=== PATIENT | male | born 1990 ===

== ENCOUNTER 2020-09-03 15:12 | Emergency (ER) | payer MEDICAID, SELFPAY ==
[2020-09-03] VITALS (7 sets, daily range): BP systolic 119–163; BP diastolic 57–80; PULSE 81–103; RESP 20; TEMP 36.4–37.5; O2SAT 99; BMI 80.6
--- NOTE | 2020-09-03 | CT_ITS ---
EXAMINATION: CT ABDOMEN AND PELVIS WITH CONTRAST CLINICAL INFORMATION: Abdominal pain. COMPARISON: CT abdomen 05/13/2020, 03/05/2020, 06/29/2019, 04/05/2018 and multiple others. TECHNIQUE: Multidetector volumetric images were obtained from the superior aspect of the liver through the pubic symphysis following administration 85 mL of Omnipaque 350 intravenous contrast. Sagittal and coronal reformatted images were obtained on the technologist's workstation. Oral Contrast: No. This CT examination was performed using dose optimization techniques as appropriate, variously including the following: *Automated exposure control. *Adjustment of mA and/or kV according to patient size (this includes techniques or standardized protocols for targeted exams where dose is matched to indication/reason for exam; i.e. extremities or head). *Use of iterative reconstruction technique. DLP: 741 mGy-cm FINDINGS: LUNG BASES: The visualized lung bases are unremarkable aside from the presence of a hiatal hernia. LIVER, GALLBLADDER, AND BILIARY TREE: The liver is normal in size, shape, and attenuation. No focal hepatic lesion or biliary ductal dilatation is present. The gallbladder is unremarkable with no evidence of radiopaque gallstones, gallbladder wall thickening, or obvious pericholecystic inflammatory changes. PANCREAS: Unremarkable. SPLEEN: Unremarkable. ADRENAL GLANDS: Unremarkable. KIDNEYS AND URETERS: The kidneys are normal in size, shape, and attenuation. No hydronephrosis, hydroureter, or calculi seen. No perinephric stranding. BLADDER: Unremarkable. GASTROINTESTINAL TRACT: The transverse colon and hepatic flexure are tubular in appearance and completely collapsed without any stool contents. No significant inflammatory changes are seen in the pericolonic fat. At the time of the prior study, the descending colon had a similar appearance but now appears normal. In addition, submucosal fat is present throughout a large portion of the colon. These findings could be consistent with previous colitis but no active inflammation or inflammatory changes are present at this time. The small and large bowel are otherwise unremarkable. The appendix appears to have been removed. ABDOMINAL WALL: No significant hernia is appreciated. LYMPH NODES: No retroperitoneal lymphadenopathy. Some small lymph nodes are noted in the mesentery. VASCULAR: Unremarkable. PELVIC VISCERA: Prostate and seminal vesicles appear normal. OSSEOUS STRUCTURES: Unremarkable. IMPRESSION: A definite cause for the acute abdominal pain has not been found. There is evidence of colon chronic colitis. Incidental note made of a hiatal hernia and appendectomy.
[2020-09-03 16:03] LABS: Glucose, Whole Blood 282 mg/dL (60-115)
--- NOTE | 2020-09-03 18:18 | ED.ABDPAIN ---
HPI - Abdominal Pain General Chief Complaint: Nausea/Vomiting/Diarrhea Stated Complaint: ABD PAIN/VOMITING Time Seen by Provider: 09/03/20 17:30 Source: patient Mode of arrival: ambulatory Limitations: no limitations History of Present Illness HPI narrative: patient presents to ED for abdominal pain, nausea, and vomiting. Patient denies any diarrhea. Patient states no fever, chills, flank pain. Patient states no recent travel outside the country. Patient denies anyone else at home having similar symptoms. MD elicited complaint: abdominal pain Pain Consistency: constant Location: diffuse Severity: moderate Quality: cramping and sharp Associated symptoms: nausea and vomiting Related Data Home Medications Medication Instructions Recorded Confirmed metoclopramide HCl [Reglan] 10 mg PO Q6H PRN 09/03/20 09/03/20 omeprazole magnesium 20 mg PO BID 09/03/20 09/03/20 subcutaneous insulin pump 09/03/20 09/03/20 [Accu-Chek Spirit Insulin Pump] subcutaneous insulin pump [Omnipod 09/03/20 09/03/20 Insulin Management] Previous Rx's Medication Instructions Recorded ondansetron HCl [Zofran] 4 mg PO Q8H PRN #10 tab 09/04/20 tramadol 50 mg PO Q6H PRN #12 tab 09/04/20 Allergies Allergy/AdvReac Type Severity Reaction Status Date / Time No Known Allergies Allergy Verified 09/03/20 15:25 Review of Systems Review of Systems Yes all other systems are reviewed and are negative Constitutional: Reports no additional constitutional complaints Eyes: Reports no additional eye complaints Reports system reviewed and no additional complaints, except as documented Cardiovascular: Reports no additional cardiovascular complaints Respiratory: Reports as per HPI and Reports no additional respiratory complaints Gastrointestinal: Reports abdominal pain, Denies belching, Denies melena, Denies hematochezia, Denies diarrhea, Reports nausea and Reports vomiting Genitourinary: Reports no additional male genitourinary complaints Musculoskeletal: Reports no additional musculoskeletal complaints Reports system reviewed and no additional complaints, except as documented Psychiatric: Reports no additional psychiatric complaints Physical Exam Vital Signs and I&O and Narrative: Vital Signs and I&O: Vital Signs Temp 98.7 F 09/04/20 03:25 Pulse 117 H 09/04/20 03:25 Resp 15 09/04/20 03:25 BP 140/76 H 09/04/20 03:25 Pulse Ox 97 09/04/20 03:25 Intake & Output 09/03/20 09/03/20 09/04/20 06:59 18:59 06:59 Intake Total 3000 / 3000 Balance 3000 / 3000 Weight 220 kg Intake: Intake, IV Amoun t 3000 / 3000 0.9 % Sodium C hloride 1,000 ml 3000 / 3000 @ 999 mls/hr I VCONT .Q1H1M STA Rx#:[id number] Body Mass Index 80.6 Const: General: cooperative, healthy appearing, comfortable, no acute distress, well developed, alert and awake Orientation/consciousness: patient oriented x3 HENMT: Head: Yes normal to inspection Eyes: General: appearance normal, both eyes and all related structures Neck: Neck: Yes normal visual inspection, Yes full ROM, No anterior neck swelling, No positive Brudzinski's sign and No positive Kernig's sign Chest: Chest palpation & inspection: normal inspection of the chest, normal palpation of entire chest wall and normal inspection of the chest Resp: Effort & Inspection: normal respiratory effort, able to speak in complete sentences, normal respiratory pattern, no audible wheezes and no cough Auscultation: clear to auscultation bilaterally Cardio: Jugular venous distension: no JVD Rate: regular rate Heart sounds: S1 normal heart sound present and S2 normal heart sound present GI: Inspection: No Kehr's sign positive Palpation (GI): Tenderness to palpation present (GI) (diffuse) Percussion: Yes normal to percussion Auscultation: normal bowel sounds : General: Yes no CVA tenderness Back/Spine/Pelvis: Back: no CVA tenderness, No mass, No erythema, No warmth, No sacral edema, No ecchymosis and No back tenderness Skin: General skin exam: no rashes or lesions noted Neuro: General: patient oriented x3, gait normal and CN's II-XI intact bilaterally Cranial nerves: Yes CN's II-XII intact bilaterally Extrem: General: Yes normal to inspection and Yes full ROM Psych: Appearance: grossly normal and well kempt Mental Status: mental status grossly normal Speech and movement: Normal speech and movement present Affect: normal affect Course Course Course Narrative: Patient has diffuse abdominal pain. Patient will be treated as possible gastritis exacerbation. Patient given GI cocktail. Pain does not improve patient most likely get abdominal CT scan to make sure there is no abdominal etiology. Patient also ordered Zofran Reevaluation(s) Reevaluation #1: patient's white blood cell count [id number]. CT scan does not show any acute infection. UA negative for any infection. Discussed case with Dr. Castle and he states most likely patient has gastroparesis from his diabetes. Patient states he has had this episode before with gastroparesis due to diabetes. Exam was not believe patient is having septic episode due to presently having no source of infection. Presently lactate, blood culture, antibiotics were cancel. Will give patient 2 more bags of fluid and repeat labs and will order lactic acid. Time: 23:55 Reevaluation #2: patient's white blood cell count improved and decreased to 17,000. Patient states pain feel better. Patient passed p.o. challenge. Case spoke with Dr. Abdifatah Ricardo the hospitalist on-call. He came and evaluated patient. He states patient can be discharged and states this is due to patient's gastroparesis. He states vital signs are improving, white blood cell count is improving, and abdomen negative any guarding, or rigidity. Lactic acidosis will be sent. Time: 02:40 Reevaluation #3: Patient's lactic acid came back negative. Presently there is no source of an infection. Patient's elevated white blood cell count due to dehydration caused by gastroparesis as an occurring for the past 2 days. Once again patient passed p.o. challenge. Patient will be discharged with Zofran and pain medication. Patient will be given Kayexalate for potassium 5.3 kidney function normal. Time: 03:09 Additional Reevaluation(s): patient's lactic acid negative. Patient is safe for discharge MDM - Abdominal Pain MDM Narrative Medical decision making narrative: Patient's symptoms were due to gastroparesis. Patient is not in DKA. Lactic acid negative. CT scan does not show any acute abdominal changes. UA negative for infection. Patient is safe for discharge. Lab Data Result diagrams: 09/04/20 02:08 09/03/20 18:23 Labs: Lab Results 09/03/20 09/03/20 09/03/20 Range/Units 15:59 18:23 18:23 WBC 24.8 H (4.8-10.8) X10*3/uL RBC 5.21 (4.60-5.80) X10*6/uL Hgb 14.9 (14.0-18.0) g/dl Hct 44.1 (42-52) % MCV 84.6 (80-98) fL MCH 28.6 (27.0-33.0) pg MCHC 33.8 (31.0-36.0) g/dl RDW 12.8 (11.0-16.0) % Plt Count 339 (160-400) X10*3/uL MPV 11.4 (9.4-12.4) fL Immature Gran % (Auto) 0.6 H (0.0-0.4) % Neut % (Auto) 92.7 H (45-73) % Lymph % (Auto) 3.3 L (20-40) % [place] % (Auto) 3.2 (2-11) % Eos % (Auto) 0.0 (0-4) % Baso % (Auto) 0.2 (0-2) % Neut # (Auto) 23.0 H (2.0-8.3) X10*3/uL Lymph # (Auto) 0.8 L (1.2-4.9) X10*3/uL [place] # (Auto) 0.8 (0.1-1.2) X10*3/uL Eos # (Auto) 0.0 (0.0-0.4) X10*3/uL Baso # (Auto) 0.1 (0.0-0.2) X10*3/uL Abs Immat Gran (auto) 0.15 H (0.00-0.03) X10*3/uL Absolute Nucleated RBC 0.000 (0.0-0.012) X10*3/uL Nucleated RBC % (auto) 0.0 (0.0-0.2) /100WBC Smear Tech's Comments VERIFIED PT 12.5 (10.8-13.0) SEC INR 1.1 (0.9-1.1) APTT 34.3 (24.1-38.0) SEC Sodium (135-145) mmol/L Potassium (3.3-5.1) mmol/l Chloride (96-108) mmol/L Carbon Dioxide (22-29) mmol/L Anion Gap (12-20) BUN (9-16) mg/dL Creatinine (0.5-1.4) mg/dL Estim Creat Clear Calc Estimated GFR POC Glucose 282 H (60-115) mg/dL Random Glucose (60-115) mg/dL Lactic Acid (0.5-2.0) mmol/L Calcium (8.4-10.2) mg/dL Total Bilirubin (0.0-1.0) mg/dL Direct Bilirubin (0.0-0.5) mg/dL AST (5-37) U/L ALT (0-40) U/L Alkaline Phosphatase (39-117) U/L Total Protein (6.5-8.0) g/dL Albumin (3.5-5.0) g/dL Lipase (8-78) U/L Urine Color Urine Appearance Urine pH (5.0-8.0) Ur Specific [place] (1.005-1.025) Urine Protein (NEG-TRACE) MG/DL Urine Glucose (UA) (NEG) MG/DL Urine Ketones (NEG) MG/DL Urine Blood (NEG) Urine Nitrite (NEG) Ur Leukocyte Esterase (NEG) Urine RBC (0) /HPF Urine WBC (0-4) /HPF Ur Squamous Epith Cells /LPF Urine Bacteria /LPF Hyaline Casts /LPF RBC Casts /LPF 09/03/20 09/03/20 09/04/20 Range/Units 18:23 22:46 02:08 WBC 17.2 H (4.8-10.8) X10*3/uL RBC 4.45 L (4.60-5.80) X10*6/uL Hgb 12.6 L (14.0-18.0) g/dl Hct 37.1 L (42-52) % MCV 83.4 (80-98) fL MCH 28.3 (27.0-33.0) pg MCHC 34.0 (31.0-36.0) g/dl RDW 13.0 (11.0-16.0) % Plt Count 286 (160-400) X10*3/uL MPV 11.2 (9.4-12.4) fL Immature Gran % (Auto) 0.3 (0.0-0.4) % Neut % (Auto) 90.2 H (45-73) % Lymph % (Auto) 5.9 L (20-40) % [place] % (Auto) 3.4 (2-11) % Eos % (Auto) 0.0 (0-4) % Baso % (Auto) 0.2 (0-2) % Neut # (Auto) 15.5 H (2.0-8.3) X10*3/uL Lymph # (Auto) 1.0 L (1.2-4.9) X10*3/uL [place] # (Auto) 0.6 (0.1-1.2) X10*3/uL Eos # (Auto) 0.0 (0.0-0.4) X10*3/uL Baso # (Auto) 0.0 (0.0-0.2) X10*3/uL Abs Immat Gran (auto) 0.06 H (0.00-0.03) X10*3/uL Absolute Nucleated RBC 0.000 (0.0-0.012) X10*3/uL Nucleated RBC % (auto) 0.0 (0.0-0.2) /100WBC Smear Tech's Comments PT (10.8-13.0) SEC INR (0.9-1.1) APTT (24.1-38.0) SEC Sodium 135 (135-145) mmol/L Potassium 5.3 H (3.3-5.1) mmol/l Chloride 100 (96-108) mmol/L Carbon Dioxide 22 (22-29) mmol/L Anion Gap 18 (12-20) BUN 17 H (9-16) mg/dL Creatinine 1.34 (0.5-1.4) mg/dL Estim Creat Clear Calc 144.9 Estimated GFR > 60 POC Glucose (60-115) mg/dL Random Glucose 297 H (60-115) mg/dL Lactic Acid (0.5-2.0) mmol/L Calcium 9.7 (8.4-10.2) mg/dL Total Bilirubin 0.5 (0.0-1.0) mg/dL Direct Bilirubin 0.2 (0.0-0.5) mg/dL AST 20 (5-37) U/L ALT 20 (0-40) U/L Alkaline Phosphatase 160 H (39-117) U/L Total Protein 7.6 (6.5-8.0) g/dL Albumin 4.0 (3.5-5.0) g/dL Lipase 4 L (8-78) U/L Urine Color YELLOW Urine Appearance CLEAR Urine pH 5.5 (5.0-8.0) Ur Specific [place] 1.010 (1.005-1.025) Urine Protein 2+ H (NEG-TRACE) MG/DL Urine Glucose (UA) 500 H (NEG) MG/DL Urine Ketones 15 (NEG) MG/DL Urine Blood 3+ H (NEG) Urine Nitrite NEG (NEG) Ur Leukocyte Esterase NEG (NEG) Urine RBC 15-29 H (0) /HPF Urine WBC 0 (0-4) /HPF Ur Squamous Epith Cells TRACE /LPF Urine Bacteria NONE /LPF Hyaline Casts 1-4 /LPF RBC Casts 1-4 /LPF 09/04/20 Range/Units 02:42 WBC (4.8-10.8) X10*3/uL RBC (4.60-5.80) X10*6/uL Hgb (14.0-18.0) g/dl Hct (42-52) % MCV (80-98) fL MCH (27.0-33.0) pg MCHC (31.0-36.0) g/dl RDW (11.0-16.0) % Plt Count (160-400) X10*3/uL MPV (9.4-12.4) fL Immature Gran % (Auto) (0.0-0.4) % Neut % (Auto) (45-73) % Lymph % (Auto) (20-40) % [place] % (Auto) (2-11) % Eos % (Auto) (0-4) % Baso % (Auto) (0-2) % Neut # (Auto) (2.0-8.3) X10*3/uL Lymph # (Auto) (1.2-4.9) X10*3/uL [place] # (Auto) (0.1-1.2) X10*3/uL Eos # (Auto) (0.0-0.4) X10*3/uL Baso # (Auto) (0.0-0.2) X10*3/uL Abs Immat Gran (auto) (0.00-0.03) X10*3/uL Absolute Nucleated RBC (0.0-0.012) X10*3/uL Nucleated RBC % (auto) (0.0-0.2) /100WBC Smear Tech's Comments PT (10.8-13.0) SEC INR (0.9-1.1) APTT (24.1-38.0) SEC Sodium (135-145) mmol/L Potassium (3.3-5.1) mmol/l Chloride (96-108) mmol/L Carbon Dioxide (22-29) mmol/L Anion Gap (12-20) BUN (9-16) mg/dL Creatinine (0.5-1.4) mg/dL Estim Creat Clear Calc Estimated GFR POC Glucose (60-115) mg/dL Random Glucose (60-115) mg/dL Lactic Acid 0.7 (0.5-2.0) mmol/L Calcium (8.4-10.2) mg/dL Total Bilirubin (0.0-1.0) mg/dL Direct Bilirubin (0.0-0.5) mg/dL AST (5-37) U/L ALT (0-40) U/L Alkaline Phosphatase (39-117) U/L Total Protein (6.5-8.0) g/dL Albumin (3.5-5.0) g/dL Lipase (8-78) U/L Urine Color Urine Appearance Urine pH (5.0-8.0) Ur Specific [place] (1.005-1.025) Urine Protein (NEG-TRACE) MG/DL Urine Glucose (UA) (NEG) MG/DL Urine Ketones (NEG) MG/DL Urine Blood (NEG) Urine Nitrite (NEG) Ur Leukocyte Esterase (NEG) Urine RBC (0) /HPF Urine WBC (0-4) /HPF Ur Squamous Epith Cells /LPF Urine Bacteria /LPF Hyaline Casts /LPF RBC Casts /LPF Discharge Plan Discharge Clinical Impression: Diabetic gastroparesis Patient Disposition: Home, Self-Care Instructions: Diabetic Gastroparesis (DC) Additional Instructions: Return to ED for any worsening abdominal pain, flank pain, fever, chills, nausea, vomiting, weakness, inability to tolerate solid food/ liquid, or any other concerning symptoms. Prescriptions: New tramadol 50 mg tablet 50 mg PO Q6H PRN (Reason: pain) Qty: 12 RF: 0 ondansetron HCl [Zofran] 4 mg tablet 4 mg PO Q8H PRN (Reason: nausea and vomiting) Qty: 10 RF: 0 No Action metoclopramide HCl [Reglan] 10 mg Tablet 10 mg PO Q6H PRN (Reason: Vomiting) RF: 0 (DME) Accu-Chek Spirit Insulin Pump Misc MISCELLANEOUS RF: 0 (DME) Omnipod Insulin Management Misc MISCELLANEOUS RF: 0 omeprazole magnesium 20 mg Capsule,Delayed Release(Dr/Ec) 20 mg PO BID RF: 0 Referrals: Name,MD Dipesh [Primary Care Provider] - 2 days ( Gastropareisis) Stand Alone Forms: Work/School Release Print Language: [place] [facility] Past Medical History Medical History (Updated 09/04/20 @ 02:42 by ROBINSON Jackson) Asthma Diabetes Gastritis Gastroparalysis Social History Social History Alcohol intake: never Smoking Status: Never smoker Use of substances other than those prescribed or required for medical reasons: Yes Substance Use Type: Marijuana Substance Use Frequency: Occasionally Last Used Substance: Days (ago) Advance Directives: No Advance Directives Information Provided: Yes
[2020-09-03 18:29] LABS: Basophils Absolute Auto 0.1 X10*3/uL (0.0-0.2); Basophils Percent Auto 0.2 % (0-2); Hematocrit 44.1 % (42-52); Hemoglobin 14.9 g/dl (14.0-18.0); Imm Gran Abs Auto 0.15 X10*3/uL (0.00-0.03); Imm Gran Pct Auto 0.6 % (0.0-0.4); Lymphocytes Absolute Auto 0.8 X10*3/uL (1.2-4.9); Lymphocytes Percent Auto 3.3 % (20-40); MANUAL DIFF FLAG SCAN; Mean Corpuscular HGB Conc 33.8 g/dl (31.0-36.0); Mean Corpuscular Hemoglobin 28.6 pg (27.0-33.0); Mean Corpuscular Volume 84.6 fL (80-98); Mean Platelet Volume 11.4 fL (9.4-12.4); Monocytes Absolute Auto 0.8 X10*3/uL (0.1-1.2); Monocytes Percent Auto 3.2 % (2-11); Neutrophils Percent Auto 92.7 % (45-73); Platelet Count 339 X10*3/uL (160-400); Red Blood Count 5.21 X10*6/uL (4.60-5.80); Red Cell Distribution Width 12.8 % (11.0-16.0); SCAN SMEAR FLAG 1; White Blood Count 24.8 X10*3/uL (4.8-10.8)
[2020-09-03 18:38] LABS: INTERNATIONAL NORM RATIO 1.1 (0.9-1.1); Prothrombin Time 12.5 SEC (10.8-13.0)
[2020-09-03 18:40] LABS: Partial Thromboplastin Time 34.3 SEC (24.1-38.0)
[2020-09-03 18:49] LABS: SLIDE REVIEW VERIFIED
[2020-09-03] MEDS: 0.9 % Sodium Chloride 1,000 ML 999 ML IVCONT (18:50)
[2020-09-03] MEDS: ondansetron HCL 4 MG/2 ML VIAL IVPUSH (18:50)
[2020-09-03] MEDS: Famotidine/PF 20 MG/2 ML VIAL IVPUSH (18:50)
[2020-09-03] MEDS: Ketorolac Tromethamine 30 MG/ML VIAL IVPUSH (18:50)
[2020-09-03 19:07] LABS: Alanine Aminotransferase 20 U/L (0-40); Alkaline Phosphatase 160 U/L (39-117); Anion Gap 18 (12-20); Aspartate Amino Transferase 20 U/L (5-37); Bilirubin Direct 0.2 mg/dL (0.0-0.5); Bilirubin Total 0.5 mg/dL (0.0-1.0); Blood Urea Nitrogen 17 mg/dL (9-16); Calcium 9.7 mg/dL (8.4-10.2); Carbon Dioxide 22 mmol/L (22-29); Chloride 100 mmol/L (96-108); Creatinine Clr Calc Pharmacy 144.9; Estimated Glomerular Filt Rate > 60; Glucose Random 297 mg/dL (60-115); Lipase 4 U/L (8-78); Potassium 5.3 mmol/l (3.3-5.1); Sodium 135 mmol/L (135-145); Total Protein 7.6 g/dL (6.5-8.0)
[2020-09-03] MEDS: iohexoL 350 MG/ML 100 ML INFUS..BTL IV (19:54)
[2020-09-03] MEDS: Morphine Sulfate 4 MG/ML CARTRIDGE IVPUSH ×2 (21:05→23:28)
[2020-09-03 22:53] LABS: Glucose Urine UA 500 MG/DL (NEG); Leukocyte Esterase Urine NEG (NEG); Nitrite Urine NEG (NEG); PH 5.5 (5.0-8.0); Urine Blood 3+ (NEG); Urine Ketones 15 MG/DL (NEG); Urine Protein 2+ MG/DL (NEG-TRACE)
[2020-09-03 23:14] LABS: Appearance Urine CLEAR; Color Urine YELLOW
[2020-09-03 23:16] LABS: Squamous Epithelial Cell Urine TRACE /LPF; WBC Urine 0 /HPF (0-4)
[2020-09-03 23:23] LABS: UACC CULT NO
[2020-09-04] MEDS: 0.9 % Sodium Chloride 1,000 ML 999 ML IVCONT ×2 (00:19)
[2020-09-04 00:22] VITALS: BP 143/76; PULSE 103; RESP 15; O2SAT 97
[2020-09-04 02:00] VITALS: BP 127/74; PULSE 106; RESP 14; TEMP 37.7; O2SAT 97
[2020-09-04 02:15] LABS: Basophils Percent Auto 0.2 % (0-2); Hematocrit 37.1 % (42-52); Hemoglobin 12.6 g/dl (14.0-18.0); Imm Gran Abs Auto 0.06 X10*3/uL (0.00-0.03); Imm Gran Pct Auto 0.3 % (0.0-0.4); Lymphocytes Percent Auto 5.9 % (20-40); MANUAL DIFF FLAG NO; Mean Corpuscular Hemoglobin 28.3 pg (27.0-33.0); Mean Corpuscular Volume 83.4 fL (80-98); Mean Platelet Volume 11.2 fL (9.4-12.4); Monocytes Absolute Auto 0.6 X10*3/uL (0.1-1.2); Monocytes Percent Auto 3.4 % (2-11); Neutrophils Absolute Auto 15.5 X10*3/uL (2.0-8.3); Neutrophils Percent Auto 90.2 % (45-73); Platelet Count 286 X10*3/uL (160-400); Red Blood Count 4.45 X10*6/uL (4.60-5.80); SCAN SMEAR FLAG 1; White Blood Count 17.2 X10*3/uL (4.8-10.8)
[2020-09-04 03:04] LABS: Lactic Acid 0.7 mmol/L (0.5-2.0)
[2020-09-04 03:25] VITALS: BP 140/76; PULSE 117; RESP 15; TEMP 37.1; O2SAT 97
[2020-09-04] MEDS: Sodium Polystyrene Sulfon/Sorb 15 GM/60 ML ORAL.SUSP 30 GM PO (03:33)
[2020-09-04] MEDS: oxyCODONE HCl Immed Release 5 MG TABLET PO (03:33)
== END 2020-09-04 03:38 | disposition home or self-care (01) ==
PROVIDERS: Physician Assistant; Emergency Provider Internal Medicine; PCP Internal Medicine Geriatric Medicine
DX: E11.43 Type 2 diabetes mellitus with diabetic autonomic (poly)neuropathy (principal); R10.9 Unspecified abdominal pain
CPT/HCPCS: 36415; 74177; 80053; 80076; 81001; 82947; 83605; 83690; 85025; 85610; 85730; 96361; 96374; 96375; 96376; 99285; J1885; J2270; J2405

== ENCOUNTER 2020-09-10 15:47 | Inpatient (IN) | payer MEDICAID, SELFPAY ==
[2020-09-10 17:07] VITALS: BP 181/97; PULSE 110; RESP 18; TEMP 37.5; O2SAT 98; BMI 36.6
--- NOTE | 2020-09-10 19:01 | ECG_ITS ---
Test Reason : NAUSEA Blood Pressure : / mmHG Vent. Rate : 107 BPM Atrial Rate : 107 BPM P-R Int : 130 ms QRS Dur : 078 ms QT Int : 356 ms P-R-T Axes : 042 033 -11 degrees QTc Int : 475 ms Sinus tachycardia Nonspecific T wave abnormality Abnormal ECG When compared with ECG of 19-NOV-2019 08:28, Inverted T waves have replaced nonspecific T wave abnormality in Inferior leads Nonspecific T wave abnormality now evident in Anterolateral leads Referred By: Anayeli Means Electronically Signed By:SUSANNAH LAKE MD
--- NOTE | 2020-09-10 19:04 | CT_ITS ---
EXAMINATION: CT ABDOMEN AND PELVIS WITHOUT CONTRAST CLINICAL INFORMATION: Abdominal pain, nausea and vomiting. COMPARISON: CT abdomen and pelvis from 09/03/2020. TECHNIQUE: Noncontrast volumetric helical CT acquisition of the abdomen and pelvis. Axial images are presented at 0.625 mm and 5 mm slice thickness. Coronal and sagittal reformatted images were generated at the technologist workstation. This CT examination was performed using dose optimization techniques as appropriate, variously including the following: *Automated exposure control *Adjustment of mA and/or kV according to patient size (this includes techniques or standardized protocols for targeted exams where dose is matched to indication/reason for exam; i.e. extremities or head) *Use of iterative reconstruction technique DLP: 752 mGy-cm. FINDINGS: LUNG BASES: Unremarkable. LIVER, GALLBLADDER, AND BILIARY TREE: The liver has normal size, shape, and attenuation. No focal hepatic lesion. The gallbladder is grossly normal; no radiopaque gallstones, wall thickening, or pericholecystic fluid. No intrahepatic or extrahepatic bile duct dilatation. PANCREAS: Normal. No evidence of pancreatic mass, edema or ductal dilatation. SPLEEN: Unremarkable. ADRENAL GLANDS: Unremarkable. KIDNEYS AND URETERS: The kidneys have normal size, shape, and attenuation. No hydroureteronephrosis, urolithiasis or perinephric fluid collection. BLADDER: Unremarkable. BOWEL AND PERITONEUM: Stomach and small bowel are unremarkable. The appendix is surgically absent. No pericolonic fat stranding or colonic wall thickening. No evidence of acute inflammation or obstruction along the gastrointestinal tract. No ascites or pneumoperitoneum. ABDOMINAL WALL: The foci of gas in subcutaneous tissues of the right abdominal wall are likely from recent medication injection. LYMPH NODES: No pathologic sized lymph nodes in the abdomen or pelvis. No inguinal lymphadenopathy. VASCULATURE: Unremarkable. PELVIC VISCERA: Prostate gland and seminal vesicles are normal. No pelvic mass or free fluid. MUSCULOSKELETAL: Unremarkable. IMPRESSION: No acute imaging abnormalities in the abdomen or pelvis. No inflammatory change or obstruction along the gastrointestinal tract. No specific source of pain is identified.
--- NOTE | 2020-09-10 19:12 | ED_ITS ---
HPI - Nausea/Vomiting/Diarrhea General Chief complaint: Abdominal Pain Stated complaint: Vomiting Time Seen by Provider: 09/10/20 19:01 Source: patient Mode of arrival: ambulatory Limitations: no limitations History of Present Illness HPI Narrative: 30-year-old male presents with nausea, vomiting, abdominal pain, abdominal distention for 12 days. He is a type 1 diabetic and was seen at [facility] and [facility] over the past week. He states that he is unable to take any other medications as every time he eats or drinks he vomits immediately. He has not been able to eat or drink over the past several days, feels weak, as intermittent fevers and chills, and 10/10 pain. His blood sugars have been running in the 140s. he denies chest pressure, palpitations, edema, trauma altered mental status, dysuria, hematuria, and changes in vision. MD elicited complaint: nausea, vomiting and abdominal pain Pertinent past history: other ( type 1 diabetes) Onset (ago): day(s) (12 days) Description of vomiting: watery and bilious Associated nausea: Yes Associated abdominal pain: Yes Location of pain: diffuse Pain consistency: constant Severity: severe Pain scale (0-10): 10 Quality: cramping, aching and constant Exacerbating factors: eating, vomiting, movement and exertion Relieving factors: none Context: history of abdominal surgery Associated symptoms: fever/chills, loss of appetite, malaise, nausea/vomiting, weakness and decreased urine output Treatment prior to arrival: other ( antibiotics, pain management) Related Data Home Medications Medication Instructions Recorded Confirmed metoclopramide HCl [Reglan] 10 mg PO Q6H PRN 09/03/20 09/03/20 omeprazole magnesium 20 mg PO BID 09/03/20 09/03/20 subcutaneous insulin pump 09/03/20 09/03/20 [Accu-Chek Spirit Insulin Pump] subcutaneous insulin pump [Omnipod 09/03/20 09/03/20 Insulin Management] Previous Rx's Medication Instructions Recorded ondansetron HCl [Zofran] 4 mg PO Q8H PRN #10 tab 09/04/20 tramadol 50 mg PO Q6H PRN #12 tab 09/04/20 Allergies Allergy/AdvReac Type Severity Reaction Status Date / Time No Known Allergies Allergy Verified 10/06/20 15:25 Review of Systems Review of Systems: Constitutional: No Weight loss, No Fever, No Chills, No Night Sweats, No Fatigue, No Malaise ENT/Mouth: No Hearing loss, No Ear Pain, No Nasal Congestion, No Sinus Pain, No Hoarseness, No sore throat, No Rhinorrhea, No Swallowing Difficulty Eyes: No Eye Pain, No Swelling, No Redness, No Foreign Body, No Discharge, No Vision Changes Cardiovascular: No Chest Pain, No SOB, No Dyspnea on Exertion, No Orthopnea, No Edema, No Palpitations Respiratory: No Cough, No Sputum, No Wheezing, No Smoke Exposure, No Dyspnea Gastrointestinal: Positive Nausea, Positive Vomiting, positive Diarrhea, positive abdominal Pain, No Hematochezia, No Melena Genitourinary: no irregular bleeding, No Dysuria, No Urinary Frequency, No Hematuria, No Urinary Incontinence, No Urgency, No Flank Pain, No Urinary Flow Changes, No Hesitancy Musculoskeletal: No joint pain, No Myalgias, No Joint Swelling Skin: No Skin Lesions, No rash Neuro: No Weakness, No Numbness, No Paresthesias, No Loss of Consciousness, No Dizziness, No Headache Psych: No Anxiety/Panic, No Depression, No SI/HI/AH/VH, No Social Issues, Heme/Lymph: No Bruising, No Bleeding,No Lymphadenopathy Endocrine: No Polyuria, No Polydipsia, No Temperature Intolerance Gastrointestinal: Gastrointestinal: Reports nausea PMFSH Past Medical History Attestation statement: The following information was validated with the patient. Medical History Asthma Diabetes Gastritis Gastroparalysis H. pylori infection Social History Social History Alcohol intake: never Smoking Status: Never smoker Use of substances other than those prescribed or required for medical reasons: No Substance Use Type: Marijuana Advance Directives: No Advance Directives Information Provided: No Physical Exam Vital Signs: Vital Signs: Vital Signs Temp Pulse Resp BP Pulse Ox 09/11/20 00:23 89 17 158/90 H 98 09/10/20 21:45 99.1 F 97 18 154/79 H 97 09/10/20 20:03 99.0 F 104 H 18 180/99 H 100 09/10/20 17:07 99.5 F 110 H 18 181/97 H 98 Body Mass Index 36.6 Appearance: Alert. Oriented X3. No acute distress. Eyes: Pupils equal, round and reactive to light. ENT: Pharynx normal. Neck: Normal inspection. Neck supple. CVS: Normal heart rate and rhythm. Pulses normal. Respiratory: No respiratory distress. Breath sounds normal. Abdomen: Soft and nontender. Skin: Skin warm and dry. Normal skin color. Normal skin turgor. Extremities: No lower extremity edema. No lower extremity edema. Neuro: Oriented X 3. No motor deficit. No sensory deficit. Course Course Course Narrative: plan of care is to rule out DKA, acute abdomen, and sepsis. We will initiate fluids, antiemetics, and pain management. CBC indicates white count of 16.6, sodium 132, chloride 88, blood sugar 230, has a small amount of acetone in his blood. Patient requires more pain management. We will discuss case with hospitalist for admission. Reevaluation(s) Reevaluation #1: Nursing updated this [employer] that multiple IV starts attempted have failed. EJ placed now. Time: 20:25 Reevaluation #2: Discussion with patient regarding plan of care, patient agrees to be admitted for intractable nausea, vomiting. Time: 22:20 Consultations Consultation #1: Oliver Time: 22:25 Procedures EJ/Peripheral Line Neck R: Time Out Performed: Yes Skin Cleansed in Sterile Fashion: Yes Size (gauge): 20 IV Secured and Dressing Applied: Yes Patient Tolerated Procedure: well MDM - Nausea/Vomiting/Diarrhea Medical Records Attestation: I reviewed the patient's medical records. Lab Data Attestation: I reviewed the patient's lab results. Result diagrams: 09/10/20 20:26 09/10/20 20:26 Labs: Lab Results 09/10/20 09/10/20 09/10/20 Range/Units 20:05 20:26 20:26 WBC 16.6 H (4.8-10.8) X10*3/uL RBC 5.00 (4.60-5.80) X10*6/uL Hgb 14.1 (14.0-18.0) g/dl Hct 41.8 L (42-52) % MCV 83.6 (80-98) fL MCH 28.2 (27.0-33.0) pg MCHC 33.7 (31.0-36.0) g/dl RDW 12.4 (11.0-16.0) % Plt Count 344 (160-400) X10*3/uL MPV 10.8 (9.4-12.4) fL Immature Gran % (Auto) 0.7 H (0.0-0.4) % Neut % (Auto) 81.3 H (45-73) % Lymph % (Auto) 9.5 L (20-40) % [place] % (Auto) 8.2 (2-11) % Eos % (Auto) 0.1 (0-4) % Baso % (Auto) 0.2 (0-2) % Lymph # (Auto) 1.6 (1.2-4.9) X10*3/uL [place] # (Auto) 1.4 H (0.1-1.2) X10*3/uL Eos # (Auto) 0.0 (0.0-0.4) X10*3/uL Baso # (Auto) 0.0 (0.0-0.2) X10*3/uL Abs Immat Gran (auto) 0.11 H (0.00-0.03) X10*3/uL Absolute Neuts (auto) 13.5 H (2.0-8.3) X10*3/uL Absolute Nucleated RBC 0.000 (0.0-0.012) X10*3/uL Nucleated RBC % (auto) 0.0 (0.0-0.2) /100WBC Sodium 132 L (135-145) mmol/L Potassium 3.3 D (3.3-5.1) mmol/l Chloride 88 L (96-108) mmol/L Carbon Dioxide 29 (22-29) mmol/L Anion Gap 18 (12-20) BUN 14 (9-16) mg/dL Creatinine 1.02 (0.5-1.4) mg/dL Estim Creat Clear Calc 117.2 Estimated GFR > 60 POC Glucose 230 H (60-115) mg/dL Random Glucose 237 H (60-115) mg/dL Lactic Acid (0.5-2.0) mmol/L Calcium 8.7 (8.4-10.2) mg/dL Magnesium 2.0 (1.6-2.6) mg/dL Total Bilirubin 0.7 (0.0-1.0) mg/dL Direct Bilirubin 0.2 (0.0-0.5) mg/dL AST 18 (5-37) U/L ALT 16 (0-40) U/L Alkaline Phosphatase 107 D (39-117) U/L Troponin I High Sens (<3.5-35.0) ng/L Total Protein 6.2 L (6.5-8.0) g/dL Albumin 3.4 L (3.5-5.0) g/dL Lipase 4 L (8-78) U/L Acetone, Qual Small H (Negative) 09/10/20 09/10/20 Range/Units 20:26 20:26 WBC (4.8-10.8) X10*3/uL RBC (4.60-5.80) X10*6/uL Hgb (14.0-18.0) g/dl Hct (42-52) % MCV (80-98) fL MCH (27.0-33.0) pg MCHC (31.0-36.0) g/dl RDW (11.0-16.0) % Plt Count (160-400) X10*3/uL MPV (9.4-12.4) fL Immature Gran % (Auto) (0.0-0.4) % Neut % (Auto) (45-73) % Lymph % (Auto) (20-40) % [place] % (Auto) (2-11) % Eos % (Auto) (0-4) % Baso % (Auto) (0-2) % Lymph # (Auto) (1.2-4.9) X10*3/uL [place] # (Auto) (0.1-1.2) X10*3/uL Eos # (Auto) (0.0-0.4) X10*3/uL Baso # (Auto) (0.0-0.2) X10*3/uL Abs Immat Gran (auto) (0.00-0.03) X10*3/uL Absolute Neuts (auto) (2.0-8.3) X10*3/uL Absolute Nucleated RBC (0.0-0.012) X10*3/uL Nucleated RBC % (auto) (0.0-0.2) /100WBC Sodium (135-145) mmol/L Potassium (3.3-5.1) mmol/l Chloride (96-108) mmol/L Carbon Dioxide (22-29) mmol/L Anion Gap (12-20) BUN (9-16) mg/dL Creatinine (0.5-1.4) mg/dL Estim Creat Clear Calc Estimated GFR POC Glucose (60-115) mg/dL Random Glucose (60-115) mg/dL Lactic Acid 0.8 (0.5-2.0) mmol/L Calcium (8.4-10.2) mg/dL Magnesium (1.6-2.6) mg/dL Total Bilirubin (0.0-1.0) mg/dL Direct Bilirubin (0.0-0.5) mg/dL AST (5-37) U/L ALT (0-40) U/L Alkaline Phosphatase (39-117) U/L Troponin I High Sens 7.7 (<3.5-35.0) ng/L Total Protein (6.5-8.0) g/dL Albumin (3.5-5.0) g/dL Lipase (8-78) U/L Acetone, Qual (Negative) Imaging Data Chest x-ray: Attestation: I personally reviewed and interpreted this imaging study as follows: CT scan - abdomen: Attestation: I personally reviewed and interpreted this imaging study as follows: Radiologist's impression: CT ABDOMEN AND PELVIS WITHOUT CONTRAST CLINICAL INFORMATION: Abdominal pain, nausea and vomiting. COMPARISON: CT abdomen and pelvis from 09/03/2020. TECHNIQUE: Noncontrast volumetric helical CT acquisition of the abdomen and pelvis. Axial images are presented at 0.625 mm and 5 mm slice thickness. Coronal and sagittal reformatted images were generated at the technologist workstation. This CT examination was performed using dose optimization techniques as appropriate, variously including the following: *Automated exposure control *Adjustment of mA and/or kV according to patient size (this includes techniques or standardized protocols for targeted exams where dose is matched to indication/reason for exam; i.e. extremities or head) *Use of iterative reconstruction technique DLP: 752 mGy-cm. FINDINGS: LUNG BASES: Unremarkable. LIVER, GALLBLADDER, AND BILIARY TREE: The liver has normal size, shape, and attenuation. No focal hepatic lesion. The gallbladder is grossly normal; no radiopaque gallstones, wall thickening, or pericholecystic fluid. No intrahepatic or extrahepatic bile duct dilatation. PANCREAS: Normal. No evidence of pancreatic mass, edema or ductal dilatation. SPLEEN: Unremarkable. ADRENAL GLANDS: Unremarkable. KIDNEYS AND URETERS: The kidneys have normal size, shape, and attenuation. No hydroureteronephrosis, urolithiasis or perinephric fluid collection. BLADDER: Unremarkable. BOWEL AND PERITONEUM: Stomach and small bowel are unremarkable. The appendix is surgically absent. No pericolonic fat stranding or colonic wall thickening. No evidence of acute inflammation or obstruction along the gastrointestinal tract. No ascites or pneumoperitoneum. ABDOMINAL WALL: The foci of gas in subcutaneous tissues of the right abdominal wall are likely from recent medication injection. LYMPH NODES: No pathologic sized lymph nodes in the abdomen or pelvis. No inguinal lymphadenopathy. VASCULATURE: Unremarkable. PELVIC VISCERA: Prostate gland and seminal vesicles are normal. No pelvic mass or free fluid. MUSCULOSKELETAL: Unremarkable. IMPRESSION: No acute imaging abnormalities in the abdomen or pelvis. No inflammatory change or obstruction along the gastrointestinal tract. No specific source of pain is identified. ECG Data Attestation: I personally reviewed and interpreted this ECG as follows: ECG interpretation date: 09/10/20 ECG interpretation time: 19:52 Interpretation: Vent. Rate : 107 BPM Atrial Rate : 107 BPM P-R Int : 130 ms QRS Dur : 078 ms QT Int : 356 ms P-R-T Axes : 042 033 -11 degrees QTc Int : 475 ms Sinus tachycardia Nonspecific T wave abnormality Abnormal ECG When compared with ECG of 19-NOV-2019 08:28, Inverted T waves have replaced nonspecific T wave abnormality in Inferior leads Nonspecific T wave abnormality now evident in Anterolateral leads Critical Care Time Critical Care Time Critical Care Time: Yes Total Critical Care Time: 45 Attestation: I have personally provided critical care time exclusive of time spent on separately billable procedures. Time includes review of laboratory data, radiology results, discussion with consultants, and monitoring for potential decompensation. Interventions were performed as documented. Discharge Plan Discharge Prescriptions: No Action metoclopramide HCl [Reglan] 10 mg Tablet 10 mg PO Q6H PRN (Reason: Vomiting) RF: 0 (DME) Accu-Chek Spirit Insulin Pump Misc MISCELLANEOUS RF: 0 (DME) Omnipod Insulin Management Misc MISCELLANEOUS RF: 0 omeprazole magnesium 20 mg Capsule,Delayed Release(Dr/Ec) 20 mg PO BID RF: 0 tramadol 50 mg tablet 50 mg PO Q6H PRN (Reason: pain) Qty: 12 RF: 0 ondansetron HCl [Zofran] 4 mg tablet 4 mg PO Q8H PRN (Reason: nausea and vomiting) Qty: 10 RF: 0
--- NOTE | 2020-09-10 19:44 | PC.NURSE ---
reporting 10-12 days of vomiting. was told he has a bacteria in gi track at [facility]. abd is diffusely tender. skin pwd. mosit mm. bm's are decreased. last was [address] on monitor. aware of plan for labs and ct. meds and fluids
[2020-09-10 20:03] VITALS: BP 180/99; PULSE 104; RESP 18; TEMP 37.2; O2SAT 100
--- NOTE | 2020-09-10 20:03 | PC.NURSE ---
PT IS A DIFFICULT STICK. SECOND NURSING TRYING.
[2020-09-10 20:09] LABS: Glucose, Whole Blood 230 mg/dL (60-115)
[2020-09-10] MEDS: 0.9 % Sodium Chloride 1,000 ML 999 ML IVCONT ×2 (20:33→21:51)
[2020-09-10 20:35] LABS: MANUAL DIFF FLAG NO
[2020-09-10] MEDS: ondansetron HCL 4 MG/2 ML VIAL IVPUSH (20:35)
[2020-09-10] MEDS: Ketorolac Tromethamine 30 MG/ML VIAL IV (20:35)
[2020-09-10] MEDS: Morphine Sulfate 4 MG/ML CARTRIDGE IVPUSH (20:36)
[2020-09-10 20:37] LABS: Basophils Percent Auto 0.2 % (0-2); Eosinophils Percent Auto 0.1 % (0-4); Hematocrit 41.8 % (42-52); Hemoglobin 14.1 g/dl (14.0-18.0); Imm Gran Abs Auto 0.11 X10*3/uL (0.00-0.03); Imm Gran Pct Auto 0.7 % (0.0-0.4); Lymphocytes Absolute Auto 1.6 X10*3/uL (1.2-4.9); Lymphocytes Percent Auto 9.5 % (20-40); Mean Corpuscular HGB Conc 33.7 g/dl (31.0-36.0); Mean Corpuscular Hemoglobin 28.2 pg (27.0-33.0); Mean Corpuscular Volume 83.6 fL (80-98); Mean Platelet Volume 10.8 fL (9.4-12.4); Monocytes Absolute Auto 1.4 X10*3/uL (0.1-1.2); Monocytes Percent Auto 8.2 % (2-11); Neutrophils Absolute Auto 13.5 X10*3/uL (2.0-8.3); Neutrophils Percent Auto 81.3 % (45-73); Platelet Count 344 X10*3/uL (160-400); Red Cell Distribution Width 12.4 % (11.0-16.0); White Blood Count 16.6 X10*3/uL (4.8-10.8)
--- NOTE | 2020-09-10 20:37 | PC.NURSE ---
NO ACTIVE VOMITING FOR THIS RN
[2020-09-10 21:04] LABS: Lactic Acid 0.8 mmol/L (0.5-2.0)
[2020-09-10 21:10] LABS: Acetone, serum QL Small (Negative); Troponin-I High Sensitivity 7.7 ng/L (<3.5-35.0)
[2020-09-10 21:11] LABS: Alanine Aminotransferase 16 U/L (0-40); Albumin Level 3.4 g/dL (3.5-5.0); Alkaline Phosphatase 107 U/L (39-117); Anion Gap 18 (12-20); Aspartate Amino Transferase 18 U/L (5-37); Bilirubin Direct 0.2 mg/dL (0.0-0.5); Bilirubin Total 0.7 mg/dL (0.0-1.0); Blood Urea Nitrogen 14 mg/dL (9-16); Calcium 8.7 mg/dL (8.4-10.2); Carbon Dioxide 29 mmol/L (22-29); Chloride 88 mmol/L (96-108); Creatinine Clr Calc Pharmacy 117.2; Estimated Glomerular Filt Rate > 60; Glucose Random 237 mg/dL (60-115); Lipase 4 U/L (8-78); Potassium 3.3 mmol/l (3.3-5.1); Sodium 132 mmol/L (135-145); Total Protein 6.2 g/dL (6.5-8.0)
[2020-09-10 21:45] VITALS: BP 154/79; PULSE 97; RESP 18; TEMP 37.3; O2SAT 97
[2020-09-10] MEDS: cefTRIAXone sodium 1 GM in 0.9 % Sodium Chloride 50 ML IV (21:51)
[2020-09-11] VITALS (9 sets, daily range): BP systolic 142–180; BP diastolic 56–92; PULSE 89–112; RESP 11–18; TEMP 36.2–36.7; O2SAT 95–99; BMI 36.6
[2020-09-11] MEDS: Morphine Sulfate 4 MG/ML CARTRIDGE IVPUSH (00:25)
[2020-09-11 00:49] LABS: Glucose Urine UA 500 MG/DL (NEG); Leukocyte Esterase Urine NEG (NEG); Nitrite Urine NEG (NEG); Specific Gravity - Urine 1.025 (1.005-1.025); Urine Blood 2+ (NEG); Urine Ketones 40 MG/DL (NEG); Urine Protein 3+ MG/DL (NEG-TRACE)
[2020-09-11 01:10] LABS: Appearance Urine CLEAR; Color Urine YELLOW
[2020-09-11 01:11] LABS: RBC Urine 0-2 /HPF (0); Squamous Epithelial Cell Urine TRACE /LPF; WBC Urine 0 /HPF (0-4)
[2020-09-11 01:12] LABS: Granular Casts Urine 0-2 /LPF; Red Blood Cell Casts Urine 0-2 /LPF; Uric Acid Crystals Urine TRACE /LPF
--- NOTE | 2020-09-11 03:15 | PC.NURSE ---
care taken over at 23:00, no vomiting since then. Pt requested ice cream, given ice chips. pt bed request delayed, still awaiting room number, pt in no distress.
--- NOTE | 2020-09-11 04:29 | PC.NURSE ---
pt able to tolerate ice chips, he requested ice water and crackers.
--- NOTE | 2020-09-11 04:55 | ED_ITS ---
HPI - General Adult General Chief complaint: Abdominal Pain Stated complaint: Vomiting Time Seen by Provider: 09/10/20 19:01 Source: patient Mode of arrival: ambulatory Limitations: no limitations History of Present Illness HPI narrative: I did not participate in the medical care of this patient. I did not participate in the medical care of this patient Related Data Home Medications Medication Instructions Recorded Confirmed subcutaneous insulin pump [Omnipod 09/03/20 09/03/20 Insulin Management] insulin lispro [Humalog U-100 1 sliding scale dose SUBCUT 09/11/20 09/11/20 Insulin] USEASDIRECTD lisinopril 5 mg PO DAILY 09/11/20 09/11/20 metformin 500 mg PO DAILY 09/11/20 09/11/20 metoclopramide HCl 5 mg PO DAILY 09/11/20 09/11/20 ondansetron 8 mg PO Q8H PRN 09/11/20 09/11/20 oxcarbazepine [Trileptal] 300 mg PO BID 09/11/20 09/11/20 subcutaneous insulin pump 09/11/20 09/11/20 trazodone 100 mg PO BEDTIME 09/11/20 09/11/20 Allergies Allergy/AdvReac Type Severity Reaction Status Date / Time No Known Allergies Allergy Verified 09/03/20 15:25 [facility] Past Medical History Medical History (Updated 09/11/20 @ 06:45 by Fozia Boyd MD) Asthma Diabetes Gastritis Gastroparalysis H. pylori infection Social History Social History Alcohol intake: never Smoking Status: Never smoker Use of substances other than those prescribed or required for medical reasons: No Substance Use Type: Marijuana Advance Directives: No Advance Directives Information Provided: No Physical Exam Vital Signs: Vital Signs: Vital Signs Temp Pulse Resp BP Pulse Ox 09/11/20 04:35 98.1 F 92 14 152/85 H 09/11/20 01:14 94 11 L 142/81 H 99 09/11/20 00:23 89 17 158/90 H 98 09/10/20 21:45 99.1 F 97 18 154/79 H 97 09/10/20 20:03 99.0 F 104 H 18 180/99 H 100 09/10/20 17:07 99.5 F 110 H 18 181/97 H 98 Body Mass Index 36.6 Medical Decision Making Lab Data Result diagrams: 09/10/20 20:26 09/10/20 20:26 Labs: Lab Results 09/10/20 09/10/20 09/10/20 Range/Units 20:05 20:26 20:26 WBC 16.6 H (4.8-10.8) X10*3/uL RBC 5.00 (4.60-5.80) X10*6/uL Hgb 14.1 (14.0-18.0) g/dl Hct 41.8 L (42-52) % MCV 83.6 (80-98) fL MCH 28.2 (27.0-33.0) pg MCHC 33.7 (31.0-36.0) g/dl RDW 12.4 (11.0-16.0) % Plt Count 344 (160-400) X10*3/uL MPV 10.8 (9.4-12.4) fL Immature Gran % (Auto) 0.7 H (0.0-0.4) % Neut % (Auto) 81.3 H (45-73) % Lymph % (Auto) 9.5 L (20-40) % [place] % (Auto) 8.2 (2-11) % Eos % (Auto) 0.1 (0-4) % Baso % (Auto) 0.2 (0-2) % Lymph # (Auto) 1.6 (1.2-4.9) X10*3/uL [place] # (Auto) 1.4 H (0.1-1.2) X10*3/uL Eos # (Auto) 0.0 (0.0-0.4) X10*3/uL Baso # (Auto) 0.0 (0.0-0.2) X10*3/uL Abs Immat Gran (auto) 0.11 H (0.00-0.03) X10*3/uL Absolute Neuts (auto) 13.5 H (2.0-8.3) X10*3/uL Absolute Nucleated RBC 0.000 (0.0-0.012) X10*3/uL Nucleated RBC % (auto) 0.0 (0.0-0.2) /100WBC Sodium 132 L (135-145) mmol/L Potassium 3.3 D (3.3-5.1) mmol/l Chloride 88 L (96-108) mmol/L Carbon Dioxide 29 (22-29) mmol/L Anion Gap 18 (12-20) BUN 14 (9-16) mg/dL Creatinine 1.02 (0.5-1.4) mg/dL Estim Creat Clear Calc 117.2 Estimated GFR > 60 POC Glucose 230 H (60-115) mg/dL Random Glucose 237 H (60-115) mg/dL Lactic Acid (0.5-2.0) mmol/L Calcium 8.7 (8.4-10.2) mg/dL Magnesium 2.0 (1.6-2.6) mg/dL Total Bilirubin 0.7 (0.0-1.0) mg/dL Direct Bilirubin 0.2 (0.0-0.5) mg/dL AST 18 (5-37) U/L ALT 16 (0-40) U/L Alkaline Phosphatase 107 D (39-117) U/L Troponin I High Sens (<3.5-35.0) ng/L Total Protein 6.2 L (6.5-8.0) g/dL Albumin 3.4 L (3.5-5.0) g/dL Lipase 4 L (8-78) U/L Urine Color Urine Appearance Urine pH (5.0-8.0) Ur Specific [place] (1.005-1.025) Urine Protein (NEG-TRACE) MG/DL Urine Glucose (UA) (NEG) MG/DL Urine Ketones (NEG) MG/DL Urine Blood (NEG) Urine Nitrite (NEG) Ur Leukocyte Esterase (NEG) Urine RBC (0) /HPF Urine WBC (0-4) /HPF Ur Squamous Epith Cells /LPF Uric Acid Crystals /LPF Urine Bacteria /LPF Hyaline Casts /LPF Granular Casts /LPF RBC Casts /LPF Acetone, Qual Small H (Negative) 09/10/20 09/10/20 09/11/20 Range/Units 20:26 20:26 00:32 WBC (4.8-10.8) X10*3/uL RBC (4.60-5.80) X10*6/uL Hgb (14.0-18.0) g/dl Hct (42-52) % MCV (80-98) fL MCH (27.0-33.0) pg MCHC (31.0-36.0) g/dl RDW (11.0-16.0) % Plt Count (160-400) X10*3/uL MPV (9.4-12.4) fL Immature Gran % (Auto) (0.0-0.4) % Neut % (Auto) (45-73) % Lymph % (Auto) (20-40) % [place] % (Auto) (2-11) % Eos % (Auto) (0-4) % Baso % (Auto) (0-2) % Lymph # (Auto) (1.2-4.9) X10*3/uL [place] # (Auto) (0.1-1.2) X10*3/uL Eos # (Auto) (0.0-0.4) X10*3/uL Baso # (Auto) (0.0-0.2) X10*3/uL Abs Immat Gran (auto) (0.00-0.03) X10*3/uL Absolute Neuts (auto) (2.0-8.3) X10*3/uL Absolute Nucleated RBC (0.0-0.012) X10*3/uL Nucleated RBC % (auto) (0.0-0.2) /100WBC Sodium (135-145) mmol/L Potassium (3.3-5.1) mmol/l Chloride (96-108) mmol/L Carbon Dioxide (22-29) mmol/L Anion Gap (12-20) BUN (9-16) mg/dL Creatinine (0.5-1.4) mg/dL Estim Creat Clear Calc Estimated GFR POC Glucose (60-115) mg/dL Random Glucose (60-115) mg/dL Lactic Acid 0.8 (0.5-2.0) mmol/L Calcium (8.4-10.2) mg/dL Magnesium (1.6-2.6) mg/dL Total Bilirubin (0.0-1.0) mg/dL Direct Bilirubin (0.0-0.5) mg/dL AST (5-37) U/L ALT (0-40) U/L Alkaline Phosphatase (39-117) U/L Troponin I High Sens 7.7 (<3.5-35.0) ng/L Total Protein (6.5-8.0) g/dL Albumin (3.5-5.0) g/dL Lipase (8-78) U/L Urine Color YELLOW Urine Appearance CLEAR Urine pH 6.0 (5.0-8.0) Ur Specific [place] 1.025 (1.005-1.025) Urine Protein 3+ H (NEG-TRACE) MG/DL Urine Glucose (UA) 500 H (NEG) MG/DL Urine Ketones 40 (NEG) MG/DL Urine Blood 2+ H (NEG) Urine Nitrite NEG (NEG) Ur Leukocyte Esterase NEG (NEG) Urine RBC 0-2 (0) /HPF Urine WBC 0 (0-4) /HPF Ur Squamous Epith Cells TRACE /LPF Uric Acid Crystals TRACE /LPF Urine Bacteria NONE /LPF Hyaline Casts 1-4 /LPF Granular Casts 0-2 /LPF RBC Casts 0-2 /LPF Acetone, Qual (Negative) Discharge Plan Discharge Clinical Impression: Gastroparesis Patient Disposition: Admitted As Inpatient Interventions: Admission Worksheet (ED) Last Done: 09/11/20 07:22 Discharge Date/Time: 09/11/20 07:23
--- NOTE | 2020-09-11 06:36 | PC.NURSE ---
pt able to tolerate ice water and crackers, also able to tolerate apple juice. pt asking for additional pain medication.
--- NOTE | 2020-09-11 06:38 | PM.IMHP ---
History of Present Illness Date of Service: 09/11/20 Chief Complaint: N/V this is a 30-year-old male with past medical history of type 1 diabetes, gastroparesis, gastritis, who presents to the hospital with complaints of nausea vomiting. Patient reports his symptoms have been going on for about 10-12 for days, has abdominal pain that is all over the abdomen, no diarrhea, no fever or chills. No sick contacts or recent travel. No lower extremity edema. No urinary symptoms. on arrival to the ED patient's vitals showed pulse rate of 110, temperature of 99.5?, respiratory rate of 18, satting 98% on room labs are significant for leukocytosis of 16.6, sodium 132 with a glucose of 230, otherwise unremarkable, no anion gap, has lactic acid of 0.8, with a pH of 7.3 patient abdomen shows no acute imaging abnormalities in the abdomen or pelvis. Past medical history: Diabetes type 1, gastroparesis, gastritis, hypertension, asthma past surgical history: Appendectomy family history: Denies social history: Comes from home, denies any tobacco alcohol , smokes marijuana sometimes Review of Systems Review of Systems: Yes all other systems are reviewed and are negative [facility] Medical History Asthma Diabetes Gastritis Gastroparalysis H. pylori infection Social History Alcohol intake: never Smoking Status: Never smoker Use of substances other than those prescribed or required for medical reasons: No Substance Use Type: Marijuana Advance Directives: No Advance Directives Information Provided: No Meds Allergies Allergy/AdvReac Type Severity Reaction Status Date / Time No Known Allergies Allergy Verified 09/03/20 15:25 Home Medications Medication Instructions Recorded Confirmed Type subcutaneous insulin pump [Omnipod 09/03/20 09/03/20 History Insulin Management] insulin lispro [Humalog U-100 1 sliding scale dose SUBCUT 09/11/20 09/11/20 History Insulin] USEASDIRECTD lisinopril 5 mg PO DAILY 09/11/20 09/11/20 History metformin 500 mg PO DAILY 09/11/20 09/11/20 History metoclopramide HCl 5 mg PO DAILY 09/11/20 09/11/20 History ondansetron 8 mg PO Q8H PRN 09/11/20 09/11/20 History oxcarbazepine [Trileptal] 300 mg PO BID 09/11/20 09/11/20 History subcutaneous insulin pump 09/11/20 09/11/20 History trazodone 100 mg PO BEDTIME 09/11/20 09/11/20 History Physical Exam Vital Signs and Narrative: Vital Signs: Last Vital Signs Temp 98.1 F 09/11/20 04:35 Pulse 92 09/11/20 04:35 Resp 14 09/11/20 04:35 BP 152/85 H 09/11/20 04:35 Pulse Ox 99 09/11/20 01:14 Body Mass Index 36.6 Const: General: cooperative and no acute distress Orientation/consciousness: patient oriented x3 Eyes: General: appearance normal, both eyes and all related structures Pupils: Equal, round and reactive pupils present Resp: Effort & Inspection: normal respiratory effort and able to speak in complete sentences Auscultation: clear to auscultation bilaterally Cardio: Rate: regular rate Rhythm: regular rhythm GI: Palpation (GI): Soft to palpation Auscultation: normal bowel sounds Skin: General skin exam: no rashes or lesions noted Neuro: General: patient oriented x3 Cranial nerves: Yes Equal, round and reactive pupils present Cognition (Neuro): normal cognition Extrem: General: Yes normal to inspection and Yes no pedal edema Results Labs Labs: Laboratory Tests 09/10/20 09/10/20 09/10/20 20:05 20:26 20:26 WBC 16.6 H RBC 5.00 Hgb 14.1 Hct 41.8 L MCV 83.6 MCH 28.2 MCHC 33.7 RDW 12.4 Plt Count 344 MPV 10.8 Immature Gran % (Auto) 0.7 H Neut % (Auto) 81.3 H Lymph % (Auto) 9.5 L [place] % (Auto) 8.2 Eos % (Auto) 0.1 Baso % (Auto) 0.2 Lymph # (Auto) 1.6 [place] # (Auto) 1.4 H Eos # (Auto) 0.0 Baso # (Auto) 0.0 Abs Immat Gran (auto) 0.11 H Absolute Neuts (auto) 13.5 H Absolute Nucleated RBC 0.000 Nucleated RBC % (auto) 0.0 Sodium 132 L Potassium 3.3 D Chloride 88 L Carbon Dioxide 29 Anion Gap 18 BUN 14 Creatinine 1.02 Estim Creat Clear Calc 117.2 Estimated GFR > 60 POC Glucose 230 H Random Glucose 237 H Lactic Acid Calcium 8.7 Magnesium 2.0 Total Bilirubin 0.7 Direct Bilirubin 0.2 AST 18 ALT 16 Alkaline Phosphatase 107 D Troponin I High Sens Total Protein 6.2 L Albumin 3.4 L Lipase 4 L Urine Color Urine Appearance Urine pH Ur Specific [place] Urine Protein Urine Glucose (UA) Urine Ketones Urine Blood Urine Nitrite Ur Leukocyte Esterase Urine RBC Urine WBC Ur Squamous Epith Cells Uric Acid Crystals Urine Bacteria Hyaline Casts Granular Casts RBC Casts Acetone, Qual Small H 09/10/20 09/10/20 09/11/20 20:26 20:26 00:32 WBC RBC Hgb Hct MCV MCH MCHC RDW Plt Count MPV Immature Gran % (Auto) Neut % (Auto) Lymph % (Auto) [place] % (Auto) Eos % (Auto) Baso % (Auto) Lymph # (Auto) [place] # (Auto) Eos # (Auto) Baso # (Auto) Abs Immat Gran (auto) Absolute Neuts (auto) Absolute Nucleated RBC Nucleated RBC % (auto) Sodium Potassium Chloride Carbon Dioxide Anion Gap BUN Creatinine Estim Creat Clear Calc Estimated GFR POC Glucose Random Glucose Lactic Acid 0.8 Calcium Magnesium Total Bilirubin Direct Bilirubin AST ALT Alkaline Phosphatase Troponin I High Sens 7.7 Total Protein Albumin Lipase Urine Color YELLOW Urine Appearance CLEAR Urine pH 6.0 Ur Specific [place] 1.025 Urine Protein 3+ H Urine Glucose (UA) 500 H Urine Ketones 40 Urine Blood 2+ H Urine Nitrite NEG Ur Leukocyte Esterase NEG Urine RBC 0-2 Urine WBC 0 Ur Squamous Epith Cells TRACE Uric Acid Crystals TRACE Urine Bacteria NONE Hyaline Casts 1-4 Granular Casts 0-2 RBC Casts 0-2 Acetone, Qual Assessment and Plan (1) Gastroparesis: Status: Acute (2) Intractable nausea and vomiting: Status: Acute (3) Asthma: Status: Acute (4) Diabetes: Status: Acute (5) Gastritis: Status: Acute this is a 30-year-old male with type 1 diabetes who presents to the hospital with intractable nausea vomiting # intractable nausea vomiting - secondary to gastroparesis, has no evidence of DKA - plan is to continue his Raglan, add Zofran, Compazine as needed - IV fluids # gastroparesis - continue insulin - IV fluids, p.r.n. Belia Talley, and p.r.n. Compazine for symptom management # gastritis - continue PPI # diabetes mellitus - on metformin at home?, will start him on low-dose sliding scale insulin and sliding scale insulin - diabetic diet - will obtain hemoglobin A1c # hypertension - continue lisinopril DVT prophylaxis: Lovenox date of service 09/11/2020
[2020-09-11] MEDS: traMADoL HCL 50 MG TABLET PO (06:49)
--- NOTE | 2020-09-11 07:00 | PC.NURSE ---
pt vomited almost immediately following tramadol administration. pt asking for iv pain medication. report given to floor, pt does have an insulin pump cartridge on right upper arm. pt reports his monitor is in his bag and will regulate amount of insulin. poc will be checked before pt transported to floor.
[2020-09-11 07:04] LABS: Glucose, Whole Blood 86 mg/dL (60-115)
[2020-09-11] MEDS: ondansetron HCL 4 MG/2 ML VIAL IVPUSH ×2 (07:56→17:15)
[2020-09-11] MEDS: Enoxaparin Sodium 40 MG/0.4 ML SYRINGE SUBCUT (07:59)
[2020-09-11] MEDS: 0.9 % Sodium Chloride 1,000 ML 100 ML IVCONT ×2 (08:56→20:15)
[2020-09-11 09:07] LABS: Estimated Average Glucose 206 mg/dL; Hemoglobin A1c % 8.8 %
[2020-09-11] MEDS: Metoclopramide HCl 10 MG/2 ML VIAL 5 MG IVPUSH (09:22)
[2020-09-11] MEDS: lisinopriL 5 MG TABLET PO (09:23)
[2020-09-11] MEDS: Lidocaine 4 % Patch ADH..PATCH 1 PATCH TRANSDERMA (09:23)
[2020-09-11] MEDS: OXcarbazepine 300 MG TABLET PO ×2 (09:23→20:18)
--- NOTE | 2020-09-11 10:08 | MHC.CM.PN ---
PATIENT IS SOUND ASLEEP AT ASSESSMENT ATTEMPT CASE MANAGEMENT CONTACT CARD LEFT BEDSIDE AND NAMES WRITTEN ON WHITE BOARD. PATIENT IS INDEPENDENT WITH HIS ADLS. CASE MANAGEMENT TO MEET WITH HIM DURING THIS DAY.
[2020-09-11 11:57] LABS: Glucose, Whole Blood 190 mg/dL (60-115)
--- NOTE | 2020-09-11 12:29 | P.PNIM_ITS ---
Subjective Subjective Date of Service: 09/11/20 Interval History: abd pain , Diabetic gastroparesis Review of Systems patient still has epigastric soreness, also nausea and vomiting. Physical Exam Vital Signs: Vital Signs: Vital Signs Temp Pulse Resp BP Pulse Ox 09/11/20 12:00 97.8 F 112 H 16 169/89 H 98 09/11/20 08:00 97.4 F 94 18 179/92 H 98 09/11/20 04:35 98.1 F 92 14 152/85 H 09/11/20 01:14 94 11 L 142/81 H 99 09/11/20 00:23 89 17 158/90 H 98 09/10/20 21:45 99.1 F 97 18 154/79 H 97 09/10/20 20:03 99.0 F 104 H 18 180/99 H 100 09/10/20 17:07 99.5 F 110 H 18 181/97 H 98 Body Mass Index 36.6 Physical exam: Cvs: rrr, [id number] , no murmur res: clear to auscultation ,no rhonchii or wheezing abd: no rebound or guarding , still has Epigastric discomfort, bs present. ext pulses present , no cyanosis neuro: axo3 , nonfocal. Objective Data Current Medications Generic Name Dose Route Start Last Admin Trade Name Freq PRN Reason Stop Dose Admin Docusate Sodium 100 mg 09/11/20 07:28 Docusate Sodium 100 Mg Capsule PO DAILY PRN Constipation Enoxaparin Sodium 40 mg 09/11/20 08:00 09/11/20 07:59 Enoxaparin Sodium 40 Mg/0.4 Ml Syringe SUBCUT 40 mg Q24H [facility] Administration Sodium Chloride 1,000 mls @ 100 mls/hr 09/11/20 07:28 09/11/20 08:56 Ns IVCONT 100 mls/hr .Q10H [facility] Administration Insulin Human Lispro 0 unit 09/11/20 07:30 09/11/20 08:03 Insulin Lispro 100 Unit/Ml 3 Ml Vial SUBCUT Not Given QIDACHS [facility] Protocol Lidocaine 1 patch 09/11/20 09:00 09/11/20 09:23 Lidocaine 4 % Patch Adh..Patch TRANSDERMA 1 patch DAILY [facility] Administration Protocol Lisinopril 5 mg 09/11/20 09:00 09/11/20 09:23 Lisinopril 5 Mg Tablet PO 5 mg DAILY [facility] Administration Protocol Metoclopramide HCl 5 mg 09/11/20 09:00 09/11/20 09:33 Metoclopramide Hcl 5 Mg Tablet PO Not Given DAILY [facility] Ondansetron HCl 4 mg 09/11/20 07:28 09/11/20 07:56 Ondansetron Hcl 4 Mg/2 Ml Vial IVPUSH 4 mg Q8H PRN Administration Nausea and Vomiting Oxcarbazepine 300 mg 09/11/20 09:00 09/11/20 09:23 Oxcarbazepine 300 Mg Tablet PO 300 mg BID [facility] Administration Oxycodone HCl 5 mg 09/11/20 06:37 Oxycodone Hcl Immed Release 5 Mg Tablet PO Q6H PRN Pain, Severe (Pain Scale 7-10) Pharmacy Consult 1 each 09/10/20 22:31 Consult Rx Perform Med Rec MISCELLANE ONCE PRN Consult order Sodium Chloride 3 ml 09/11/20 08:00 09/11/20 08:40 0.9 % Sodium Chloride Flush 3 Ml Syringe IVFLUSH Not Given QSHIFT [facility] Tramadol HCl 50 mg 09/11/20 06:37 09/11/20 06:49 Tramadol Hcl 50 Mg Tablet PO 50 mg Q6H PRN Administration Pain, Moderate (Pain Scale 4-6 Trazodone HCl 100 mg 09/11/20 21:00 Trazodone Hcl 100 Mg Tablet PO BEDTIME [facility] Labs CBC & Chem 7: 09/10/20 20:26 09/10/20 20:26 Assessment and Plan (1) Gastroparesis: Status: Acute (2) Intractable nausea and vomiting: Status: Acute (3) Asthma: Status: Acute (4) Diabetes: Status: Acute (5) Gastritis: Status: Acute Assessment and Plan: this is a 30-year-old male with type 1 diabetes who presents to the hospital with intractable nausea vomiting 1. intractable nausea vomiting secondary to gastroparesis, has no evidence of DKa continue his Raglan, add Zofran, Compazine as needed IV fluids 2. gastroparesis- Multifactorial: Diabetic gastroparesis, also was positive marijuana in the past. continue insulin, IV fluids, p.r.n. Raglan, Zofran, and p.r.n. Compazine for symptom management lidocaine patch in epigastric area will add gi eval if does not improves. 3. gastritis: continue PPI. 4.diabetes mellitus: fs running 100-200 range hild metformin at home?, will start him on low-dose sliding scale insulin and sliding scale insulin diabetic diet, add hemoglobin A1c 5. hypertension: continue lisinopril
[2020-09-11] MEDS: Pantoprazole Sodium 40 MG/10 ML VIAL IVPUSH (13:21)
[2020-09-11] MEDS: Morphine Sulfate 2 MG/ML CARTRIDGE 1 MG IVPUSH ×2 (14:06→20:16)
--- NOTE | 2020-09-11 14:19 | MHC.CM.PN ---
PER PHYSICIAN ROUNDS, ANTICIPATE ONE TO TWO MORE DAYS. IF NO SYMPTOM IMPROVEMENT, THEN CONSULT TO BE MADE TO G.I.
[2020-09-11 16:40] LABS: Glucose, Whole Blood 259 mg/dL (60-115)
[2020-09-11] MEDS: Insulin Lispro 100 UNIT/ML 3 ML VIAL SUBCUT ×2 (17:00→21:52)
[2020-09-11] MEDS: Prochlorperazine Edisylate 10 MG/2 ML VIAL 5 MG IV (20:17)
[2020-09-11] MEDS: traZODone HCL 100 MG TABLET PO (20:19)
[2020-09-11] MEDS: 0.9 % Sodium Chloride Flush 3 ML SYRINGE IVFLUSH (20:32)
[2020-09-11 20:59] LABS: Glucose, Whole Blood 209 mg/dL (60-115)
[2020-09-12] VITALS: BP 173/88; PULSE 104; RESP 16; TEMP 37.6; O2SAT 99
[2020-09-12] MEDS: Prochlorperazine Edisylate 10 MG/2 ML VIAL 5 MG IV ×2 (00:40→07:44)
[2020-09-12] MEDS: Morphine Sulfate 2 MG/ML CARTRIDGE 1 MG IVPUSH ×2 (03:32→09:26)
[2020-09-12 04:00] VITALS: BP 159/88; PULSE 113; RESP 18; TEMP 37.7; O2SAT 99
[2020-09-12] MEDS: ondansetron HCL 4 MG/2 ML VIAL IVPUSH ×3 (04:13→23:44)
[2020-09-12 05:47] VITALS: BMI 42.8
[2020-09-12] MEDS: 0.9 % Sodium Chloride 1,000 ML 100 ML IVCONT ×3 (06:15→20:38)
[2020-09-12 06:33] LABS: MANUAL DIFF FLAG NO
[2020-09-12] MEDS: Pantoprazole Sodium 40 MG/10 ML VIAL IVPUSH (06:47)
[2020-09-12 06:48] LABS: Basophils Percent Auto 0.2 % (0-2); Eosinophils Absolute Auto 0.1 X10*3/uL (0.0-0.4); Eosinophils Percent Auto 0.4 % (0-4); Hematocrit 39.3 % (42-52); Hemoglobin 13.4 g/dl (14.0-18.0); Imm Gran Abs Auto 0.14 X10*3/uL (0.00-0.03); Imm Gran Pct Auto 0.8 % (0.0-0.4); Lymphocytes Absolute Auto 1.5 X10*3/uL (1.2-4.9); Lymphocytes Percent Auto 9.2 % (20-40); Mean Corpuscular HGB Conc 34.1 g/dl (31.0-36.0); Mean Corpuscular Hemoglobin 28.7 pg (27.0-33.0); Mean Corpuscular Volume 84.2 fL (80-98); Monocytes Absolute Auto 1.2 X10*3/uL (0.1-1.2); Monocytes Percent Auto 7.3 % (2-11); Neutrophils Absolute Auto 13.7 X10*3/uL (2.0-8.3); Neutrophils Percent Auto 82.1 % (45-73); Platelet Count 339 X10*3/uL (160-400); Red Blood Count 4.67 X10*6/uL (4.60-5.80); Red Cell Distribution Width 12.6 % (11.0-16.0); White Blood Count 16.7 X10*3/uL (4.8-10.8)
[2020-09-12 07:05] LABS: Blood Urea Nitrogen 18 mg/dL (9-16); Calcium 8.5 mg/dL (8.4-10.2); Creatinine Clr Calc Pharmacy 112.1; Estimated Glomerular Filt Rate > 60; Glucose Random 342 mg/dL (60-115)
[2020-09-12 07:16] VITALS: BP 196/74; PULSE 132; RESP 19; TEMP 36.4; O2SAT 99
[2020-09-12 07:25] LABS: Anion Gap 25 (12-20); Carbon Dioxide 17 mmol/L (22-29); Chloride 98 mmol/L (96-108); Potassium 4.4 mmol/l (3.3-5.1); Sodium 136 mmol/L (135-145)
[2020-09-12] MEDS: lisinopriL 5 MG TABLET PO ×2 (07:44→13:37)
[2020-09-12] MEDS: Lidocaine 4 % Patch ADH..PATCH 1 PATCH TRANSDERMA (07:44)
[2020-09-12] MEDS: OXcarbazepine 300 MG TABLET PO ×2 (07:44→20:39)
[2020-09-12] MEDS: Enoxaparin Sodium 40 MG/0.4 ML SYRINGE SUBCUT (07:45)
[2020-09-12] MEDS: Insulin Lispro 100 UNIT/ML 3 ML VIAL SUBCUT ×4 (07:45→16:45)
[2020-09-12 07:49] LABS: Glucose, Whole Blood 343 mg/dL (60-115)
[2020-09-12] MEDS: Insulin Lispro 100 UNIT/ML 3 ML VIAL 10 UNIT SUBCUT (09:28)
[2020-09-12] MEDS: Metoclopramide HCl 5 MG TABLET PO (09:29)
[2020-09-12 11:31] LABS: Glucose, Whole Blood 276 mg/dL (60-115)
[2020-09-12] MEDS: Metoclopramide HCl 10 MG/2 ML VIAL 5 MG IVPUSH ×2 (11:43→16:12)
[2020-09-12 11:47] VITALS: BP 172/70; PULSE 105; RESP 17; TEMP 36.6; O2SAT 98
--- NOTE | 2020-09-12 12:29 | HO.PM.IMPN ---
Subjective Subjective Date of Service: 09/12/20 Interval History: presented with epigastric pain,nausea and vomiting. pt c/o persistent abd pain and nausea. Review of Systems [employer] no young,No dizziness CVS no cp SKIN no rash Physical Exam Vital Signs: Vital Signs: Vital Signs Temp Pulse Resp BP Pulse Ox 09/12/20 11:47 97.9 F 105 H 17 172/70 H 98 09/12/20 07:16 97.6 F 132 H 19 196/74 H 99 09/12/20 04:00 99.8 F 113 H 18 159/88 H 99 09/12/20 00:00 99.6 F 104 H 16 173/88 H 99 09/11/20 20:48 97 180/65 H 09/11/20 19:12 97.8 F 111 H 146/56 H 95 09/11/20 18:01 149/87 H 09/11/20 15:03 97.2 F 106 H 18 173/82 H 97 Body Mass Index 42.8 Physical exam: Cvs: regular rate,rythm no murmur res: clear to auscultation ,no rhonchii ,no wheezing abd: no rebound or guarding , Epigastric discomfort with palpation, bs present. ext pulses present , no cyanosis neuro: axo3 , nonfocal. Objective Data Current Medications Generic Name Dose Route Start Last Admin Trade Name Freq PRN Reason Stop Dose Admin Docusate Sodium 100 mg 09/11/20 07:28 Docusate Sodium 100 Mg Capsule PO DAILY PRN Constipation Enoxaparin Sodium 40 mg 09/11/20 08:00 09/12/20 07:45 Enoxaparin Sodium 40 Mg/0.4 Ml Syringe SUBCUT 40 mg Q24H [facility] Administration Sodium Chloride 1,000 mls @ 250 mls/hr 09/11/20 07:28 09/12/20 06:15 Ns IVCONT 100 mls/hr .Q4H [facility] Administration Insulin Human Lispro 0 unit 09/11/20 07:30 09/12/20 11:45 Insulin Lispro 100 Unit/Ml 3 Ml Vial SUBCUT 6 unit QIDACHS [facility] Administration Protocol Lidocaine 1 patch 09/11/20 09:00 09/12/20 07:44 Lidocaine 4 % Patch Adh..Patch TRANSDERMA 1 patch DAILY [facility] Administration Protocol Lisinopril 5 mg 09/11/20 09:00 09/12/20 07:44 Lisinopril 5 Mg Tablet PO 5 mg DAILY [facility] Administration Protocol Lisinopril 5 mg 09/12/20 12:27 Lisinopril 5 Mg Tablet PO 09/12/20 12:28 ONCE ONE Protocol Metoclopramide HCl 5 mg 09/12/20 11:30 09/12/20 11:43 Metoclopramide Hcl 10 Mg/2 Ml Vial IVPUSH 5 mg TIDAC [facility] Administration Morphine Sulfate 2 mg 09/12/20 10:31 Morphine Sulfate 2 Mg/Ml Cartridge IVPUSH Q6H PRN Pain, Moderate (Pain Scale 4-6 Ondansetron HCl 4 mg 09/11/20 07:28 09/12/20 04:13 Ondansetron Hcl 4 Mg/2 Ml Vial IVPUSH 4 mg Q8H PRN Administration Nausea and Vomiting Oxcarbazepine 300 mg 09/11/20 09:00 09/12/20 07:44 Oxcarbazepine 300 Mg Tablet PO 300 mg BID [facility] Administration Oxycodone HCl 5 mg 09/11/20 06:37 Oxycodone Hcl Immed Release 5 Mg Tablet PO Q6H PRN Pain, Severe (Pain Scale 7-10) Pantoprazole Sodium 40 mg 09/11/20 12:45 09/12/20 06:47 Pantoprazole Sodium 40 Mg/10 Ml Vial IVPUSH 40 mg DAILY@0630 [facility] Administration Pharmacy Consult 1 each 09/10/20 22:31 Consult Rx Perform Med Rec MISCELLANE ONCE PRN Consult order Sodium Chloride 3 ml 09/11/20 08:00 09/12/20 07:08 0.9 % Sodium Chloride Flush 3 Ml Syringe IVFLUSH Not Given QSHIFT [facility] Trazodone HCl 100 mg 09/11/20 21:00 09/11/20 20:19 Trazodone Hcl 100 Mg Tablet PO 100 mg BEDTIME [facility] Administration Labs CBC & Chem 7: 09/12/20 06:18 09/12/20 12:40 Microbiology Microbiology Results: Microbiology 09/10/20 20:26 Blood - Venous Blood Culture - Preliminary No growth after 24 hours. 09/10/20 20:26 Blood - Venous Blood Culture - Preliminary No growth after 24 hours. Assessment and Plan (1) DKA (diabetic ketoacidoses): Status: Acute (2) Intractable nausea and vomiting: Status: Acute (3) Gastritis: Status: Acute (4) Asthma: Status: Acute (5) Gastroparesis: Status: Acute Assessment and Plan: this is a 30-year-old male with type 1 diabetes who presents to the hospital with intractable nausea vomiting and abd pain 1. Iintractable nausea vomiting secondary to gastroparesis, and now in DKA, patient also smokes marijuana. continue Raglan dose change to 5 mg t.i.d. scheduled, and continue prn Zofran, will discontinue Compazine continue IV fluids 2. DKA patient developed an anion gap metabolic acidosis this morning, patient insulin pump was discontinued on admission will treat patient with IV fluid normal saline will place patient on scheduled Lantus and continue insulin sliding scale follow BMP in 4 hours continue lidocaine patch in epigastric area 3. gastritis: continue PPI. 4. hypertension: noted to have elevated blood pressures since patient refused morning medication will continue lisinopril 5 mg
[2020-09-12] MEDS: Insulin Glargine,Hum.rec.anlog 100 UNIT/ML 10 ML VIAL 12 UNIT SUBCUT (13:37)
[2020-09-12 13:58] LABS: Anion Gap 20 (12-20); Blood Urea Nitrogen 21 mg/dL (9-16); Carbon Dioxide 17 mmol/L (22-29); Chloride 101 mmol/L (96-108); Estimated Glomerular Filt Rate > 60; Glucose Fasting 266 mg/dL (60-99); Potassium 4.2 mmol/l (3.3-5.1); Sodium 134 mmol/L (135-145)
[2020-09-12 16:00] VITALS: BP 153/73; PULSE 90; RESP 18; TEMP 36.2; O2SAT 98
[2020-09-12] MEDS: Morphine Sulfate 2 MG/ML CARTRIDGE IVPUSH ×2 (16:12→23:44)
[2020-09-12 16:17] LABS: Glucose, Whole Blood 252 mg/dL (60-115)
[2020-09-12 19:05] LABS: Anion Gap 11 (12-20); Blood Urea Nitrogen 19 mg/dL (9-16); Carbon Dioxide 27 mmol/L (22-29); Chloride 102 mmol/L (96-108); Creatinine Clr Calc Pharmacy 107.5; Estimated Glomerular Filt Rate > 60; Glucose Fasting 143 mg/dL (60-99); Potassium 3.5 mmol/l (3.3-5.1); Sodium 136 mmol/L (135-145)
[2020-09-12 20:00] VITALS: BP 157/73; PULSE 93; TEMP 36.1; O2SAT 98
[2020-09-12 20:32] LABS: Glucose, Whole Blood 71 mg/dL (60-115)
[2020-09-12] MEDS: 0.9 % Sodium Chloride Flush 3 ML SYRINGE IVFLUSH (20:40)
[2020-09-12] MEDS: traZODone HCL 100 MG TABLET PO (20:40)
--- NOTE | 2020-09-12 20:48 | PC.NURSE ---
Pt insulin was not given for 09/12/20 @ 21:00. Pt blood sugar was 71. Md notified and requested insulin to be held.
[2020-09-13] VITALS (8 sets, daily range): BP systolic 135–181; BP diastolic 72–90; PULSE 85–101; RESP 18–19; TEMP 36.2–37; O2SAT 97–100; BMI 38.5
[2020-09-13] MEDS: 0.9 % Sodium Chloride 1,000 ML 250 ML IVCONT ×2 (01:26→05:34)
[2020-09-13] MEDS: Pantoprazole Sodium 40 MG/10 ML VIAL IVPUSH (05:34)
[2020-09-13 06:33] LABS: MANUAL DIFF FLAG NO
[2020-09-13 06:57] LABS: Basophils Absolute Auto 0.1 X10*3/uL (0.0-0.2); Basophils Percent Auto 0.4 % (0-2); Eosinophils Absolute Auto 0.1 X10*3/uL (0.0-0.4); Eosinophils Percent Auto 0.9 % (0-4); Hematocrit 34.5 % (42-52); Hemoglobin 11.7 g/dl (14.0-18.0); Imm Gran Abs Auto 0.07 X10*3/uL (0.00-0.03); Imm Gran Pct Auto 0.5 % (0.0-0.4); Lymphocytes Absolute Auto 2.3 X10*3/uL (1.2-4.9); Lymphocytes Percent Auto 16.4 % (20-40); Mean Corpuscular HGB Conc 33.9 g/dl (31.0-36.0); Mean Corpuscular Hemoglobin 28.7 pg (27.0-33.0); Mean Corpuscular Volume 84.6 fL (80-98); Mean Platelet Volume 10.9 fL (9.4-12.4); Monocytes Percent Auto 7.3 % (2-11); Neutrophils Absolute Auto 10.5 X10*3/uL (2.0-8.3); Neutrophils Percent Auto 74.5 % (45-73); Platelet Count 290 X10*3/uL (160-400); Red Blood Count 4.08 X10*6/uL (4.60-5.80); Red Cell Distribution Width 12.7 % (11.0-16.0)
[2020-09-13 07:21] LABS: Anion Gap 13 (12-20); Blood Urea Nitrogen 13 mg/dL (9-16); Calcium 7.7 mg/dL (8.4-10.2); Carbon Dioxide 23 mmol/L (22-29); Chloride 103 mmol/L (96-108); Estimated Glomerular Filt Rate > 60; Glucose Random 121 mg/dL (60-115); Potassium 3.2 mmol/l (3.3-5.1); Sodium 136 mmol/L (135-145)
[2020-09-13 07:31] LABS: Glucose, Whole Blood 117 mg/dL (60-115)
[2020-09-13] MEDS: lisinopriL 5 MG TABLET PO (07:52)
[2020-09-13] MEDS: Metoclopramide HCl 10 MG/2 ML VIAL 5 MG IVPUSH ×3 (07:53→17:56)
[2020-09-13] MEDS: OXcarbazepine 300 MG TABLET PO ×2 (07:53→22:01)
[2020-09-13] MEDS: Morphine Sulfate 2 MG/ML CARTRIDGE IVPUSH (07:53)
[2020-09-13] MEDS: Lidocaine 4 % Patch ADH..PATCH 1 PATCH TRANSDERMA (07:54)
[2020-09-13] MEDS: Enoxaparin Sodium 40 MG/0.4 ML SYRINGE SUBCUT (07:54)
[2020-09-13 11:49] LABS: Glucose, Whole Blood 179 mg/dL (60-115)
[2020-09-13] MEDS: Insulin Lispro 100 UNIT/ML 3 ML VIAL SUBCUT ×2 (12:14→17:53)
--- NOTE | 2020-09-13 12:44 | P.PNIM_ITS ---
Subjective Subjective Date of Service: 09/13/20 Interval History: presented with epigastric pain,nausea and vomiting. pt feels better less abdominal pain and nausea Review of Systems General no headache no dizziness no fever chills. CVS no chest pain, no palpitation. Respiratory no cough no sputum production no respiratory distress. Gastrointestinal no abdominal pain, mild nausea Physical Exam Vital Signs: Vital Signs: Vital Signs Temp Pulse Resp BP Pulse Ox 09/13/20 11:39 97.5 F 85 18 157/75 H 99 09/13/20 07:52 95 159/74 H 09/13/20 07:22 98.5 F 95 18 159/74 H 97 09/13/20 03:58 98.0 F 100 18 167/86 H 97 09/13/20 00:00 98.1 F 90 18 181/89 H 98 09/12/20 20:00 96.9 F 93 157/73 H 98 09/12/20 16:00 97.1 F 90 18 153/73 H 98 Body Mass Index 38.5 Physical exam: Cvs: regular rate,rythm no murmur res: clear to auscultation ,no rhonchii ,no wheezing abd: no rebound or guarding , no Epigastric discomfort , bs present. ext pulses present , no cyanosis neuro: axo3 , nonfocal. Objective Data Current Medications Generic Name Dose Route Start Last Admin Trade Name Freq PRN Reason Stop Dose Admin Docusate Sodium 100 mg 09/11/20 07:28 Docusate Sodium 100 Mg Capsule PO DAILY PRN Constipation Enoxaparin Sodium 40 mg 09/11/20 08:00 09/13/20 07:54 Enoxaparin Sodium 40 Mg/0.4 Ml Syringe SUBCUT 40 mg Q24H [facility] Administration Insulin Glargine 14 unit 09/12/20 21:00 09/12/20 20:46 Insulin Glargine,Hum.Rec.Anlog 100 Unit/Ml 10 Ml Vial SUBCUT Not Given BEDTIME [facility] Insulin Human Lispro 0 unit 09/11/20 07:30 09/13/20 12:20 Insulin Lispro 100 Unit/Ml 3 Ml Vial SUBCUT Not Given QIDACHS [facility] Protocol Insulin Human Lispro 5 unit 09/12/20 16:30 09/13/20 12:14 Insulin Lispro 100 Unit/Ml 3 Ml Vial SUBCUT 5 unit TIDAC [facility] Administration Lidocaine 1 patch 09/11/20 09:00 09/13/20 07:54 Lidocaine 4 % Patch Adh..Patch TRANSDERMA 1 patch DAILY [facility] Administration Protocol Lisinopril 5 mg 09/11/20 09:00 09/13/20 07:52 Lisinopril 5 Mg Tablet PO 5 mg DAILY [facility] Administration Protocol Metoclopramide HCl 5 mg 09/12/20 11:30 09/13/20 12:14 Metoclopramide Hcl 10 Mg/2 Ml Vial IVPUSH 5 mg TIDAC [facility] Administration Morphine Sulfate 2 mg 09/12/20 10:31 09/13/20 07:53 Morphine Sulfate 2 Mg/Ml Cartridge IVPUSH 2 mg Q6H PRN Administration Pain, Moderate (Pain Scale 4-6 Ondansetron HCl 4 mg 09/11/20 07:28 09/12/20 23:44 Ondansetron Hcl 4 Mg/2 Ml Vial IVPUSH 4 mg Q8H PRN Administration Nausea and Vomiting Oxcarbazepine 300 mg 09/11/20 09:00 09/13/20 07:53 Oxcarbazepine 300 Mg Tablet PO 300 mg BID [facility] Administration Oxycodone HCl 5 mg 09/11/20 06:37 Oxycodone Hcl Immed Release 5 Mg Tablet PO Q6H PRN Pain, Severe (Pain Scale 7-10) Pantoprazole Sodium 40 mg 09/11/20 12:45 09/13/20 05:34 Pantoprazole Sodium 40 Mg/10 Ml Vial IVPUSH 40 mg DAILY@0630 [facility] Administration Pharmacy Consult 1 each 09/10/20 22:31 Consult Rx Perform Med Rec MISCELLANE ONCE PRN Consult order Sodium Chloride 3 ml 09/11/20 08:00 09/13/20 07:55 0.9 % Sodium Chloride Flush 3 Ml Syringe IVFLUSH Not Given QSHIFT [facility] Trazodone HCl 100 mg 09/11/20 21:00 09/12/20 20:40 Trazodone Hcl 100 Mg Tablet PO 100 mg BEDTIME [facility] Administration Labs CBC & Chem 7: 09/13/20 06:14 09/13/20 06:14 Microbiology Microbiology Results: Microbiology 09/10/20 20:26 Blood - Venous Blood Culture - Preliminary No growth after 48 hours. 09/10/20 20:26 Blood - Venous Blood Culture - Preliminary No growth after 48 hours. Assessment and Plan (1) DKA (diabetic ketoacidoses): Status: Acute (2) Intractable nausea and vomiting: Status: Acute (3) Gastritis: Status: Acute (4) Asthma: Status: Acute (5) Gastroparesis: Status: Acute Assessment and Plan: this is a 30-year-old male with type 1 diabetes who presents to the hospital with intractable nausea vomiting and abd pain 1. Iintractable nausea vomiting secondary to gastroparesis, and DKA, patient also smokes marijuana. patient's symptoms of abdominal pain and nausea improved therefore diet was advanced to diabetic but soon after taking breakfast patient vomited again therefore will place patient back on IV fluid and continue Raglan 5 mg t.i.d. scheduled, and continue prn Zofran, will discharge on Reglan 5 mg by mouth PRN, patient has lidocaine patch on abdomen will discontinue upon discharge 2. DKA now resolved patient developed an anion gap metabolic acidosis 09/13 likely because his insulin pump was discontinued on admission. patient treated with IV fluid normal saline , scheduled Lantus and insulin sliding scale, resume insulin pump upon discharge, placed on diabetic diet. 3. gastritis: continue IV PPI. switched to by mouth at a.m. 4. hypertension: noted to have elevated blood pressures will increase dose of lisinopril to 10mg.
[2020-09-13] MEDS: 0.9 % Sodium Chloride 1,000 ML 100 ML IVCONT ×2 (13:45→23:43)
[2020-09-13 17:00] LABS: Glucose, Whole Blood 202 mg/dL (60-115)
[2020-09-13] MEDS: ondansetron HCL 4 MG/2 ML VIAL IVPUSH (20:44)
[2020-09-13 20:50] LABS: Glucose, Whole Blood 122 mg/dL (60-115)
[2020-09-13] MEDS: Insulin Glargine,Hum.rec.anlog 100 UNIT/ML 10 ML VIAL 14 UNIT SUBCUT (22:00)
[2020-09-13] MEDS: traZODone HCL 100 MG TABLET PO (22:01)
[2020-09-13] MEDS: oxyCODONE HCl Immed Release 5 MG TABLET PO (22:03)
[2020-09-14] MEDS: Morphine Sulfate 2 MG/ML CARTRIDGE IVPUSH ×2 (00:45→08:16)
[2020-09-14 03:56] VITALS: BP 161/86; PULSE 97; RESP 161; TEMP 36.7; O2SAT 100
[2020-09-14 04:00] VITALS: RESP 19
[2020-09-14] MEDS: ondansetron HCL 4 MG/2 ML VIAL IVPUSH (04:26)
[2020-09-14] MEDS: oxyCODONE HCl Immed Release 5 MG TABLET PO (04:26)
[2020-09-14] MEDS: Pantoprazole Sodium 40 MG/10 ML VIAL IVPUSH (05:27)
[2020-09-14 06:00] VITALS: BMI 38.2
[2020-09-14 07:41] VITALS: BP 163/89; PULSE 95; RESP 19; TEMP 36.4; O2SAT 98
[2020-09-14 07:43] LABS: Glucose, Whole Blood 44 mg/dL (60-115)
[2020-09-14 08:02] VITALS: BP 163/89; PULSE 95
[2020-09-14] MEDS: OXcarbazepine 300 MG TABLET PO (08:02)
[2020-09-14] MEDS: lisinopriL 10 MG TABLET PO (08:02)
[2020-09-14] MEDS: Enoxaparin Sodium 40 MG/0.4 ML SYRINGE SUBCUT (08:03)
[2020-09-14] MEDS: Lidocaine 4 % Patch ADH..PATCH 1 PATCH TRANSDERMA (08:03)
[2020-09-14] MEDS: Metoclopramide HCl 10 MG/2 ML VIAL 5 MG IVPUSH ×2 (08:03→12:26)
[2020-09-14 08:09] LABS: Glucose, Whole Blood 93 mg/dL (60-115)
[2020-09-14 08:14] LABS: Anion Gap 10 (12-20); Calcium 7.9 mg/dL (8.4-10.2); Carbon Dioxide 31 mmol/L (22-29); Chloride 101 mmol/L (96-108); Creatinine Clr Calc Pharmacy 161.6; Estimated Glomerular Filt Rate > 60; Glucose Random 50 mg/dL (60-115); Sodium 139 mmol/L (135-145)
[2020-09-14 08:32] LABS: Blood Urea Nitrogen 6 mg/dL (9-16)
[2020-09-14] MEDS: 0.9 % Sodium Chloride 1,000 ML 100 ML IVCONT (10:02)
[2020-09-14 11:40] LABS: Glucose, Whole Blood 220 mg/dL (60-115)
[2020-09-14 11:41] VITALS: BP 184/66; PULSE 86; RESP 17; TEMP 36.1; O2SAT 98
[2020-09-14] MEDS: Insulin Lispro 100 UNIT/ML 3 ML VIAL SUBCUT ×2 (12:27)
[2020-09-14 13:22] VITALS: BP 155/70; PULSE 80
[2020-09-14 14:44] LABS: Glucose, Whole Blood 120 mg/dL (60-115)
--- NOTE | 2020-09-14 14:44 | P.DS_ITS ---
DS: Providers Provider Date of admission: 09/11/20 06:24 Primary care physician: Dipesh Koch MD DS: Diagnosis Discharge Diagnosis (1) DKA (diabetic ketoacidoses): Status: Acute (2) Intractable nausea and vomiting: Status: Acute (3) Gastritis: Status: Acute (4) Asthma: Status: Acute (5) Gastroparesis: Status: Acute (6) Hypokalemia: Status: Acute DS: Summary Hospital Course Hospital Course: 30 year male with Type 1 diabetes on insulin pump who presented with intractable nausea and vomitting and admitted fo gastroparessis and while NPO and insulin pump was off went into DKA. Hospital course; 1. Diabetes Gastroparesis--treated with hydration and antiemetics and is now feeling better and tolerating regular diet. We think canabis can be part of vomiting and advised to stop 2. DKA--treaed with insulin and IVF and DKA has resolved, advised prompt resumption of insulin pump as soon as he gets it at home and replace batter. [place] lives [place]. Sugar level is 120 3. Hypokalemia--likely from insulin, replaced with oral insulin Time Spent with Patient Time attestation: Total time spent providing and/or coordinating discharge services: Physical Exam Vital Signs: Vital Signs: Vital Signs Temp Pulse Resp BP Pulse Ox 09/14/20 13:22 80 155/70 H 09/14/20 11:41 97.0 F 86 17 184/66 H 98 09/14/20 08:02 95 163/89 H 09/14/20 07:41 97.5 F 95 19 163/89 H 98 09/14/20 04:00 19 09/14/20 03:56 98.0 F 97 161 H 161/86 H 100 09/13/20 23:37 98.3 F 101 H 19 135/72 99 09/13/20 19:13 98.6 F 93 18 160/90 H 98 09/13/20 15:31 97.1 F 95 18 172/78 H 100 Body Mass Index 38.2 Constitutional Awake and Alert, No apparent distress Neck Supple, No lymphadenopathy Cardiovascular RRR, No M/R/G, S1 S2, No S3 S4, No pedal edema Respiratory Lungs clear, No respiratory distress Gastrointestinal Non tender, Non-distended Skin No rash Neurological Alert & oriented x3 Psychological Appropriate affect DS: Data Data Completed and Pending Labs on day of discharge: Labs from last 24 hours 09/14/20 09/14/20 09/14/20 14:36 11:30 08:05 Sodium Potassium Chloride Carbon Dioxide Anion Gap BUN Creatinine Estim Creat Clear Calc Estimated GFR POC Glucose 120 H 220 H 93 Random Glucose Calcium 09/14/20 09/14/20 09/13/20 07:38 07:02 20:37 Sodium 139 Potassium 3.0 L Chloride 101 Carbon Dioxide 31 H Anion Gap 10 L BUN 6 L D Creatinine 0.76 Estim Creat Clear Calc 161.6 Estimated GFR > 60 POC Glucose 44 L* 122 H Random Glucose 50 L* Calcium 7.9 L 09/13/20 16:56 Sodium Potassium Chloride Carbon Dioxide Anion Gap BUN Creatinine Estim Creat Clear Calc Estimated GFR POC Glucose 202 H Random Glucose Calcium Preliminary micro results at discharge 09/10/20 20:26 Blood Culture - Preliminary Blood - Venous No growth after 48 hours. 09/10/20 20:26 Blood Culture - Preliminary Blood - Venous No growth after 48 hours. Discharge Plan Discharge Anticipated Discharge Date/Time: 09/14/20 14:36 Patient Disposition: Home, Self-Care Referrals: Name,MD Dipesh [Primary Care Provider] - Discharge Medications: Continued metformin 500 mg Tablet 500 mg PO DAILY RF: 0 ondansetron 8 mg Tablet,Disintegrating 8 mg PO Q8H PRN (Reason: Nausea And Vomiting) RF: 0 metoclopramide HCl 5 mg Tablet 5 mg PO DAILY RF: 0 trazodone 100 mg Tablet 100 mg PO BEDTIME RF: 0 lisinopril 5 mg Tablet 5 mg PO DAILY RF: 0 Humalog U-100 Insulin 100 unit/mL Cartridge 1 sliding scale dose SUBCUT USEASDIRECTD RF: 0 (DME) subcutaneous insulin pump Misc MISCELLANEOUS RF: 0 omeprazole 40 mg Capsule,Delayed Release(Dr/Ec) 40 mg PO DAILY RF: 0 (DME) Omnipod Insulin Management Misc MISCELLANEOUS RF: 0 Discharge Orders: Discharge Order (Routine); Ordered 09/14/20 Ordered By: Lazaro Barney Diet: diabetic diet Activity on Discharge: As tolerated Discharge Date/Time: 09/14/20 16:30 Other Ambulatory Orders: Basic Metabolic Panel (Routine) Timeframe: 20200916 Facility: [facility] - Location: Laboratory Ordered By: Lazaro Barney Visit Report Forms: Patient Portal Discharge page Care Plan Goals: Use your insulin pump as directed to control your diabetes Health Concerns: Recurrent DKA and gastroparesis Plan of Treatment: Use insulin as directed, check your sugars regularly and follow up with your Doctor in a week, avoid marijuana
--- NOTE | 2020-09-14 18:03 | PC.NURSE ---
0738- PT'S POC WAS 44. PT APPEARS ASYMPTOMATIC, STATES HE DOES NOT FEEL ANY DIFFFERENT. GIVEN 4 OZ CRANBERRY JUICE AND BREAKFAST. DR. CHESTER MADE AWARE. 0750- POC RECHECKED AND WAS 93. PT ATE ALL OF BREAKFAST, FEELS OKAY. DR. CHESTER UPDATED. WILL CONTINUE TO MONITOR.
== END 2020-09-14 16:30 | disposition home or self-care (01) | DRG 420 ==
LOC: HO.ED 09-11 06:20 → HO.S3 09-11 06:36
PROVIDERS: Hospitalist; Internal Medicine; Nurse Practitioner Family; Admitting Provider Internal Medicine; Emergency Provider Internal Medicine; PCP Internal Medicine Geriatric Medicine; Visit Provider Internal Medicine
DX: E10.10 Type 1 diabetes mellitus with ketoacidosis without coma (principal); K31.84 Gastroparesis; E10.43 Type 1 diabetes mellitus with diabetic autonomic (poly)neuropathy; E87.6 Hypokalemia; J45.909 Unspecified asthma, uncomplicated; Z96.41 Presence of insulin pump (external) (internal); K29.70 Gastritis, unspecified, without bleeding; Z79.4 Long term (current) use of insulin; Z79.899 Other long term (current) drug therapy
CPT/HCPCS: 36415; 74176; 80048; 80076; 81001; 82009; 82947; 83036; 83605; 83690; 83735; 84484; 85025; 87040; 87076; 87185; 93005; 96361; 96365; 96375; 96376; 99285; J1650; J1885; J2270; J2405; J2765

== ENCOUNTER 2020-09-18 14:09 | Outpatient (REF) | payer MEDICAID, SELFPAY | END 2020-09-18 14:10 | disposition home or self-care (01) | LOC: HO.LAB 14:09 | PROVIDERS: Visit Provider Internal Medicine | DX: Z20.828 Contact with and (suspected) exposure to other viral communicable diseases (principal) | CPT/HCPCS: 87635 ==

== ENCOUNTER → 2020-11-06 12:38 | Outpatient (BNVA) | payer MEDICAID, SELFPAY | PROVIDERS: PCP Internal Medicine Geriatric Medicine; Referring Provider Internal Medicine Geriatric Medicine; Visit Provider Internal Medicine Endocrinology, Diabetes & Metabolism | DX: E10.65 Type 1 diabetes mellitus with hyperglycemia (principal); E10.21 Type 1 diabetes mellitus with diabetic nephropathy; E10.43 Type 1 diabetes mellitus with diabetic autonomic (poly)neuropathy; K31.84 Gastroparesis; E10.42 Type 1 diabetes mellitus with diabetic polyneuropathy; E21.1 Secondary hyperparathyroidism, not elsewhere classified; E66.9 Obesity, unspecified; E78.5 Hyperlipidemia, unspecified | CPT/HCPCS: 82947; 99212 ==

== ENCOUNTER 2020-12-01 10:03 | Inpatient (IN) | payer MEDICAID, SELFPAY ==
[2020-12-01] VITALS (13 sets, daily range): BP systolic 136–176; BP diastolic 70–101; PULSE 92–125; RESP 13–20; TEMP 36.9–37.7; O2SAT 97–99; BMI 36.6
--- NOTE | 2020-12-01 10:41 | XR_ITS ---
EXAMINATION: XR CHEST CLINICAL INFORMATION: Fever. COMPARISON: None TECHNIQUE: Frontal view of the chest was obtained. FINDINGS: No significant abnormality is noted involving the heart, lungs, mediastinum, bony thorax or soft tissues. XR/XR chest 1V IMPRESSION: Unremarkable chest exam.
--- NOTE | 2020-12-01 10:54 | ED.ABDPAIN ---
HPI - Abdominal Pain General Chief Complaint: Abdominal Pain Stated Complaint: vomiting, fever Time Seen by Provider: 12/01/20 10:41 Source: patient Mode of arrival: ambulatory Limitations: no limitations History of Present Illness HPI narrative: 30 y/o male with history of DM1 on insulin pump with complications of gastroparesis, neuropathy, HLD, hx H. pylori, gastritis who presents with 2 days of abdominal pain, nausea and vomiting. He reports there was insurance issues with his insulin pump and he has been on Lantus 30 units QHS and humalog for the last week. He develop abd pain and vomiting 2 days ago. He did not check his sugars yesterday but reports taking his Lantus last night. He reports subjective fevers, chills, mild diarrhea. No sick contacts, urinary symptoms, or exposure to COVID. MD elicited complaint: abdominal pain Pertinent past history: gastritis and other (gastroparesis) Onset (ago): day(s) (2) Pain Consistency: constant Location: diffuse Severity: severe Pain scale (0-10): 10 Quality: cramping and stabbing Radiation: none Migration to: no migration Exacerbating factors: eating and movement Relieving factors: vomiting Context: history of similar episodes Associated symptoms: nausea, vomiting, diarrhea, fever and chills Related Data Home Medications Medication Instructions Recorded Confirmed Omnipod Insulin Management 09/03/20 11/06/20 lisinopril 5 mg PO DAILY 09/11/20 11/06/20 metoclopramide HCl 5 mg PO DAILY 09/11/20 11/06/20 omeprazole 40 mg PO DAILY 09/11/20 11/06/20 ondansetron 8 mg PO Q8H PRN 09/11/20 11/06/20 subcutaneous insulin pump 09/11/20 11/06/20 trazodone 100 mg PO BEDTIME 09/11/20 11/06/20 Previous Rx's Medication Instructions Recorded insulin lispro 100 unit/mL See Rx Instructions SUBCUT DAILY 10/02/20 subcutaneous solution 30 Days #40 ml metformin 500 mg tablet 500 mg PO DAILY 30 Days #30 tab 10/17/20 metoclopramide HCl [Reglan] 10 mg PO Q6H PRN #10 tab 12/01/20 Allergies Allergy/AdvReac Type Severity Reaction Status Date / Time No Known Allergies Allergy Verified 11/06/20 12:53 Review of Systems Review of Systems Constitutional: + Fever, + Chills ENT/Mouth: No sore throat, No Rhinorrhea, No Swallowing Difficulty Eyes: No Eye Pain, No Swelling, No Redness Cardiovascular: No Chest Pain, No SOB, No Orthopnea, No Edema Respiratory: No Cough, No Sputum, No Wheezing, No dyspnea Gastrointestinal: + Nausea, + Vomiting, + Diarrhea, + abdominal Pain, No Hematochezia, No Melena Genitourinary: No Dysuria, No Urinary Frequency, No Hematuria Musculoskeletal: No joint pain, No Myalgias Skin: No Skin Lesions, No rash Neuro: No Weakness, No Numbness, No Dizziness, + Headache Psych: No Anxiety/Panic, No Depression Heme/Lymph: No Bruising, No Lymphadenopathy Endocrine: No Polyuria, No Polydipsia Physical Exam Vital Signs: Vital Signs: Last Vital Signs Temp 99.9 F 12/01/20 16:00 Pulse 105 H 12/01/20 16:00 Resp 18 12/01/20 16:00 BP 149/80 H 12/01/20 16:30 Pulse Ox 99 12/01/20 16:00 Body Mass Index 36.6 Appearance: Alert. Oriented X3. Appears uncomfortable Eyes: Pupils equal, round and reactive to light. ENT: Pharynx normal. Neck: Normal inspection. Neck supple. CVS: Normal heart rate and rhythm. Pulses normal. Respiratory: Mild respiratory distress with RR 22, Breath sounds normal, breathing deeply. Abdomen: Soft with diffuse tenderness to light palpation. +BS x4 Skin: Skin warm and dry. Normal skin color. Normal skin turgor. No rashes. Extremities: No lower extremity edema. Neuro: Oriented X 3. No motor deficit. No sensory deficit. Course Course Course Narrative: 30 y/o male with history of DM1, asthma, gastroparesis presenting with N/V, abdominal pain x2 days. Concern for DKA - check POC now, VBG, acetone. IVF, antiemetics and morphine ordered for now as well as CT scan. Reevaluation(s) Reevaluation #1: 12:20 - normal VBG so patient is not in DKA. Other labs hemolyzed so needed to be reordered, Lactic acid mildly elevated, likely due to dehydration and vomiting. 2nd Liter IVF ordered. Low suspicion for sepsis as his tachycardia and elevated lactic acid can be explained by vomiting, dehydration due to gastroparesis flare vs non-infectious gastroenteritis. Reevaluation #2: CT is negative for acute pathology. He has been given 2L IVF, morphine, reglan and zofran with improvement. He is now tolerating ice water but continues to report some pain. His HR is 120's. Will order another liter IVF, 2nd dose of morphine and recheck chemistry to ensure YADIRA is resolved. Anticipate d/c home for treatment of gastroparesis if improved. Signed out to Katie BOWERS who will assume care. MDM - Abdominal Pain Lab Data Result diagrams: 12/01/20 11:33 12/01/20 13:48 Labs: Lab Results 12/01/20 12/01/20 12/01/20 Range/Units 10:56 11:32 11:33 WBC 20.3 H (4.8-10.8) X10*3/uL RBC 5.55 D (4.60-5.80) X10*6/uL Hgb 15.7 D (14.0-18.0) g/dl Hct 46.4 D (42-52) % MCV 83.6 (80-98) fL MCH 28.3 (27.0-33.0) pg MCHC 33.8 (31.0-36.0) g/dl RDW 12.6 (11.0-16.0) % Plt Count 425 H D (160-400) X10*3/uL MPV 11.5 (9.4-12.4) fL Immature Gran % (Auto) 0.4 (0.0-0.4) % Neut % (Auto) 93.0 H (45-73) % Lymph % (Auto) 4.2 L (20-40) % [place] % (Auto) 2.3 (2-11) % Eos % (Auto) 0.0 (0-4) % Baso % (Auto) 0.1 (0-2) % Lymph # (Auto) 0.9 L (1.2-4.9) X10*3/uL [place] # (Auto) 0.5 (0.1-1.2) X10*3/uL Eos # (Auto) 0.0 (0.0-0.4) X10*3/uL Baso # (Auto) 0.0 (0.0-0.2) X10*3/uL Abs Immat Gran (auto) 0.08 H (0.00-0.03) X10*3/uL Absolute Neuts (auto) 18.8 H (2.0-8.3) X10*3/uL Absolute Nucleated RBC 0.000 (0.0-0.012) X10*3/uL Nucleated RBC % (auto) 0.0 (0.0-0.2) /100WBC Smear Tech's Comments VERIFIED Hold Blue Top VBG pH 7.42 (7.32-7.43) VBG pCO2 43 mmhg VBG pO2 37 mmhg VBG HCO3 27 mmol/L VBG O2 Saturation 74.4 % VBG Base Excess 2.3 mmol/L Sodium Potassium Chloride Carbon Dioxide Anion Gap BUN Creatinine Estim Creat Clear Calc Estimated GFR POC Glucose 365 H* (60-115) mg/dL Random Glucose Lactic Acid (0.5-2.0) mmol/L Lactic Acid Fup @ 2Hr (0.5-2.0) mmol/L Calcium Magnesium Total Bilirubin Direct Bilirubin AST ALT Alkaline Phosphatase Total Protein Albumin Lipase Urine Color Urine Appearance Urine pH (5.0-8.0) Ur Specific [place] (1.005-1.025) Urine Protein (NEG-TRACE) MG/DL Urine Glucose (UA) (NEG) MG/DL Urine Ketones (NEG) MG/DL Urine Blood (NEG) Urine Nitrite (NEG) Ur Leukocyte Esterase (NEG) Urine RBC (0) /HPF Urine WBC (0-4) /HPF Ur Squamous Epith Cells /LPF Urine Bacteria /LPF Hyaline Casts /LPF Granular Casts /LPF Acetone, Qual Coronavirus (PCR) (Negative) Influenza Type A (PCR) (Negative) Influenza Type B (PCR) (Negative) RSV RNA Qual (PCR) (Negative) 12/01/20 12/01/20 12/01/20 Range/Units 11:33 11:33 11:33 WBC (4.8-10.8) X10*3/uL RBC (4.60-5.80) X10*6/uL Hgb (14.0-18.0) g/dl Hct (42-52) % MCV (80-98) fL MCH (27.0-33.0) pg MCHC (31.0-36.0) g/dl RDW (11.0-16.0) % Plt Count (160-400) X10*3/uL MPV (9.4-12.4) fL Immature Gran % (Auto) (0.0-0.4) % Neut % (Auto) (45-73) % Lymph % (Auto) (20-40) % [place] % (Auto) (2-11) % Eos % (Auto) (0-4) % Baso % (Auto) (0-2) % Lymph # (Auto) (1.2-4.9) X10*3/uL [place] # (Auto) (0.1-1.2) X10*3/uL Eos # (Auto) (0.0-0.4) X10*3/uL Baso # (Auto) (0.0-0.2) X10*3/uL Abs Immat Gran (auto) (0.00-0.03) X10*3/uL Absolute Neuts (auto) (2.0-8.3) X10*3/uL Absolute Nucleated RBC (0.0-0.012) X10*3/uL Nucleated RBC % (auto) (0.0-0.2) /100WBC Smear Tech's Comments Hold Blue Top Cancelled VBG pH (7.32-7.43) VBG pCO2 mmhg VBG pO2 mmhg VBG HCO3 mmol/L VBG O2 Saturation % VBG Base Excess mmol/L Sodium Cancelled Potassium Cancelled Chloride Cancelled Carbon Dioxide Cancelled Anion Gap Cancelled BUN Cancelled Creatinine Cancelled Estim Creat Clear Calc Cancelled Estimated GFR Cancelled POC Glucose (60-115) mg/dL Random Glucose Cancelled Lactic Acid 2.3 H* (0.5-2.0) mmol/L Lactic Acid Fup @ 2Hr (0.5-2.0) mmol/L Calcium Cancelled Magnesium Cancelled Total Bilirubin Cancelled Direct Bilirubin Cancelled AST Cancelled ALT Cancelled Alkaline Phosphatase Cancelled Total Protein Cancelled Albumin Cancelled Lipase Cancelled Urine Color Urine Appearance Urine pH (5.0-8.0) Ur Specific [place] (1.005-1.025) Urine Protein (NEG-TRACE) MG/DL Urine Glucose (UA) (NEG) MG/DL Urine Ketones (NEG) MG/DL Urine Blood (NEG) Urine Nitrite (NEG) Ur Leukocyte Esterase (NEG) Urine RBC (0) /HPF Urine WBC (0-4) /HPF Ur Squamous Epith Cells /LPF Urine Bacteria /LPF Hyaline Casts /LPF Granular Casts /LPF Acetone, Qual Cancelled Coronavirus (PCR) (Negative) Influenza Type A (PCR) (Negative) Influenza Type B (PCR) (Negative) RSV RNA Qual (PCR) (Negative) 12/01/20 12/01/20 12/01/20 Range/Units 11:35 13:48 13:48 WBC (4.8-10.8) X10*3/uL RBC (4.60-5.80) X10*6/uL Hgb (14.0-18.0) g/dl Hct (42-52) % MCV (80-98) fL MCH (27.0-33.0) pg MCHC (31.0-36.0) g/dl RDW (11.0-16.0) % Plt Count (160-400) X10*3/uL MPV (9.4-12.4) fL Immature Gran % (Auto) (0.0-0.4) % Neut % (Auto) (45-73) % Lymph % (Auto) (20-40) % [place] % (Auto) (2-11) % Eos % (Auto) (0-4) % Baso % (Auto) (0-2) % Lymph # (Auto) (1.2-4.9) X10*3/uL [place] # (Auto) (0.1-1.2) X10*3/uL Eos # (Auto) (0.0-0.4) X10*3/uL Baso # (Auto) (0.0-0.2) X10*3/uL Abs Immat Gran (auto) (0.00-0.03) X10*3/uL Absolute Neuts (auto) (2.0-8.3) X10*3/uL Absolute Nucleated RBC (0.0-0.012) X10*3/uL Nucleated RBC % (auto) (0.0-0.2) /100WBC Smear Tech's Comments Hold Blue Top VBG pH (7.32-7.43) VBG pCO2 mmhg VBG pO2 mmhg VBG HCO3 mmol/L VBG O2 Saturation % VBG Base Excess mmol/L Sodium 140 Potassium 4.4 D Chloride 102 Carbon Dioxide 25 Anion Gap 17 BUN 20 H D Creatinine 1.44 H Estim Creat Clear Calc 82.9 Estimated GFR 58 POC Glucose (60-115) mg/dL Random Glucose 397 H* Lactic Acid (0.5-2.0) mmol/L Lactic Acid Fup @ 2Hr 1.8 (0.5-2.0) mmol/L Calcium 8.8 D Magnesium 2.0 Total Bilirubin 0.3 Direct Bilirubin 0.2 AST 11 ALT 18 Alkaline Phosphatase 165 H D Total Protein 7.1 Albumin 3.8 Lipase 4 L Urine Color Urine Appearance Urine pH (5.0-8.0) Ur Specific [place] (1.005-1.025) Urine Protein (NEG-TRACE) MG/DL Urine Glucose (UA) (NEG) MG/DL Urine Ketones (NEG) MG/DL Urine Blood (NEG) Urine Nitrite (NEG) Ur Leukocyte Esterase (NEG) Urine RBC (0) /HPF Urine WBC (0-4) /HPF Ur Squamous Epith Cells /LPF Urine Bacteria /LPF Hyaline Casts /LPF Granular Casts /LPF Acetone, Qual Coronavirus (PCR) NEGATIVE (Negative) Influenza Type A (PCR) NEGATIVE (Negative) Influenza Type B (PCR) NEGATIVE (Negative) RSV RNA Qual (PCR) NEGATIVE (Negative) 12/01/20 12/01/20 Range/Units 14:00 16:15 WBC (4.8-10.8) X10*3/uL RBC (4.60-5.80) X10*6/uL Hgb (14.0-18.0) g/dl Hct (42-52) % MCV (80-98) fL MCH (27.0-33.0) pg MCHC (31.0-36.0) g/dl RDW (11.0-16.0) % Plt Count (160-400) X10*3/uL MPV (9.4-12.4) fL Immature Gran % (Auto) (0.0-0.4) % Neut % (Auto) (45-73) % Lymph % (Auto) (20-40) % [place] % (Auto) (2-11) % Eos % (Auto) (0-4) % Baso % (Auto) (0-2) % Lymph # (Auto) (1.2-4.9) X10*3/uL [place] # (Auto) (0.1-1.2) X10*3/uL Eos # (Auto) (0.0-0.4) X10*3/uL Baso # (Auto) (0.0-0.2) X10*3/uL Abs Immat Gran (auto) (0.00-0.03) X10*3/uL Absolute Neuts (auto) (2.0-8.3) X10*3/uL Absolute Nucleated RBC (0.0-0.012) X10*3/uL Nucleated RBC % (auto) (0.0-0.2) /100WBC Smear Tech's Comments Hold Blue Top VBG pH (7.32-7.43) VBG pCO2 mmhg VBG pO2 mmhg VBG HCO3 mmol/L VBG O2 Saturation % VBG Base Excess mmol/L Sodium Potassium Chloride Carbon Dioxide Anion Gap BUN Creatinine Estim Creat Clear Calc Estimated GFR POC Glucose 128 H (60-115) mg/dL Random Glucose Lactic Acid (0.5-2.0) mmol/L Lactic Acid Fup @ 2Hr (0.5-2.0) mmol/L Calcium Magnesium Total Bilirubin Direct Bilirubin AST ALT Alkaline Phosphatase Total Protein Albumin Lipase Urine Color YELLOW Urine Appearance CLEAR Urine pH 5.5 (5.0-8.0) Ur Specific [place] 1.020 (1.005-1.025) Urine Protein 3+ H (NEG-TRACE) MG/DL Urine Glucose (UA) >=1000 H (NEG) MG/DL Urine Ketones 15 (NEG) MG/DL Urine Blood 2+ H (NEG) Urine Nitrite NEG (NEG) Ur Leukocyte Esterase NEG (NEG) Urine RBC 10-14 H (0) /HPF Urine WBC 0 (0-4) /HPF Ur Squamous Epith Cells NONE /LPF Urine Bacteria NONE /LPF Hyaline Casts 1-4 /LPF Granular Casts 5-9 /LPF Acetone, Qual Coronavirus (PCR) (Negative) Influenza Type A (PCR) (Negative) Influenza Type B (PCR) (Negative) RSV RNA Qual (PCR) (Negative) Discharge Plan Discharge Clinical Impression: Diabetic gastroparesis Patient Disposition: Home, Self-Care Additional Instructions: Your CT scan today was unremarkable. Your lab workup showed dehydration. You were given IV fluids with improvement in your labs. It is likely your pain and vomiting are due to gastroparesis. Your glucose has been NOT well controlled and can cause this. Recommend following up with your doctor this week. You would benefit from going back on your insulin pump. Prescriptions: New metoclopramide HCl [Reglan] 10 mg tablet 10 mg PO Q6H PRN (Reason: nausea and vomiting) Qty: 10 RF: 0 No Action insulin lispro [Humalog U-100 Insulin] 100 unit/mL solution See Rx Instructions subcut DAILY 30 Days Qty: 40 RF: 1 metformin 500 mg tablet 500 mg PO DAILY 30 Days Qty: 30 RF: 6 ondansetron 8 mg Tablet,Disintegrating 8 mg PO Q8H PRN (Reason: Nausea And Vomiting) RF: 0 metoclopramide HCl 5 mg Tablet 5 mg PO DAILY RF: 0 trazodone 100 mg Tablet 100 mg PO BEDTIME RF: 0 lisinopril 5 mg Tablet 5 mg PO DAILY RF: 0 (DME) subcutaneous insulin pump Misc MISCELLANEOUS RF: 0 omeprazole 40 mg Capsule,Delayed Release(Dr/Ec) 40 mg PO DAILY RF: 0 (DME) Omnipod Insulin Management Misc MISCELLANEOUS RF: 0 PMFSH Past Medical History Attestation statement: The following information was validated with the patient. Medical History Asthma Diabetes Diabetes type 1, uncontrolled Diabetic gastroparesis associated with type 1 diabetes mellitus Diabetic nephropathy associated with type 1 diabetes mellitus Diabetic polyneuropathy associated with type 1 diabetes mellitus Dyslipidemia Gastritis Gastroparalysis Gastroparesis H. pylori infection Hyperparathyroidism due to vitamin D deficiency Obesity (BMI 30-39.9) Social History Social History Alcohol intake: never Smoking Status: Never smoker Substance Use Type: Marijuana Substance Use Frequency: Occasionally Advance Directives: No Advance Directives Information Provided: No service: No Current occupational status: unemployed
[2020-12-01 11:44] LABS: Base Excess VBG 2.3 mmol/L; HCO3 VBG 27 mmol/L; Oxygen Saturation VBG 74.4 %; PCO2 VBG 43 mmhg; PO2 VBG 37 mmhg; pH VBG 7.42 (7.32-7.43)
[2020-12-01] MEDS: ondansetron HCL 4 MG/2 ML VIAL IVPUSH ×2 (11:44→22:29)
[2020-12-01] MEDS: 0.9 % Sodium Chloride 1,000 ML 999 ML IVCONT ×3 (11:44→16:30)
[2020-12-01] MEDS: Morphine Sulfate 4 MG/ML CARTRIDGE IVPUSH ×2 (11:44→16:25)
[2020-12-01 11:49] LABS: Basophils Percent Auto 0.1 % (0-2); Hematocrit 46.4 % (42-52); Hemoglobin 15.7 g/dl (14.0-18.0); Imm Gran Abs Auto 0.08 X10*3/uL (0.00-0.03); Imm Gran Pct Auto 0.4 % (0.0-0.4); Lymphocytes Absolute Auto 0.9 X10*3/uL (1.2-4.9); Lymphocytes Percent Auto 4.2 % (20-40); MANUAL DIFF FLAG SCAN; Mean Corpuscular HGB Conc 33.8 g/dl (31.0-36.0); Mean Corpuscular Hemoglobin 28.3 pg (27.0-33.0); Mean Corpuscular Volume 83.6 fL (80-98); Mean Platelet Volume 11.5 fL (9.4-12.4); Monocytes Absolute Auto 0.5 X10*3/uL (0.1-1.2); Monocytes Percent Auto 2.3 % (2-11); Neutrophils Absolute Auto 18.8 X10*3/uL (2.0-8.3); Platelet Count 425 X10*3/uL (160-400); Red Blood Count 5.55 X10*6/uL (4.60-5.80); Red Cell Distribution Width 12.6 % (11.0-16.0); SCAN SMEAR FLAG 1; White Blood Count 20.3 X10*3/uL (4.8-10.8)
[2020-12-01 12:06] LABS: SLIDE REVIEW VERIFIED
[2020-12-01 12:21] LABS: Lactic Acid 2.3 mmol/L (0.5-2.0)
[2020-12-01 12:26] LABS: Influenza A PCR NEGATIVE (Negative); Influenza B PCR NEGATIVE (Negative); Resp Syncy Virus RNA Qual PCR NEGATIVE (Negative); SARS COV2 PCR INHOUSE NEGATIVE (Negative)
[2020-12-01 13:40] LABS: Reflex Lactate? Lactic Acid Added
[2020-12-01] MEDS: Metoclopramide HCl 10 MG/2 ML VIAL IVPUSH (13:58)
[2020-12-01 14:07] LABS: Glucose Urine UA >=1000 MG/DL (NEG); Leukocyte Esterase Urine NEG (NEG); Nitrite Urine NEG (NEG); PH 5.5 (5.0-8.0); Urine Blood 2+ (NEG); Urine Ketones 15 MG/DL (NEG); Urine Protein 3+ MG/DL (NEG-TRACE)
[2020-12-01 14:10] LABS: Appearance Urine CLEAR; Color Urine YELLOW
[2020-12-01 14:18] LABS: WBC Urine 0 /HPF (0-4)
[2020-12-01 14:21] LABS: ~Lactic Acid-LAB USE ONLY 1.8 mmol/L (0.5-2.0)
[2020-12-01 14:30] LABS: Alanine Aminotransferase 18 U/L (0-40); Albumin Level 3.8 g/dL (3.5-5.0); Alkaline Phosphatase 165 U/L (39-117); Anion Gap 17 (12-20); Aspartate Amino Transferase 11 U/L (5-37); Bilirubin Direct 0.2 mg/dL (0.0-0.5); Bilirubin Total 0.3 mg/dL (0.0-1.0); Blood Urea Nitrogen 20 mg/dL (9-16); Calcium 8.8 mg/dL (8.4-10.2); Carbon Dioxide 25 mmol/L (22-29); Chloride 102 mmol/L (96-108); Creatinine Clr Calc Pharmacy 82.9; Estimated Glomerular Filt Rate 58; Glucose Random 397 mg/dL (60-115); Lipase 4 U/L (8-78); Potassium 4.4 mmol/l (3.3-5.1); Sodium 140 mmol/L (135-145); Total Protein 7.1 g/dL (6.5-8.0)
--- NOTE | 2020-12-01 14:34 | CT_ITS ---
EXAMINATION: CT ABDOMEN AND PELVIS WITHOUT CONTRAST CLINICAL INFORMATION: Severe diffuse pain COMPARISON: 09/10/2020 TECHNIQUE: Multidetector volumetric imaging was performed from the superior aspect of the liver through the pubic symphysis. Sagittal and coronal reformatted images were obtained on the technologist's workstation. This CT examination was performed using dose optimization techniques as appropriate, variously including the following: *Automated exposure control *Adjustment of mA and/or kV according to patient size (this includes techniques or standardized protocols for targeted exams where dose is matched to indication/reason for exam; i.e. extremities or head) *Use of iterative reconstruction technique DLP: 694 mGy-cm FINDINGS: LUNG BASES: The visualized lung bases are unremarkable. LIVER, GALLBLADDER, AND BILIARY TREE: The liver is normal in size, shape, and attenuation. No focal hepatic lesion or biliary ductal dilatation is present. The gallbladder is unremarkable with no evidence of radiopaque gallstones, gallbladder wall thickening, or obvious pericholecystic inflammatory changes. PANCREAS: Unremarkable. SPLEEN: Unremarkable. ADRENAL GLANDS: Unremarkable. KIDNEYS AND URETERS: The kidneys are normal in size, shape, and attenuation. No hydronephrosis, hydroureter, or calculi seen. No perinephric stranding. BLADDER: Unremarkable. GASTROINTESTINAL TRACT: The small and large bowel are unremarkable. The appendix is surgically absent with clips noted.. ABDOMINAL WALL: No significant hernia is appreciated. LYMPH NODES: Normal. VASCULAR: Unremarkable. PELVIC VISCERA: Unremarkable. OSSEOUS STRUCTURES: Unremarkable. CT/CT abdomen pelvis wo con IMPRESSION: No significant abnormality. No focal abnormality to explain patient's symptoms.
[2020-12-01] MEDS: Insulin Lispro 100 UNIT/ML 3 ML VIAL 10 UNIT SUBCUT (14:49)
--- NOTE | 2020-12-01 14:52 | PC.NURSE ---
Pt given sc insulin for elevated blood glucose. Pt reports mild improvement in his vomiting especially since Reglan admin. Pt awaiting CT at this time.
[2020-12-01 16:21] LABS: Glucose, Whole Blood 365 mg/dL (60-115)
[2020-12-01 16:21] LABS: Glucose, Whole Blood 128 mg/dL (60-115)
--- NOTE | 2020-12-01 16:33 | PC.NURSE ---
POC dropped significantly after 10units suresh. Debbie casas. Pt having juice and tolerating so far. He was given morphine for continued abd pain. He is however still having nausea. Will monitor for patient tolerance with po medications.
[2020-12-01 19:07] LABS: Anion Gap 17 (12-20); Blood Urea Nitrogen 17 mg/dL (9-16); Calcium 8.3 mg/dL (8.4-10.2); Carbon Dioxide 21 mmol/L (22-29); Chloride 109 mmol/L (96-108); Creatinine Clr Calc Pharmacy 98.7; Estimated Glomerular Filt Rate > 60; Glucose Random 235 mg/dL (60-115); Potassium 4.5 mmol/l (3.3-5.1); Sodium 142 mmol/L (135-145)
[2020-12-01 19:17] LABS: Glucose, Whole Blood 209 mg/dL (60-115)
[2020-12-01 22:06] LABS: Glucose, Whole Blood 235 mg/dL (60-115)
[2020-12-01] MEDS: Morphine Sulfate 2 MG/ML CARTRIDGE IVPUSH (22:30)
[2020-12-01] MEDS: 0.9 % Sodium Chloride 1,000 ML 75 ML IVCONT (22:31)
[2020-12-01] MEDS: Insulin Lispro 100 UNIT/ML 3 ML VIAL SUBCUT (22:31)
[2020-12-02] VITALS (11 sets, daily range): BP systolic 109–187; BP diastolic 55–95; PULSE 95–135; RESP 13–20; TEMP 36.8–37.2; O2SAT 96–100
[2020-12-02] MEDS: 0.9 % Sodium Chloride Flush 3 ML SYRINGE IVFLUSH ×2 (00:37→08:14)
[2020-12-02] MEDS: Morphine Sulfate 2 MG/ML CARTRIDGE IVPUSH ×3 (02:40→18:25)
[2020-12-02 02:50] LABS: Glucose, Whole Blood 225 mg/dL (60-115)
[2020-12-02] MEDS: Prochlorperazine Edisylate 10 MG/2 ML VIAL IVPUSH (03:24)
[2020-12-02] MEDS: LORazepam 2 MG/ML VIAL IVPUSH (03:24)
--- NOTE | 2020-12-02 04:06 | PC.NURSE ---
Addendum entered by Sterling Kinsey RN 12/02/20 05:45: BP 157/83, 106/56 after IVP ativan. 3. PAIN: C/O abdomen 10/10 burning pain. morphine 2 mg ivp given x2 at 2220 and 0240 with good effect. 4. Diabetic: POC 235, and 225. covered with 4 units of lispro at bedtime per emar. 5. pt refused to have hs trazodone med d/t vomiting. 6. IV fluid ns 0.9% running at 75 ml/hr since 2200, and making a clear yellow urine output via urinal. Addendum entered by Sterling Kinsey RN 12/02/20 05:39: at 0430, pt vomited x1 despite of compazine 10mg. Hospitalist made aware of . 5 mg of IVP compazine given at 0500. 2. HTN: High bp noted at 0200 187/83. made aware. Per 2mg Ativan IVP given with goof effect. BP Original Note: 7P-7A:S/E 1, Vomitting: pt vomited x6 depsite of zofran 4 mg ivp at 2249. MD made aware. Per , compazine 10 mg ivp given at 0324 with good effect.
[2020-12-02] MEDS: Prochlorperazine Edisylate 10 MG/2 ML VIAL 5 MG IVPUSH (05:22)
[2020-12-02 06:39] LABS: Basophils Percent Auto 0.2 % (0-2); Hematocrit 37.2 % (42-52); Hemoglobin 12.5 g/dl (14.0-18.0); Imm Gran Abs Auto 0.11 X10*3/uL (0.00-0.03); Imm Gran Pct Auto 0.6 % (0.0-0.4); Lymphocytes Absolute Auto 1.3 X10*3/uL (1.2-4.9); Lymphocytes Percent Auto 7.1 % (20-40); MANUAL DIFF FLAG NO; Mean Corpuscular HGB Conc 33.6 g/dl (31.0-36.0); Mean Corpuscular Hemoglobin 28.7 pg (27.0-33.0); Mean Corpuscular Volume 85.3 fL (80-98); Mean Platelet Volume 11.1 fL (9.4-12.4); Monocytes Percent Auto 5.7 % (2-11); Neutrophils Absolute Auto 15.3 X10*3/uL (2.0-8.3); Neutrophils Percent Auto 86.4 % (45-73); Platelet Count 325 X10*3/uL (160-400); Red Blood Count 4.36 X10*6/uL (4.60-5.80); Red Cell Distribution Width 12.8 % (11.0-16.0); White Blood Count 17.7 X10*3/uL (4.8-10.8)
[2020-12-02 07:08] LABS: Anion Gap 15 (12-20); Blood Urea Nitrogen 16 mg/dL (9-16); Calcium 7.9 mg/dL (8.4-10.2); Carbon Dioxide 26 mmol/L (22-29); Chloride 101 mmol/L (96-108); Creatinine Clr Calc Pharmacy 110.6; Estimated Glomerular Filt Rate > 60; Glucose Random 369 mg/dL (60-115); Potassium 4.3 mmol/l (3.3-5.1); Sodium 138 mmol/L (135-145)
[2020-12-02] MEDS: Insulin Glargine,Hum.rec.anlog 100 UNIT/ML 10 ML VIAL 30 UNIT SUBCUT (08:10)
[2020-12-02] MEDS: Insulin Lispro 100 UNIT/ML 3 ML VIAL SUBCUT ×3 (08:11→20:39)
[2020-12-02] MEDS: lisinopriL 5 MG TABLET PO (08:12)
[2020-12-02] MEDS: Metoclopramide HCl 5 MG TABLET PO (08:12)
[2020-12-02] MEDS: Omeprazole 40 MG CAPSULE.DR PO (08:12)
[2020-12-02] MEDS: metFORMIN HCl 500 MG TABLET PO (08:12)
--- NOTE | 2020-12-02 09:19 | HO.PM.IMPN ---
Subjective Subjective Date of Service: 12/02/20 Interval History: still with pain and nausea Cardiovascular Cardiovascular: Reports no additional cardiovascular complaints Respiratory Respiratory: Reports no additional respiratory complaints Physical Exam Vital Signs: Vital Signs: Last Vital Signs Temp 98.9 F 12/02/20 05:19 Pulse 130 H 12/02/20 08:12 Resp 18 12/02/20 07:27 BP 156/74 H 12/02/20 08:12 Pulse Ox 96 12/02/20 07:27 Body Mass Index 36.6 General: AO X 3, no acute distress Resp: CTA bilateral CVS: S1,S2,RRR GI: soft, non tender, non distended Neuro: motor grossly intact Psych: appropriate affect Objective Data Current Medications Generic Name Dose Route Start Last Admin Trade Name Freq PRN Reason Stop Dose Admin Acetaminophen 650 mg 12/01/20 21:46 Acetaminophen 325 Mg Tablet PO Q6H PRN Pain, Mild (Pain Scale 1-3) Sodium Chloride 1,000 mls @ 75 mls/hr 12/01/20 21:46 12/01/20 22:31 Ns IVCONT 75 mls/hr .[id number] [facility] Administration Insulin Glargine 30 unit 12/02/20 09:00 12/02/20 08:10 Insulin Glargine,Hum.Rec.Anlog 100 Unit/Ml 10 Ml Vial SUBCUT 30 unit DAILY [facility] Administration Insulin Human Lispro 0 unit 12/02/20 07:30 12/02/20 08:11 Insulin Lispro 100 Unit/Ml 3 Ml Vial SUBCUT 10 unit TIDAC [facility]O Administration Protocol Lisinopril 5 mg 12/02/20 09:00 12/02/20 08:12 Lisinopril 5 Mg Tablet PO 5 mg DAILY [facility] Administration Protocol Metformin HCl 500 mg 12/02/20 09:00 12/02/20 08:12 Metformin Hcl 500 Mg Tablet PO 500 mg DAILY [facility] Administration Metoclopramide HCl 5 mg 12/02/20 09:00 12/02/20 08:12 Metoclopramide Hcl 5 Mg Tablet PO 5 mg DAILY [facility] Administration Morphine Sulfate 2 mg 12/01/20 22:01 12/02/20 02:40 Morphine Sulfate 2 Mg/Ml Cartridge IVPUSH 2 mg Q4H PRN Administration abdominal pain Omeprazole 40 mg 12/02/20 09:00 12/02/20 08:12 Omeprazole 40 Mg Capsule. PO 40 mg DAILY [facility] Administration Ondansetron HCl 4 mg 12/01/20 20:51 12/01/20 22:29 Ondansetron Hcl 4 Mg/2 Ml Vial IVPUSH 4 mg Q8H PRN Administration Nausea and Vomiting Sodium Chloride 3 ml 12/02/20 00:00 12/02/20 08:14 0.9 % Sodium Chloride Flush 3 Ml Syringe IVFLUSH 3 ml QSHIFT [facility] Administration Trazodone HCl 100 mg 12/01/20 21:00 12/01/20 22:30 Trazodone Hcl 100 Mg Tablet PO Not Given BEDTIME [facility] Labs CBC & Chem 7: 12/02/20 06:29 12/02/20 06:29 Assessment and Plan (1) Diabetic gastroparesis: Status: Acute (2) Diabetic polyneuropathy associated with type 1 diabetes mellitus: Status: Acute (3) Diabetic gastroparesis associated with type 1 diabetes mellitus: Status: Acute (4) Diabetic nephropathy associated with type 1 diabetes mellitus: Status: Acute (5) Diabetes type 1, uncontrolled: Status: Acute (6) Obesity (BMI 30-39.9): Status: Acute (7) YADIRA (acute kidney injury): Status: Acute Assessment and Plan: 30M presented with nausea and vomitting DM I with gastroparesis complicated by YADIRA YADIRA resolved with ivf still with nausea and hyperglycemia, restart glargine (reduced dose due to poor intake) conitnue insulin sliding scale monitor bmp continue reglan on mewtformin as adjunct due to obesity and to reduce insulin requirement
[2020-12-02] MEDS: 0.9 % Sodium Chloride 1,000 ML 75 ML IVCONT (11:58)
[2020-12-02] MEDS: ondansetron HCL 4 MG/2 ML VIAL IVPUSH ×2 (11:59→19:53)
[2020-12-02 12:07] LABS: Glucose, Whole Blood 198 mg/dL (60-115)
--- NOTE | 2020-12-02 18:10 | HP_ITS ---
DATE OF SERVICE: 12/01/2020 PRIMARY CARE PROVIDER: Dipesh Koch MD. CHIEF COMPLAINT: Abdominal pain. HISTORY OF PRESENT ILLNESS: 30-year-old man presenting to the ER with complaints of abdominal pain, nausea, and vomiting. He reports that this has been ongoing since Wednesday. He is a type 1 diabetic, and he has not had his insulin pump running for at least a week. He reports some insurance issues with him not being able to get his cartridges. He reports that he does use subcu Lantus and Humalog and had been using and his blood sugars have been fairly stable. He does have a history of diabetic gastroparesis. He denied fever, chills. Did report 1 episode of diarrhea yesterday. In the ER, abdominal CT was obtained, which was negative for any acute abnormality. Chest x-ray was also negative for consolidation or effusion. White blood cell count elevated at 20.3, urinalysis negative. Coronavirus PCR negative. Vital signs stable though the patient was mildly tachycardic and his blood pressure was elevated at 175/84 with no history, likely related to abdominal pain. The patient did receive 3 L of IV fluids, Reglan, insulin, morphine, Zofran. He will be admitted for further management and treatment of intractable nausea and vomiting, abdominal pain, possibly related to diabetic gastroparesis. PAST MEDICAL HISTORY: 1. Type 1 diabetes. 2. Diabetic gastroparesis. 3. Diabetic nephropathy. 4. Hyperparathyroidism. 5. Obesity. 6. Asthma. 7. Chronic marijuana use. PAST SURGICAL HISTORY: None. SOCIAL HISTORY: Smokes marijuana on a daily basis. Denies any alcohol or tobacco. FAMILY HISTORY: Both parents with diabetes. ALLERGIES: NO KNOWN ALLERGIES. MEDICATIONS: 1. Insulin lispro sliding scale. 2. Lisinopril 5 mg p.o. daily. 3. Metformin 500 mg p.o. daily. 4. Reglan 5 mg p.o. daily. 5. Reglan 10 mg p.o. q.6 hours p.r.n. as needed. 6. Omeprazole 40 mg p.o. daily. 7. Ondansetron 8 mg p.o. q.8 hours p.r.n. 8. Trazodone 100 mg p.o. at bedtime. LABORATORY DATA: WBC 20.3, hemoglobin 15.7, hematocrit 46.4, platelets 424. Sodium 142, potassium is 4.5, chloride is 109, bicarb is 21, BUN is 17, creatinine is 1.21, glucose is 235. REVIEW OF SYSTEMS: CONSTITUTIONAL: Denies any recent fever, chills, or decrease in appetite. RESPIRATORY: Denies any shortness of breath, cough, or sputum production. CARDIOVASCULAR: Denies any chest pain, orthopnea, PND or edema. GASTROINTESTINAL: See HPI. GENITOURINARY: Denies any dysuria, frequency, hematuria. MUSCULOSKELETAL: Denies any joint pain or swelling. NEUROPSYCH: Denies any weakness, seizures. All other systems are reviewed and are negative. PHYSICAL EXAMINATION: CONSTITUTIONAL: Resting in bed. Appearing in no acute distress. VITAL SIGNS: 175/84, 103, 13, 98.5, 98% on room air. SKIN: Intact without rashes or open sores. HEENT: Head is normocephalic, atraumatic. Eyes, pupils are PERRLA. Sclerae anicteric. Mouth and throat, mucous membranes are intact and moist. NECK: Supple. No lymphadenopathy. No JVD noted. CHEST: Clear to auscultation without wheezes, rhonchi, or rales. HEART: Regular rate and rhythm. Clear S1, S2. No murmurs, rubs, gallops. ABDOMEN: Positive bowel sounds. Abdomen is soft,, diffusely tender, mostly to the epigastrium. NEURO: The patient is alert and oriented x3. No focal deficits noted. ASSESSMENT AND PLAN: 30-year-old man, who is being admitted with intractable nausea, vomiting, and abdominal pain, likely related to his diabetic gastroparesis. However, he does have a history of marijuana use and may also be related to cyclical vomiting syndrome. 1. Diabetic gastroparesis. We will treat with antiemetics, PPI, IV fluids. 2. Type 1 diabetes. Usually uses insulin pump, has not had for at least a week due to insurance issues. We will place on sliding scale. Continue Lantus and metformin. 3. Hypertension. Elevated blood pressure. We will continue lisinopril and follow blood pressures closely. 4. Deep vein thrombosis prophylaxis with early ambulation. 5. Case discussed with Dr. Boyd. 6. Full code. ADRIANA Whyte JR/CLARISSE / [id number]
[2020-12-02 19:54] LABS: Glucose, Whole Blood 279 mg/dL (60-115)
[2020-12-02] MEDS: Morphine Sulfate 4 MG/ML CARTRIDGE 3 MG IVPUSH (20:38)
[2020-12-02] MEDS: traZODone HCL 100 MG TABLET PO (20:39)
[2020-12-03] VITALS (9 sets, daily range): BP systolic 122–180; BP diastolic 73–99; PULSE 89–121; RESP 18–20; TEMP 36.6–37.2; O2SAT 95–98; BMI 36.6
[2020-12-03] MEDS: Morphine Sulfate 2 MG/ML CARTRIDGE IVPUSH ×5 (00:06→19:02)
[2020-12-03] MEDS: Prochlorperazine Edisylate 10 MG/2 ML VIAL 5 MG IVPUSH (00:22)
[2020-12-03] MEDS: 0.9 % Sodium Chloride 1,000 ML 75 ML IVCONT ×2 (04:13→21:07)
[2020-12-03] MEDS: ondansetron HCL 4 MG/2 ML VIAL IVPUSH ×3 (04:14→22:00)
[2020-12-03] MEDS: 0.9 % Sodium Chloride Flush 3 ML SYRINGE IVFLUSH ×2 (07:06→22:00)
[2020-12-03 07:08] LABS: MANUAL DIFF FLAG NO
[2020-12-03 07:23] LABS: Basophils Percent Auto 0.2 % (0-2); Hematocrit 40.9 % (42-52); Hemoglobin 13.5 g/dl (14.0-18.0); Imm Gran Abs Auto 0.12 X10*3/uL (0.00-0.03); Imm Gran Pct Auto 0.7 % (0.0-0.4); Lymphocytes Absolute Auto 1.6 X10*3/uL (1.2-4.9); Lymphocytes Percent Auto 9.8 % (20-40); Mean Corpuscular Hemoglobin 28.3 pg (27.0-33.0); Mean Corpuscular Volume 85.7 fL (80-98); Mean Platelet Volume 10.8 fL (9.4-12.4); Monocytes Absolute Auto 0.9 X10*3/uL (0.1-1.2); Monocytes Percent Auto 5.8 % (2-11); Neutrophils Absolute Auto 13.4 X10*3/uL (2.0-8.3); Neutrophils Percent Auto 83.5 % (45-73); Platelet Count 332 X10*3/uL (160-400); Red Blood Count 4.77 X10*6/uL (4.60-5.80); Red Cell Distribution Width 12.5 % (11.0-16.0); White Blood Count 16.1 X10*3/uL (4.8-10.8)
[2020-12-03 07:48] LABS: Glucose, Whole Blood 282 mg/dL (60-115)
[2020-12-03 07:49] LABS: Anion Gap 17 (12-20); Blood Urea Nitrogen 14 mg/dL (9-16); Calcium 8.6 mg/dL (8.4-10.2); Carbon Dioxide 25 mmol/L (22-29); Chloride 101 mmol/L (96-108); Creatinine Clr Calc Pharmacy 111.6; Estimated Glomerular Filt Rate > 60; Glucose Fasting 250 mg/dL (60-99); Potassium 3.9 mmol/l (3.3-5.1); Sodium 139 mmol/L (135-145)
[2020-12-03] MEDS: Metoclopramide HCl 5 MG TABLET PO ×3 (07:52→19:09)
[2020-12-03] MEDS: Omeprazole 40 MG CAPSULE.DR PO (07:52)
[2020-12-03] MEDS: lisinopriL 5 MG TABLET PO (08:18)
[2020-12-03] MEDS: Metoprolol Tartrate 25 MG TABLET PO ×2 (08:18→22:00)
[2020-12-03] MEDS: Insulin Lispro 100 UNIT/ML 3 ML VIAL SUBCUT ×2 (08:18→11:28)
[2020-12-03] MEDS: metFORMIN HCl 500 MG TABLET PO (08:18)
[2020-12-03] MEDS: Insulin Glargine,Hum.rec.anlog 100 UNIT/ML 10 ML VIAL 30 UNIT SUBCUT (08:19)
--- NOTE | 2020-12-03 10:14 | HO.PM.IMPN ---
Subjective Subjective Date of Service: 12/03/20 Interval History: still nausea and vomitting Cardiovascular Cardiovascular: Reports no additional cardiovascular complaints Gastrointestinal Gastrointestinal: Reports no additional gastrointestinal complaints Physical Exam Vital Signs: Vital Signs: Last Vital Signs Temp 98.9 F 12/03/20 07:42 Pulse 121 H 12/03/20 07:42 Resp 20 12/03/20 07:42 BP 177/99 H 12/03/20 07:42 Pulse Ox 98 12/03/20 07:42 Body Mass Index 36.6 General: AO X 3, no acute distress Resp: CTA bilateral CVS: S1,S2,RRR GI: soft, non tender, non distended Neuro: motor grossly intact Psych: appropriate affect Objective Data Current Medications Generic Name Dose Route Start Last Admin Trade Name Freq PRN Reason Stop Dose Admin Acetaminophen 650 mg 12/01/20 21:46 Acetaminophen 325 Mg Tablet PO Q6H PRN Pain, Mild (Pain Scale 1-3) Sodium Chloride 1,000 mls @ 75 mls/hr 12/01/20 21:46 12/03/20 04:13 Ns IVCONT 75 mls/hr .[id number] [facility] Administration Insulin Glargine 30 unit 12/02/20 09:00 12/03/20 08:19 Insulin Glargine,Hum.Rec.Anlog 100 Unit/Ml 10 Ml Vial SUBCUT 30 unit DAILY [facility] Administration Insulin Human Lispro 0 unit 12/02/20 21:00 12/03/20 08:18 Insulin Lispro 100 Unit/Ml 3 Ml Vial SUBCUT 6 unit QIDACHS [facility] Administration Protocol Lisinopril 5 mg 12/02/20 09:00 12/03/20 08:18 Lisinopril 5 Mg Tablet PO 5 mg DAILY [facility] Administration Protocol Metformin HCl 500 mg 12/02/20 09:00 12/03/20 08:18 Metformin Hcl 500 Mg Tablet PO 500 mg DAILY [facility] Administration Metoclopramide HCl 5 mg 12/02/20 09:00 12/03/20 07:52 Metoclopramide Hcl 5 Mg Tablet PO 5 mg DAILY [facility] Administration Metoprolol Tartrate 25 mg 12/03/20 09:00 12/03/20 08:18 Metoprolol Tartrate 25 Mg Tablet PO 25 mg BID [facility] Administration Protocol Morphine Sulfate 2 mg 12/01/20 22:01 12/03/20 08:14 Morphine Sulfate 2 Mg/Ml Cartridge IVPUSH 2 mg Q4H PRN Administration abdominal pain Omeprazole 40 mg 12/02/20 09:00 12/03/20 07:52 Omeprazole 40 Mg Capsule.Dr PO 40 mg DAILY [facility]ILOL Administration Ondansetron HCl 4 mg 12/01/20 20:51 12/03/20 04:14 Ondansetron Hcl 4 Mg/2 Ml Vial IVPUSH 4 mg Q8H PRN Administration Nausea and Vomiting Sodium Chloride 3 ml 12/02/20 00:00 12/03/20 07:06 0.9 % Sodium Chloride Flush 3 Ml Syringe IVFLUSH 3 ml QSHIFT [facility] Administration Trazodone HCl 100 mg 12/01/20 21:00 12/02/20 20:39 Trazodone Hcl 100 Mg Tablet PO 100 mg BEDTIME [facility] Administration Labs CBC & Chem 7: 12/03/20 06:54 12/03/20 06:54 Microbiology Microbiology Results: Microbiology 12/01/20 12:11 Blood - Venous Blood Culture - Preliminary No growth after 24 hours. 12/01/20 11:33 Blood - Venous Blood Culture - Preliminary No growth after 24 hours. Assessment and Plan (1) Diabetic gastroparesis: Status: Acute (2) Diabetic polyneuropathy associated with type 1 diabetes mellitus: Status: Acute (3) Diabetic gastroparesis associated with type 1 diabetes mellitus: Status: Acute (4) Diabetic nephropathy associated with type 1 diabetes mellitus: Status: Acute (5) Diabetes type 1, uncontrolled: Status: Acute (6) Obesity (BMI 30-39.9): Status: Acute (7) YADIRA (acute kidney injury): Status: Acute Assessment and Plan: 30M presented with nausea and vomitting DM I with gastroparesis complicated by YADIRA YADIRA resolved with ivf still with nausea and hyperglycemia, restarted glargine (reduced dose due to poor intake) continue insulin sliding scale monitor bmp continue reglan on metformin as adjunct due to obesity and to reduce insulin requirement still with no appetite, will conitnue to monitor
[2020-12-03 11:10] LABS: Glucose, Whole Blood 212 mg/dL (60-115)
[2020-12-03] MEDS: LORazepam 2 MG/ML VIAL 1 MG IV ×2 (11:28→21:04)
--- NOTE | 2020-12-03 11:46 | MHC.CM.PN ---
PATIENT IS INDEPENDENT WITH ALL ADLS. NO DME OR VNA. PLAN WILL BE FOR DISCHARGE HOME WITH NO SERVICES ONCE ABLE TO TOLERATE PO.
[2020-12-03 16:43] LABS: Glucose, Whole Blood 129 mg/dL (60-115)
[2020-12-03 20:56] LABS: Glucose, Whole Blood 129 mg/dL (60-115)
[2020-12-03] MEDS: traZODone HCL 100 MG TABLET PO (21:04)
[2020-12-04] MEDS: Morphine Sulfate 2 MG/ML CARTRIDGE IVPUSH ×4 (03:10→21:10)
[2020-12-04 04:26] VITALS: BP 155/90
[2020-12-04] MEDS: ondansetron HCL 4 MG/2 ML VIAL IVPUSH ×2 (05:58→17:03)
[2020-12-04] MEDS: LORazepam 2 MG/ML VIAL 1 MG IV ×3 (06:02→21:10)
[2020-12-04 06:21] LABS: MANUAL DIFF FLAG NO
[2020-12-04 06:54] LABS: Basophils Percent Auto 0.3 % (0-2); Eosinophils Percent Auto 0.3 % (0-4); Hematocrit 39.8 % (42-52); Hemoglobin 13.2 g/dl (14.0-18.0); Imm Gran Abs Auto 0.09 X10*3/uL (0.00-0.03); Imm Gran Pct Auto 0.6 % (0.0-0.4); Lymphocytes Absolute Auto 1.5 X10*3/uL (1.2-4.9); Lymphocytes Percent Auto 9.9 % (20-40); Mean Corpuscular HGB Conc 33.2 g/dl (31.0-36.0); Mean Corpuscular Hemoglobin 28.2 pg (27.0-33.0); Mean Platelet Volume 11.2 fL (9.4-12.4); Monocytes Percent Auto 6.7 % (2-11); Neutrophils Absolute Auto 12.4 X10*3/uL (2.0-8.3); Neutrophils Percent Auto 82.2 % (45-73); Platelet Count 311 X10*3/uL (160-400); Red Blood Count 4.68 X10*6/uL (4.60-5.80); Red Cell Distribution Width 12.3 % (11.0-16.0)
[2020-12-04 06:56] LABS: Anion Gap 18 (12-20); Blood Urea Nitrogen 13 mg/dL (9-16); Calcium 8.2 mg/dL (8.4-10.2); Carbon Dioxide 25 mmol/L (22-29); Chloride 100 mmol/L (96-108); Creatinine Clr Calc Pharmacy 127.1; Estimated Glomerular Filt Rate > 60; Glucose Fasting 151 mg/dL (60-99); Potassium 3.5 mmol/l (3.3-5.1); Sodium 139 mmol/L (135-145)
[2020-12-04 07:09] VITALS: BP 175/93; PULSE 129; RESP 18; TEMP 37.2; O2SAT 96
[2020-12-04 07:18] LABS: Glucose, Whole Blood 170 mg/dL (60-115)
[2020-12-04] MEDS: Omeprazole 40 MG CAPSULE.DR PO (07:54)
[2020-12-04] MEDS: metFORMIN HCl 500 MG TABLET PO (07:54)
[2020-12-04] MEDS: Metoclopramide HCl 5 MG TABLET PO ×3 (07:54→16:27)
[2020-12-04] MEDS: lisinopriL 5 MG TABLET PO (07:54)
[2020-12-04] MEDS: Metoprolol Tartrate 25 MG TABLET PO ×2 (07:54→21:13)
[2020-12-04] MEDS: Insulin Lispro 100 UNIT/ML 3 ML VIAL SUBCUT (07:55)
[2020-12-04] MEDS: Insulin Glargine,Hum.rec.anlog 100 UNIT/ML 10 ML VIAL 30 UNIT SUBCUT (07:55)
[2020-12-04 08:00] VITALS: PULSE 112
--- NOTE | 2020-12-04 10:17 | HO.PM.IMPN ---
Subjective Subjective Date of Service: 12/04/20 Interval History: still nauseous, not eating Cardiovascular Cardiovascular: Reports no additional cardiovascular complaints Respiratory Respiratory: Reports no additional respiratory complaints Physical Exam Vital Signs: Vital Signs: Last Vital Signs Temp 98.9 F 12/04/20 07:09 Pulse 112 H 12/04/20 08:00 Resp 18 12/04/20 07:09 BP 175/93 H 12/04/20 07:09 Pulse Ox 96 12/04/20 07:09 Body Mass Index 36.6 General: AO X 3, no acute distress Resp: CTA bilateral CVS: S1,S2,RRR GI: soft, non tender, non distended Neuro: motor grossly intact Psych: appropriate affect Objective Data Current Medications Generic Name Dose Route Start Last Admin Trade Name Freq PRN Reason Stop Dose Admin Acetaminophen 650 mg 12/01/20 21:46 Acetaminophen 325 Mg Tablet PO Q6H PRN Pain, Mild (Pain Scale 1-3) Sodium Chloride 1,000 mls @ 75 mls/hr 12/01/20 21:46 12/03/20 21:07 Ns IVCONT 75 mls/hr .[id number] [facility]O Administration Insulin Glargine 30 unit 12/02/20 09:00 12/04/20 07:55 Insulin Glargine,Hum.Rec.Anlog 100 Unit/Ml 10 Ml Vial SUBCUT 30 unit DAILY [facility] Administration Insulin Human Lispro 0 unit 12/02/20 21:00 12/04/20 07:55 Insulin Lispro 100 Unit/Ml 3 Ml Vial SUBCUT 2 unit QIDACHS [facility] Administration Protocol Lisinopril 5 mg 12/02/20 09:00 12/04/20 07:54 Lisinopril 5 Mg Tablet PO 5 mg DAILY [facility] Administration Protocol Lorazepam 1 mg 12/03/20 10:53 12/04/20 06:02 Lorazepam 2 Mg/Ml Vial IV 1 mg Q6H PRN Administration nausea Metformin HCl 500 mg 12/02/20 09:00 12/04/20 07:54 Metformin Hcl 500 Mg Tablet PO 500 mg DAILY [facility] Administration Metoclopramide HCl 5 mg 12/03/20 11:30 12/04/20 07:54 Metoclopramide Hcl 5 Mg Tablet PO 5 mg TIDAC [facility] Administration Metoprolol Tartrate 25 mg 12/03/20 09:00 12/04/20 07:54 Metoprolol Tartrate 25 Mg Tablet PO 25 mg BID [facility] Administration Protocol Morphine Sulfate 2 mg 12/01/20 22:01 12/04/20 08:01 Morphine Sulfate 2 Mg/Ml Cartridge IVPUSH 2 mg Q4H PRN Administration abdominal pain Omeprazole 40 mg 12/02/20 09:00 12/04/20 07:54 Omeprazole 40 Mg Capsule.Dr PO 40 mg DAILY [facility] Administration Ondansetron HCl 4 mg 12/01/20 20:51 12/04/20 05:58 Ondansetron Hcl 4 Mg/2 Ml Vial IVPUSH 4 mg Q8H PRN Administration Nausea and Vomiting Sodium Chloride 3 ml 12/02/20 00:00 12/04/20 07:56 0.9 % Sodium Chloride Flush 3 Ml Syringe IVFLUSH Not Given QSHIFT [facility] Trazodone HCl 100 mg 12/01/20 21:00 12/03/20 21:04 Trazodone Hcl 100 Mg Tablet PO 100 mg BEDTIME CA[facility]ILLO Administration Labs CBC & Chem 7: 12/04/20 05:53 12/04/20 05:52 Microbiology Microbiology Results: Microbiology 12/01/20 12:11 Blood - Venous Blood Culture - Preliminary No growth after 48 hours. 12/01/20 11:33 Blood - Venous Blood Culture - Preliminary No growth after 48 hours. Assessment and Plan (1) Diabetic gastroparesis: Status: Acute (2) Diabetic polyneuropathy associated with type 1 diabetes mellitus: Status: Acute (3) Diabetic gastroparesis associated with type 1 diabetes mellitus: Status: Acute (4) Diabetic nephropathy associated with type 1 diabetes mellitus: Status: Acute (5) Diabetes type 1, uncontrolled: Status: Acute (6) Obesity (BMI 30-39.9): Status: Acute (7) YADIRA (acute kidney injury): Status: Acute Assessment and Plan: 30M presented with nausea and vomitting DM I with gastroparesis complicated by YADIRA YADIRA resolved with ivf still with nausea, not eating hyperglycemia - improved, continue glargine 30 and insulin sliding scale continue reglan on metformin as adjunct due to obesity and to reduce insulin requirement still with no appetite, will continue to monitor
[2020-12-04 11:41] LABS: Glucose, Whole Blood 112 mg/dL (60-115)
--- NOTE | 2020-12-04 14:03 | MHC.CM.PN ---
PER PHYSICIAN ROUNDS, PATIENT NOT FEELING HE IS STABLE FOR DISCHARGE. ANTICIPATE DISCHARGE HOME TUESDAY 12/05 WITH NO SERVICES.
[2020-12-04 15:32] VITALS: BP 145/85; PULSE 99; RESP 18; TEMP 36.7; O2SAT 97
[2020-12-04 16:31] LABS: Glucose, Whole Blood 64 mg/dL (60-115)
[2020-12-04 20:53] LABS: Glucose, Whole Blood 85 mg/dL (60-115)
[2020-12-04] MEDS: traZODone HCL 100 MG TABLET PO (21:10)
[2020-12-04 21:13] VITALS: PULSE 112
[2020-12-04] MEDS: 0.9 % Sodium Chloride Flush 3 ML SYRINGE IVFLUSH (21:22)
[2020-12-04 23:51] VITALS: BP 152/81; PULSE 102; RESP 20; TEMP 36.8; O2SAT 96
[2020-12-05] MEDS: Morphine Sulfate 2 MG/ML CARTRIDGE IVPUSH ×4 (02:42→23:23)
[2020-12-05] MEDS: ondansetron HCL 4 MG/2 ML VIAL IVPUSH ×3 (02:42→23:24)
[2020-12-05] MEDS: LORazepam 2 MG/ML VIAL 1 MG IV ×3 (02:42→23:24)
[2020-12-05 07:17] VITALS: BP 188/82; PULSE 102; RESP 20; TEMP 37.3; O2SAT 98
[2020-12-05] MEDS: Metoclopramide HCl 5 MG TABLET PO ×3 (07:38→17:05)
[2020-12-05 08:05] LABS: Glucose, Whole Blood 118 mg/dL (60-115)
[2020-12-05] MEDS: Omeprazole 40 MG CAPSULE.DR PO (08:29)
[2020-12-05] MEDS: Metoprolol Tartrate 25 MG TABLET 50 MG PO ×2 (08:29→22:00)
[2020-12-05] MEDS: lisinopriL 5 MG TABLET PO (08:30)
[2020-12-05] MEDS: metFORMIN HCl 500 MG TABLET PO (08:30)
--- NOTE | 2020-12-05 10:45 | HO.PM.IMPN ---
Subjective Subjective Date of Service: 12/05/20 Interval History: some improvement Cardiovascular Cardiovascular: Reports no additional cardiovascular complaints Respiratory Respiratory: Reports no additional respiratory complaints Physical Exam Vital Signs: Vital Signs: Last Vital Signs Temp 99.1 F 12/05/20 07:17 Pulse 102 H 12/05/20 07:17 Resp 20 12/05/20 07:17 BP 188/82 H 12/05/20 07:17 Pulse Ox 98 12/05/20 07:17 Body Mass Index 36.6 General: AO X 3, no acute distress Resp: CTA bilateral CVS: S1,S2,RRR GI: soft, non tender, non distended Neuro: motor grossly intact Psych: appropriate affect Objective Data Current Medications Generic Name Dose Route Start Last Admin Trade Name Freq PRN Reason Stop Dose Admin Acetaminophen 650 mg 12/01/20 21:46 Acetaminophen 325 Mg Tablet PO Q6H PRN Pain, Mild (Pain Scale 1-3) Insulin Glargine 30 unit 12/02/20 09:00 12/05/20 08:31 Insulin Glargine,Hum.Rec.Anlog 100 Unit/Ml 10 Ml Vial SUBCUT Not Given DAILY [facility] Insulin Human Lispro 0 unit 12/02/20 21:00 12/05/20 07:50 Insulin Lispro 100 Unit/Ml 3 Ml Vial SUBCUT Not Given QIDACHS [facility] Protocol Lisinopril 5 mg 12/02/20 09:00 12/05/20 08:30 Lisinopril 5 Mg Tablet PO 5 mg DAILY [facility] Administration Protocol Lorazepam 1 mg 12/03/20 10:53 12/05/20 02:42 Lorazepam 2 Mg/Ml Vial IV 1 mg Q6H PRN Administration nausea Metformin HCl 500 mg 12/02/20 09:00 12/05/20 08:30 Metformin Hcl 500 Mg Tablet PO 500 mg DAILY [facility] Administration Metoclopramide HCl 5 mg 12/03/20 11:30 12/05/20 07:38 Metoclopramide Hcl 5 Mg Tablet PO 5 mg TIDAC [facility]O Administration Metoprolol Tartrate 50 mg 12/05/20 07:56 12/05/20 08:29 Metoprolol Tartrate 25 Mg Tablet PO 50 mg BID [facility] Administration Protocol Morphine Sulfate 2 mg 12/01/20 22:01 12/05/20 07:37 Morphine Sulfate 2 Mg/Ml Cartridge IVPUSH 2 mg Q4H PRN Administration abdominal pain Omeprazole 40 mg 12/02/20 09:00 12/05/20 08:29 Omeprazole 40 Mg Capsule.Dr PO 40 mg DAILY [facility] Administration Ondansetron HCl 4 mg 12/01/20 20:51 12/05/20 02:42 Ondansetron Hcl 4 Mg/2 Ml Vial IVPUSH 4 mg Q8H PRN Administration Nausea and Vomiting Sodium Chloride 3 ml 12/02/20 00:00 12/05/20 07:40 0.9 % Sodium Chloride Flush 3 Ml Syringe IVFLUSH Not Given QSHIFT [facility] Trazodone HCl 100 mg 12/01/20 21:00 12/04/20 21:10 Trazodone Hcl 100 Mg Tablet PO 100 mg BEDTIME [facility] Administration Labs CBC & Chem 7: 12/04/20 05:53 12/04/20 05:52 Microbiology Microbiology Results: Microbiology 12/01/20 12:11 Blood - Venous Blood Culture - Preliminary No growth after 48 hours. 12/01/20 11:33 Blood - Venous Blood Culture - Preliminary No growth after 48 hours. Assessment and Plan (1) Diabetic gastroparesis: Status: Acute (2) Diabetic polyneuropathy associated with type 1 diabetes mellitus: Status: Acute (3) Diabetic gastroparesis associated with type 1 diabetes mellitus: Status: Acute (4) Diabetic nephropathy associated with type 1 diabetes mellitus: Status: Acute (5) Diabetes type 1, uncontrolled: Status: Acute (6) Obesity (BMI 30-39.9): Status: Acute (7) YADIRA (acute kidney injury): Status: Acute Assessment and Plan: 30M presented with nausea and vomitting DM I with gastroparesis complicated by YADIRA YADIRA resolved with ivf some improvement in nausea hyperglycemia - improved, continue glargine 30 and insulin sliding scale continue reglan on metformin as adjunct due to obesity and to reduce insulin requirement if tolerating diet will discharge
[2020-12-05 11:11] VITALS: BP 195/95; PULSE 99; RESP 20; TEMP 37.3; O2SAT 99
[2020-12-05 11:21] LABS: Glucose, Whole Blood 140 mg/dL (60-115)
[2020-12-05] MEDS: 0.9 % Sodium Chloride Flush 3 ML SYRINGE IVFLUSH ×2 (15:50→22:02)
[2020-12-05 16:00] VITALS: BP 190/87; PULSE 85; RESP 18; TEMP 36.8; O2SAT 97
[2020-12-05 16:36] LABS: Glucose, Whole Blood 178 mg/dL (60-115)
[2020-12-05] MEDS: Insulin Lispro 100 UNIT/ML 3 ML VIAL SUBCUT ×2 (17:02→22:01)
[2020-12-05 18:23] VITALS: BP 160/80; PULSE 95
[2020-12-05] MEDS: amLODIPine Besylate 10 MG TABLET PO (18:23)
[2020-12-05 20:07] LABS: Glucose, Whole Blood 178 mg/dL (60-115)
[2020-12-05 22:00] VITALS: BP 160/80; PULSE 95
[2020-12-05] MEDS: traZODone HCL 100 MG TABLET PO (22:01)
[2020-12-06] VITALS (10 sets, daily range): BP systolic 112–187; BP diastolic 69–97; PULSE 84–102; RESP 18; TEMP 36.6–37.3; O2SAT 97
[2020-12-06 07:15] LABS: Glucose, Whole Blood 192 mg/dL (60-115)
[2020-12-06] MEDS: Insulin Lispro 100 UNIT/ML 3 ML VIAL SUBCUT ×2 (08:02→12:17)
[2020-12-06] MEDS: Metoclopramide HCl 5 MG TABLET PO (08:03)
[2020-12-06] MEDS: LORazepam 2 MG/ML VIAL 1 MG IV ×2 (08:03→17:25)
[2020-12-06] MEDS: Omeprazole 40 MG CAPSULE.DR PO (08:03)
[2020-12-06] MEDS: Morphine Sulfate 2 MG/ML CARTRIDGE IVPUSH ×3 (08:03→17:11)
[2020-12-06] MEDS: lisinopriL 5 MG TABLET PO (08:04)
[2020-12-06] MEDS: amLODIPine Besylate 10 MG TABLET PO (08:04)
[2020-12-06] MEDS: Metoprolol Tartrate 25 MG TABLET 50 MG PO ×2 (08:05→22:30)
[2020-12-06] MEDS: metFORMIN HCl 500 MG TABLET PO (08:05)
[2020-12-06] MEDS: Insulin Glargine,Hum.rec.anlog 100 UNIT/ML 10 ML VIAL 30 UNIT SUBCUT (08:08)
[2020-12-06] MEDS: 0.9 % Sodium Chloride Flush 3 ML SYRINGE IVFLUSH ×3 (08:08→22:34)
[2020-12-06] MEDS: ondansetron HCL 4 MG/2 ML VIAL IVPUSH ×2 (08:18→17:11)
--- NOTE | 2020-12-06 10:33 | HO.PM.IMPN ---
Subjective Subjective Date of Service: 12/06/20 Interval History: still nauseous, worse than yesterday Cardiovascular Cardiovascular: Reports no additional cardiovascular complaints Respiratory Respiratory: Reports no additional respiratory complaints Physical Exam Vital Signs: Vital Signs: Last Vital Signs Temp 97.9 F 12/06/20 06:52 Pulse 92 12/06/20 08:05 Resp 18 12/06/20 08:03 BP 112/69 12/06/20 08:05 Pulse Ox 97 12/06/20 06:52 Body Mass Index 36.6 General: AO X 3, no acute distress Resp: CTA bilateral CVS: S1,S2,RRR GI: soft, non tender, non distended Neuro: motor grossly intact Psych: appropriate affect Objective Data Current Medications Generic Name Dose Route Start Last Admin Trade Name Freq PRN Reason Stop Dose Admin Acetaminophen 650 mg 12/01/20 21:46 Acetaminophen 325 Mg Tablet PO Q6H PRN Pain, Mild (Pain Scale 1-3) Amlodipine Besylate 10 mg 12/05/20 15:55 12/06/20 08:04 Amlodipine Besylate 10 Mg Tablet PO 10 mg DAILY [facility] Administration Protocol Insulin Glargine 30 unit 12/02/20 09:00 12/06/20 08:08 Insulin Glargine,Hum.Rec.Anlog 100 Unit/Ml 10 Ml Vial SUBCUT 30 unit DAILY [facility]O Administration Insulin Human Lispro 0 unit 12/02/20 21:00 12/06/20 08:02 Insulin Lispro 100 Unit/Ml 3 Ml Vial SUBCUT 2 unit QIDACHS [facility] Administration Protocol Lisinopril 5 mg 12/02/20 09:00 12/06/20 08:04 Lisinopril 5 Mg Tablet PO 5 mg DAILY [facility] Administration Protocol Lorazepam 1 mg 12/03/20 10:53 12/06/20 08:03 Lorazepam 2 Mg/Ml Vial IV 1 mg Q6H PRN Administration nausea Metformin HCl 500 mg 12/02/20 09:00 12/06/20 08:05 Metformin Hcl 500 Mg Tablet PO 500 mg DAILY [facility] Administration Metoclopramide HCl 5 mg 12/03/20 11:30 12/06/20 08:03 Metoclopramide Hcl 5 Mg Tablet PO 5 mg TIDAC [facility] Administration Metoprolol Tartrate 50 mg 12/05/20 07:56 12/06/20 08:05 Metoprolol Tartrate 25 Mg Tablet PO 50 mg BID [facility] Administration Protocol Morphine Sulfate 2 mg 12/01/20 22:01 12/06/20 08:03 Morphine Sulfate 2 Mg/Ml Cartridge IVPUSH 2 mg Q4H PRN Administration abdominal pain Omeprazole 40 mg 12/02/20 09:00 12/06/20 08:03 Omeprazole 40 Mg Capsule.Dr PO 40 mg DAILY [facility] Administration Ondansetron HCl 4 mg 12/01/20 20:51 12/06/20 08:18 Ondansetron Hcl 4 Mg/2 Ml Vial IVPUSH 4 mg Q8H PRN Administration Nausea and Vomiting Sodium Chloride 3 ml 12/02/20 00:00 12/06/20 08:08 0.9 % Sodium Chloride Flush 3 Ml Syringe IVFLUSH 3 ml QSHIFT [facility] Administration Trazodone HCl 100 mg 12/01/20 21:00 12/05/20 22:01 Trazodone Hcl 100 Mg Tablet PO 100 mg BEDTIME [facility] Administration Labs CBC & Chem 7: 12/04/20 05:53 12/04/20 05:52 Microbiology Microbiology Results: Microbiology 12/01/20 12:11 Blood - Venous Blood Culture - Preliminary No growth after 48 hours. 12/01/20 11:33 Blood - Venous Blood Culture - Preliminary No growth after 48 hours. Assessment and Plan (1) Diabetic gastroparesis: Status: Acute (2) Diabetic polyneuropathy associated with type 1 diabetes mellitus: Status: Acute (3) Diabetic gastroparesis associated with type 1 diabetes mellitus: Status: Acute (4) Diabetic nephropathy associated with type 1 diabetes mellitus: Status: Acute (5) Diabetes type 1, uncontrolled: Status: Acute (6) Obesity (BMI 30-39.9): Status: Acute (7) YADIRA (acute kidney injury): Status: Acute Assessment and Plan: 30M presented with nausea and vomitting DM I with gastroparesis complicated by YADIRA YADIRA resolved with ivf nausea worse today hyperglycemia - improved, continue glargine 30 and insulin sliding scale continue reglan - will increase to 10 tid on metformin as adjunct due to obesity and to reduce insulin requirement once tolerating diet will discharge
[2020-12-06 11:18] LABS: Glucose, Whole Blood 196 mg/dL (60-115)
[2020-12-06] MEDS: Metoclopramide HCl 10 MG TABLET PO ×2 (12:17→17:25)
[2020-12-06 17:00] LABS: Glucose, Whole Blood 91 mg/dL (60-115)
[2020-12-06 20:27] LABS: Glucose, Whole Blood 97 mg/dL (60-115)
[2020-12-06] MEDS: traZODone HCL 100 MG TABLET PO (22:30)
[2020-12-07] MEDS: LORazepam 2 MG/ML VIAL 1 MG IV ×2 (00:15→08:24)
[2020-12-07] MEDS: ondansetron HCL 4 MG/2 ML VIAL IVPUSH (01:48)
[2020-12-07] MEDS: Morphine Sulfate 2 MG/ML CARTRIDGE IVPUSH (04:58)
[2020-12-07 06:45] LABS: MANUAL DIFF FLAG NO
[2020-12-07 07:00] LABS: Basophils Percent Auto 0.2 % (0-2); Eosinophils Percent Auto 0.2 % (0-4); Hematocrit 41.5 % (42-52); Imm Gran Abs Auto 0.09 X10*3/uL (0.00-0.03); Imm Gran Pct Auto 0.5 % (0.0-0.4); Lymphocytes Absolute Auto 1.3 X10*3/uL (1.2-4.9); Lymphocytes Percent Auto 6.6 % (20-40); Mean Corpuscular HGB Conc 33.7 g/dl (31.0-36.0); Mean Corpuscular Hemoglobin 28.2 pg (27.0-33.0); Mean Corpuscular Volume 83.7 fL (80-98); Mean Platelet Volume 10.9 fL (9.4-12.4); Monocytes Absolute Auto 1.1 X10*3/uL (0.1-1.2); Monocytes Percent Auto 5.3 % (2-11); Neutrophils Absolute Auto 17.5 X10*3/uL (2.0-8.3); Neutrophils Percent Auto 87.2 % (45-73); Platelet Count 325 X10*3/uL (160-400); Red Blood Count 4.96 X10*6/uL (4.60-5.80); Red Cell Distribution Width 12.2 % (11.0-16.0)
[2020-12-07 07:20] LABS: Anion Gap 18 (12-20); Blood Urea Nitrogen 14 mg/dL (9-16); Calcium 8.3 mg/dL (8.4-10.2); Carbon Dioxide 27 mmol/L (22-29); Chloride 96 mmol/L (96-108); Creatinine Clr Calc Pharmacy 125.7; Estimated Glomerular Filt Rate > 60; Glucose Fasting 171 mg/dL (60-99); Magnesium 2.1 mg/dL (1.6-2.6); Potassium 3.4 mmol/l (3.3-5.1); Sodium 138 mmol/L (135-145)
[2020-12-07 07:32] LABS: Glucose, Whole Blood 177 mg/dL (60-115)
[2020-12-07 07:37] VITALS: BP 158/87; PULSE 110; RESP 18; TEMP 37.2; O2SAT 97
[2020-12-07 08:14] VITALS: BP 158/87; PULSE 110
[2020-12-07] MEDS: Omeprazole 40 MG CAPSULE.DR PO (08:14)
[2020-12-07] MEDS: Metoclopramide HCl 10 MG TABLET PO ×2 (08:14→11:35)
[2020-12-07] MEDS: amLODIPine Besylate 10 MG TABLET PO (08:14)
[2020-12-07] MEDS: lisinopriL 5 MG TABLET PO (08:14)
[2020-12-07] MEDS: metFORMIN HCl 500 MG TABLET PO (08:14)
[2020-12-07 08:15] VITALS: BP 158/87; PULSE 110
[2020-12-07] MEDS: Insulin Glargine,Hum.rec.anlog 100 UNIT/ML 10 ML VIAL 30 UNIT SUBCUT (08:15)
[2020-12-07] MEDS: Insulin Lispro 100 UNIT/ML 3 ML VIAL SUBCUT (08:15)
[2020-12-07] MEDS: Metoprolol Tartrate 25 MG TABLET 50 MG PO (08:15)
[2020-12-07] MEDS: 0.9 % Sodium Chloride Flush 3 ML SYRINGE IVFLUSH (08:16)
--- NOTE | 2020-12-07 10:22 | P.DS_ITS ---
DS: Providers Provider Date of Service: 12/07/20 Date of admission: 12/01/20 20:51 Primary care physician: Dipesh Koch MD DS: Diagnosis Discharge Diagnosis (1) Diabetic gastroparesis: Status: Acute (2) Diabetic polyneuropathy associated with type 1 diabetes mellitus: Status: Acute (3) Diabetic gastroparesis associated with type 1 diabetes mellitus: Status: Acute (4) Diabetic nephropathy associated with type 1 diabetes mellitus: Status: Acute (5) Diabetes type 1, uncontrolled: Status: Acute (6) Obesity (BMI 30-39.9): Status: Acute (7) YADIRA (acute kidney injury): Status: Acute (8) HTN (hypertension): Status: Acute DS: Medications Discharge Medications Home Medications: Home Medications Medication Instructions Recorded Confirmed lisinopril 5 mg PO DAILY 09/11/20 12/01/20 omeprazole 40 mg PO DAILY 09/11/20 12/01/20 ondansetron 8 mg PO Q8H PRN 09/11/20 12/01/20 trazodone 100 mg PO BEDTIME 09/11/20 12/01/20 insulin lispro [Humalog U-100 See Protocol SUBCUT TID 12/01/20 12/01/20 Insulin] Previous Rx's Medication Instructions Recorded metformin 500 mg tablet 500 mg PO DAILY 30 Days #30 tab 10/17/20 metoclopramide HCl [Reglan] 10 mg PO Q6H PRN #10 tab 12/01/20 amlodipine 10 mg PO DAILY #30 tab 12/07/20 metoprolol tartrate 50 mg PO BID #60 tab 12/07/20 DS: Summary Hospital Course Hospital Course: Patient was admitted for diabetes hyperglycemia, acute kidney injury, gastroparesis. He was given IV fluids, antiemetics, insulin. His kidney function returned to normal. His glucose became better controlled. His Reglan was increased from 5 mg t.i.d. to 10 mg t.i.d., he was able to tolerate solid diet. Throughout admission patient had persistently elevated blood pressures, he was started on amlodipine and metoprolol. Patient is now feeling better will be discharged home. Time Spent with Patient Time attestation: Total time spent providing and/or coordinating discharge services: Discharge coordination time: Greater than 30 minutes Physical Exam Vital Signs: Vital Signs: Last Vital Signs Temp 99.0 F 12/07/20 07:37 Pulse 110 H 12/07/20 08:15 Resp 18 12/07/20 07:37 BP 158/87 H 12/07/20 08:15 Pulse Ox 97 12/07/20 07:37 Body Mass Index 36.6 General: AO X 3, no acute distress Resp: CTA bilateral CVS: S1,S2,RRR GI: soft, non tender, non distended Neuro: motor grossly intact Psych: appropriate affect DS: Data Data Completed and Pending Labs on day of discharge: Laboratory Tests 12/01/20 12/01/20 12/01/20 10:56 11:32 11:33 WBC 20.3 H RBC 5.55 D Hgb 15.7 D Hct 46.4 D MCV 83.6 MCH 28.3 MCHC 33.8 RDW 12.6 Plt Count 425 H D MPV 11.5 Immature Gran % (Auto) 0.4 Neut % (Auto) 93.0 H Lymph % (Auto) 4.2 L [place] % (Auto) 2.3 Eos % (Auto) 0.0 Baso % (Auto) 0.1 Lymph # (Auto) 0.9 L [place] # (Auto) 0.5 Eos # (Auto) 0.0 Baso # (Auto) 0.0 Abs Immat Gran (auto) 0.08 H Absolute Neuts (auto) 18.8 H Absolute Nucleated RBC 0.000 Nucleated RBC % (auto) 0.0 Smear Tech's Comments VERIFIED Hold Blue Top VBG pH 7.42 VBG pCO2 43 VBG pO2 37 VBG HCO3 27 VBG O2 Saturation 74.4 VBG Base Excess 2.3 Sodium Potassium Chloride Carbon Dioxide Anion Gap BUN Creatinine Estim Creat Clear Calc Estimated GFR POC Glucose 365 H* Random Glucose Fasting Glucose Lactic Acid Lactic Acid Fup @ 2Hr Calcium Magnesium Total Bilirubin Direct Bilirubin AST ALT Alkaline Phosphatase Total Protein Albumin Lipase Urine Color Urine Appearance Urine pH Ur Specific [place] Urine Protein Urine Glucose (UA) Urine Ketones Urine Blood Urine Nitrite Ur Leukocyte Esterase Urine RBC Urine WBC Ur Squamous Epith Cells Urine Bacteria Hyaline Casts Granular Casts Acetone, Qual Coronavirus (PCR) Influenza Type A (PCR) Influenza Type B (PCR) RSV RNA Qual (PCR) 12/01/20 12/01/20 12/01/20 11:33 11:33 11:33 WBC RBC Hgb Hct MCV MCH MCHC RDW Plt Count MPV Immature Gran % (Auto) Neut % (Auto) Lymph % (Auto) [place] % (Auto) Eos % (Auto) Baso % (Auto) Lymph # (Auto) [place] # (Auto) Eos # (Auto) Baso # (Auto) Abs Immat Gran (auto) Absolute Neuts (auto) Absolute Nucleated RBC Nucleated RBC % (auto) Smear Tech's Comments Hold Blue Top Cancelled VBG pH VBG pCO2 VBG pO2 VBG HCO3 VBG O2 Saturation VBG Base Excess Sodium Cancelled Potassium Cancelled Chloride Cancelled Carbon Dioxide Cancelled Anion Gap Cancelled BUN Cancelled Creatinine Cancelled Estim Creat Clear Calc Cancelled Estimated GFR Cancelled POC Glucose Random Glucose Cancelled Fasting Glucose Lactic Acid 2.3 H* Lactic Acid Fup @ 2Hr Calcium Cancelled Magnesium Cancelled Total Bilirubin Cancelled Direct Bilirubin Cancelled AST Cancelled ALT Cancelled Alkaline Phosphatase Cancelled Total Protein Cancelled Albumin Cancelled Lipase Cancelled Urine Color Urine Appearance Urine pH Ur Specific [place] Urine Protein Urine Glucose (UA) Urine Ketones Urine Blood Urine Nitrite Ur Leukocyte Esterase Urine RBC Urine WBC Ur Squamous Epith Cells Urine Bacteria Hyaline Casts Granular Casts Acetone, Qual Cancelled Coronavirus (PCR) Influenza Type A (PCR) Influenza Type B (PCR) RSV RNA Qual (PCR) 12/01/20 12/01/20 12/01/20 11:35 13:48 13:48 WBC RBC Hgb Hct MCV MCH MCHC RDW Plt Count MPV Immature Gran % (Auto) Neut % (Auto) Lymph % (Auto) [place] % (Auto) Eos % (Auto) Baso % (Auto) Lymph # (Auto) [place] # (Auto) Eos # (Auto) Baso # (Auto) Abs Immat Gran (auto) Absolute Neuts (auto) Absolute Nucleated RBC Nucleated RBC % (auto) Smear Tech's Comments Hold Blue Top VBG pH VBG pCO2 VBG pO2 VBG HCO3 VBG O2 Saturation VBG Base Excess Sodium 140 Potassium 4.4 D Chloride 102 Carbon Dioxide 25 Anion Gap 17 BUN 20 H D Creatinine 1.44 H Estim Creat Clear Calc 82.9 Estimated GFR 58 POC Glucose Random Glucose 397 H* Fasting Glucose Lactic Acid Lactic Acid Fup @ 2Hr 1.8 Calcium 8.8 D Magnesium 2.0 Total Bilirubin 0.3 Direct Bilirubin 0.2 AST 11 ALT 18 Alkaline Phosphatase 165 H D Total Protein 7.1 Albumin 3.8 Lipase 4 L Urine Color Urine Appearance Urine pH Ur Specific [place] Urine Protein Urine Glucose (UA) Urine Ketones Urine Blood Urine Nitrite Ur Leukocyte Esterase Urine RBC Urine WBC Ur Squamous Epith Cells Urine Bacteria Hyaline Casts Granular Casts Acetone, Qual Coronavirus (PCR) NEGATIVE Influenza Type A (PCR) NEGATIVE Influenza Type B (PCR) NEGATIVE RSV RNA Qual (PCR) NEGATIVE 12/01/20 12/01/20 12/01/20 14:00 16:15 18:22 WBC RBC Hgb Hct MCV MCH MCHC RDW Plt Count MPV Immature Gran % (Auto) Neut % (Auto) Lymph % (Auto) [place] % (Auto) Eos % (Auto) Baso % (Auto) Lymph # (Auto) [place] # (Auto) Eos # (Auto) Baso # (Auto) Abs Immat Gran (auto) Absolute Neuts (auto) Absolute Nucleated RBC Nucleated RBC % (auto) Smear Tech's Comments Hold Blue Top VBG pH VBG pCO2 VBG pO2 VBG HCO3 VBG O2 Saturation VBG Base Excess Sodium 142 Potassium 4.5 Chloride 109 H Carbon Dioxide 21 L Anion Gap 17 BUN 17 H Creatinine 1.21 Estim Creat Clear Calc 98.7 Estimated GFR > 60 POC Glucose 128 H Random Glucose 235 H D Fasting Glucose Lactic Acid Lactic Acid Fup @ 2Hr Calcium 8.3 L Magnesium Total Bilirubin Direct Bilirubin AST ALT Alkaline Phosphatase Total Protein Albumin Lipase Urine Color YELLOW Urine Appearance CLEAR Urine pH 5.5 Ur Specific [place] 1.020 Urine Protein 3+ H Urine Glucose (UA) >=1000 H Urine Ketones 15 Urine Blood 2+ H Urine Nitrite NEG Ur Leukocyte Esterase NEG Urine RBC 10-14 H Urine WBC 0 Ur Squamous Epith Cells NONE Urine Bacteria NONE Hyaline Casts 1-4 Granular Casts 5-9 Acetone, Qual Coronavirus (PCR) Influenza Type A (PCR) Influenza Type B (PCR) RSV RNA Qual (PCR) 12/01/20 12/01/20 12/02/20 19:11 21:43 02:46 WBC RBC Hgb Hct MCV MCH MCHC RDW Plt Count MPV Immature Gran % (Auto) Neut % (Auto) Lymph % (Auto) [place] % (Auto) Eos % (Auto) Baso % (Auto) Lymph # (Auto) [place] # (Auto) Eos # (Auto) Baso # (Auto) Abs Immat Gran (auto) Absolute Neuts (auto) Absolute Nucleated RBC Nucleated RBC % (auto) Smear Tech's Comments Hold Blue Top VBG pH VBG pCO2 VBG pO2 VBG HCO3 VBG O2 Saturation VBG Base Excess Sodium Potassium Chloride Carbon Dioxide Anion Gap BUN Creatinine Estim Creat Clear Calc Estimated GFR POC Glucose 209 H 235 H 225 H Random Glucose Fasting Glucose Lactic Acid Lactic Acid Fup @ 2Hr Calcium Magnesium Total Bilirubin Direct Bilirubin AST ALT Alkaline Phosphatase Total Protein Albumin Lipase Urine Color Urine Appearance Urine pH Ur Specific [place] Urine Protein Urine Glucose (UA) Urine Ketones Urine Blood Urine Nitrite Ur Leukocyte Esterase Urine RBC Urine WBC Ur Squamous Epith Cells Urine Bacteria Hyaline Casts Granular Casts Acetone, Qual Coronavirus (PCR) Influenza Type A (PCR) Influenza Type B (PCR) RSV RNA Qual (PCR) 12/02/20 12/02/20 12/02/20 06:29 06:29 12:03 WBC 17.7 H RBC 4.36 L D Hgb 12.5 L D Hct 37.2 L MCV 85.3 MCH 28.7 MCHC 33.6 RDW 12.8 Plt Count 325 MPV 11.1 Immature Gran % (Auto) 0.6 H Neut % (Auto) 86.4 H Lymph % (Auto) 7.1 L [place] % (Auto) 5.7 Eos % (Auto) 0.0 Baso % (Auto) 0.2 Lymph # (Auto) 1.3 [place] # (Auto) 1.0 Eos # (Auto) 0.0 Baso # (Auto) 0.0 Abs Immat Gran (auto) 0.11 H Absolute Neuts (auto) 15.3 H Absolute Nucleated RBC 0.000 Nucleated RBC % (auto) 0.0 Smear Tech's Comments Hold Blue Top VBG pH VBG pCO2 VBG pO2 VBG HCO3 VBG O2 Saturation VBG Base Excess Sodium 138 Potassium 4.3 Chloride 101 Carbon Dioxide 26 Anion Gap 15 BUN 16 Creatinine 1.08 Estim Creat Clear Calc 110.6 Estimated GFR > 60 POC Glucose 198 H Random Glucose 369 H* Fasting Glucose Lactic Acid Lactic Acid Fup @ 2Hr Calcium 7.9 L Magnesium Total Bilirubin Direct Bilirubin AST ALT Alkaline Phosphatase Total Protein Albumin Lipase Urine Color Urine Appearance Urine pH Ur Specific [place] Urine Protein Urine Glucose (UA) Urine Ketones Urine Blood Urine Nitrite Ur Leukocyte Esterase Urine RBC Urine WBC Ur Squamous Epith Cells Urine Bacteria Hyaline Casts Granular Casts Acetone, Qual Coronavirus (PCR) Influenza Type A (PCR) Influenza Type B (PCR) RSV RNA Qual (PCR) 12/02/20 12/03/20 12/03/20 19:50 06:54 06:54 WBC 16.1 H RBC 4.77 Hgb 13.5 L Hct 40.9 L MCV 85.7 MCH 28.3 MCHC 33.0 RDW 12.5 Plt Count 332 MPV 10.8 Immature Gran % (Auto) 0.7 H Neut % (Auto) 83.5 H Lymph % (Auto) 9.8 L [place] % (Auto) 5.8 Eos % (Auto) 0.0 Baso % (Auto) 0.2 Lymph # (Auto) 1.6 [place] # (Auto) 0.9 Eos # (Auto) 0.0 Baso # (Auto) 0.0 Abs Immat Gran (auto) 0.12 H Absolute Neuts (auto) 13.4 H Absolute Nucleated RBC 0.000 Nucleated RBC % (auto) 0.0 Smear Tech's Comments Hold Blue Top VBG pH VBG pCO2 VBG pO2 VBG HCO3 VBG O2 Saturation VBG Base Excess Sodium 139 Potassium 3.9 Chloride 101 Carbon Dioxide 25 Anion Gap 17 BUN 14 Creatinine 1.07 Estim Creat Clear Calc 111.6 Estimated GFR > 60 POC Glucose 279 H Random Glucose Fasting Glucose 250 H D Lactic Acid Lactic Acid Fup @ 2Hr Calcium 8.6 D Magnesium Total Bilirubin Direct Bilirubin AST ALT Alkaline Phosphatase Total Protein Albumin Lipase Urine Color Urine Appearance Urine pH Ur Specific [place] Urine Protein Urine Glucose (UA) Urine Ketones Urine Blood Urine Nitrite Ur Leukocyte Esterase Urine RBC Urine WBC Ur Squamous Epith Cells Urine Bacteria Hyaline Casts Granular Casts Acetone, Qual Coronavirus (PCR) Influenza Type A (PCR) Influenza Type B (PCR) RSV RNA Qual (PCR) 12/03/20 12/03/20 12/03/20 07:38 10:37 16:32 WBC RBC Hgb Hct MCV MCH MCHC RDW Plt Count MPV Immature Gran % (Auto) Neut % (Auto) Lymph % (Auto) [place] % (Auto) Eos % (Auto) Baso % (Auto) Lymph # (Auto) [place] # (Auto) Eos # (Auto) Baso # (Auto) Abs Immat Gran (auto) Absolute Neuts (auto) Absolute Nucleated RBC Nucleated RBC % (auto) Smear Tech's Comments Hold Blue Top VBG pH VBG pCO2 VBG pO2 VBG HCO3 VBG O2 Saturation VBG Base Excess Sodium Potassium Chloride Carbon Dioxide Anion Gap BUN Creatinine Estim Creat Clear Calc Estimated GFR POC Glucose 282 H 212 H 129 H Random Glucose Fasting Glucose Lactic Acid Lactic Acid Fup @ 2Hr Calcium Magnesium Total Bilirubin Direct Bilirubin AST ALT Alkaline Phosphatase Total Protein Albumin Lipase Urine Color Urine Appearance Urine pH Ur Specific [place] Urine Protein Urine Glucose (UA) Urine Ketones Urine Blood Urine Nitrite Ur Leukocyte Esterase Urine RBC Urine WBC Ur Squamous Epith Cells Urine Bacteria Hyaline Casts Granular Casts Acetone, Qual Coronavirus (PCR) Influenza Type A (PCR) Influenza Type B (PCR) RSV RNA Qual (PCR) 12/03/20 12/04/20 12/04/20 20:46 05:52 05:53 WBC 15.0 H RBC 4.68 Hgb 13.2 L Hct 39.8 L MCV 85.0 MCH 28.2 MCHC 33.2 RDW 12.3 Plt Count 311 MPV 11.2 Immature Gran % (Auto) 0.6 H Neut % (Auto) 82.2 H Lymph % (Auto) 9.9 L [place] % (Auto) 6.7 Eos % (Auto) 0.3 Baso % (Auto) 0.3 Lymph # (Auto) 1.5 [place] # (Auto) 1.0 Eos # (Auto) 0.0 Baso # (Auto) 0.0 Abs Immat Gran (auto) 0.09 H Absolute Neuts (auto) 12.4 H Absolute Nucleated RBC 0.000 Nucleated RBC % (auto) 0.0 Smear Tech's Comments Hold Blue Top VBG pH VBG pCO2 VBG pO2 VBG HCO3 VBG O2 Saturation VBG Base Excess Sodium 139 Potassium 3.5 Chloride 100 Carbon Dioxide 25 Anion Gap 18 BUN 13 Creatinine 0.94 Estim Creat Clear Calc 127.1 Estimated GFR > 60 POC Glucose 129 H Random Glucose Fasting Glucose 151 H D Lactic Acid Lactic Acid Fup @ 2Hr Calcium 8.2 L Magnesium Total Bilirubin Direct Bilirubin AST ALT Alkaline Phosphatase Total Protein Albumin Lipase Urine Color Urine Appearance Urine pH Ur Specific [place] Urine Protein Urine Glucose (UA) Urine Ketones Urine Blood Urine Nitrite Ur Leukocyte Esterase Urine RBC Urine WBC Ur Squamous Epith Cells Urine Bacteria Hyaline Casts Granular Casts Acetone, Qual Coronavirus (PCR) Influenza Type A (PCR) Influenza Type B (PCR) RSV RNA Qual (PCR) 12/04/20 12/04/20 12/04/20 07:10 11:19 16:21 WBC RBC Hgb Hct MCV MCH MCHC RDW Plt Count MPV Immature Gran % (Auto) Neut % (Auto) Lymph % (Auto) [place] % (Auto) Eos % (Auto) Baso % (Auto) Lymph # (Auto) [place] # (Auto) Eos # (Auto) Baso # (Auto) Abs Immat Gran (auto) Absolute Neuts (auto) Absolute Nucleated RBC Nucleated RBC % (auto) Smear Tech's Comments Hold Blue Top VBG pH VBG pCO2 VBG pO2 VBG HCO3 VBG O2 Saturation VBG Base Excess Sodium Potassium Chloride Carbon Dioxide Anion Gap BUN Creatinine Estim Creat Clear Calc Estimated GFR POC Glucose 170 H 112 64 Random Glucose Fasting Glucose Lactic Acid Lactic Acid Fup @ 2Hr Calcium Magnesium Total Bilirubin Direct Bilirubin AST ALT Alkaline Phosphatase Total Protein Albumin Lipase Urine Color Urine Appearance Urine pH Ur Specific [place] Urine Protein Urine Glucose (UA) Urine Ketones Urine Blood Urine Nitrite Ur Leukocyte Esterase Urine RBC Urine WBC Ur Squamous Epith Cells Urine Bacteria Hyaline Casts Granular Casts Acetone, Qual Coronavirus (PCR) Influenza Type A (PCR) Influenza Type B (PCR) RSV RNA Qual (PCR) 12/04/20 12/05/20 12/05/20 20:49 07:24 11:15 WBC RBC Hgb Hct MCV MCH MCHC RDW Plt Count MPV Immature Gran % (Auto) Neut % (Auto) Lymph % (Auto) [place] % (Auto) Eos % (Auto) Baso % (Auto) Lymph # (Auto) [place] # (Auto) Eos # (Auto) Baso # (Auto) Abs Immat Gran (auto) Absolute Neuts (auto) Absolute Nucleated RBC Nucleated RBC % (auto) Smear Tech's Comments Hold Blue Top VBG pH VBG pCO2 VBG pO2 VBG HCO3 VBG O2 Saturation VBG Base Excess Sodium Potassium Chloride Carbon Dioxide Anion Gap BUN Creatinine Estim Creat Clear Calc Estimated GFR POC Glucose 85 118 H 140 H Random Glucose Fasting Glucose Lactic Acid Lactic Acid Fup @ 2Hr Calcium Magnesium Total Bilirubin Direct Bilirubin AST ALT Alkaline Phosphatase Total Protein Albumin Lipase Urine Color Urine Appearance Urine pH Ur Specific [place] Urine Protein Urine Glucose (UA) Urine Ketones Urine Blood Urine Nitrite Ur Leukocyte Esterase Urine RBC Urine WBC Ur Squamous Epith Cells Urine Bacteria Hyaline Casts Granular Casts Acetone, Qual Coronavirus (PCR) Influenza Type A (PCR) Influenza Type B (PCR) RSV RNA Qual (PCR) 12/05/20 12/05/20 12/06/20 16:30 20:02 06:55 WBC RBC Hgb Hct MCV MCH MCHC RDW Plt Count MPV Immature Gran % (Auto) Neut % (Auto) Lymph % (Auto) [place] % (Auto) Eos % (Auto) Baso % (Auto) Lymph # (Auto) [place] # (Auto) Eos # (Auto) Baso # (Auto) Abs Immat Gran (auto) Absolute Neuts (auto) Absolute Nucleated RBC Nucleated RBC % (auto) Smear Tech's Comments Hold Blue Top VBG pH VBG pCO2 VBG pO2 VBG HCO3 VBG O2 Saturation VBG Base Excess Sodium Potassium Chloride Carbon Dioxide Anion Gap BUN Creatinine Estim Creat Clear Calc Estimated GFR POC Glucose 178 H 178 H 192 H Random Glucose Fasting Glucose Lactic Acid Lactic Acid Fup @ 2Hr Calcium Magnesium Total Bilirubin Direct Bilirubin AST ALT Alkaline Phosphatase Total Protein Albumin Lipase Urine Color Urine Appearance Urine pH Ur Specific [place] Urine Protein Urine Glucose (UA) Urine Ketones Urine Blood Urine Nitrite Ur Leukocyte Esterase Urine RBC Urine WBC Ur Squamous Epith Cells Urine Bacteria Hyaline Casts Granular Casts Acetone, Qual Coronavirus (PCR) Influenza Type A (PCR) Influenza Type B (PCR) RSV RNA Qual (PCR) 12/06/20 12/06/20 12/06/20 10:55 16:49 20:23 WBC RBC Hgb Hct MCV MCH MCHC RDW Plt Count MPV Immature Gran % (Auto) Neut % (Auto) Lymph % (Auto) [place] % (Auto) Eos % (Auto) Baso % (Auto) Lymph # (Auto) [place] # (Auto) Eos # (Auto) Baso # (Auto) Abs Immat Gran (auto) Absolute Neuts (auto) Absolute Nucleated RBC Nucleated RBC % (auto) Smear Tech's Comments Hold Blue Top VBG pH VBG pCO2 VBG pO2 VBG HCO3 VBG O2 Saturation VBG Base Excess Sodium Potassium Chloride Carbon Dioxide Anion Gap BUN Creatinine Estim Creat Clear Calc Estimated GFR POC Glucose 196 H 91 97 Random Glucose Fasting Glucose Lactic Acid Lactic Acid Fup @ 2Hr Calcium Magnesium Total Bilirubin Direct Bilirubin AST ALT Alkaline Phosphatase Total Protein Albumin Lipase Urine Color Urine Appearance Urine pH Ur Specific [place] Urine Protein Urine Glucose (UA) Urine Ketones Urine Blood Urine Nitrite Ur Leukocyte Esterase Urine RBC Urine WBC Ur Squamous Epith Cells Urine Bacteria Hyaline Casts Granular Casts Acetone, Qual Coronavirus (PCR) Influenza Type A (PCR) Influenza Type B (PCR) RSV RNA Qual (PCR) 12/07/20 12/07/20 12/07/20 06:17 06:17 07:14 WBC 20.0 H RBC 4.96 Hgb 14.0 Hct 41.5 L MCV 83.7 MCH 28.2 MCHC 33.7 RDW 12.2 Plt Count 325 MPV 10.9 Immature Gran % (Auto) 0.5 H Neut % (Auto) 87.2 H Lymph % (Auto) 6.6 L [place] % (Auto) 5.3 Eos % (Auto) 0.2 Baso % (Auto) 0.2 Lymph # (Auto) 1.3 [place] # (Auto) 1.1 Eos # (Auto) 0.0 Baso # (Auto) 0.0 Abs Immat Gran (auto) 0.09 H Absolute Neuts (auto) 17.5 H Absolute Nucleated RBC 0.000 Nucleated RBC % (auto) 0.0 Smear Tech's Comments Hold Blue Top VBG pH VBG pCO2 VBG pO2 VBG HCO3 VBG O2 Saturation VBG Base Excess Sodium 138 Potassium 3.4 Chloride 96 Carbon Dioxide 27 Anion Gap 18 BUN 14 Creatinine 0.95 Estim Creat Clear Calc 125.7 Estimated GFR > 60 POC Glucose 177 H Random Glucose Fasting Glucose 171 H Lactic Acid Lactic Acid Fup @ 2Hr Calcium 8.3 L Magnesium 2.1 Total Bilirubin Direct Bilirubin AST ALT Alkaline Phosphatase Total Protein Albumin Lipase Urine Color Urine Appearance Urine pH Ur Specific [place] Urine Protein Urine Glucose (UA) Urine Ketones Urine Blood Urine Nitrite Ur Leukocyte Esterase Urine RBC Urine WBC Ur Squamous Epith Cells Urine Bacteria Hyaline Casts Granular Casts Acetone, Qual Coronavirus (PCR) Influenza Type A (PCR) Influenza Type B (PCR) RSV RNA Qual (PCR) Discharge Plan Discharge Patient Disposition: Home, Self-Care Referrals: Name,MD Dipesh [Primary Care Provider] - Discharge Medications: New metoclopramide HCl [Reglan] 10 mg tablet 10 mg PO Q6H PRN (Reason: nausea and vomiting) Qty: 10 RF: 0 amlodipine 10 mg Tablet 10 mg PO DAILY Qty: 30 RF: 0 metoprolol tartrate 25 mg Tablet 50 mg PO BID Qty: 60 RF: 0 Continued metformin 500 mg tablet 500 mg PO DAILY 30 Days Qty: 30 RF: 6 ondansetron 8 mg Tablet,Disintegrating 8 mg PO Q8H PRN (Reason: Nausea And Vomiting) RF: 0 trazodone 100 mg Tablet 100 mg PO BEDTIME RF: 0 lisinopril 5 mg Tablet 5 mg PO DAILY RF: 0 omeprazole 40 mg Capsule,Delayed Release(Dr/Ec) 40 mg PO DAILY RF: 0 insulin lispro [Humalog U-100 Insulin] 100 unit/mL solution See Protocol sliding scale dose subcut TID RF: 0 Discontinued metoclopramide HCl 5 mg Tablet 5 mg PO DAILY RF: 0 Discharge Orders: Discharge Order (Routine); Ordered 12/07/20 Ordered By: Wai Wilks Activity on Discharge: As tolerated Visit Report Forms: Patient Portal Discharge page Care Plan Goals: to be able to maintain hydration and some oral solid intake Health Concerns: gastroparesis, htn Plan of Treatment: glucose control, reglan, start amlodipine and metoprolol
--- NOTE | 2020-12-07 10:44 | MHC.CM.PN ---
PATIENT IS DISCHARGED TO HOME - SELF CARE. RN AWARE. PATIENT TO SECURE HIS TRANSPORT.
[2020-12-07 11:20] LABS: Glucose, Whole Blood 111 mg/dL (60-115)
== END 2020-12-07 11:43 | disposition home or self-care (01) | DRG 48 ==
LOC: HO.ED 20:12 → HO.S3 12-02 16:49
PROVIDERS: Nurse Practitioner Acute Care; Physician Assistant; Admitting Provider Internal Medicine; Emergency Provider Emergency Medicine; PCP Internal Medicine Geriatric Medicine; Visit Provider Internal Medicine
DX: E10.43 Type 1 diabetes mellitus with diabetic autonomic (poly)neuropathy (principal); N17.9 Acute kidney failure, unspecified; E10.21 Type 1 diabetes mellitus with diabetic nephropathy; E10.65 Type 1 diabetes mellitus with hyperglycemia; K31.84 Gastroparesis; E66.9 Obesity, unspecified; I10 Essential (primary) hypertension; Z68.36 Body mass index [BMI] 36.0-36.9, adult; E10.42 Type 1 diabetes mellitus with diabetic polyneuropathy; Z20.828 Contact with and (suspected) exposure to other viral communicable diseases; Z96.41 Presence of insulin pump (external) (internal); Z79.4 Long term (current) use of insulin; Z79.899 Other long term (current) drug therapy
CPT/HCPCS: 0241U; 36415; 71045; 74176; 80048; 80076; 81001; 82009; 82803; 82947; 83605; 83690; 83735; 85025; 87040; 96361; 96374; 96375; 96376; 99285; J2060; J2270; J2405; J2765

== ENCOUNTER → 2021-01-31 13:10 | Outpatient (BNVA) | payer MEDICAID, SELFPAY | PROVIDERS: PCP Internal Medicine Geriatric Medicine; Visit Provider Internal Medicine Endocrinology, Diabetes & Metabolism | DX: E10.21 Type 1 diabetes mellitus with diabetic nephropathy (principal); E10.65 Type 1 diabetes mellitus with hyperglycemia; E10.43 Type 1 diabetes mellitus with diabetic autonomic (poly)neuropathy; E10.42 Type 1 diabetes mellitus with diabetic polyneuropathy; E21.1 Secondary hyperparathyroidism, not elsewhere classified; E78.5 Hyperlipidemia, unspecified; E66.9 Obesity, unspecified; K31.84 Gastroparesis | CPT/HCPCS: 82947; 99212 ==

== ENCOUNTER 2021-03-26 21:04 | Emergency (ER) | payer MEDICAID, SELFPAY ==
[2021-03-26 21:06] VITALS: BP 155/93; PULSE 105; RESP 18; TEMP 36.4; O2SAT 97; BMI 36.4
--- NOTE | 2021-03-26 21:52 | ED.ABDPAIN ---
HPI - Abdominal Pain General Chief Complaint: Abdominal Pain Stated Complaint: abd pain, nausea Time Seen by Provider: 03/26/21 21:52 Source: patient Mode of arrival: ambulatory Limitations: no limitations History of Present Illness HPI narrative: Patient diabetic with gastroparesis with use of marijuana with frequent ED visits for vomiting and upper abdominal pain was seen at [facility] last week for similar situation complaint comes here for vomiting and upper abdominal pain for last few days patient had 3 CT scan last 6 months all negative. Vomitus is mostly watery MD elicited complaint: abdominal pain Related Data Home Medications Medication Instructions Recorded Confirmed lisinopril 5 mg PO DAILY 09/11/20 01/31/21 omeprazole 40 mg PO DAILY 09/11/20 01/31/21 ondansetron 8 mg PO Q8H PRN 09/11/20 01/31/21 trazodone 100 mg PO BEDTIME 09/11/20 01/31/21 Previous Rx's Medication Instructions Recorded metformin 500 mg tablet 500 mg PO DAILY 30 Days #30 tab 10/17/20 metoclopramide HCl [Reglan] 10 mg PO Q6H PRN #10 tab 12/01/20 amlodipine 10 mg PO DAILY #30 tab 12/07/20 metoprolol tartrate 50 mg PO BID #60 tab 12/07/20 insulin lispro 100 unit/mL See Rx Instructions SUBCUT DAILY 01/31/21 subcutaneous solution 30 Days #40 ml Allergies Allergy/AdvReac Type Severity Reaction Status Date / Time No Known Allergies Allergy Verified 11/06/20 12:53 Review of Systems Review of Systems Constitutional : No Weight loss, No Fever, No Chills ENT/Mouth : No sore throat, No Rhinorrhea Eyes: No Eye Pain, No Swelling Cardiovascular : No Chest Pain, no palpitations Respiratory : No Cough, No Sputum, no shortness of breath Gastrointestinal : +Nausea, + Vomiting, No Diarrhea, +abdominal Pain, no black stools Genitourinary : No Dysuria, No Urinary Frequency Musculoskeletal : No joint pain, No Myalgias, No Joint Swelling Skin : No Skin Lesions, No rash Neuro : No Weakness, No Numbness, No Dizziness, No Headache Psych : No Anxiety/Panic, No Depression Heme/Lymph: No Bruising, No Lymphadenopathy Endocrine : No Polyuria, No Polydipsia All other systems reviewed and are negative Physical Exam Vital Signs: Vital Signs: Last Vital Signs Temp 97.6 F 03/26/21 21:06 Pulse 105 H 03/26/21 21:06 Resp 18 03/26/21 21:06 BP 155/93 H 03/26/21 21:06 Pulse Ox 97 03/26/21 21:06 Body Mass Index 36.4 Appearance: Alert. Oriented X3. No acute distress. Eyes: PERRLA, No Nystagmus ENT: Pharynx normal. Oral Mucosa moist Neck: Normal inspection. Neck supple. CVS: Normal heart rate and rhythm. Pulses normal. Respiratory: No respiratory distress. Equal air entry bilateral, no wheezing/rales/rhonchi Abdomen: Soft , tenderness in epigastric area no rebound tenderness or guarding Bowel sounds are present, no mass palpable, no CVA tenderness Skin: Skin warm and dry. Normal skin color. Normal skin turgor. Extremities: No lower extremity edema. No calf tenderness Neuro: Oriented X 3. No motor deficit. No sensory deficit.No cerebellar signs , cranial nerves II-XII intact MDM - Abdominal Pain MDM Narrative Medical decision making narrative: Patient diabetes with gastroparesis with frequent ED visits for vomiting labs are stable received IV fluids feeling much better now will discharge patient home Lab Data Attestation: I reviewed the patient's lab results. Result diagrams: 03/26/21 23:38 03/26/21 23:39 Labs: Lab Results 03/26/21 03/26/21 03/26/21 Range/Units 23:38 23:38 23:39 WBC 14.9 H (4.8-10.8) X10*3/uL RBC 4.71 (4.60-5.80) X10*6/uL Hgb 13.5 L (14.0-18.0) g/dl Hct 38.8 L (42-52) % MCV 82.4 (80-98) fL MCH 28.7 (27.0-33.0) pg MCHC 34.8 (31.0-36.0) g/dl RDW 12.3 (11.0-16.0) % Plt Count 326 (160-400) X10*3/uL MPV 10.4 (9.4-12.4) fL Immature Gran % (Auto) 0.3 (0.0-0.4) % Neut % (Auto) 73.2 H (45-73) % Lymph % (Auto) 15.8 L (20-40) % [place] % (Auto) 9.8 (2-11) % Eos % (Auto) 0.6 (0-4) % Baso % (Auto) 0.3 (0-2) % Lymph # (Auto) 2.4 (1.2-4.9) X10*3/uL [place] # (Auto) 1.5 H (0.1-1.2) X10*3/uL Eos # (Auto) 0.1 (0.0-0.4) X10*3/uL Baso # (Auto) 0.0 (0.0-0.2) X10*3/uL Abs Immat Gran (auto) 0.05 H (0.00-0.03) X10*3/uL Absolute Neuts (auto) 10.9 H (2.0-8.3) X10*3/uL Absolute Nucleated RBC 0.000 (0.0-0.012) X10*3/uL Nucleated RBC % (auto) 0.0 (0.0-0.2) /100WBC Sodium 134 L (135-145) mmol/L Potassium 3.6 (3.3-5.1) mmol/L Chloride 91 L (96-108) mmol/L Carbon Dioxide 30 H (22-29) mmol/L Anion Gap 17 (12-20) BUN 12 (9-16) mg/dL Creatinine 1.10 (0.5-1.4) mg/dL Estim Creat Clear Calc 108.3 Estimated GFR > 60 Random Glucose 234 H D (60-115) mg/dL Calcium 8.6 (8.4-10.2) mg/dL Total Bilirubin 0.6 (0.0-1.0) mg/dL Direct Bilirubin 0.3 (0.0-0.5) mg/dL AST 17 D (5-37) U/L ALT 19 (0-40) U/L Alkaline Phosphatase 117 D (39-117) U/L Total Protein 6.2 L (6.5-8.0) g/dL Albumin 3.3 L (3.5-5.0) g/dL Lipase 5 L (8-78) U/L Discharge Plan Discharge Prescriptions: No Action metformin 500 mg tablet 500 mg PO DAILY 30 Days Qty: 30 RF: 6 ondansetron 8 mg Tablet,Disintegrating 8 mg PO Q8H PRN (Reason: Nausea And Vomiting) RF: 0 trazodone 100 mg Tablet 100 mg PO BEDTIME RF: 0 lisinopril 5 mg Tablet 5 mg PO DAILY RF: 0 omeprazole 40 mg Capsule,Delayed Release(Dr/Ec) 40 mg PO DAILY RF: 0 metoclopramide HCl [Reglan] 10 mg tablet 10 mg PO Q6H PRN (Reason: nausea and vomiting) Qty: 10 RF: 0 amlodipine 10 mg Tablet 10 mg PO DAILY Qty: 30 RF: 0 metoprolol tartrate 25 mg Tablet 50 mg PO BID Qty: 60 RF: 0 insulin lispro [Humalog U-100 Insulin] 100 unit/mL solution See Rx Instructions subcut DAILY 30 Days Qty: 40 RF: 6 PMFSH Past Medical History Medical History Asthma Diabetes Diabetes type 1, uncontrolled Diabetic gastroparesis associated with type 1 diabetes mellitus Diabetic nephropathy associated with type 1 diabetes mellitus Diabetic polyneuropathy associated with type 1 diabetes mellitus Dyslipidemia Gastritis Gastroparalysis Gastroparesis H. pylori infection HTN (hypertension) Hyperparathyroidism due to vitamin D deficiency Obesity (BMI 30-39.9) Social History Social History Household Members: Family Housing: Apartment Alcohol intake: never Smoking Status: Never smoker Second Hand Smoke Exposure: No Substance Use Type: Marijuana Advance Directives: No Advance Directives Information Provided: No service: No Current occupational status: unemployed
[2021-03-26] MEDS: ondansetron HCL 4 MG/2 ML VIAL IVPUSH (23:39)
[2021-03-26] MEDS: LORazepam 2 MG/ML VIAL IVPUSH (23:39)
[2021-03-26] MEDS: Famotidine/PF 20 MG/2 ML VIAL IVPUSH (23:39)
[2021-03-26] MEDS: 0.9 % Sodium Chloride 1,000 ML 999 ML IVCONT (23:40)
[2021-03-26 23:46] LABS: Basophils Percent Auto 0.3 % (0-2); Eosinophils Absolute Auto 0.1 X10*3/uL (0.0-0.4); Eosinophils Percent Auto 0.6 % (0-4); Hematocrit 38.8 % (42-52); Hemoglobin 13.5 g/dl (14.0-18.0); Imm Gran Abs Auto 0.05 X10*3/uL (0.00-0.03); Imm Gran Pct Auto 0.3 % (0.0-0.4); Lymphocytes Absolute Auto 2.4 X10*3/uL (1.2-4.9); Lymphocytes Percent Auto 15.8 % (20-40); MANUAL DIFF FLAG NO; Mean Corpuscular HGB Conc 34.8 g/dl (31.0-36.0); Mean Corpuscular Hemoglobin 28.7 pg (27.0-33.0); Mean Corpuscular Volume 82.4 fL (80-98); Mean Platelet Volume 10.4 fL (9.4-12.4); Monocytes Absolute Auto 1.5 X10*3/uL (0.1-1.2); Monocytes Percent Auto 9.8 % (2-11); Neutrophils Absolute Auto 10.9 X10*3/uL (2.0-8.3); Neutrophils Percent Auto 73.2 % (45-73); Platelet Count 326 X10*3/uL (160-400); Red Blood Count 4.71 X10*6/uL (4.60-5.80); Red Cell Distribution Width 12.3 % (11.0-16.0); White Blood Count 14.9 X10*3/uL (4.8-10.8)
[2021-03-27 00:08] LABS: Alanine Aminotransferase 19 U/L (0-40); Albumin Level 3.3 g/dL (3.5-5.0); Alkaline Phosphatase 117 U/L (39-117); Anion Gap 17 (12-20); Aspartate Amino Transferase 17 U/L (5-37); Bilirubin Direct 0.3 mg/dL (0.0-0.5); Bilirubin Total 0.6 mg/dL (0.0-1.0); Blood Urea Nitrogen 12 mg/dL (9-16); Calcium 8.6 mg/dL (8.4-10.2); Carbon Dioxide 30 mmol/L (22-29); Chloride 91 mmol/L (96-108); Creatinine Clr Calc Pharmacy 108.3; Estimated Glomerular Filt Rate > 60; Glucose Random 234 mg/dL (60-115); Potassium 3.6 mmol/L (3.3-5.1); Sodium 134 mmol/L (135-145); Total Protein 6.2 g/dL (6.5-8.0)
[2021-03-27 00:08] LABS: Lipase 5 U/L (8-78)
[2021-03-27] MEDS: Ketorolac Tromethamine 30 MG/ML VIAL IVPUSH (00:35)
== END 2021-03-27 01:50 | disposition home or self-care (01) ==
PROVIDERS: Emergency Provider Internal Medicine; PCP Internal Medicine Geriatric Medicine
DX: E10.43 Type 1 diabetes mellitus with diabetic autonomic (poly)neuropathy (principal); K31.84 Gastroparesis; R10.10 Upper abdominal pain, unspecified; F12.90 Cannabis use, unspecified, uncomplicated; I10 Essential (primary) hypertension; E78.5 Hyperlipidemia, unspecified; Z79.4 Long term (current) use of insulin; Z79.899 Other long term (current) drug therapy
CPT/HCPCS: 36415; 80053; 80076; 82248; 83690; 85025; 96361; 96374; 96375; 99283; 99284; J1885; J2060; J2405

== ENCOUNTER → 2021-10-17 10:51 | Outpatient (BNVA) | payer MEDICAID, SELFPAY | PROVIDERS: PCP Internal Medicine Geriatric Medicine; Referring Provider Internal Medicine Geriatric Medicine; Visit Provider Internal Medicine Gastroenterology | DX: K52.9 Noninfective gastroenteritis and colitis, unspecified (principal) | CPT/HCPCS: 99202 ==

== ENCOUNTER → 2021-12-10 13:58 | Outpatient (BNVA) | payer MEDICAID, SELFPAY | PROVIDERS: PCP Internal Medicine Geriatric Medicine; Visit Provider Nurse Practitioner Gerontology | DX: E10.65 Type 1 diabetes mellitus with hyperglycemia (principal); E10.21 Type 1 diabetes mellitus with diabetic nephropathy; E10.43 Type 1 diabetes mellitus with diabetic autonomic (poly)neuropathy; E10.42 Type 1 diabetes mellitus with diabetic polyneuropathy; E78.5 Hyperlipidemia, unspecified; E21.1 Secondary hyperparathyroidism, not elsewhere classified; E66.9 Obesity, unspecified; I10 Essential (primary) hypertension; K31.84 Gastroparesis; Z79.4 Long term (current) use of insulin; Z96.41 Presence of insulin pump (external) (internal); Z79.84 Long term (current) use of oral hypoglycemic drugs; Z79.899 Other long term (current) drug therapy | CPT/HCPCS: 82947; 83036; 99212 ==

== ENCOUNTER → 2022-01-22 13:06 | Outpatient (REF) | payer MEDICAID, SELFPAY | LOC: HO.CARD 13:06 | PROVIDERS: PCP Internal Medicine Geriatric Medicine; Referring Provider Nurse Practitioner Gerontology; Visit Provider Internal Medicine | DX: E10.65 Type 1 diabetes mellitus with hyperglycemia (principal); R00.0 Tachycardia, unspecified | CPT/HCPCS: 93005; 99202 ==

== ENCOUNTER → 2022-03-25 14:11 | Outpatient (REF) | payer MEDICAID, SELFPAY ==
--- NOTE | 2022-03-25 14:15 | ECG_ITS ---
Hook-up date: 2022-03-25 14:49:00 Duration: 47:59:00 Test Indications: tachycardia Medications: 028096 QRS complexes 2 Ventricular ectopics which represent <1 % of total QRS comp. 9 Supraventricular ectopics which represent <1 % of total QRS comp. * Paced QRS complexs which represent % of total QRS comp. VENTRICULAR ECTOPY 2 Isolated 0 Bigeminal Cycles 0 Couplets 0 Runs 0 Beats in Runs * Beats LONGEST at * BPM at :: -- * Beats FASTEST at * BPM at :: -- SUPRAVENTRICULAR ECTOPY 9 Isolated 0 Couplets 0 Runs 0 Beats in Runs * Beats LONGEST at * BPM at :: -- * Beats FASTEST at * BPM at :: -- HEART RATES 67 MIN at 20:12:28 2022-03-25 106 AVG 163 MAX at 17:52:19 2022-03-25 LONGEST RR 1.1360 secs at 20:12:24 2022-03-25 S-T LEVELS Channel 1 - 128 mm at 14:49:00 2022-03-25 - 128 mm at 14:49:00 2022-03-25 Channel 2 - 128 mm at 14:49:00 2022-03-25 - 128 mm at 14:49:00 2022-03-25 Channel 3 - 128 mm at 03:40:81 -- - 128 mm at 03:40:81 Basic rhythm Normal sinus rhythm No long pause or profound bradycardia Frequent Sinus tachycardia , 65% of time HR > 100 bpm Rare ectopics No diary submitted Referred By: Vazquez Ge Overread By: PHILIP YANG MD
--- NOTE | 2022-03-25 14:15 | CA_ITS ---
Transthoracic Echocardiogram Patient (Last, First, Middle): Mc Cam M Gender: Male Date of : 1990 Age: 31 Procedure Date: 03/25/2022 Procedure Type: Transthoracic Echocardiogram Location: OP Height: 165.1 cm Weight: 110.22 kg BSA: 2.15 m2 Heart Rate: bpm BP: 143 / 98 mmHg Senior Licensing Manager: SB Referring MD: Vazquez Ge MD Symptoms: R00.0 - Tachycardia, unspecified Study Quality: Technically Difficult ECG Rhythm: Sinus Conclusions: - The left ventricular systolic function is low normal. The visually estimated ejection fraction is between 50-55%. - There is mildly decreased right ventricular systolic function. - No obvious valvular pathology seen on this study. Findings Left Ventricle Normal left ventricular cavity size. There is normal left ventricular wall thickness. The left ventricular systolic function is low normal. The visually estimated ejection fraction is between 50-55%. Regional wall motion abnormalities can not be excluded due to suboptimal endocardial definition. Diastolic function is normal for age. LV peak GLS diminished but could be technical in nature due to tracking. Right Ventricle Normal right ventricular cavity size. There is mildly decreased right ventricular systolic function. Atria Both atria are normal in size. Aortic Valve There is a normal trileaflet aortic valve. There is no aortic valve stenosis. There is no aortic valve regurgitation. Mitral Valve The mitral valve appears normal. There is no mitral valve regurgitation. There is no mitral valve stenosis. Pulmonic Valve The pulmonic valve is likely normal. Tricuspid Valve Normal tricuspid valve structure. There is trace tricuspid valve regurgitation. Tricuspid regurgitation envelope is inadequate for calculation of right ventricular systolic pressure. Great Vessels The sinuses of valsalva and sino tubular ridge are normal in size. Venous The inferior vena cava is normal in size and collapses greater than 50% with inspiration. Pericardium/Pleural There is no evidence of pericardial effusion. Prior Study Comparison No prior study available for comparison. Recommendations, Care & Conclusions No obvious valvular pathology seen on this study. Measurements 2D Linear Measurements IVSd: 0.79 0.6-0.9/0.6-1.0 cm LVIDd: 4.91 3.9-5.3/4.2-5.9 cm LVIDd Index: 2.28 2.4-3.2/2.2-3.1 cm/m2 LVIDs: 3.60 2.0-3.6 cm LVPWd: 0.64 0.7-1.1 cm LA Diam: 3.50 2.7-3.8/3.0-4.0 cm LAIDs Index: 1.63 1.5-2.3 cm/m2 LV Mass: 141.43 67-162/88-224 g LV Mass Index: 65.78 43-95/49-115 g/m2 LVOT Diam: 2.00 3.0+(-)1.3 cm 2D Systolic Function EF 4C: 50.30 >55% Mitral Valve MV Pk E: 0.75 MV PK A: 0.69 MV Decel Time: 151.00 E/A: 1.10 E'Lateral: 9.46 E'Medial: 6.31 E/E' Med: 11.90 E/E' Lat: 7.90 PHT: 44.00 MVA PHT: 5.00 Decel [place]: 4.95 Aortic Valve AoV Pk Yuriy: 1.13 AoV Mn Yuriy: 0.80 AoV VTI: 0.19 AoV Pk Grad: 5.00 Aov Mn Grad: 3.00 JENNIFER Cont.VTI: 2.89 LVOT LVOT Pk Yuriy: 0.99 LVOT Mn Yuriy: 0.72 LVOT VTI: 0.17 LVOT Pk Grad: 4.00 LVOT Mn Grad: 2.00 LVOT Diam: 2.00 LVOT Area: 3.14 Diastolic Function MV Pk E: 0.75 MV Pk A: 0.69 E/A: 1.10 E'Medial: 6.31 E/E' Med: 11.90 E' Laterial: 9.46 E/E' Lat: 7.90 Right Ventricle TAPSE (mm): 15.20 TVS' Yuriy: 13.80 Great Vessels Aorta Sinus of Valsalva: 2.29 2.0-3.[address] [place]: 2.39 1.7-3.4 cm Pulmonary Valve PV Pk Yuriy: 1.12 Peak PV Grad: 5.00 Updated in Other Vendor System with Status of Final Vazquez Ge MD electronically signed on 03/26/2022 11:46:14 AM with status of Final
== END ==
LOC: HO.CARD 14:11
PROVIDERS: PCP Internal Medicine Geriatric Medicine; Visit Provider Internal Medicine
DX: R00.0 Tachycardia, unspecified (principal); E11.65 Type 2 diabetes mellitus with hyperglycemia
CPT/HCPCS: 93225; 93226; 93306

== ENCOUNTER 2022-03-31 09:11 | Outpatient (REF) | payer MEDICAID, SELFPAY ==
[2022-03-31 11:40] LABS: Alanine Aminotransferase 130 U/L (0-40); Albumin Level 3.3 g/dL (3.5-5.0); Alkaline Phosphatase 347 U/L (39-117); Anion Gap 13 (12-20); Aspartate Amino Transferase 73 U/L (5-37); Bilirubin Total 0.3 mg/dL (0.0-1.0); Blood Urea Nitrogen 12 mg/dL (9-16); Calcium 9.4 mg/dL (8.4-10.2); Carbon Dioxide 25 mmol/L (22-29); Chloride 103 mmol/L (96-108); Cholesterol 310 mg/dL; Estimated Glomerular Filt Rate > 60; Glucose Fasting 136 mg/dL (60-99); HDL Cholesterol 52 mg/dL; LDL Cholesterol Calculated 189 mg/dl; Potassium 4.4 mmol/L (3.3-5.1); Sodium 137 mmol/L (135-145); Total Protein 6.6 g/dL (6.5-8.0); Triglycerides 346 mg/dL
[2022-03-31 11:45] LABS: Free T4 (Free Thyroxine) 0.93 ng/dL (0.71-1.85); Thyroid Stimulating Hormone 4.14 uIU/mL (0.32-4.0); Vitamin D 25-OH Total 6.7 ng/mL (>30)
[2022-03-31 12:18] LABS: Creatinine Urine 94.58 mg/dL
[2022-04-01 14:11] LABS: Calcium (PTHI) 9.1 mg/dL (8.6-10.3); PTHI 56 pg/mL (16-77)
[2022-04-02 08:47] LABS: LDL Cholesterol Direct 201 mg/dL (<100)
== END 2022-03-31 09:12 | disposition home or self-care (01) ==
LOC: HO.LAB 09:11
PROVIDERS: PCP Internal Medicine Geriatric Medicine; Visit Provider Nurse Practitioner Gerontology
DX: E10.65 Type 1 diabetes mellitus with hyperglycemia (principal); E10.21 Type 1 diabetes mellitus with diabetic nephropathy; E10.43 Type 1 diabetes mellitus with diabetic autonomic (poly)neuropathy; E10.42 Type 1 diabetes mellitus with diabetic polyneuropathy; K31.84 Gastroparesis; E78.5 Hyperlipidemia, unspecified; E66.9 Obesity, unspecified; Z68.41 Body mass index [BMI] 40.0-44.9, adult; I10 Essential (primary) hypertension; B35.3 Tinea pedis; E21.1 Secondary hyperparathyroidism, not elsewhere classified; E55.9 Vitamin D deficiency, unspecified; Z79.4 Long term (current) use of insulin
CPT/HCPCS: 36415; 80053; 80061; 82043; 82306; 82947; 83036; 83721; 83970; 84439; 84443; 99212

== ENCOUNTER → 2022-04-08 09:03 | Outpatient (REF) | payer MEDICAID, SELFPAY ==
--- NOTE | ~2022-04-08 | NM_ITS ---
Lexiscan Myocardial perfusion study Indication: Multiple cardiac risk factors, tachycardia, assess for coronary disease and ischemia Technique: The patient was brought in for a Lexiscan perfusion study on 04/08/2022 and was injected 0.4 mg of Lexiscan intravenously. Within a minute of this injection 40 mCi of sestamibi was given intravenously. Images were obtained using the SPECT gamma camera interlaced with the gating device. Images were obtained in supine position. Resting perfusion study was performed on 04/09/2022. Patient was administered 40 mCi of sestamibi intravenously at rest. Images were then obtained in supine position. Total DLP 109mGy-cm. Images were processed with the software and compared side to side in short axis, horizontal long axis and vertical long axis views. Findings: Raw acquisition reviewed. The stress perfusion study showed no significant perfusion abnormality. Both uncorrected as well as CT attenuation corrected images were reviewed. The gated study shows normal LV systolic function with calculated LVEF of 69%. LV cavity is normal in size. The gated study shows normal wall thickening and contraction of segments. Resting study shows mildly reduced tracer uptake in the basal septum likely artifactual. There is improvement with CT attenuation correction.. Gating at rest reveals normal wall motion with ejection fraction at 49%. The findings are consistent with no definite reversible or fixed perfusion defects. UT/UT cardiolite stress test Impression: 1. Myocardial perfusion imaging study shows likely normal myocardial perfusion. 2. Gated LVEF is 69% during stress and 49% during rest. Correlate with echocardiogram. 3. Transient ischemic dilatation not present. EKG component of the test reported separately.
--- NOTE | 2022-04-08 09:05 | CA_ITS ---
Acquisition Time: 2022-04-08 09:25:01 Total Exercise Time: 00:05:16 Test Indications: PALPITATIONS Medications: SEE CHART Protocol: BARTOLO Max HR: 148 BPM 77% of Pred: 191 BPM Max BP: 210/092 mmHG Max Work Load: 7.0 METS Exercise stress test with exercise 5 min 16 sec of Bartolo protocol, achieving 78% MPHR with moderate shortness of breath and request to slow exercise. Treadmill placed in recovery and slowed to 1 MPH for additional 4 min. With exercise BP had reached max 210/ 92 which improved when walking slowed. Testing changed to pharmacological stress test with Lexiscan injection, with mild sob, no chest discomfort, without arrythmia, with normotensive response to injection, with nondiagnostic EKG for ischemia. In recovery he was given Aminophylline 75mg IVP to reverse Lexican. Nuclear images pending. Test reviewed with Dr Redman Referred By: Vazquez Ge Overread By: PRICILA CORCORAN
== END ==
LOC: HO.CARD 09:03
PROVIDERS: Visit Provider Internal Medicine
DX: R00.0 Tachycardia, unspecified (principal); E10.65 Type 1 diabetes mellitus with hyperglycemia
CPT/HCPCS: 78452; 93017; A9500; J0280; J2785

== ENCOUNTER → 2022-07-20 10:09 | Outpatient (BNVA) | payer MEDICAID, SELFPAY | PROVIDERS: PCP Internal Medicine Geriatric Medicine; Referring Provider Internal Medicine Geriatric Medicine; Visit Provider Internal Medicine Gastroenterology | DX: K52.9 Noninfective gastroenteritis and colitis, unspecified (principal); R10.11 Right upper quadrant pain; G89.29 Other chronic pain; E66.9 Obesity, unspecified; E11.9 Type 2 diabetes mellitus without complications; Z79.4 Long term (current) use of insulin; Z96.41 Presence of insulin pump (external) (internal) | CPT/HCPCS: 99212 ==

== ENCOUNTER → 2022-07-27 15:11 | Outpatient (BNVA) | payer MEDICAID, SELFPAY | PROVIDERS: PCP Internal Medicine Geriatric Medicine; Visit Provider Registered Nurse Diabetes Educator | DX: E10.65 Type 1 diabetes mellitus with hyperglycemia (principal); E10.43 Type 1 diabetes mellitus with diabetic autonomic (poly)neuropathy; E10.21 Type 1 diabetes mellitus with diabetic nephropathy; K31.84 Gastroparesis | CPT/HCPCS: 99211 ==

== ENCOUNTER 2022-12-08 11:04 | Outpatient (REF) | payer MEDICAID, SELFPAY ==
[2022-12-08 13:09] LABS: Ferritin 100 ng/mL (20-250)
[2022-12-08 14:57] LABS: Folate 10.8 ng/mL (> or = 4.0); Vitamin B12 569 pg/mL (200-900)
[2022-12-10 14:09] LABS: Transglutaminase Ab IgG <1.0 U/mL; Transglutaminase IgA <1.0 U/mL
[2022-12-11 16:24] LABS: Histamine Plasma <1.5 ng/mL (< OR = 1.8)
== END 2022-12-08 11:05 | disposition home or self-care (01) ==
LOC: HO.LAB 11:04
PROVIDERS: Absent Provider Internal Medicine Gastroenterology; PCP Internal Medicine Geriatric Medicine; Visit Provider Internal Medicine Endocrinology, Diabetes & Metabolism
DX: K52.9 Noninfective gastroenteritis and colitis, unspecified (principal); R10.11 Right upper quadrant pain; G89.29 Other chronic pain; R10.33 Periumbilical pain; E10.65 Type 1 diabetes mellitus with hyperglycemia
CPT/HCPCS: 36415; 82607; 82728; 82746; 82947; 83036; 83088; 83520; 86003; 86364; 99212

== ENCOUNTER → 2023-01-06 14:39 | Outpatient (BNVA) | payer MEDICAID, SELFPAY | PROVIDERS: PCP Internal Medicine Geriatric Medicine; Referring Provider Internal Medicine Geriatric Medicine; Visit Provider Nurse Practitioner Family | DX: R00.0 Tachycardia, unspecified (principal); R00.2 Palpitations; E66.9 Obesity, unspecified; Z68.41 Body mass index [BMI] 40.0-44.9, adult | CPT/HCPCS: 93005; 99212 ==

== ENCOUNTER 2023-01-11 00:26 | Emergency (ER) | payer MEDICAID, SELFPAY ==
--- NOTE | ~2023-01-11 | XR_ITS ---
EXAMINATION: XR CHEST CLINICAL INFORMATION: Rib pain COMPARISON: 12/01/2020 TECHNIQUE: 2 views of the chest were obtained. FINDINGS: The lungs are well expanded. There is no focal consolidation, edema, or effusion. No pneumothorax. The cardiomediastinal silhouette is within normal limits. No acute osseous abnormality. XR/XR chest 2V IMPRESSION: Clear lungs. No displaced fractures are seen.
[2023-01-11 00:54] VITALS: BP 141/89; PULSE 117; RESP 20; TEMP 37.1; O2SAT 97; BMI 43.1
--- NOTE | 2023-01-11 02:25 | ECG_ITS ---
Test Reason : chest pain Blood Pressure : / mmHG Vent. Rate : 106 BPM Atrial Rate : 106 BPM P-R Int : 130 ms QRS Dur : 074 ms QT Int : 340 ms P-R-T Axes : 038 022 002 degrees QTc Int : 451 ms Sinus tachycardia Otherwise normal ECG When compared with ECG of 10-SEP-2020 19:52, Nonspecific T wave abnormality no longer evident in Anterolateral leads Referred By: Hosea Kwok Electronically Signed By:Yang Cabrera
--- NOTE | 2023-01-11 02:25 | ED.GENADULT ---
HPI - General Adult General Chief complaint: General Medical Stated complaint: Pain in body, under ribs? Time Seen by Provider: 01/11/23 01:50 Source: patient Mode of arrival: ambulatory Limitations: no limitations History of Present Illness HPI narrative: 32-year-old male history of insulin-dependent type 1 diabetes and hypertension and obesity presented today for evaluation of right-sided chest pain. Pain started 4 days ago of localized to the right chest wall area reproducible by touching the right side of the chest wall, no radiation of the pain, pain is constant for the past 4 days more with movement and taking a deep breath, decline any trauma to the chest. No recent travel or prolonged immobilization, no shortness of breath. Related Data Home Medications Medication Instructions Recorded Confirmed ondansetron 8 mg disintegrating 8 mg PO Q8H PRN Nausea And Vomiting 09/11/20 01/07/23 tablet lidocaine 1.8 % topical patch 1 patch topical DAILY 10/17/21 01/07/23 metoprolol tartrate 25 mg tablet 25 mg PO BID 03/31/22 01/07/23 amlodipine 10 mg tablet 10 mg PO BEDTIME 11/16/22 01/07/23 omeprazole 20 mg capsule,delayed 40 mg PO DAILY 12/08/22 01/07/23 release insulin glargine 100 unit/mL (3 45 unit subcut QPM 01/06/23 01/07/23 mL) subcutaneous pen (Lantus Solostar U-100 Insulin) oxcarbazepine 300 mg/5 mL (60 450 mg PO BID 01/06/23 01/07/23 mg/mL) oral suspension (Trileptal) Previous Rx's Medication Instructions Recorded metoclopramide HCl 10 mg tablet 10 mg PO Q6H PRN nausea and 12/01/20 (Reglan) vomiting #10 tabs pen needle, diabetic 32 gauge x #150 ea 08/05/21 (BD Ultra-Fine Damaris Pen Needle) sucralfate 100 mg/mL oral 10 ml PO QIDACHS #1,000 mL 10/17/21 suspension pen needle, diabetic 32 gauge x #150 ea 03/31/2232 (BD Ultra-Fine Damaris Pen Needle) terbinafine HCl 1 % topical cream 1 appl topical BID #15 grams 03/31/22 cholecalciferol (vitamin D3) 50 50 mcg PO DAILY #90 caps 04/02/22 mcg (2,000 unit) capsule mirtazapine 7.5 mg tablet 15 mg PO BEDTIME #60 tabs 07/20/22 peg-electrolyte solution 420 gram 240 ml PO Q10M #4,000 mL 07/20/22 oral solution insulin lispro 100 unit/mL See Rx Instructions subcut DAILY 12/08/22 subcutaneous solution (Humalog #30 mL U-100 Insulin) pen needle, diabetic 31 gauge x #100 ea 12/10/2204/13 (BD Ultra-Fine Short Pen Needle) ibuprofen 400 mg tablet 400 mg PO Q8H PRN pain #14 tabs 01/11/23 Allergies Allergy/AdvReac Type Severity Reaction Status Date / Time No Known Allergies Allergy Verified 01/06/23 15:02 Review of Systems Review of Systems: All other systems are reviewed and are negative Constitutional: Reports as per HPI and Reports no additional constitutional complaints Eyes: Reports as per HPI and Reports no additional eye complaints Reports system reviewed and no additional complaints, except as documented Cardiovascular: Reports as per HPI and Reports no additional cardiovascular complaints Respiratory: Reports as per HPI and Reports no additional respiratory complaints Gastrointestinal: Reports as per HPI and Reports no additional gastrointestinal complaints Genitourinary: Reports no additional female genitourinary complaints Musculoskeletal: Reports no additional musculoskeletal complaints Skin/Breast: Reports system reviewed and no additional complaints, except as docu Psychiatric: Reports no additional psychiatric complaints Endocrine: Reports no additional endocrine complaints Hematologic/Lymphatic: Reports no additional hematologic/lymphatic complaints Allergic/Immunologic: Reports no additional allergic/immunologic complaints Reports system reviewed and no additional complaints, except as documented and Reports Abnormal speech present [facility] Past Medical History Medical History Asthma Diabetes type 1, uncontrolled Diabetic gastroparesis associated with type 1 diabetes mellitus Diabetic nephropathy associated with type 1 diabetes mellitus Diabetic polyneuropathy associated with type 1 diabetes mellitus Dyslipidemia Gastritis Gastroparalysis Gastroparesis H. pylori infection HTN (hypertension) Hyperparathyroidism due to vitamin D deficiency Obesity (BMI 30-39.9) Tachycardia Vitamin D deficiency Vitamin D deficiency Surgical History History of esophagogastroduodenoscopy (EGD) Hx of appendectomy Hx of eye surgery Family History Family History Mother Diabetes HTN (hypertension) Father Diabetes Heart problem Social History Social History Household Members: Family Housing: Apartment Do you presently have visiting nurse or other home services: No Alcohol intake: never Second Hand Smoke Exposure: No Substance Use Type: Marijuana Advance Directives: No service: No Current occupational status: unemployed Physical Exam ED Vital Signs: Vital Signs - 24 hr 01/11/23 00:54 Temperature 98.7 F Pulse Rate 117 H Respiratory Rate 20 Blood Pressure 141/89 H Pulse Oximetry 97 Oxygen Delivery Method Room Air BMI result Body Mass Index 43.1 Vital signs have been reviewed as appeared to be correct. Blood pressure normal. Heart rate elevated. Respiration rate normal. Temperature normal. Oxygen saturation normal. Appearance: Alert. Oriented X3. No acute distress. Head: Normal external exam. Normocephalic. Atraumatic. No Hernandez signs noted. No raccoon eyes noted Eyes: PERRLA. EOMI. Conjunctiva and sclera normal. Eyelids normal. ENT: TM's Normal. Pharynx normal. Uvula midline. Moist mucous membranes. No trismus noted. No drooling noted. No muffled voice noted. Neck: Normal inspection. Neck supple. FROM. No adenopathy. Thyroid Normal. No meningeal signs. No neck mass noted. CVS: Normal heart rate and rhythm. Heart sound normal. No murmurs noted. Pulses normal throughout. Respiratory: No respiratory distress. Painless inspiration. Breath sounds normal. No wheezes/rales/rhonchi noted. Right-sided chest tenderness reproducible to touch, no deformity, no step-off.. No accessory muscle usage noted or decreased air movement noted. Abdomen: Soft and nontender. Bowel sounds normal in all 4 quadrants. No distention noted. No organomegaly noted. No visible injury noted. Back: No CVA tenderness. Full range of motion noted. Skin: Skin warm and dry. Normal skin color. Normal skin turgor. No rashes/lesions/lacerations noted. Extremities: No lower extremity edema. Extremities exhibit normal range of motion. Extremities nontender. Neuro: Oriented X 3. Cranial nerve exam: II-XII are grossly intact No motor deficit. No sensory deficit. Reflexes normal. Course Course Course Narrative: 32-year-old male with right-sided chest wall pain which is reproducible to touch and movement, pain improved with ibuprofen, unremarkable workup including troponin and D-dimer. Will discharge the patient with NSAIDs. Medical Decision Making Differential Diagnosis Differential Diagnoses: The differential diagnosis associated with the presentation includes (ACS, chest wall pain, pulmonary embolism, rib fracture.) Lab Data MDM Lab Attestation statement: I reviewed the patient's lab results. 01/11/23 03:15 01/11/23 02:49 Labs: Lab Results 01/11/23 01/11/23 01/11/23 Range/Units 02:49 02:49 03:04 WBC (4.8-10.8) X10*3/uL RBC (4.60-5.80) X10*6/uL Hgb (14.0-18.0) g/dl Hct (42.0-52.0) % MCV (80.0-98.0) fL MCH (27.0-33.0) pg MCHC (31.0-36.0) g/dl RDW (11.0-16.0) % Plt Count (160-400) X10*3/uL MPV (9.4-12.4) fL Immature Gran % (Auto) (0.0-0.4) % Neut % (Auto) (45-73) % Lymph % (Auto) (20-40) % [place] % (Auto) (2-11) % Eos % (Auto) (0-4) % Baso % (Auto) (0-2) % Lymph # (Auto) (1.2-4.9) X10*3/uL [place] # (Auto) (0.1-1.2) X10*3/uL Eos # (Auto) (0.0-0.4) X10*3/uL Baso # (Auto) (0.0-0.2) X10*3/uL Abs Immat Gran (auto) (0.00-0.03) X10*3/uL Absolute Neuts (auto) (2.0-8.3) x10*3/uL Absolute Nucleated RBC (0.0-0.012) X10*3/uL Nucleated RBC % (auto) (0.0-0.2) /100WBC D-Dimer High Sensitivty < 150 NG/ML Sodium 136 (135-145) mmol/L Potassium 4.3 (3.3-5.1) mmol/L Chloride 99 (96-108) mmol/L Carbon Dioxide 22 (22-29) mmol/L Anion Gap 19 (12-20) BUN 20 H (9-16) mg/dL Creatinine 1.17 (0.5-1.4) mg/dL Estim Creat Clear Calc 109.5 Estimated GFR > 60 Random Glucose 157 H (60-115) mg/dL Calcium 9.3 (8.4-10.2) mg/dL Troponin I High Sens < 3.5 (<3.5-35.0) ng/L 01/11/23 Range/Units 03:15 WBC 11.7 H (4.8-10.8) X10*3/uL RBC 4.73 (4.60-5.80) X10*6/uL Hgb 13.2 L (14.0-18.0) g/dl Hct 39.2 L (42.0-52.0) % MCV 82.9 (80.0-98.0) fL MCH 27.9 (27.0-33.0) pg MCHC 33.7 (31.0-36.0) g/dl RDW 13.2 (11.0-16.0) % Plt Count 342 (160-400) X10*3/uL MPV 10.9 (9.4-12.4) fL Immature Gran % (Auto) 0.6 H (0.0-0.4) % Neut % (Auto) 68.1 (45-73) % Lymph % (Auto) 20.6 (20-40) % [place] % (Auto) 7.5 (2-11) % Eos % (Auto) 2.7 (0-4) % Baso % (Auto) 0.5 (0-2) % Lymph # (Auto) 2.4 (1.2-4.9) X10*3/uL [place] # (Auto) 0.9 (0.1-1.2) X10*3/uL Eos # (Auto) 0.3 (0.0-0.4) X10*3/uL Baso # (Auto) 0.1 (0.0-0.2) X10*3/uL Abs Immat Gran (auto) 0.07 H (0.00-0.03) X10*3/uL Absolute Neuts (auto) 8.0 (2.0-8.3) x10*3/uL Absolute Nucleated RBC 0.000 (0.0-0.012) X10*3/uL Nucleated RBC % (auto) 0.0 (0.0-0.2) /100WBC D-Dimer High Sensitivty NG/ML Sodium (135-145) mmol/L Potassium (3.3-5.1) mmol/L Chloride (96-108) mmol/L Carbon Dioxide (22-29) mmol/L Anion Gap (12-20) BUN (9-16) mg/dL Creatinine (0.5-1.4) mg/dL Estim Creat Clear Calc Estimated GFR Random Glucose (60-115) mg/dL Calcium (8.4-10.2) mg/dL Troponin I High Sens (<3.5-35.0) ng/L Independent Interpretation I performed an independent interpretation of an: Plain X-Ray (Clear lungs. No displaced fractures are seen. ) Radiology Impression Discussion of test interpretation with radiology: I have reviewed the radiologist's reading. Discharge Plan Discharge Clinical Impression: Anterior chest wall pain Patient Disposition: Home, Self-Care Instructions: Chest Wall Pain (ED) Prescriptions: New ibuprofen 400 mg tablet 400 mg PO Q8H PRN (Reason: pain) Qty: 14 0RF No Action (DME) pen needle, diabetic [BD Ultra-Fine Damaris Pen Needle] 32 gauge x 5/32 needle See Rx Instructions .ROUTE .MEDSUPPLY Qty: 150 6RF Rx Instructions: As directed five times a day cholecalciferol (vitamin D3) 50 mcg (2,000 unit) capsule 50 mcg PO DAILY Qty: 90 3RF amlodipine 10 mg tablet 10 mg PO BEDTIME Protocol: Hold for SBP< HOLD for SBP < : 90 (DME) pen needle, diabetic [BD Ultra-Fine Short Pen Needle] 31 gauge x 5/16 needle See Rx Instructions .Route Qty: 100 5RF Rx Instructions: As directed injects 5 X/day ondansetron 8 mg Tablet,Disintegrating 8 mg PO Q8H PRN (Reason: Nausea And Vomiting) metoclopramide HCl [Reglan] 10 mg tablet 10 mg PO Q6H PRN (Reason: nausea and vomiting) Qty: 10 0RF lidocaine 1.8 % adhesive patch,medicated 1 patch topical DAILY Rx Instructions: leave on most painful area for up to 12 hrs sucralfate 100 mg/mL suspension 10 ml PO QIDACHS Qty: 1000 1RF oxcarbazepine [Trileptal] 300 mg/5 mL (60 mg/mL) suspension 450 mg PO BID metoprolol tartrate 25 mg tablet 25 mg PO BID terbinafine HCl 1 % cream 1 appl topical BID Qty: 15 3RF (DME) pen needle, diabetic [BD Ultra-Fine Damaris Pen Needle] 32 gauge x 5/ needle See Rx Instructions .ROUTE .MEDSUPPLY Qty: 150 11RF Rx Instructions: As directed five times a day omeprazole 20 mg capsule,delayed release(DR/EC) 40 mg PO DAILY insulin lispro [Humalog U-100 Insulin] 100 unit/mL solution See Rx Instructions subcut DAILY Qty: 30 5RF Rx Instructions: sliding scale three times a day 10 units breakfast, 20 units dinner, 8 units snack, 180-220 6 units, 220-300 8 units, 300-360 10 units peg-electrolyte soln 420 gram recon soln 240 ml PO Q10M Qty: 4000 0RF Rx Instructions: until fecal effluent is clear; do not exceed a total volume of 2,000 mL mirtazapine 7.5 mg tablet 15 mg PO BEDTIME Qty: 60 2RF Lantus Solostar U-100 Insulin 100 unit/mL (3 mL) insulin pen 45 unit subcut QPM Referrals: Name,MD Dipesh [Primary Care Provider] -
[2023-01-11 03:13] LABS: Troponin-I High Sensitivity < 3.5 ng/L (<3.5-35.0)
[2023-01-11 03:21] LABS: Basophils Absolute Auto 0.1 X10*3/uL (0.0-0.2); Basophils Percent Auto 0.5 % (0-2); Eosinophils Absolute Auto 0.3 X10*3/uL (0.0-0.4); Eosinophils Percent Auto 2.7 % (0-4); Hematocrit 39.2 % (42.0-52.0); Hemoglobin 13.2 g/dl (14.0-18.0); Imm Gran Abs Auto 0.07 X10*3/uL (0.00-0.03); Imm Gran Pct Auto 0.6 % (0.0-0.4); Lymphocytes Absolute Auto 2.4 X10*3/uL (1.2-4.9); Lymphocytes Percent Auto 20.6 % (20-40); MANUAL DIFF FLAG NO; Mean Corpuscular HGB Conc 33.7 g/dl (31.0-36.0); Mean Corpuscular Hemoglobin 27.9 pg (27.0-33.0); Mean Corpuscular Volume 82.9 fL (80.0-98.0); Mean Platelet Volume 10.9 fL (9.4-12.4); Monocytes Absolute Auto 0.9 X10*3/uL (0.1-1.2); Monocytes Percent Auto 7.5 % (2-11); Neutrophils Percent Auto 68.1 % (45-73); Platelet Count 342 X10*3/uL (160-400); Red Blood Count 4.73 X10*6/uL (4.60-5.80); Red Cell Distribution Width 13.2 % (11.0-16.0); White Blood Count 11.7 X10*3/uL (4.8-10.8)
[2023-01-11 03:26] LABS: D Dimer High Sensitivity < 150 NG/ML
[2023-01-11 03:26] LABS: Anion Gap 19 (12-20); Blood Urea Nitrogen 20 mg/dL (9-16); Calcium 9.3 mg/dL (8.4-10.2); Carbon Dioxide 22 mmol/L (22-29); Chloride 99 mmol/L (96-108); Creatinine Clr Calc Pharmacy 109.5; Estimated Glomerular Filt Rate > 60; Glucose Random 157 mg/dL (60-115); Potassium 4.3 mmol/L (3.3-5.1); Sodium 136 mmol/L (135-145)
[2023-01-11 03:39] VITALS: BP 131/83; PULSE 105; RESP 20; O2SAT 95
[2023-01-11] MEDS: Ibuprofen 600 MG TABLET PO (04:19)
[2023-01-11 04:22] VITALS: BP 140/81; PULSE 110; RESP 20; O2SAT 97
== END 2023-01-11 04:26 | disposition home or self-care (01) ==
PROVIDERS: Emergency Provider Emergency Medicine; PCP Internal Medicine Geriatric Medicine
DX: R07.89 Other chest pain (principal); E10.9 Type 1 diabetes mellitus without complications; I10 Essential (primary) hypertension; E78.5 Hyperlipidemia, unspecified; E66.9 Obesity, unspecified; Z68.41 Body mass index [BMI] 40.0-44.9, adult; Z79.4 Long term (current) use of insulin; Z79.899 Other long term (current) drug therapy
CPT/HCPCS: 36415; 71046; 80048; 84484; 85025; 85379; 93005; 99283; 99284

== ENCOUNTER → 2023-01-12 15:57 | Outpatient (REF) | payer MEDICAID, SELFPAY ==
--- NOTE | 2023-01-12 16:00 | CA_ITS ---
Transthoracic Echocardiogram/ Limited Patient (Last, First, Middle): Mc Cam M Gender: Male Date of : 1990 Age: 32 Procedure Date: 01/12/2023 Procedure Type: Transthoracic Echocardiogram/ Limited Location: OP Height: 165.1 cm Weight: 114.31 kg BSA: 2.18 m2 Heart Rate: bpm BP: 132 / 84 mmHg Package Wrapper: DEEDEE Referring MD: Parul Meadows HEAD STILL OPERATOR-C Symptoms: R00.0 - Tachycardia, unspecified Study Quality: Technically Difficult, contrast ECG Rhythm: Sinus Conclusions: - The left ventricular systolic function is normal. The calculated ejection fraction is 62% by biplane method. Findings Procedure Information Contrast agent, definity, is being given per protocol without apparent complications. Left Ventricle Normal left ventricular cavity size. The left ventricular systolic function is normal. The calculated ejection fraction is 62% by biplane method. There is no evidence of regional wall motion abnormalities. Prior Study Comparison Changes noted compared to prior study dated: 03/25/2022. LVEF higher. However, difference in LVEF could be technical due to image quality/interpretation. Measurements 2D Linear Measurements IVSd: 1.30 0.6-0.9/0.6-1.0 cm LVIDd: 3.88 3.9-5.3/4.2-5.9 cm LVIDd Index: 1.78 2.4-3.2/2.2-3.1 cm/m2 LVIDs: 2.89 2.0-3.6 cm LVPWd: 1.21 0.7-1.1 cm LV Mass: 210.61 67-162/88-224 g LV Mass Index: 96.61 43-95/49-115 g/m2 LVOT Diam: 2.00 3.0+(-)1.3 cm 2D Systolic Function EF 4C: 64.60 >55% EF 2C: 59.60 >55% EF BiP: 61.70 >55% LVOT LVOT Pk Yuriy: 0.98 LVOT Mn Yuriy: 0.60 LVOT VTI: 0.18 LVOT Pk Grad: 4.00 LVOT Mn Grad: 2.00 LVOT Diam: 2.00 LVOT Area: 3.14 Updated in Other Vendor System with Status of Final Vazquez Ge MD electronically signed on 01/12/2023 5:30:02 PM with status of Final
== END ==
LOC: HO.CARD 15:57
PROVIDERS: Visit Provider Nurse Practitioner Family
DX: R00.0 Tachycardia, unspecified (principal); E66.9 Obesity, unspecified
CPT/HCPCS: 93308; Q9957

== ENCOUNTER → 2023-03-01 11:40 | Outpatient (BNVA) | payer MEDICAID, SELFPAY | PROVIDERS: PCP Internal Medicine Geriatric Medicine; Visit Provider Internal Medicine Gastroenterology | DX: K31.84 Gastroparesis (principal) | CPT/HCPCS: 99212 ==

== ENCOUNTER → 2023-03-16 19:30 | Outpatient (REF) | payer MEDICAID, SELFPAY | LOC: HO.SL 19:30 | PROVIDERS: PCP Internal Medicine Geriatric Medicine; Visit Provider Nurse Practitioner Family | DX: G47.31 Primary central sleep apnea (principal); G47.10 Hypersomnia, unspecified; E66.9 Obesity, unspecified | CPT/HCPCS: 95811 ==

== ENCOUNTER → 2023-05-17 14:24 | Outpatient (BNVA) | payer MEDICAID, SELFPAY | PROVIDERS: PCP Internal Medicine Geriatric Medicine; Visit Provider Internal Medicine | DX: G47.30 Sleep apnea, unspecified (principal); E66.01 Morbid (severe) obesity due to excess calories; Z68.41 Body mass index [BMI] 40.0-44.9, adult | CPT/HCPCS: 99202 ==

== ENCOUNTER 2023-06-22 14:53 | Outpatient (REF) | payer MEDICAID, SELFPAY ==
[2023-06-22 17:36] LABS: B Type Natriuretic Peptide 11 pg/mL (<100)
[2023-06-22 17:44] LABS: TSH reflex Free T4 1.61 uIU/mL (0.32-4.0)
== END 2023-06-22 14:54 | disposition home or self-care (01) ==
LOC: HO.HHCL 14:53
PROVIDERS: Visit Provider Nurse Practitioner Family
DX: R60.0 Localized edema (principal)
CPT/HCPCS: 36415; 83880; 84443

== ENCOUNTER 2023-07-20 12:57 | Outpatient (AMB) | payer MEDICAID, SELFPAY ==
[2023-07-20 13:01] VITALS: BP 120/82; PULSE 88; BMI 44.8
--- NOTE | 2023-07-20 13:01 | A.OFFVIS_ITS ---
Intake Vital Signs 07/20/23 13:01 Height 5 ft 5 in Weight 268 lb 15.423 oz BMI 44.8 BP 120/82 Blood Pressure Location Lt brachial Position Sitting Pulse 88 Intake Visit Reasons: 6 mth /fup Intake Note: 6 month f/up Logging Specialist Required: No Allergies No Known Allergies Allergy (Verified 07/20/23 13:09) Medication List - Last Reconciled 07/20/23 by ASHLI Nava cholecalciferol (vitamin D3) 50 mcg PO DAILY ibuprofen 400 mg PO Q8H PRN insulin glargine (Lantus Solostar U-100 Insulin) 45 units (0.45 mL) subcut QPM insulin lispro (Humalog U-100 Insulin) sliding scale three times a day 10 units breakfast, 20 units dinner, 8 units snack, 180-220 6 units, 220-300 8 units, 300-360 10 units lidocaine 1.8% 1 patch topical DAILY metoclopramide HCl (Reglan) 10 mg PO Q6H PRN metoprolol tartrate 25 mg PO BID mirtazapine 15 mg (2 x 7.5 mg) PO BEDTIME mirtazapine 15 mg (2 x 7.5 mg) PO BEDTIME omeprazole 40 mg PO DAILY ondansetron 8 mg PO Q8H PRN oxcarbazepine (Trileptal) 450 mg PO BID peg-electrolyte soln 420 gram 240 mL PO Q10M pen needle, diabetic (BD Ultra-Fine Damaris Pen Needle) As directed five times a day pen needle, diabetic (BD Ultra-Fine Damaris Pen Needle) As directed five times a day pen needle, diabetic (BD Ultra-Fine Short Pen Needle) As directed injects 5 X/day prochlorperazine (Compazine) 25 mg ME BID sucralfate 10 mL PO QIDACHS terbinafine HCl 1% 1 appl topical BID trazodone 100 mg PO DAILY HPI 6 mth /fup HPI Details Mc is a 32-year-old male with past medical history of hypertension, diabetes, morbid obesity, sinus tachycardia who presents for follow-up. Today he states that he now has been diagnosed with sleep apnea and has begun treatment with a CPAP mask. He has been using it for about a month and he is feeling much better overall. He has more daytime energy and is sleeping well at night. He has no concerning cardiac symptoms. He has not been bothered by heart palpitations recently. No chest discomfort, dizziness, presyncope, syncope, PND, orthopnea or edema. He has mild shortness of breath with stair climbing which is not new. He does normal ADLs. He is a [id number] dad. Significant other present. [facility] Medical History Asthma Diabetes type 1, uncontrolled Diabetic gastroparesis associated with type 1 diabetes mellitus Diabetic nephropathy associated with type 1 diabetes mellitus Diabetic polyneuropathy associated with type 1 diabetes mellitus Dyslipidemia Gastritis Gastroparalysis Gastroparesis H. pylori infection HTN (hypertension) Hyperparathyroidism due to vitamin D deficiency Morbid obesity Obesity (BMI 30-39.9) Tachycardia Vitamin D deficiency Vitamin D deficiency Surgical History History of esophagogastroduodenoscopy (EGD) Hx of appendectomy Hx of eye surgery Family History Mother Diabetes HTN (hypertension) Father Diabetes Heart problem Social History Household Members: Family Housing: Apartment Do you presently have visiting nurse or other home services: No Alcohol intake: never Second Hand Smoke Exposure: No Substance Use Type: Marijuana service: No Current occupational status: unemployed Review of Systems Const All systems reviewed & are unremarkable except as noted in HPI and below ENT Reports dizziness Card Denies chest pain, Denies chest pain at rest, Denies chest pain with activity, Denies rapid heart rate, Denies pedal edema, Denies edema, Denies leg edema, Denies lightheadedness, Denies palpitations, Denies dyspnea, Denies dyspnea on e xertion and Denies orthopnea Resp Denies cough, Denies dyspnea and Denies dyspnea on exertion GI Denies hematochezia and Denies change in stool character Musc Denies abnormal gait, Reports limited range of motion, Reports muscle cramps, Denies muscle weakness, Denies numbness, Denies radiating pain into limb, Denies stiffness and Denies tingling Neuro Denies abnormal gait, Reports dizziness, Denies numbness and Denies tingling Endo Denies palpitations Physical Exam Vital Signs: Last Vital Signs Pulse 88 07/20/23 13:01 BP 120/82 07/20/23 13:01 BMI result Body Mass Index 44.8 Const General: cooperative, comfortable and no acute distress Orientation/consciousness: patient oriented x3 Neck Neck: Yes normal visual inspection Resp Effort & Inspection: normal respiratory effort Auscultation: clear to auscultation bilaterally, no crackles, no rales, no rhonchi and no wheezes Cardio Jugular venous distension: no JVD Rate: regular rate Rhythm: regular rhythm Heart sounds: S1 normal heart sound present, S2 normal heart sound present, no murmurs and no rubs Neuro General: patient oriented x3 Extrem General: Yes normal to inspection Psych Appearance: grossly normal Mental Status: mental status grossly normal Speech and movement: Normal speech and movement present Office Procedures EKG Details: Today, read by me, normal sinus rhythm, T-wave inversion lead 3 and AVF, Same as prior EKG, no acute findings, rate 88, QTC 430 millisecond [id number], Complete Assessment & Plan Assessment & Plan (1) Tachycardia: Code(s): R00.0 - Tachycardia, unspecified Plan: History of sinus tachycardia. Cardiac eval last year with echocardiogram done on 03/25/2022 with EF 50-55%, mild decrease in the RV systolic function, no valve abnormalities. Holter monitor done on 03/25/2022 showed sinus rhythm to sinus tach, average heart rate 106, heart rate range 67 to 163, 65% of the time heart rate greater than 100. An stress test done on 04/08/2022 showed decreased exercise capacity with moderate shortness of breath, no ischemia on EKG use and normal myocardial perfusion imaging, EF 69% with stress and 49% at rest. Has been on metoprolol 25 mg b.i.d and feels well. He is not bothered by heart palpitations as much these days. No clinical signs of heart failure on examination. EKG today showing sinus rhythm pulse 88. Blood pressure is well controlled. On limited echo 12/25/2021 he did have mildly reduced EF 50-55%. A recheck of echo following metoprolol use, 01/12/2023 showed EF 62%. He also tells me he has a newer diagnosis of obstructive sleep apnea and now has CPAP mask. He is sleeping much better and feeling well overall. Will continue low- dose metoprolol. Cardiology follow-up in 1 year, sooner if needed (2) Obesity (BMI 30-39.9): Code(s): E66.9 - Obesity, unspecified Plan: Benefits increasing physical activity and weight loss reviewed with him (3) Palpitation: Code(s): R00.2 - Palpitations Coding Level of Care Code Est Pt Level 3 (55358) Diagnoses Tachycardia R00.0 Obesity (BMI 30-39.9) E66.9 Palpitation R00.2 CPT Codes EKG - CPT: 86989-[id number], Complete ([id number]) Time Spent (min) 24 Comment Chart review, documentation, interview, assessment
== END 2023-07-20 13:26 | disposition home or self-care (01) ==
PROVIDERS: PCP Internal Medicine Geriatric Medicine; Referring Provider Internal Medicine Geriatric Medicine; Visit Provider Nurse Practitioner Family
DX: R94.31 Abnormal electrocardiogram [ECG] [EKG] (principal)
CPT/HCPCS: 93010; 93306; 99213

== ENCOUNTER → 2023-07-20 13:29 | Outpatient (REF) | payer MEDICAID, SELFPAY ==
--- NOTE | 2023-07-20 13:33 | CA_ITS ---
Transthoracic Echocardiogram Patient (Last, First, Middle): Mc Cam M Gender: Male Date of : 1990 Age: 32 Procedure Date: 07/20/2023 Procedure Type: Transthoracic Echocardiogram Location: OP Height: 165.1 cm Weight: 117.94 kg BSA: 2.21 m2 Heart Rate: 78 bpm BP: 125 / 80 mmHg Superintendent Nonselling: ANISA Referring MD: Maira Prasad SHOE LAY OUT PLANNER Symptoms: type 1 diabetes mellitus. b/l lower ext.edema Study Quality: Adequate w contrast ECG Rhythm: Sinus Conclusions: - The left ventricular systolic function is low normal. The visually estimated ejection fraction is between 50-55%. - No obvious valvular pathology seen on this study. Findings Procedure Information Contrast agent, definity, is being given per protocol without apparent complications. Left Ventricle Normal left ventricular cavity size. There is normal left ventricular wall thickness. The left ventricular systolic function is low normal. The visually estimated ejection fraction is between 50-55%. There is no evidence of regional wall motion abnormalities. Diastolic function is normal for age. LVEF difficult to assess even with contrast. Right Ventricle Normal right ventricular cavity size and systolic function. Atria Both atria are normal in size. Aortic Valve There is a normal trileaflet aortic valve. There is no aortic valve stenosis. There is no aortic valve regurgitation. Mitral Valve The mitral valve appears normal. There is no mitral valve regurgitation. There is no mitral valve stenosis. Pulmonic Valve The pulmonic valve is likely normal. Tricuspid Valve There is trace tricuspid valve regurgitation. Tricuspid regurgitation envelope is inadequate for calculation of right ventricular systolic pressure. Great Vessels The asc aorta is normal in size. Venous The inferior vena cava is normal in size and collapses greater than 50% with inspiration. Pericardium/Pleural There is no evidence of pericardial effusion. Recommendations, Care & Conclusions No obvious valvular pathology seen on this study. Measurements 2D Linear Measurements IVSd: 0.91 0.6-0.9/0.6-1.0 cm LVIDd: 4.74 3.9-5.3/4.2-5.9 cm LVIDd Index: 2.14 2.4-3.2/2.2-3.1 cm/m2 LVIDs: 2.93 2.0-3.6 cm LVPWd: 0.96 0.7-1.1 cm LA Diam: 3.70 2.7-3.8/3.0-4.0 cm LAIDs Index: 1.67 1.5-2.3 cm/m2 LV Mass: 190.28 67-162/88-224 g LV Mass Index: 86.10 43-95/49-115 g/m2 LVOT Diam: 2.00 3.0+(-)1.3 cm 2D Systolic Function EF 4C: 52.10 >55% EF 2C: 53.40 >55% EF BiP: 50.30 >55% Mitral Valve MV Pk E: 1.00 MV PK A: 0.62 MV Decel Time: 197.00 E/A: 1.60 E'Lateral: 12.10 E'Medial: 8.49 E/E' Med: 11.80 E/E' Lat: 8.30 PHT: 58.00 MVA PHT: 3.79 Decel [place]: 5.09 Aortic Valve AoV Pk Yuriy: 1.42 AoV Mn Yuriy: 0.96 AoV VTI: 0.27 AoV Pk Grad: 8.00 Aov Mn Grad: 4.00 JENNIFER Cont.VTI: 1.92 LVOT LVOT Pk Yuriy: 0.84 LVOT Mn Yuriy: 0.54 LVOT VTI: 0.17 LVOT Pk Grad: 3.00 LVOT Mn Grad: 1.00 LVOT Diam: 2.00 LVOT Area: 3.14 Diastolic Function MV Pk E: 1.00 MV Pk A: 0.62 E/A: 1.60 E'Medial: 8.49 E/E' Med: 11.80 E' Laterial: 12.10 E/E' Lat: 8.30 Right Ventricle TAPSE (mm): 16.80 TVS' Yuriy: 12.10 Tricuspid Valve RA Press: 8.00 Great Vessels Aorta Sinus of Valsalva: 2.80 2.0-3.5 cm Ao Asc: 3.10 2.1-3.4 cm Pulmonary Valve PV Pk Yuriy: 1.22 Peak PV Grad: 6.00 Updated in Other Vendor System with Status of Final Vazquez Ge MD electronically signed on 07/21/2023 11:26:49 AM with status of Final
== END ==
LOC: HO.CARD 13:29
PROVIDERS: PCP Internal Medicine Geriatric Medicine; Visit Provider Nurse Practitioner Family
DX: R60.0 Localized edema (principal); E10.65 Type 1 diabetes mellitus with hyperglycemia
CPT/HCPCS: 93005; 93306; 99213; Q9957

== ENCOUNTER 2023-07-22 14:20 | Outpatient (AMB) | payer MEDICAID, SELFPAY ==
--- NOTE | 2023-07-22 14:23 | MHC.OFFVIS ---
Intake Vital Signs 07/22/23 14:25 Height 5 ft 5 in Weight 273 lb 5.971 oz BMI 45.5 BP 124/78 Blood Pressure Location Lt brachial Position Sitting Pulse 86 Pulse Source Pulse Oximeter Intake Visit Reasons: DM Intake Note: Patient presents today to follow up on Type Diabetes Mellitus. Patient receives DME supplies through: Last Diabetic Eye exam: 2021 Last Podiatry Visit: None Random Glucose: 110 mg/dl HgA1C: 9.0% Birth Attendant Required: No Accompanied by: Significant Other Allergies No Known Allergies Allergy (Verified 07/22/23 14:29) HPI HPI Comments History of Present Illness Details Patient is a 32-year-old male with DM type 1 diagnosed at the age of 7 who presents for management of diabetes. He was having problems with his Dexcom and is Omni pods falling off and he was using basal/bolus . Labs were ordered and have not been done. Today he is not using the Omnipod but is using a basal bolus regimen with sensor. Past medical history: Diabetes type 1, HTN, HLD, gastroparesis Micro and macrovascular complications: nephropathy with macroalbuminaria in nephrotic range, neuropathy and gastroparesis Diabetes medications: . Metformin 500 once a day, Lantus 40 units. Humalog I:C 6, Sensitivity 15, target 120. 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: Stone Cutter: denies Ophthalmology evaluation: , 1 yr agoneeds to make ovidio coy reports retinopathy Other specialists: gastroenterology, cardiology, sees banquet server on call He tells me that he saw a banquet server on call in the past and was placed on RAAS inhibitor namely lisinopril but that was stopped for unknown reasons Laboratory Tests 03/26/21 12/10/21 23:39 14:21 Creatinine 1.10 Estimated GFR > 60 Hgb A1c (Clinic) 10.1 H [facility] Medical History Asthma Diabetes type 1, uncontrolled Diabetic gastroparesis associated with type 1 diabetes mellitus Diabetic nephropathy associated with type 1 diabetes mellitus Diabetic polyneuropathy associated with type 1 diabetes mellitus Dyslipidemia Gastritis Gastroparalysis Gastroparesis H. pylori infection HTN (hypertension) Hyperparathyroidism due to vitamin D deficiency Morbid obesity Obesity (BMI 30-39.9) Tachycardia Vitamin D deficiency Vitamin D deficiency Surgical History History of esophagogastroduodenoscopy (EGD) Hx of appendectomy Hx of eye surgery Family History Mother Diabetes HTN (hypertension) Father Diabetes Heart problem Social History Household Members: Family Housing: Apartment Do you presently have visiting nurse or other home services: No Alcohol intake: never Second Hand Smoke Exposure: No Substance Use Type: Marijuana service: No Current occupational status: unemployed Physical Exam Vital Signs: Last Vital Signs Pulse 86 07/22/23 14:25 BP 124/78 07/22/23 14:25 BMI result Body Mass Index 45.5 Absence of Cushingoid features. Absence of acromegalic features. Neck exam reveals nl size thyroid about 15 gms. No thyroid nodules palpable. No carotid bruits present. Lungs CTA. Heart S1 S2, Reg R/R. No M/R/ G. Skin exam reveals absence of vitiligo or acanthosis nigricans. Abdominal exam reveals Soft NT/ND with NA BS. No organomegaly present. Neck Other: . Extrem Other: Visual exam of foot performed. No ulcerations or open lesions. No onchomycosis, no callouses.Pulses 2 + distally Sensation intact to monofilament exam. Vibratory sensation sensed is intact with 128 Hz tuning fork Results AMB Hemoglobin A1c AMB Hemoglobin A1c 9.0 % Last Edit by Ofelia Gardiner on 07/22/23 14:46 Results Reviewed Results Reviewed: 07/22/23 14:35 Glucose, Whole Blood Routine Laboratory Last Values Glucose (Clinic) 110 mg/dL (60-115) 07/22/23 14:35 Hgb A1c (Clinic) 9.0 % (4.0-6.0) H 07/22/23 14:42 Assessment & Plan Assessment & Plan (1) Diabetes type 1, uncontrolled: Code(s): E10.65 - Type 1 diabetes mellitus with hyperglycemia Plan: This is a 32-year-old male with history of longstanding type 1 diabetes being treated with basal-bolus insulin with poor glycemic control and known microvascular complications namely nephropathy with macroalbuminaria in nephrotic range, neuropathy and gastroparesis Plan is that the patient check reinitiate the sensor. He will also follow-up with the certified breastfeeding educator regarding possible re-initiation of the pump possibly an Omnipod 5. . I discussed extensively the correlation of poor glycemic control with the development and progression of complications. I also made another referral to Podiatry. I also will check anti-G GAD65 and anti-islet cell antibodies to confirm type 1 diabetes and rule out SHASHANK S patient had very early onset of diabetes Orders: Orders Glutamic acid decarboxylase Ab Today E10.65 - Type 1 diabetes mellitus with hyperglycemia Islet Cell Antibody Scrn/Titer Today E10.65 - Type 1 diabetes mellitus with hyperglycemia AMB Hemoglobin A1c Today E10.42 - Type 1 diabetes mellitus with diabetic polyneuropathy Referrals Diabetes Education Referral E10.65 - Type 1 diabetes mellitus with hyperglycemia Nutrition/Dietitian Referral E10.65 - Type 1 diabetes mellitus with hyperglycemia Medications: New blood-glucose meter (FreeStyle Lite Meter kit) As directed checking 4X/day 1 ea 0RF blood sugar diagnostic (FreeStyle Lite Strips) As directed checks 4X/day 100 ea 5RF Coding Level of Care Code Est Pt Level 4 (11495) Diagnoses Diabetes type 1, uncontrolled E10.65
[2023-07-22 14:25] VITALS: BP 124/78; PULSE 86; BMI 45.5
[2023-07-22 14:41] LABS: Glucose, Whole Blood 110 mg/dL (60-115)
== END 2023-07-22 15:08 | disposition home or self-care (01) ==
PROVIDERS: PCP Internal Medicine Geriatric Medicine; Visit Provider Internal Medicine Endocrinology, Diabetes & Metabolism
DX: E10.42 Type 1 diabetes mellitus with diabetic polyneuropathy (principal); E10.65 Type 1 diabetes mellitus with hyperglycemia
CPT/HCPCS: 99214

== ENCOUNTER → 2023-07-22 14:20 | Outpatient (BNVA) | payer MEDICAID, SELFPAY | PROVIDERS: PCP Internal Medicine Geriatric Medicine; Visit Provider Internal Medicine Endocrinology, Diabetes & Metabolism | DX: E10.65 Type 1 diabetes mellitus with hyperglycemia (principal) | CPT/HCPCS: 82947; 83036; 99212 ==

== ENCOUNTER 2023-08-25 10:00 | Outpatient (REF) | payer MEDICAID, SELFPAY ==
[2023-08-25 13:19] LABS: Anion Gap 14 (12-20); Blood Urea Nitrogen 16 mg/dL (9-16); Calcium 9.2 mg/dL (8.4-10.2); Carbon Dioxide 27 mmol/L (22-29); Chloride 104 mmol/L (96-108); Estimated Glomerular Filt Rate > 60; Glucose Random 86 mg/dL (60-115); Potassium 3.7 mmol/L (3.3-5.1); Sodium 141 mmol/L (135-145)
[2023-08-25 13:28] LABS: TSH reflex Free T4 3.26 uIU/mL (0.32-4.0)
== END 2023-08-25 10:01 | disposition home or self-care (01) ==
LOC: HO.LAB 10:00
PROVIDERS: PCP Internal Medicine Geriatric Medicine; Visit Provider Internal Medicine Geriatric Medicine
DX: E10.65 Type 1 diabetes mellitus with hyperglycemia (principal); E11.43 Type 2 diabetes mellitus with diabetic autonomic (poly)neuropathy; R11.10 Vomiting, unspecified; F12.10 Cannabis abuse, uncomplicated; K31.84 Gastroparesis; N17.9 Acute kidney failure, unspecified; R63.5 Abnormal weight gain; E66.01 Morbid (severe) obesity due to excess calories; G47.30 Sleep apnea, unspecified; J45.909 Unspecified asthma, uncomplicated; Z79.4 Long term (current) use of insulin; Z79.899 Other long term (current) drug therapy
CPT/HCPCS: 36415; 80048; 84443; 99212

== ENCOUNTER 2023-08-25 10:00 | Outpatient (AMB) | payer MEDICAID, SELFPAY ==
[2023-08-25 10:04] VITALS: BP 120/64; PULSE 103; O2SAT 94; BMI 45.8
--- NOTE | 2023-08-25 10:04 | A.OFFVIS_ITS ---
Intake Vital Signs 08/25/23 10:04 Height 5 ft 5 in Weight 275 lb BMI 45.8 BP 120/64 Blood Pressure Location Lt brachial Position Sitting Pulse 103 H Pulse Source Pulse Oximeter Pulse Oximetry (%) 94 Oxygen Delivery Method Room Air Intake Visit Reasons: Obstructive sleep apnea follow-up Intake Note: pt is here for follow up of FLOWER, headgear is causing an issue. Airworthiness Safety Inspector Required: No Allergies No Known Allergies Allergy (Verified 08/25/23 10:15) Medication List - Last Reconciled 08/25/23 by Alexis Saucedo MD blood sugar diagnostic (FreeStyle Lite Strips) As directed checks 4X/day blood-glucose meter (FreeStyle Lite Meter kit) As directed checking 4X/day cholecalciferol (vitamin D3) 50 mcg PO DAILY ibuprofen 400 mg PO Q8H PRN insulin glargine (Lantus Solostar U-100 Insulin) 45 units (0.45 mL) subcut QPM insulin lispro (Humalog U-100 Insulin) sliding scale three times a day 10 units breakfast, 20 units dinner, 8 units snack, 180-220 6 units, 220-300 8 units, 300-360 10 units lidocaine 1.8% 1 patch topical DAILY metoclopramide HCl (Reglan) 10 mg PO Q6H PRN metoprolol tartrate 25 mg PO BID mirtazapine 15 mg (2 x 7.5 mg) PO BEDTIME mirtazapine 15 mg (2 x 7.5 mg) PO BEDTIME omeprazole 40 mg PO DAILY ondansetron 8 mg PO Q8H PRN oxcarbazepine (Trileptal) 450 mg PO BID peg-electrolyte soln 420 gram 240 mL PO Q10M pen needle, diabetic (BD Ultra-Fine Damaris Pen Needle) As directed five times a day pen needle, diabetic (BD Ultra-Fine Damaris Pen Needle) As directed five times a day pen needle, diabetic (BD Ultra-Fine Short Pen Needle) As directed injects 5 X/day prochlorperazine (Compazine) 25 mg OK BID sucralfate 10 mL PO QIDACHS terbinafine HCl 1% 1 appl topical BID trazodone 100 mg PO DAILY Do you need a note to return to daycare/school/sports/work: No HPI Obstructive sleep apnea follow-up HPI Details This 33 years old gentleman is here for follow-up, after he has been started on CPAP. He has been using almost every night but missed due few nights when he was in [facility] admitted for diverticulitis. His average use is about 4 hours. He claims that he sleeps much. Better than before Still remains somewhat. Tired during the daytime As little issue with the head gear and he will be checking with the DME supplier. [facility] Medical History (Updated 08/25/23 @ 10:22 by Alexis Saucedo MD) Morbid obesity Vitamin D deficiency Tachycardia Vitamin D deficiency HTN (hypertension) Obesity (BMI 30-39.9) Hyperparathyroidism due to vitamin D deficiency Dyslipidemia Diabetic polyneuropathy associated with type 1 diabetes mellitus Diabetic gastroparesis associated with type 1 diabetes mellitus Diabetic nephropathy associated with type 1 diabetes mellitus Diabetes type 1, uncontrolled Gastroparesis H. pylori infection Asthma Gastritis Gastroparalysis Surgical History Hx of eye surgery Hx of appendectomy History of esophagogastroduodenoscopy (EGD) Family History Mother Diabetes HTN (hypertension) Father Diabetes Heart problem Social History Household Members: Family Housing: Apartment Do you presently have visiting nurse or other home services: No Alcohol intake: never Second Hand Smoke Exposure: No Substance Use Type: Marijuana service: No Current occupational status: unemployed Review of Systems Const All systems reviewed & are unremarkable except as noted in HPI and below Eyes Reports no additional complaints ENT Reports no additional complaints Card Denies chest pain, Denies irregular heart rhythm and Denies leg edema Resp Reports as per HPI GI Reports bloating, Reports heartburn, Reports nausea and Reports vomiting Reports no additional complaints Musc Reports no additional complaints Skin/Breast Reports system reviewed and no additional complaints, except as documented Neuro Reports seizure-like activity Psych Reports depression Endo Reports other (DIABETES MELLITUS WITH DIABETIC COMPLICATIONS) Rod/Lymph Reports no additional complaints Physical Exam Vital Signs: Last Vital Signs Pulse 103 H 08/25/23 10:04 BP 120/64 08/25/23 10:04 Pulse Ox 94 08/25/23 10:04 Oxygen Delivery Method Room Air 08/25/23 10:04 BMI result Body Mass Index 45.8 HE HAS A ROUND FACE WITH A SHORT NECK, VERY CROWDED OROPHARYNX, MALLAMPATI CLASS 4. Const Orientation/consciousness: patient oriented x3 HEENT Other: OROPHARYNX IS CROWDED, MALLAMPATI CLASS 4 Eyes General: appearance normal, both eyes and all related structures Neck Other: VERY SHORT AND OBESE, NECK SIZE 18 IN Chest Chest palpation & inspection: normal inspection of the chest, normal palpation of entire chest wall and no tenderness Resp Other: BREATH SOUNDS ARE VERY DISTANT ESPECIALLY OVER THE LOWER LOBES, NO WHEEZES RHONCHI OR CREPITATIONS ARE HEARD. Cardio Palpation: PMI not normal (NOT PALPABLE) Rhythm: regular rhythm Heart sounds: no gallops and no murmurs GI Other: ABDOMEN IS OBESE AND PROTUBERANT Palpation (GI): Soft to palpation, nontender and no masses Back/Spine/Pelvis Thoracic/Lumbar Spine: thoracic and lumbar spine normal to inspection and thoraco-lumbar ROM limited Skin General skin exam: no rashes or lesions noted Neuro General: patient oriented x3 Cranial nerves: Yes CN's II-XII intact bilaterally Gait exam (Neuro): Normal gait present Extrem General: Yes normal to inspection and Yes full ROM Psych Appearance: grossly normal and well kempt Results Reviewed Results Reviewed: Compliance report for the last 30 nights is reviewed He has used 24/30 nights, is 80%. Average use per night 3 hours 57 minutes . Median usage on the days when used is 4 hours 26 minute. There is some air leak but not excessive . Residual AHI 2.3 Assessment & Plan Assessment & Plan (1) Morbid obesity: Comment: PATIENT MORBIDLY OBESE, CURRENT BMI 45.8 I TALKED TO HIM ABOUT WEIGHT REDUCTION AND CONTROLLING HIS DIETARY INTAKE. BUT BECAUSE OF HIS GASTRO PARESIS AND OTHER COMPLICATIONS IT MAY BE DIFFICULT FOR HIM TO JOIN ANY WEIGHT MANAGEMENT PROGRAM. Code(s): E66.01 - Morbid (severe) obesity due to excess calories (2) Severe sleep apnea: Comment: A CASE OF VERY SEVERE OBSTRUCTIVE AND CENTRAL SLEEP APNEA. RESPONDED TO BILEVEL PRESSURES, OPTIMAL RESULTS OBTAINED WITH PRESSURE OF 21/16 CM. He is using his bilevel CPAP, Compliance is still somewhat suboptimal, but he promises that he will use more. Regularly and for more hours per night His quality of sleep is definitely improved. Code(s): G47.30 - Sleep apnea, unspecified (3) Asthma: Comment: He has mild bronchial asthma and uses albuterol HFA 1 or 2 puffs p.r.n., Which may be once or twice a week. Code(s): J45.909 - Unspecified asthma, uncomplicated Coding Level of Care Code Est Pt Level 3 (88214) Diagnoses Morbid obesity E66.01 Severe sleep apnea G47.30 Asthma J45.909
== END 2023-08-25 10:18 | disposition home or self-care (01) ==
PROVIDERS: PCP Internal Medicine Geriatric Medicine; Visit Provider Internal Medicine
DX: E66.01 Morbid (severe) obesity due to excess calories (principal); G47.30 Sleep apnea, unspecified; J45.909 Unspecified asthma, uncomplicated
CPT/HCPCS: 99213

== ENCOUNTER 2023-09-02 13:24 | Outpatient (AMB) | payer MEDICAID, SELFPAY ==
[2023-09-02 13:37] VITALS: BMI 45.9
--- NOTE | 2023-09-02 13:37 | A.OFFVIS_ITS ---
Intake VS Expanded 09/02/23 13:37 09/13/23 19:04 Height 5 ft 5 in 5 ft 5 in Weight 275 lb 12.772 oz 275 lb BMI 45.9 45.8 Intake Visit Reasons: f/u Type 1 DM-CONFIRMED Allergies seafood Allergy (Unknown, Verified 09/13/23 19:18) Swelling HPI Nutrition Presentation Details Pt presents for MNT for T1DM. Pt was referred by Dr. Alfredo , smelting engineer Pt has hx of gastroparesis Reports seafood allergy leading to swelling of lips Typical meal intake B: Sand (bread with ham and cheese or scrambled or fries , soda regular /juice/water L: fast food meals (burger/fries/soda) D:home made (rice/beans/chicken/juice/soda/water , starch/prot/starchy veg/water/soda/juice snack: chips/fruits/crackers, cereal w whole milk Carb counting: in the past , not currently EOTH:--- smokes marihuana Physical activity: sedentary wt hx: around 250 in 11/2022, has gained 25 lbs in 10 months ZOW-Yjifyfi-Wm.Jeor Equation Height 5 ft 5 in Weight 275 lb Resting Metabolic Rate 2130.49 Calculated Activity Level Sedentary Calories Needed to Maintain Weight 2556.59 Diagnosis Nutrition problem #1 excessive energy intake As related to (etiology) #1 diagnosis As evidenced by (sign/symptom) #1 elevated HgbA1c (9.0% on 06/2023, 25 lbs weight gain in 10 months, intake of high magalie foods as per food recall) Most Recent Diabetes Results: Creatinine 1.16 mg/dL (0.5-1.4) 08/25/23 Blood Urea Nitrogen 16 mg/dL (9-16) 08/25/23 Sodium 141 mmol/L (135-145) 08/25/23 Potassium 3.7 mmol/L (3.3-5.1) 08/25/23 Chloride 104 mmol/L (96-108) 08/25/23 Carbon Dioxide 27 mmol/L (22-29) 08/25/23 Calcium 9.2 mg/dL (8.4-10.2) 08/25/23 [facility] Medical History (Updated 08/25/23 @ 10:22 by Alexis Saucedo MD) Morbid obesity Vitamin D deficiency Tachycardia Vitamin D deficiency HTN (hypertension) Obesity (BMI 30-39.9) Hyperparathyroidism due to vitamin D deficiency Dyslipidemia Diabetic polyneuropathy associated with type 1 diabetes mellitus Diabetic gastroparesis associated with type 1 diabetes mellitus Diabetic nephropathy associated with type 1 diabetes mellitus Diabetes type 1, uncontrolled Gastroparesis H. pylori infection Asthma Gastritis Gastroparalysis Surgical History Hx of eye surgery Hx of appendectomy History of esophagogastroduodenoscopy (EGD) Family History Mother Diabetes HTN (hypertension) Father Diabetes Heart problem Social History Household Members: Family Housing: Apartment Do you presently have visiting nurse or other home services: No Alcohol intake: never Second Hand Smoke Exposure: No Substance Use Type: Marijuana service: No Current occupational status: unemployed Assessment & Plan Assessment & Plan (1) Diabetic gastroparesis associated with type 1 diabetes mellitus: Code(s): E10.43 - Type 1 diabetes mellitus with diabetic autonomic (poly)neuropathy; K31.84 - Gastroparesis Plan: wt: 125 kg Est kcal needs as per MSJ: 2600 (40% carb, 30% protein/fat) Est fluid needs as per 25-30 ml/d: 3125- 3750 Est prot per day as per 1 g/kg bw: 125 Recommend fiber intake : 8-10 g per day and gradually increase to 25-28 g per day for women and 35-38 g for men or as tolerated Recommend sodium intake per day : less than 2000 mg Educated patient on: ( R = reviewed V = verbalizes understanding N/R = needs review N/A = not applicable * Food sources of carbohydrate, adequate serving sizes and its role in various health conditions: R * Differences between complex carbohydrates a simple carbohydrates, role of fiber in diet: V * Differences between types of fats and role in diet (mono on saturated fat fatty acids, saturated fatty acids, trans fats): R * Food sources of sodium in salt and healthy modifications for heart health in kidney health: NR * Vitamins and minerals: R * Healthy plate method concept: R V * Physical activity: Benefits a precaution: R * Hypoglycemia protocol (rule of 15): V * Dietary prevention of Hyperglycemia: R Patient Instructions: -Switch to diet nydia bharath/sprite instead of regular soda for now -Reduce on fried foods, (try air frying, remove batter from protein) - Chew foods slowly Re start counting g of carbohydrates at dinner - goal 80 g Coding Level of Care Code Nutr Indiv Intake (06042) Diagnoses Diabetic gastroparesis associated with type 1 diabetes mellitus E10.43; K31.84 Time Spent (min) 30
[2023-09-13 19:04] VITALS: BMI 45.8
== END 2023-09-02 14:01 | disposition home or self-care (01) ==
PROVIDERS: PCP Internal Medicine Geriatric Medicine; Visit Provider Dietitian, Registered
DX: E10.43 Type 1 diabetes mellitus with diabetic autonomic (poly)neuropathy (principal); K31.84 Gastroparesis

== ENCOUNTER → 2023-09-02 13:24 | Outpatient (BNVA) | payer MEDICAID, SELFPAY | PROVIDERS: PCP Internal Medicine Geriatric Medicine; Visit Provider Dietitian, Registered | DX: E10.43 Type 1 diabetes mellitus with diabetic autonomic (poly)neuropathy (principal); K31.84 Gastroparesis | CPT/HCPCS: 97802 ==

== ENCOUNTER 2023-09-17 11:01 | Outpatient (REF) | payer MEDICAID, SELFPAY ==
--- NOTE | ~2023-09-17 | XR_ITS ---
EXAMINATION: XR CHEST CLINICAL INFORMATION: Edema COMPARISON: 01/11/2023 TECHNIQUE: 2 views of the chest were obtained. FINDINGS: Normal symmetric lung volumes. No parenchymal consolidation. No pleural effusion. No pneumothorax. Cardiomediastinal silhouette and pulmonary vascularity are within normal limits. No acute osseous abnormalities. XR/XR chest 2V IMPRESSION: Unremarkable examination.
[2023-09-17 13:48] LABS: Basophils Absolute Auto 0.1 X10*3/uL (0.0-0.2); Basophils Percent Auto 0.6 % (0-2); Eosinophils Absolute Auto 0.3 X10*3/uL (0.0-0.4); Eosinophils Percent Auto 2.4 % (0-4); Hematocrit 40.7 % (42.0-52.0); Hemoglobin 13.3 g/dl (14.0-18.0); Imm Gran Abs Auto 0.07 X10*3/uL (0.00-0.03); Imm Gran Pct Auto 0.7 % (0.0-0.4); Lymphocytes Absolute Auto 1.9 X10*3/uL (1.2-4.9); Lymphocytes Percent Auto 17.7 % (20-40); MANUAL DIFF FLAG SCAN; Mean Corpuscular HGB Conc 32.7 g/dl (31.0-36.0); Mean Corpuscular Hemoglobin 27.7 pg (27.0-33.0); Mean Corpuscular Volume 84.6 fL (80.0-98.0); Monocytes Absolute Auto 0.7 X10*3/uL (0.1-1.2); Neutrophils Absolute Auto 7.6 x10*3/uL (2.0-8.3); Neutrophils Percent Auto 71.6 % (45-73); PLT CLUMP 1; Red Blood Count 4.81 X10*6/uL (4.60-5.80); Red Cell Distribution Width 13.8 % (11.0-16.0); SCAN SMEAR FLAG 1
[2023-09-17 13:49] LABS: White Blood Count 10.6 X10*3/uL (4.8-10.8)
[2023-09-17 14:19] LABS: Alanine Aminotransferase 41 U/L (0-40); Albumin Level 3.4 g/dL (3.5-5.0); Alkaline Phosphatase 229 U/L (39-117); Anion Gap 15 (12-20); Aspartate Amino Transferase 34 U/L (5-37); Bilirubin Total 0.2 mg/dL (0.0-1.0); Blood Urea Nitrogen 23 mg/dL (9-16); Calcium 9.6 mg/dL (8.4-10.2); Carbon Dioxide 22 mmol/L (22-29); Chloride 102 mmol/L (96-108); Estimated Glomerular Filt Rate > 60; Glucose Random 305 mg/dL (60-115); Potassium 5.1 mmol/L (3.3-5.1); Sodium 134 mmol/L (135-145); Total Protein 7.5 g/dL (6.5-8.0)
[2023-09-17 14:30] LABS: Platelet Count 259 X10*3/uL (160-400)
[2023-09-17 14:31] LABS: SLIDE REVIEW VERIFIED
== END 2023-09-17 11:02 | disposition home or self-care (01) ==
LOC: HO.HHCL 11:01
PROVIDERS: Visit Provider Family Medicine
DX: R60.0 Localized edema (principal)
CPT/HCPCS: 36415; 71046; 80053; 82043; 82570; 85025

== ENCOUNTER 2023-09-28 09:55 | Outpatient (REF) | payer MEDICAID, SELFPAY ==
[2023-09-28 11:35] LABS: Basophils Absolute Auto 0.1 X10*3/uL (0.0-0.2); Basophils Percent Auto 0.7 % (0-2); Eosinophils Absolute Auto 0.4 X10*3/uL (0.0-0.4); Eosinophils Percent Auto 3.2 % (0-4); Hematocrit 39.6 % (42.0-52.0); Hemoglobin 13.4 g/dl (14.0-18.0); Imm Gran Abs Auto 0.09 X10*3/uL (0.00-0.03); Imm Gran Pct Auto 0.8 % (0.0-0.4); Lymphocytes Absolute Auto 1.4 X10*3/uL (1.2-4.9); Lymphocytes Percent Auto 12.2 % (20-40); MANUAL DIFF FLAG SCAN; Mean Corpuscular HGB Conc 33.8 g/dl (31.0-36.0); Mean Corpuscular Hemoglobin 28.2 pg (27.0-33.0); Mean Corpuscular Volume 83.4 fL (80.0-98.0); Monocytes Absolute Auto 0.8 X10*3/uL (0.1-1.2); Neutrophils Absolute Auto 8.5 x10*3/uL (2.0-8.3); Neutrophils Percent Auto 76.1 % (45-73); PLT CLUMP 1; Red Blood Count 4.75 X10*6/uL (4.60-5.80); Red Cell Distribution Width 13.9 % (11.0-16.0); SCAN SMEAR FLAG 1
[2023-09-28 11:38] LABS: White Blood Count 11.2 X10*3/uL (4.8-10.8)
[2023-09-28 12:01] LABS: Anion Gap 16 (12-20); Blood Urea Nitrogen 14 mg/dL (9-16); Calcium 9.3 mg/dL (8.4-10.2); Carbon Dioxide 24 mmol/L (22-29); Chloride 103 mmol/L (96-108); Estimated Glomerular Filt Rate > 60; Glucose Random 226 mg/dL (60-115); Sodium 139 mmol/L (135-145)
[2023-09-28 12:05] LABS: SLIDE REVIEW VERIFIED
== END 2023-09-28 09:56 | disposition home or self-care (01) ==
LOC: HO.HHCL 09:55
PROVIDERS: Visit Provider Internal Medicine Geriatric Medicine
DX: E10.65 Type 1 diabetes mellitus with hyperglycemia (principal); K52.9 Noninfective gastroenteritis and colitis, unspecified; R79.89 Other specified abnormal findings of blood chemistry; D72.829 Elevated white blood cell count, unspecified
CPT/HCPCS: 36415; 80048; 85025

== ENCOUNTER 2023-10-28 08:39 | Outpatient (AMB) | payer MEDICAID, SELFPAY ==
[2023-10-28 08:44] VITALS: BMI 49.8
--- NOTE | 2023-10-28 08:44 | A.OFFVIS_ITS ---
Intake VS Expanded 10/28/23 08:44 Height 5 ft 2 in Weight 272 lb 4.334 oz BMI 49.8 Intake Visit Reasons: dm Allergies seafood Allergy (Unknown, Verified 09/13/23 19:18) Swelling HPI Nutrition Presentation Details Pt presents for MNT For T1DM Pt has hx of gastroparesis. Pt reports having switched to low sugar beverages and has found some he likes. He reports working on mindfully reducing on snacking behavior. He admits to diet indiscretion during the holidays and regained some of the weight he had lost (4 lbs) . Pt reports monitoring weight at home every other week. Pt reports not interested in insulin pump therapy for now. He was advised to discuss further with certified lactation educator, needs to make an appt. Pt has pending appt with information assurance officer in 10/2023 physical activity: no exercise routine as of yet Most Recent Diabetes Results: Microalb/Creat Ratio 1033.0 ug/mg cr (<30) H 09/17/23 Creatinine 1.08 mg/dL (0.5-1.4) 09/28/23 Blood Urea Nitrogen 14 mg/dL (9-16) 09/28/23 Sodium 139 mmol/L (135-145) 09/28/23 Potassium 4.0 mmol/L (3.3-5.1) 09/28/23 Chloride 103 mmol/L (96-108) 09/28/23 Carbon Dioxide 24 mmol/L (22-29) 09/28/23 Calcium 9.3 mg/dL (8.4-10.2) 09/28/23 AST 34 U/L (5-37) 09/17/23 ALT 41 U/L (0-40) H 09/17/23 Total Protein 7.5 g/dL (6.5-8.0) 09/17/23 Albumin 3.4 g/dL (3.5-5.0) L 09/17/23 REPLACED BY [facility] Medical History (Updated 08/25/23 @ 10:22 by Alexis Saucedo MD) Morbid obesity Vitamin D deficiency Tachycardia Vitamin D deficiency HTN (hypertension) Obesity (BMI 30-39.9) Hyperparathyroidism due to vitamin D deficiency Dyslipidemia Diabetic polyneuropathy associated with type 1 diabetes mellitus Diabetic gastroparesis associated with type 1 diabetes mellitus Diabetic nephropathy associated with type 1 diabetes mellitus Diabetes type 1, uncontrolled Gastroparesis H. pylori infection Asthma Gastritis Gastroparalysis Surgical History Hx of eye surgery Hx of appendectomy History of esophagogastroduodenoscopy (EGD) Family History Mother Diabetes HTN (hypertension) Father Diabetes Heart problem Social History Household Members: Family Housing: Apartment Do you presently have visiting nurse or other home services: No Alcohol intake: never Comment: sleeping Second Hand Smoke Exposure: No Substance Use Type: Marijuana service: No Current occupational status: unemployed Assessment & Plan Assessment & Plan (1) Diabetic gastroparesis associated with type 1 diabetes mellitus: Code(s): E10.43 - Type 1 diabetes mellitus with diabetic autonomic (poly)neuropathy; K31.84 - Gastroparesis Plan: wt: 125 kg (08/2023) (123.6 kg on 09/2023) Est kcal needs as per MSJ: 2600 (40% carb, 30% protein/fat) Est fluid needs as per 25-30 ml/d: 3125- 3750 Est prot per day as per 1 g/kg bw: 125 Recommend fiber intake : 8-10 g per day and gradually increase to 25-28 g per day for women and 35-38 g for men or as tolerated Recommend sodium intake per day : less than 2000 mg Educated patient on: ( R = reviewed V = verbalizes understanding N/R = needs review N/A = not applicable * Food sources of carbohydrate, adequate serving sizes and its role in various health conditions: R * Differences between complex carbohydrates a simple carbohydrates, role of fiber in diet: V * Differences between types of fats and role in diet (mono on saturated fat fatty acids, saturated fatty acids, trans fats): R * Food sources of sodium in salt and healthy modifications for heart health in kidney health: NR * Vitamins and minerals: R * Healthy plate method concept: R V * Physical activity: Benefits a precaution: R * Hypoglycemia protocol (rule of 15): V * Dietary prevention of Hyperglycemia: R * GAstroparesis diet concepts : R Patient Instructions: Reviewed lowering portions of fried /high fat foods related to gastroparesis. Limit snack to 1 a day consisting of 20 g of carbs Keep hydrated by having water with meals/snacks, low sugar beverages, aim at 10 cups per day or more Engage in physical activity routine : 1 hour walk 3 times a week Coding Level of Care Code Nutr Indiv Subseq (14935) Diagnoses Diabetic gastroparesis associated with type 1 diabetes mellitus E10.43; K31.84 Time Spent (min) 30
== END 2023-10-28 09:23 | disposition home or self-care (01) ==
PROVIDERS: PCP Internal Medicine Geriatric Medicine; Visit Provider Dietitian, Registered
DX: E10.43 Type 1 diabetes mellitus with diabetic autonomic (poly)neuropathy (principal); K31.84 Gastroparesis

== ENCOUNTER → 2023-10-28 08:39 | Outpatient (BNVA) | payer MEDICAID, SELFPAY | PROVIDERS: PCP Internal Medicine Geriatric Medicine; Visit Provider Dietitian, Registered | DX: E10.65 Type 1 diabetes mellitus with hyperglycemia (principal); E10.42 Type 1 diabetes mellitus with diabetic polyneuropathy; E10.43 Type 1 diabetes mellitus with diabetic autonomic (poly)neuropathy; K31.84 Gastroparesis; E10.21 Type 1 diabetes mellitus with diabetic nephropathy; E66.01 Morbid (severe) obesity due to excess calories; Z68.42 Body mass index [BMI] 45.0-49.9, adult; Z71.3 Dietary counseling and surveillance | CPT/HCPCS: 97803 ==

== ENCOUNTER 2023-11-24 14:30 | Outpatient (AMB) | payer MEDICAID, SELFPAY ==
--- NOTE | 2023-11-24 15:24 | MHC.AMDMED ---
Intake Intake Visit Reasons: DM-LVM Internal Medicine Nurse Practitioner Required: No Accompanied by: Significant Other Allergies seafood Allergy (Unknown, Verified 11/25/23 11:45) Swelling HPI Comprehensive Diabetes Asmnt Most Recent Diabetes Results: Microalb/Creat Ratio 1033.0 ug/mg cr (<30) H 09/17/23 Creatinine 1.08 mg/dL (0.5-1.4) 09/28/23 Blood Urea Nitrogen 14 mg/dL (9-16) 09/28/23 Sodium 139 mmol/L (135-145) 09/28/23 Potassium 4.0 mmol/L (3.3-5.1) 09/28/23 Chloride 103 mmol/L (96-108) 09/28/23 Carbon Dioxide 24 mmol/L (22-29) 09/28/23 Calcium 9.3 mg/dL (8.4-10.2) 09/28/23 AST 34 U/L (5-37) 09/17/23 ALT 41 U/L (0-40) H 09/17/23 Total Protein 7.5 g/dL (6.5-8.0) 09/17/23 Albumin 3.4 g/dL (3.5-5.0) L 09/17/23 [facility] Medical History (Updated 08/25/23 @ 10:22 by Alexis Saucedo MD) Morbid obesity Vitamin D deficiency Tachycardia Vitamin D deficiency HTN (hypertension) Obesity (BMI 30-39.9) Hyperparathyroidism due to vitamin D deficiency Dyslipidemia Diabetic polyneuropathy associated with type 1 diabetes mellitus Diabetic gastroparesis associated with type 1 diabetes mellitus Diabetic nephropathy associated with type 1 diabetes mellitus Diabetes type 1, uncontrolled Gastroparesis H. pylori infection Asthma Gastritis Gastroparalysis Surgical History Hx of eye surgery Hx of appendectomy History of esophagogastroduodenoscopy (EGD) Family History Mother Diabetes HTN (hypertension) Father Diabetes Heart problem Social History Household Members: Family Housing: Apartment Do you presently have visiting nurse or other home services: No Alcohol intake: never Comment: sleeping Second Hand Smoke Exposure: No Substance Use Type: Marijuana service: No Current occupational status: unemployed Assessment & Plan Assessment & Plan (1) Diabetic polyneuropathy associated with type 1 diabetes mellitus: Code(s): E10.42 - Type 1 diabetes mellitus with diabetic polyneuropathy Plan: Personal Continuous Glucose Monitor: Patients CGM information reviewed Reviewed patient's sensor data: Hypoglycemia: ? 1% Hyperglycemia:? 57% Time in Range:? 42% Average glucose for the last 2 weeks?227 mg/dL Patient is interested stated in reinitiating insulin pump therapy. Recommended to patient he upgrade Omnipod dash to Omnipod [address] Alfredo to break prescriptions for Omnipod 5 starter kit and pods, patient is already on Dexcom G6 Patient is currently on MDI Patient reports he does a lot of snacking on, cookies, chips, crackers he may or may not take insulin for some these snack. Patient has pattern of overnight hyperglycemia. Had 1 episode of hypoglycemia patient reports treats hypoglycemia with fruit juice Reviewed how to interpret trend arrows Reminded patient that to check finger sticks if symptoms do not match sensor reading. Discussed lag time between finger stick and sensor data.? Patient able to insert sensor independently at home without issue.? Patient Instructions: Contact community nutrition educator for insulin pump training appointment when you get Omnipod 5 insulin pump supplies Coding Level of Care Code Est Pt Level 1 (02263) Diagnoses Diabetic polyneuropathy associated with type 1 diabetes mellitus E10.42
== END 2023-11-24 15:30 | disposition home or self-care (01) ==
PROVIDERS: PCP Internal Medicine Geriatric Medicine; Visit Provider Registered Nurse Diabetes Educator
DX: E10.42 Type 1 diabetes mellitus with diabetic polyneuropathy (principal)

== ENCOUNTER → 2023-11-24 14:30 | Outpatient (BNVA) | payer MEDICAID, SELFPAY | PROVIDERS: PCP Internal Medicine Geriatric Medicine; Visit Provider Registered Nurse Diabetes Educator | DX: E10.42 Type 1 diabetes mellitus with diabetic polyneuropathy (principal) | CPT/HCPCS: 99211 ==

== ENCOUNTER 2023-11-25 11:37 | Outpatient (AMB) | payer MEDICAID, SELFPAY ==
--- NOTE | 2023-11-25 11:38 | A.OFFVIS_ITS ---
Intake Vital Signs 11/25/23 11:39 Height 5 ft 2 in Weight 272 lb 14.916 oz BMI 49.9 BP 138/84 Blood Pressure Location Lt brachial Position Sitting Pulse 85 Pulse Source Pulse Oximeter Intake Visit Reasons: DM Intake Note: Patient presents today to follow up on DMT1. Last Diabetic Eye exam: 2 years ago. Last Podiatry Visit: Doesn't have one. Random Glucose: 358 mg/dl HgA1C: 8.7% Supervisor Heading Required: No Accompanied by: Spouse Allergies seafood Allergy (Unknown, Verified 11/25/23 11:45) Swelling HPI HPI Comments History of Present Illness Details Patient is a 32-year-old male with DM type 1 diagnosed at the age of 7 who presents for management of diabetes. He was having problems with his Dexcom and is Omni pods falling off and he was using basal/bolus . Labs were ordered and have not been done. Today he is not using the Omnipod but is using a basal bolus regimen with sensor. Past medical history: Diabetes type 1, HTN, HLD, gastroparesis Micro and macrovascular complications: nephropathy with macroalbuminaria in nephrotic range, neuropathy and gastroparesis Diabetes medications: . Metformin 500 once a day, Lantus 40 units. Humalog I:C 6, Sensitivity 15, target 120. Dexcom download she was using the sensor 21% time. Average glucose is 222 with standard deviation of 94 per 42% range with 23% hyperglycemia and 34% very hyperglycemic and no hypoglycemia. 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: Saw CDE is going to initiate Omnipod 5 pump [employer] Intermodal Truck Driver: denies Ophthalmology evaluation: , needs to make appt Other specialists: gastroenterology, cardiology, sees circuit court judge He tells me that he saw a circuit court judge in the past and was placed on RAAS inhibitor namely lisinopril but that was stopped for unknown reasons Laboratory Tests 03/26/21 12/10/21 23:39 14:21 Creatinine 1.10 Estimated GFR > 60 Hgb A1c (Clinic) 10.1 H [facility] Medical History (Updated 09/27/23 @ 10:22 by Alexis Saucedo MD) Morbid obesity Vitamin D deficiency Tachycardia Vitamin D deficiency HTN (hypertension) Obesity (BMI 30-39.9) Hyperparathyroidism due to vitamin D deficiency Dyslipidemia Diabetic polyneuropathy associated with type 1 diabetes mellitus Diabetic gastroparesis associated with type 1 diabetes mellitus Diabetic nephropathy associated with type 1 diabetes mellitus Diabetes type 1, uncontrolled Gastroparesis H. pylori infection Asthma Gastritis Gastroparalysis Surgical History Hx of eye surgery Hx of appendectomy History of esophagogastroduodenoscopy (EGD) Family History Mother Diabetes HTN (hypertension) Father Diabetes Heart problem Social History Household Members: Family Housing: Apartment Do you presently have visiting nurse or other home services: No Alcohol intake: never Comment: sleeping Second Hand Smoke Exposure: No Substance Use Type: Marijuana service: No Current occupational status: unemployed Physical Exam Absence of Cushingoid features. Absence of acromegalic features. Neck exam reveals nl size thyroid about 15 gms. No thyroid nodules palpable. No carotid bruits present. Lungs CTA. Heart S1 S2, Reg R/R. No M/R/ G. Skin exam reveals absence of vitiligo or acanthosis nigricans. Abdominal exam reveals Soft NT/ND with NA BS. No organomegaly present. Neck Other: . Extrem Other: Visual exam of foot performed. No ulcerations or open lesions. No onchomycosis, no callouses.Pulses 2 + distally Sensation intact to monofilament exam. Vibratory sensation sensed is intact with 128 Hz tuning fork Assessment & Plan Assessment & Plan (1) Diabetes type 1, uncontrolled: Code(s): E10.65 - Type 1 diabetes mellitus with hyperglycemia Plan: This is a 33-year-old male with history of longstanding type 1 diabetes being treated with basal-bolus insulin with poor glycemic control and known microvascular complications namely nephropathy with macroalbuminaria in nephrotic range, neuropathy and gastroparesis Plan is follow-up with the general ledger accountant regarding possible re-initiation of the pump possibly an Omnipod 5. For now, would tighten insulin: Carbohydrate to 1:5 . I discussed extensively the correlation of poor glycemic control with the development and progression of complications. I also will check anti-G GAD65 and anti-islet cell antibodies to confirm type 1 diabetes and rule out SHASHANK S patient had very early onset of diabetes. Will also check lipid profile and microalbumin to creatinine ratio Coding Level of Care Code Est Pt Level 4 (66796) Diagnoses Diabetes type 1, uncontrolled E10.65
[2023-11-25 11:39] VITALS: BP 138/84; PULSE 85; BMI 49.9
[2023-11-25 11:52] LABS: Glucose, Whole Blood 358 mg/dL (60-115)
== END 2023-11-25 12:00 | disposition home or self-care (01) ==
PROVIDERS: PCP Internal Medicine Geriatric Medicine; Visit Provider Internal Medicine Endocrinology, Diabetes & Metabolism
DX: E10.42 Type 1 diabetes mellitus with diabetic polyneuropathy (principal); E10.65 Type 1 diabetes mellitus with hyperglycemia
CPT/HCPCS: 99214

== ENCOUNTER → 2023-11-25 11:37 | Outpatient (BNVA) | payer MEDICAID, SELFPAY | PROVIDERS: PCP Internal Medicine Geriatric Medicine; Visit Provider Internal Medicine Endocrinology, Diabetes & Metabolism | DX: E10.65 Type 1 diabetes mellitus with hyperglycemia (principal) | CPT/HCPCS: 82947; 83036; 99212 ==

== ENCOUNTER 2023-12-16 09:44 | Outpatient (AMB) | payer MEDICAID, SELFPAY ==
[2023-12-16 09:46] VITALS: BMI 49.3
--- NOTE | 2023-12-16 09:46 | A.OFFVIS_ITS ---
Intake VS Expanded 12/16/23 09:46 Height 5 ft 2 in Weight 269 lb 6.478 oz BMI 49.3 Intake Visit Reasons: DM/CONFIRMED Allergies seafood Allergy (Unknown, Verified 11/25/23 11:45) Swelling HPI Nutrition Presentation Details Pt presents for MNT for T1DM w gastroparesis Pt reports trying to get into a walking routine, now walks 3 times a week for 30 minutes Working on reducing on soda/empty calorie beverages Reports continuing to have elevated blood sugars in the morning, a combination of symptoms of low BG at night /overtreating hypoglycemia and choosing higher fat foods late at night /food options (higher fat foods) Most Recent Diabetes Results: Microalb/Creat Ratio 1033.0 ug/mg cr (<30) H 09/17/23 Creatinine 1.08 mg/dL (0.5-1.4) 09/28/23 Blood Urea Nitrogen 14 mg/dL (9-16) 09/28/23 Sodium 139 mmol/L (135-145) 09/28/23 Potassium 4.0 mmol/L (3.3-5.1) 09/28/23 Chloride 103 mmol/L (96-108) 09/28/23 Carbon Dioxide 24 mmol/L (22-29) 09/28/23 Calcium 9.3 mg/dL (8.4-10.2) 09/28/23 AST 34 U/L (5-37) 09/17/23 ALT 41 U/L (0-40) H 09/17/23 Total Protein 7.5 g/dL (6.5-8.0) 09/17/23 Albumin 3.4 g/dL (3.5-5.0) L 09/17/23 [facility] Medical History (Updated 08/25/23 @ 10:22 by Alexis Saucedo MD) Morbid obesity Vitamin D deficiency Tachycardia Vitamin D deficiency HTN (hypertension) Obesity (BMI 30-39.9) Hyperparathyroidism due to vitamin D deficiency Dyslipidemia Diabetic polyneuropathy associated with type 1 diabetes mellitus Diabetic gastroparesis associated with type 1 diabetes mellitus Diabetic nephropathy associated with type 1 diabetes mellitus Diabetes type 1, uncontrolled Gastroparesis H. pylori infection Asthma Gastritis Gastroparalysis Surgical History Hx of eye surgery Hx of appendectomy History of esophagogastroduodenoscopy (EGD) Family History Mother Diabetes HTN (hypertension) Father Diabetes Heart problem Social History Household Members: Family Housing: Apartment Do you presently have visiting nurse or other home services: No Alcohol intake: never Comment: sleeping Second Hand Smoke Exposure: No Substance Use Type: Marijuana service: No Current occupational status: unemployed Assessment & Plan Assessment & Plan (1) Diabetic gastroparesis associated with type 1 diabetes mellitus: Code(s): E10.43 - Type 1 diabetes mellitus with diabetic autonomic (poly)neuropathy; K31.84 - Gastroparesis Plan: wt: 125 kg (08/2023) (123.6 kg on 09/2023), 122 kg on 11/2023) Est kcal needs as per MSJ: 2600 (40% carb, 30% protein/fat) Est fluid needs as per 25-30 ml/d: 3125- 3750 Est prot per day as per 1 g/kg bw: 125 Recommend fiber intake : 8-10 g per day and gradually increase to 25-28 g per day for women and 35-38 g for men or as tolerated Recommend sodium intake per day : less than 2000 mg Educated patient on: ( R = reviewed V = verbalizes understanding N/R = needs review N/A = not applicable * Food sources of carbohydrate, adequate serving sizes and its role in various health conditions: R * Differences between complex carbohydrates a simple carbohydrates, role of fiber in diet: V * Differences between types of fats and role in diet (mono on saturated fat fatty acids, saturated fatty acids, trans fats): R * Food sources of sodium in salt and healthy modifications for heart health in kidney health: NR * Vitamins and minerals: R * Healthy plate method concept: R V * Physical activity: Benefits a precaution: R * Hypoglycemia protocol (rule of 15): V * Dietary prevention of Hyperglycemia: R * GAstroparesis diet concepts : R Patient Instructions: Treat hypoglycemia by having 1/[address] of the whole can and give your body a chance to absorb it . Choose lower amount and less frequent high fat foods (chips/fries/pizza and similar foods and have tuna sandwich or chicken/egg sandwich instead Continue walks for 45 min 3 times a week Coding Level of Care Code Nutr Indiv Subseq (39318) Diagnoses Diabetic gastroparesis associated with type 1 diabetes mellitus E10.43; K31.84 Time Spent (min) 30
== END 2023-12-16 10:11 | disposition home or self-care (01) ==
PROVIDERS: PCP Internal Medicine Geriatric Medicine; Visit Provider Dietitian, Registered
DX: E10.43 Type 1 diabetes mellitus with diabetic autonomic (poly)neuropathy (principal); K31.84 Gastroparesis

== ENCOUNTER → 2023-12-16 09:44 | Outpatient (BNVA) | payer MEDICAID, SELFPAY | PROVIDERS: PCP Internal Medicine Geriatric Medicine; Visit Provider Dietitian, Registered | DX: E10.43 Type 1 diabetes mellitus with diabetic autonomic (poly)neuropathy (principal); K31.84 Gastroparesis | CPT/HCPCS: 97803 ==

== ENCOUNTER 2024-06-20 11:31 | Outpatient (AMB) | payer MEDICAID, SELFPAY ==
--- NOTE | 2024-06-20 11:34 | A.OFFVIS_ITS ---
Vital Signs 06/20/24 11:35 Height 5 ft 2 in Weight 279 lb 15.793 oz BMI 51.2 BP 124/74 Blood Pressure Location Rt brachial Position Sitting Pulse 70 Pulse Source Pulse Oximeter Intake Visit Reasons: DM 1/CONFIRMED Intake Note: Former Patient of DR Alfredo presents today to established treatment for Type 1 Diabetes Mellitus: Most recent Eye Exam: DUE Most recent Podiatry Exam: Does not see a Biodiesel Processing Technician Most recent HbA1c: 11.0%, 06/20/2024 Random Glucose- 306mg/dL, Today Retail Sales Clerk Required: No Accompanied by: Self / Same As Patient Allergies seafood Allergy (Unknown, Verified 11/25/23 11:45) Swelling HPI Comments Details: Patient is a 32-year-old male with DM type 1 diagnosed at the age of 7 who presents for management of diabetes. He was having problems with his Dexcom and Omni pods falling off and needing to be changed every two days and he was using basal/bolus . Labs were ordered and have not been done. Today he is not using the Omnipod but is using a basal bolus regimen with sensor. 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, dm changes in left eye Other specialists: gastroenterology, cardiology, sees senior mobile solutions architect He tells me that he saw a senior mobile solutions architect in the past and was placed on RAAS inhibitor namely lisinopril but that was stopped for unknown reasons COUNT INCLUDES [facility] Medical History (Updated 08/25/23 @ 10:22 by Alexis Saucedo MD) Morbid obesity Vitamin D deficiency Tachycardia Vitamin D deficiency HTN (hypertension) Obesity (BMI 30-39.9) Hyperparathyroidism due to vitamin D deficiency Dyslipidemia Diabetic polyneuropathy associated with type 1 diabetes mellitus Diabetic gastroparesis associated with type 1 diabetes mellitus Diabetic nephropathy associated with type 1 diabetes mellitus Diabetes type 1, uncontrolled Gastroparesis H. pylori infection Asthma Gastritis Gastroparalysis Surgical History Hx of eye surgery Hx of appendectomy History of esophagogastroduodenoscopy (EGD) Family History Mother Diabetes HTN (hypertension) Father Diabetes Heart problem Social History Household Members: Family Housing: Apartment Do you presently have visiting nurse or other home services: No Alcohol intake: never Comment: sleeping Second Hand Smoke Exposure: No Substance Use Type: Marijuana service: No Current occupational status: unemployed Physical Exam Vital Signs: Last Vital Signs Pulse 70 06/20/24 11:35 BP 124/74 06/20/24 11:35 BMI result Body Mass Index 51.2 Neck Neck: Yes normal visual inspection Thyroid: Thyroid normal Lymphatic: no lymphadenopathy noted Chest Chest palpation & inspection: normal inspection of the chest Resp Effort & Inspection: normal respiratory effort Auscultation: clear to auscultation bilaterally Cardio Jugular venous distension: no JVD Rate: regular rate Rhythm: regular rhythm Heart sounds: S1 normal heart sound present and S2 normal heart sound present Skin Other: lipo dystrophy in left upper arms Extrem Other: Visual exam of foot performed. No ulcerations or open lesions. No onchomycosis, no callouses. Sensation intact to monofilament exam. Vibratory sensation is normal with 128 Hz tuning fork. Results AMB Hemoglobin A1c AMB Hemoglobin A1c 11.0 % Last Edit by BERTA Mckeon on 06/20/24 11:4 8 Assessment & Plan Assessment & Plan (1) Diabetes type 1, uncontrolled: Code(s): E10.65 - Type 1 diabetes mellitus with hyperglycemia Category: Medical Plan Poorly controlled with dm complications of retinopathy and nephropathy. He is not interested in pump therapy. Change to Tresiba 50 units continue same bolus scale Bring that scale next ov Use leg/abdomen sites rotating like a checkerboard, stop injecting in arm muscle check labs r/o low testosterone Patient teaching: rule of 15 absolute need of achieving A1C of 7% to slow the progression of complications. Orders: Orders AMB Hemoglobin A1c Today E11.9 - Type 2 diabetes mellitus without complications Thyroid Stimulating Hormone Today E10.42 - Type 1 diabetes mellitus with diabetic polyneuropathy Testosterone, Free/Total Today E29.1 - Testicular hypofunction Vitamin D 25-OH Total Today E21.1 - Secondary hyperparathyroidism, not elsewhere classified Parathyroid Hormone Intact Today E21.1 - Secondary hyperparathyroidism, not elsewhere classified Medications: New insulin degludec (Tresiba FlexTouch U-200 insulin) 45 units (0.225 mL) subcut DAILY 30 days 6.75 mL 0RF E10.65 - Type 1 diabetes mellitus with hyperglycemia Discontinued insulin glargine (Lantus Solostar U-100 Insulin) Discontinued Reason: Doctor's Order 45 units (0.45 mL) subcut QPM 30 mL 5RF E10.65 - Type 1 diabetes mellitus with hyperglycemia Coding Level of Care Code Tele New Pt Level 5 (65398) Complex EM visit Add On G2211 Diagnoses Diabetes type 1, uncontrolled E10.65 Time Spent (min) 60 Comment chart review, face to face, documentation
[2024-06-20 11:35] VITALS: BP 124/74; PULSE 70; BMI 51.2
[2024-06-20 11:43] LABS: Glucose, Whole Blood 306 mg/dL (60-115)
== END 2024-06-20 12:03 | disposition home or self-care (01) ==
PROVIDERS: PCP Internal Medicine Geriatric Medicine; Visit Provider Nurse Practitioner Adult Health
DX: E11.9 Type 2 diabetes mellitus without complications (principal); E10.65 Type 1 diabetes mellitus with hyperglycemia
CPT/HCPCS: 99205

== ENCOUNTER → 2024-06-20 11:31 | Outpatient (BNVA) | payer MEDICAID, SELFPAY | PROVIDERS: PCP Internal Medicine Geriatric Medicine; Visit Provider Nurse Practitioner Adult Health | DX: E10.65 Type 1 diabetes mellitus with hyperglycemia (principal); E10.319 Type 1 diabetes mellitus with unspecified diabetic retinopathy without macular edema; E10.21 Type 1 diabetes mellitus with diabetic nephropathy | CPT/HCPCS: 82947; 83036; 99212 ==

== ENCOUNTER 2024-07-20 13:07 | Outpatient (AMB) | payer MEDICAID, SELFPAY ==
--- NOTE | 2024-07-20 13:08 | MHC.OFFVIS ---
Vital Signs 07/20/24 13:10 Height 5 ft 2 in Weight 275 lb 2.19 oz BMI 50.3 BP 122/60 Blood Pressure Location Lt brachial Position Sitting Pulse 84 Pulse Source Monitor Intake Visit Reasons: 1 yr f/up Music Video Director Required: No Director Medical Science: Director Medical Science Present Allergies seafood Allergy (Unknown, Verified 07/20/24 13:13) Swelling Medication List - Last Reconciled 07/20/24 by ASHLI Nava blood sugar diagnostic (FreeStyle Lite Strips) As directed checks 4X/day blood-glucose meter (FreeStyle Lite Meter kit) As directed checking 4X/day cholecalciferol (vitamin D3) 50 mcg PO DAILY ibuprofen 400 mg PO Q8H PRN insulin degludec (Tresiba FlexTouch U-200 insulin) 45 units (0.225 mL) subcut DAILY 30 days insulin lispro 1 sliding scale dose subcut TIDWMEAL 30 days MDD 75 units insulin pump cart,auto,BT-cntr (Omnipod 5 G6 Intro Kit (Gen 5) subcutaneous cartridge with controller) As directed insulin pump cart,automated,BT (Omnipod 5 G6 Pods (Gen 5) subcutaneous cartridge) As directed change every 72 hours lidocaine 1.8% 1 patch topical DAILY lidocaine 5% 1 patch topical QAM lisinopril 5 mg PO QAM metoclopramide HCl (Reglan) 10 mg PO Q6H PRN metoprolol tartrate 25 mg PO BID mirtazapine 15 mg (2 x 7.5 mg) PO BEDTIME omeprazole 40 mg PO DAILY ondansetron 8 mg PO Q8H PRN peg-electrolyte soln 420 gram 240 mL PO Q10M pen needle, diabetic (BD Ultra-Fine Damaris Pen Needle) As directed five times a day pen needle, diabetic (BD Ultra-Fine Damaris Pen Needle) As directed five times a day pen needle, diabetic (BD Ultra-Fine Short Pen Needle) As directed injects 5 X/day sucralfate 10 mL PO QIDACHS terbinafine HCl 1% 1 appl topical BID trazodone 100 mg PO DAILY HPI HPI 1 yr f/up: Details: Mc is a 33-year-old male with past medical history of hypertension, diabetes, morbid obesity, sinus tachycardia, sleep apnea who presents for follow-up. Today he states that he has been doing well since his last visit 1 year ago. He will notice some shortness of breath at times during the night. He has been wearing his CPAP mask nightly but he does have issues with the mask fit due to his facial hair. It seems to lose air and beep throughout the night. He has mild shortness of breath with stair climbing. He will notice his heart beating faster if he does activities such as stair climbing. He does not notice it with normal ADLs. He has been taking his metoprolol as directed. He has no chest discomfort at rest or with activity. No lightheadedness, presyncope, syncope, falls. States he is busy throughout the day caring for his 3 children. He is a [id number] dad. Significant other present. [facility] Medical History Morbid obesity Vitamin D deficiency Tachycardia Vitamin D deficiency HTN (hypertension) Obesity (BMI 30-39.9) Hyperparathyroidism due to vitamin D deficiency Dyslipidemia Diabetic polyneuropathy associated with type 1 diabetes mellitus Diabetic gastroparesis associated with type 1 diabetes mellitus Diabetic nephropathy associated with type 1 diabetes mellitus Diabetes type 1, uncontrolled Gastroparesis H. pylori infection Asthma Gastritis Gastroparalysis Surgical History Hx of eye surgery Hx of appendectomy History of esophagogastroduodenoscopy (EGD) Family History Mother Diabetes HTN (hypertension) Father Diabetes Heart problem Social History Household Members: Family Housing: Apartment Do you presently have visiting nurse or other home services: No Alcohol intake: never Comment: sleeping Second Hand Smoke Exposure: No Substance Use Type: Marijuana service: No Current occupational status: unemployed Review of Systems Const All systems reviewed & are unremarkable except as noted in HPI and below ENT Denies dizziness Card Denies chest pain, Denies chest pain at rest, Denies chest pain with activity, Denies rapid heart rate, Denies pedal edema, Denies edema, Denies leg edema, Denies lightheadedness, Denies palpitations, Reports dyspnea, Denies dyspnea on exertion and Denies orthopnea Resp Denies cough, Reports dyspnea and Denies dyspnea on exertion GI Denies hematochezia and Denies change in stool character Musc Denies abnormal gait, Denies limited range of motion, Denies muscle cramps, Denies muscle weakness, Denies numbness, Denies radiating pain into limb, Denies stiffness and Denies tingling Neuro Denies abnormal gait, Denies dizziness, Denies numbness and Denies tingling Endo Denies palpitations Physical Exam Vital Signs: BMI result Body Mass Index 50.3 Const General: cooperative, healthy appearing, comfortable and no acute distress Orientation/consciousness: patient oriented x3 Neck Neck: Yes normal visual inspection and Yes no JVD Resp Effort & Inspection: normal respiratory effort Auscultation: clear to auscultation bilaterally, no crackles, no rales, no rhonchi and no wheezes Cardio Jugular venous distension: no JVD Rate: regular rate Rhythm: regular rhythm Heart sounds: S1 normal heart sound present, S2 normal heart sound present, no murmurs and no rubs Neuro General: patient oriented x3 Extrem General: Yes normal to inspection Psych Appearance: grossly normal Mental Status: mental status grossly normal Speech and movement: Normal speech and movement present Office Procedures EKG Details: Today, read by me, normal sinus rhythm, no acute ST or T-wave abnormalities, rate 84, QTC 415 milliseconds [id number], Complete Assessment & Plan Assessment & Plan (1) Tachycardia: Code(s): R00.0 - Tachycardia, unspecified Category: Medical Plan: History of sinus tachycardia. Echocardiogram done on 03/25/2022 with EF 50-55%, mild decrease in the RV systolic function, no valve abnormalities. Holter monitor done on 03/25/2022 showed sinus rhythm to sinus tach, average heart rate 106, heart rate range 67 to 163, 65% of the time heart rate greater than 100. An stress test done on 04/08/2022 showed decreased exercise capacity with moderate shortness of breath, no ischemia on EKG use and normal myocardial perfusion imaging, EF 69% with stress and 49% at rest. Has been on metoprolol 25 mg b.i.d and has been doing well. He is not bothered by heart palpitations like he had in the past.. No clinical signs of heart failure on examination. EKG today showing sinus rhythm pulse 84. Blood pressure is well controlled. He was diagnosed with sleep apnea last year and reports compliance with his mask. Last echo done 07/20/2023 shows EF 50-55%. Continue with CPAP. Continue metoprolol. Instructed to call if he is having issues with increasing shortness of breath or leg edema. Cardiology follow-up in 1 year, sooner if needed (2) Obesity (BMI 30-39.9): Code(s): E66.9 - Obesity, unspecified Category: Medical Plan: Benefits increasing physical activity and weight loss reviewed with him (3) Palpitation: Code(s): R00.2 - Palpitations Category: Medical Plan: As above Plan Time spent on chart review, documentation, interview and assessment Coding Level of Care Code Est Pt Level 3 (29865) Diagnoses Tachycardia R00.0 Obesity (BMI 30-39.9) E66.9 Palpitation R00.2 CPT Codes EKG - CPT: 09732-[id number], Complete ([id number]) Time Spent (min) 24
[2024-07-20 13:10] VITALS: BP 122/60; PULSE 84; BMI 50.3
== END 2024-07-20 13:37 | disposition home or self-care (01) ==
PROVIDERS: PCP Internal Medicine Geriatric Medicine; Visit Provider Nurse Practitioner Family
DX: R00.0 Tachycardia, unspecified (principal); E66.9 Obesity, unspecified; R00.2 Palpitations
CPT/HCPCS: 93010; 99213

== ENCOUNTER → 2024-07-20 13:07 | Outpatient (BNVA) | payer MEDICAID, SELFPAY | PROVIDERS: PCP Internal Medicine Geriatric Medicine; Visit Provider Nurse Practitioner Family | DX: I10 Essential (primary) hypertension (principal); R00.2 Palpitations; R00.0 Tachycardia, unspecified; E11.9 Type 2 diabetes mellitus without complications; E66.01 Morbid (severe) obesity due to excess calories; G47.30 Sleep apnea, unspecified; Z99.89 Dependence on other enabling machines and devices; Z68.43 Body mass index [BMI] 50.0-59.9, adult | CPT/HCPCS: 93005; 99212 ==

== ENCOUNTER 2024-10-13 18:23 | Outpatient (REF) | payer MEDICAID, SELFPAY | END 2024-10-13 18:24 | disposition home or self-care (01) | LOC: HO.HHCLNP 18:23 | PROVIDERS: Visit Provider Family Medicine | DX: L03.317 Cellulitis of buttock (principal) | CPT/HCPCS: 87070; 87147; 87205 ==

== ENCOUNTER → 2025-01-02 14:10 | Outpatient (BNVA) | payer MEDICAID, SELFPAY | PROVIDERS: PCP Internal Medicine Geriatric Medicine; Visit Provider Internal Medicine | DX: G47.30 Sleep apnea, unspecified (principal); J45.909 Unspecified asthma, uncomplicated; E66.01 Morbid (severe) obesity due to excess calories; Z68.43 Body mass index [BMI] 50.0-59.9, adult | CPT/HCPCS: 99212 ==

== ENCOUNTER 2025-04-17 10:38 | Outpatient (REF) | payer MEDICAID, SELFPAY ==
--- OUTSIDE RECORDS SUMMARY | 2025-04-17 11:53 | XMS_ITS | Clinical Summary ---
Author Organization [employer] Address [address] [place] [address] [address] [place] [address] Care Team Providers Care Senior Web Services Developer Name Role Phone Name, Dipesh WEINBERG Primary Care Provider [phone] PuEdel joe PharmD Unavailable [phone] Allergies Active Allergy Reactions Criticality Noted Date Comments Fish-Derived Products Anaphylaxis High 09/24/2023 Medications albuterol 108 (90 Base) MCG/ACT inhaler inhale 2 puff by inhalation route 4 times every day as needed as needed for cough, wheeze, sob 1 Active atorvastatin (Lipitor) 40 MG tablet TAKE 1 TABLET BY MOUTH EVERY DAY AT BEDTIME 2 Active D3 Super Strength 50 MCG (1999 UT) capsule TAKE 1 CAPSULE BY MOUTH DAILY 2 Active Baqsimi Two Pack 3 MG/DOSE nasal powder PLEASE SEE ATTACHED FOR DETAILED DIRECTIONS 2 Active mirtazapine (Remeron) 7.5 MG tablet TAKE 2 TABLETS BY MOUTH DAILY AT BEDTIME 2 Active prazosin (Minipress) 2 MG capsule TAKE 1 CAPSULE BY MOUTH EVERY DAY IN THE EVENING 2 Active [employer] Gas Relief 80 MG chewable tablet TAKE 1 TABLET BY MOUTH EVERY 6 HOURS NEEDED FOR GAS/BLOATING 2 Active traZODone (Desyrel) 100 MG tablet TAKE 1 TO 2 TABLETS BY MOUTH AT BEDTIME NEEDED 2 Active Blood Pressure Monitoring (Comfort Touch BP Cuff/Large) miscIndications:P rimary hypertension 1 kit 2 times daily. 1 each 3 Active Insulin Syringe-Needle U-100 (UltiCare Insulin Syringe) 30G X 5/16 0.5 ML miscIndications:T ype 1 diabetes mellitus with hyperglycemia (CMS/HCC) USE 4 TIMES A DAY WITH THE INSULIN DOSE 200 each 10 4 Active insulin degludec (Tresiba FlexTouch) 200 UNIT/ML injection 50 units once a day 4 Active metoclopramide (Reglan) 10 MG tabletIndications :Diabetic gastroparesis (CMS/HCC) (CMS/HCC) Take 1 tablet (10 mg) by mouth before breakfast, before lunch, and before evening meal. 60 tablet 3 4 025 Active clindamycin (Cleocin T) 1 % lotion Apply topically 2 times daily. 60 mL 5 4 025 Active BD Pen Needle Damaris 2nd Gen 32G X 4 MM miscIndications:T ype 1 diabetes mellitus with hyperglycemia (CMS/HCC) INJECT 1 EACH UNDER THE SKIN IF NEEDED 3 TIMES A DAY USE INSTRUCTED 100 each 3 4 Active metoprolol tartrate (Lopressor) 25 MG tablet Take 1 tablet (25 mg) by mouth 2 times daily. 60 tablet 11 4 Active gabapentin (Neurontin) 100 MG capsule Take 3 capsules (300 mg) by mouth at bedtime. 30 capsule 3 4 025 Active lisinopril 5 MG tablet TAKE 1 TABLET BY MOUTH EVERY DAY IN THE MORNING 90 tablet 1 5 Active insulin lispro (HumaLOG) 100 UNIT/ML injection INJECT 20 UNITS UNDER THE SKIN BEFORE BREAKFAST, BEFORE LUNCH, AND BEFORE EVENING MEAL 5 Active lidocaine (Lidoderm) 5 % patch APPLY 1 PATCH TOPICALLY ONCE PER DAY. REMOVE & DISCARD PATCH WITHIN 12 HOURS OR DIRECTED BY . 5 Active OXcarbazepine (Trileptal) 300 MG tablet Take 1 tablet by mouth 2 times daily. 5 Active ondansetron (Zofran) 8 MG tablet TAKE 1 TABLET (8 MG) BY MOUTH EVERY 8 HOURS NEEDED FOR NAUSEA AND VOMITING FOR UP TO 7 DAYS 20 tablet 2 5 Active omeprazole (PriLOSEC) [address] capsuleIndication s:Gastroesophagea l reflux disease, unspecified whether esophagitis present TAKE 1 CAPSULE BY MOUTH EVERY DAY BEFORE A MEAL 90 capsule 1 5 Active loperamide (Imodium) 2 MG capsule TAKE 1 CAPSULE (2 MG) BY MOUTH IF NEEDED IN THE MORNING, AT NOON, AND AT BEDTIME FOR DIARRHEA. 30 capsule 2 5 025 Active Problems Patient Care Coordination No te Formatting of this note migh t be different from the original. 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, associated with type 1 diabetes mellitus 05/19/2024 Epiretinal membrane (ERM) of both eyes 4 Posterior synechiae of left eye 05/19/2024 Diabetic neuropathy, type I diabetes mellitus Abnormal celiac antibody panel 12/06/2022 Diabetic gastroparesis (CMS/HCC) 12/06/2022 Migraine 12/06/2022 Acute nontraumatic kidney injury 07/09/2022 Chronic kidney disease 07/09/2022 Gastroesophageal reflux disease 07/09/2022 Proteinuria due to type 1 diabetes mellitus ([facility] /HCC) 12/06/2018 Obstructive sleep apnea syndrome 01/04/2018 Allergic rhinitis 01/04/2018 Anxiety 01/04/2018 Tobacco use 01/04/2018 Cannabis abuse 04/21/2017 Leukocytosis 04/21/2017 Preproliferative diabetic retinopathy 01/29/2014 Mood disorder 12/20/2013 Asthma 07/01/2012 Type 1 diabetes mellitus 06/24/2012 Assessment & Plan (12/15/2022 10:18 AM EST): -Able to schedule same day follow up with [facility] Endo, pt to present to appt now Merced medeiros scale: ?? 10 units before breakfast & lunch ?? 20 units before dinner ?? 8 units before snack Correction Dose: ?? 180-220 : 6 units ?? 220-300: 8 units ?? 300-360 units: 10 units -ED precautions reviewed -Scheduled pt same day appt with Endo. Follow up with specialists Resolved Problems Problem Noted Date Diagnosed Date Resolved Date Intractable nausea and vomiting 09/24/2023 4 02/23/2024 Diabetic retinopathy associa santos with type 1 diabetes mellitus 12/06/2022 07/22/2023 Disorder of digestive tract 12/06/2022 02/23/2024 Overview (03/31/2023): Hiatal hernia on CT abdomen and [facility] 02/2023 Disorder of kidney 12/06/2022 3 Tachycardia 12/06/2022 02/23/2024 Abnormal serum enzyme level, unspecified 12/06/2022 07/22/2023 Abnormal immunological findi ng in serum, unspecified 12/06/2022 07/22/2023 Persistent proteinuria 05/09/201802/22 Cannabis use, unspecified, uncomplicated 01/04/2018 07/22/2023 Vomiting 04/21/2017 02/23/2024 Apnea 03/05/2017 12/23/2023 Snoring 03/05/2017 02/23/2024 Tired 03/05/2017 12/15/2022 Proteinuria 06/24/2012 07/05/2023 Encounters Date Type Department Care Team Description 04/17/2025 Travel 03/04/2025 Refill [facility] [address] [place] [address] NameDipesh MD Gastroesophageal reflux disease, unspecified whether esophagitis present 03/02/2025 Telephone [facility] [address] [place] [address] Daniela Garcia MA may recalls 02/28/2025 Refill [facility] [address] [place] [address] Name, MD Dipesh 02/09/2025 Population Health Risk Score [facility] [address] [id number] Provider, Population Health Generic 02/07/2025 Telephone [facility] [address] [place] [address] Edel Dupont, PharmD 02/05/2025 Telephone [facility] [address] [place] [address] Name, MD Dipesh 02/02/2025 Telephone [facility] [address] [place] [address] Daniela Garcia MA february recalls 01/26/2025 1:00 PM EST Office Visit [facility] [address] [place] [address] Lindsey Hernandez, OD Right eye affected by proliferative diabetic retinopathy with traction retinal detachment not involving macula, associated with type 1 diabetes mellitus (CMS/HCC) (Primary Dx) 01/26/2025 Travel 01/22/2025 Travel 01/19/2025 Telephone [facility] [address] [place] [address] Daniela Garcia MA February Recalls from Last 3 Months Immunizations Immunization Administration Dates Next Due DTaP / HiB / IPV 08/03/1997,02/20/1994 Hep B, Adolescent or Pediatric 08/10/2006,2004,08/13/1997 INFLUENZA INJECTABLE QUADRIV ALANT CCIIV4 MDCK Multi-dose vial 10/19/2017,10/22/2009 Influenza injectable quadriv alent IIV4 with preservative 12/12/2019,11/02/2016 Influenza injectable quadriv alent preservative free 09/28/2023,11/29/2022 Influenza, Split (incl. jas fied surface antigen) 09/29/2013 MMR 08/03/1997,02/20/1994 Meningococcal MCV4P ACYW-135 06/09/2006 Pneumococcal Polysaccharide PPSV23 11/02/2016 TD (adult), 2 Lf tetanus tox oid, preservative free, adsorbed 08/08/2005 Tdap 07/14/2017,07/01/2012 Varicella 07/16/2006,06/09/2006 Social History Tobacco Use Types Packs/Day Years Used Date Smoking Tobacco: Never Smokeless Tobacco: Never Tobacco Cessation:Counseling Given: Not Answered Alcohol Use Standard Drinks/Week Comments Never 0 (1 standard drink = 0.6 oz pur e alcohol) Depression Answer Date Recorded Patient Health Questionnaire-9 Score 11 09/20/2024 Patient Health Questionnaire-9 Score 11 09/20/2024 Last PHQ-9: Questionnaire Data Not on file 1 Housing Stability Answer Date Recorded What is your housing situation today? I have radha kelly 09/13/[address] you li ve. Do you have problems with any of the following? None of the above 09/13/2023 Food Insecurity Answer Date Recorded Within the past 12 months, y ou worried that your food would run out before you got money to buy more: Never True 09/13/2023 Within the past 12 months,th e food you bought just didn't last and you didn't have enough money to get more: Never True Transportation Answer Date Recorded In the past 12 months, has l ack of transportation kept you from medical appts, meetings, work or from getting things needed for daily living? No 09/13/2023 Utilities Answer Date Recorded In the past 12 months, has t he electric, gas, oil or water company threatened to shut off services in your home? No 09/13/2023 Depression Answer Date Recorded Patient Health Questionnaire-2 Score 4 09/20/2024 Sex and Gender Information Value Date Recorded Sex Assigned at Male 09/28/2022 10:18 AM EDT Legal Sex Male 10:18 AM EDT Gender Identity Male 09/28/2022 10:18 AM EDT Sexual Orientation Straight 09/28/2022 10 :18 AM EDT Last Filed Vital Signs Vital Sign Reading Time Taken Comments Blood Pressure 130/72 04/17/2025 10:52 AM EDT Pulse 92 10/13/2024 9:52 AM EST Temperature 36.7 ??C (98.1 ??F) 10/13/2024 9:52 AM ES T Respiratory Rate 18 10/13/2024 9:52 AM EST Oxygen Saturation 97% 10/13/2024 9:52 AM EST Inhaled Oxygen Concentration - - Weight 127 kg (281 lb) 10/13/2024 9:52 AM EST Height 165.1 cm (5' 5 ) 09/20/2024 4:17 PM EDT Body Mass Index 46.76 09/20/2024 4:17 PM EDT Plan of Treatment Upcoming Encounters Date Type Department Care Team (Late st Contact Info) Description 05/23/2025 10:30 AM EDT Medication Management [facility] [address] [place] [address] Edel Dupont, PharmD [address] [place] [address] Health Maintenance Due Date Last Done Comments HIV Screening 1992 Lipid Panel 1992 Disability Screening 1992 IPV Vaccines (3 of 3 - 4-dose series) 01/31/1998 08/03/1997, 02/20/1994 Alcohol/Substance Use Screening 2004 Family Planning (PISQ) 2007 Hepatitis C Screening 2010 Pneumococcal Vaccine: Pediatrics (0 to 5 Years) and At-Risk Patients (6 to 49) Years) (2 of 2 - PCV) 11/02/2017 11/02/2016 COVID-19 Vaccine ( - season) 2024 Influenza Vaccine (#1) 2024 3, 11/29/2022, 12/12/2019, Additional history exists Diabetes: Hemoglobin A1C 11/21/2024 024, 06/20/2024, 12/23/2023, Additional history exists SDOH Screening 03/10/2025 03/10/2024 Eye Exam 05/18/2025 05/18/2024, 04/30, 05/18/2024, Additional history exists Depression Screening 09/20/2025 09/20/2024, 09/20/20 24 Diabetes: Foot Exam 09/20/2025 09/20/2024, 09/20/2024, 09/20/2024, Additional history exists Tobacco Screening 01/29/2026 01/29/2025 DTaP/Tdap/Td Vaccines (6 - Td or Tdap) 07/14/2027 07/14/2017, 07/01/2012, 08/08/2005, Additional history exists Zoster Vaccines (1 of 2) 2042 RSV Patients and Patients Aged 60 years or older (1 - 1-dose 75+ series) 2067 HIB Vaccines Completed 08/03/1997, 02/20/1994 Meningococcal Vaccine Aged Out 06/09/2006 No miya mitzi eligible based on patient's age to complete this topic Hepatitis B Vaccines Completed 08/10/2006, 08/08/2005, 08/13/1997 HPV Vaccines Aged Out No longer eligi ble based on patient's age to complete this topic Hepatitis A Vaccines Aged Out No long er eligible based on patient's age to complete this topic Meningococcal B Vaccine Aged Out No l onger eligible based on patient's age to complete this topic RSV under 20 months Aged Out No longe r eligible based on patient's age to complete this topic Rotavirus Vaccines Aged Out No longer eligible based on patient's age to complete this topic Procedures Procedure Name Priority Date/Time Associated Diagnosis Comments OCT, RETINA - OU - BOTH EYES Routine 01/26/2025 1:00 PM EST Right eye affected by proliferative diabetic retinopathy 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 Notes OCT MACULA INTERPRETATION Optical Coherence Tomography Interpretation Report Measurements: OD ? OS Macula Thickness ??Unable ? 260 microns Test findings: OD: unable OS: Distorted foveal contour with significant epiretinal membrane and macular pucker, cystoid macular edema (CME) temporal extending superior and inferior, no retinal pigment epithelium (RPE) disruption, no subretinal fluid (SRF) Impression and Plan: Unable to scan right eye (OD). Left eye has a significant epiretinal membrane (ERM) with distorted macula. Macular edema is present in the let eye with minimal visual impact. Patient will continue working with the retinal specialist as planned. us Lindsey Hernandez OD OPHTH TOMOGRAPHY Final Result * (ABNORMAL) POCT HGB A1C (08/22/2024 3:18 PM EDT) Hemoglobin A1C 10.7(A) 4.0 - 6.0 % QC Media Lot # [id number] Lot# Expiration Date [id number] Blood 08/22/2024 3:18 PM EDT Dipesh Koch MD POINT OF CARE TEST ENTER/EDIT OR DERABLES Final Result from Last 3 Months or Most Recently Relevant to Health Maintenance Insurance [employer] Care Teams Senior Web Services Developer Relationship Specialty Start Date End Date Name, MD Dipesh [address] [place] [address] PCP - General Family Medicine 03/04/16 PuiaEdel PharmD [address] [place] [id number] Pharmacist Internal Medicine 04/17/25
--- OUTSIDE RECORDS SUMMARY | 2025-04-17 11:53 | XMS_ITS | Clinical Summary ---
Author Organization [facility] Facility Address [address] [address] Care Team Providers Care Kindergarten Tutor Name Role Phone Name, Dipesh WEINBERG Primary Care Provider [phone] Allergies No known active allergies Medications D3 Super Strength 50 MCG (1999) capsule Take 1 capsule by mouth 1 (one) time each day 2 Active HumaLOG 100 UNIT/ML solution UP TO 100 UNITS DAILY VIA INSULIN PUMP SUBCUTANEOUSLY DAILY 2 Active Lantus SoloStar 100 UNIT/ML injection INJECT 40 UNITS SUBCUTANEOUSLY IN THE EVENING 2 Active Lidoderm 5 % patch APPLY 1 PATCH EVERY DAY MAY WEAR UP TO 12 HOURS 2 Active metoprolol tartrate 25 MG tablet Take 25 mg by mouth 2 Active mirtazapine (REMERON) 7.5 MG tablet Take 7.5 mg by mouth at bed time 2 Active omeprazole (PriLOSEC) [address] capsule Take 1 capsule by mouth 1 (one) time each day 2 Active ondansetron (ZOFRAN) 8 MG tablet Take 8 mg by mouth 1 (one) time each day 2 Active UltiCare Insulin Syringe 30G X 5/16 0.5 ML misc USE 4 TIMES A DAY WITH THE INSULIN DOSE 2 Active Baqsimi Two Pack 3 MG/DOSE powder PLEASE SEE ATTACHED FOR DETAILED DIRECTIONS 2 Active atropine 1 % ophthalmic solution INSTILL 1 DROP IN LEFT EYE AT BEDTIME 2 Active Active Problems Problem Noted Date Diagnosed Date Antibody studies abnormal 12/06/20222022 Disorder of digestive tract 12/06/2022 0711/2022 Enzyme level - finding 12/06/2022 3 Gastroparesis due to diabetes mellitus 3 06/18/2023 Migraine 12/06/2022 06/18/2023 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 06/202306/18/2023 Tachycardia 12/06/2022 06/18/2023 Acute nontraumatic kidney injury 07/09/2022 Gastroesophageal reflux disease 07/09/2022 Leukocytosis 07/09/2022 Proteinuria 07/09/2022 Type 2 diabetes mellitus 07/09/2022 Chronic kidney disease 07/09/2022 Proteinuria due to type 1 diabetes mellitus 06/201906/18/2023 Allergic rhinitis 01/04/2018 06/18/2023 Anxiety 01/04/2018 06/18/2023 Cannabis use, unspecified, uncomplicated 018 06/18/2023 Obstructive sleep apnea syndrome 01/04/2018 06/18/2023 Tobacco use 01/04/2018 06/18/2023 Vomiting 04/21/2017 06/18/2023 Apnea 03/05/2017 06/18/2023 Snoring 03/05/2017 06/18/2023 Microalbuminuria 08/14/2014 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 litus 01/29/2014 06/18/2023 Depressive disorder 12/20/2013 06/18/2023 Asthma 07/01/2012 06/18/2023 Immunizations Immunization Administration Dates Next Due DTaP / HiB / IPV 08/03/1997,02/20/1994 Hep B, Adolescent or Pediatric 08/10/2006,2004,08/13/1997 Influenza Split 09/29/2013 Influenza, MDCK, Quadrivalen t, with preservative 10/19/2017 Influenza, Quadrivalent, Preservative Free 11/29 Influenza, Quadrivalent, With Preservative 12/12,11/02/2016 MMR 08/03/1997,02/20/1994 Meningococcal MCV4P 06/09/2006 Pneumococcal Polysaccharide 11/02/2016 Pneumococcal, Unspecified 11/02/2016 Td 08/08/2005 Tdap 07/14/2017,07/01/2012 Varicella 07/16/2006,06/09/2006 Family History Medical History Relation Comments Diabetes Father Heart disease Father Dementia Maternal Grandmother Anemia Mother Diabetes Mother Relation Status Comments Father Unknown Maternal Grandmother Mother Unknown Social History Tobacco Use Types Packs/Day Years Used Date Smoking Tobacco: Every Day Cigarettes Smokeless Tobacco: Never Tobacco Cessation:Ready to Q uit: Not Asked; Counseling Given: Not Answered Alcohol Use Standard Drinks/Week Comments Yes 0 (1 standard drink = 0.6 oz pure alcohol) Alcoholic Drinks/day: Occasional social drink Sex and Gender Information Value Date Recorded Sex Assigned at Not on file Legal Sex Male 5:10 PM EST Gender Identity Not on file Sexual Orientation Not on file Last Filed Vital Signs Vital Sign Reading Time Taken Comments Blood Pressure 106/72 07/13/2022 3:54 PM EDT Pulse 107 07/13/2022 3:54 PM EDT Temperature - - Respiratory Rate - - Oxygen Saturation 96% 07/13/2022 3:54 PM EDT Inhaled Oxygen Concentration - - Weight 114 kg (251 lb) 07/13/2022 3:54 PM EDT Height 165.1 cm (5' 5 ) 12/29/2019 12:00 PM EST Body Mass Index 41.77 12/29/2019 12:00 PM EST Plan of Treatment Health Maintenance Due Date Last Done Comments Pneumococcal Vaccine: Peds ( 0 to 5 Years) and At-Risk Patients (6 to 49 Years) (2 of 2 - PCV) 11/02/2017 11/02/2016, 11/02/2016 Diabetes: Hemoglobin A1C 01/21/2021 Diabetes: Ophthalmology Exam 01/21/2021 Diabetes: Pedal Pulse Checked 01/21/2021 Diabetes: Sensory Foot Exam 01/21/2021 Diabetes: Visual Foot Exam 01/21/2021 Influenza Vaccine (Season Ended) 2025 11/29/2022, 12/12/2019, 10/19/2017, Additional history exists Hepatitis B Vaccine Completed 08/10/2006, 08/08/2005, 08/13/1997 Pneumococcal Vaccine: 50+ Years Discontinued , 11/02/2016 Insurance Medicaid [place] Medicaid [place] Care Teams Kindergarten Tutor Relationship Specialty Start Date End Date Name, MD Dipesh [address] [place] [address] PCP - General 12/09/20
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
--- OUTSIDE RECORDS SUMMARY | 2025-04-17 11:53 | XMS_ITS | Encounter Summary ---
Author Organization [employer] Address [address] [facility] 7t [place] [address] Care Team Providers Care Manufacturing Associate Name Role Phone Name, Dipesh WEINBERG Primary Care Provider [phone] Edel Dupont PharmD Unavailable [phone] Encounter Details Date Type Department Care Team (Latest Contact Info) Description 04/17/2025 Travel Social History Tobacco Use Types Packs/Day Years Used Date Smoking Tobacco: Never Smokeless Tobacco: Never Alcohol Use Standard Drinks/Week Comments Never 0 [...] Orientation Straight 09/28/2022 10 :18 AM EDT documented as of this encounter Plan of Treatment Upcoming Encounters Date Type Department Care Team (Late st Contact Info) Description 05/23/2025 10:30 AM EDT Medication Management [facility] [address] [place] [address] Edel Dupont PharmD [address] [place] [address] documented as of this encounter Visit Diagnoses Not on filedocumented in this encounter Additional Health Concerns Assessment Noted Time PHQ-9 Depression Total Score: 11 024 4:36 PM EDT documented as of this encounter Care Teams Manufacturing Associate Relationship Specialty Start Date End Date Name, MD Dipesh [address] [place] [address] PCP - General Family Medicine 03/04/16 Edel Dupont, Garcia [address] [place] [address] Pharmacist Internal Medicine 04/17/25 documented as of this encounter
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
--- OUTSIDE RECORDS SUMMARY | 2025-04-17 11:54 | XMS_ITS | Encounter Summary ---
Author Organization [employer] Address [address] [place] [address] 7t [place] [address] Care Team Providers Care Business Strategist Name Role Phone Name, Dipesh WEINBERG Primary Care Provider [phone] Edel Dupont PharmD Unavailable [phone] Encounter Details Date Type Department Care Team (Late st Contact Info) Description 11/16/2024 Orders Only [facility] Management [address] [place] [address] Provider, MD Veena Social History Tobacco Use Types Packs/Day Years [...] Description 05/23/2025 10:30 AM EDT Medication Management [facility] [address] [place] [address] Edel Dupont PharmD [address] [place] [address] documented as of this encounter Procedures Procedure Name Priority Date/Time Associated Diagnosis Comments CT ABDOMEN PELVIS W CONTRAST Routine 11/15/2024 12:59 PM EST documented in this encounter Results * CT Abdomen Pelvis w/ Contrast (11/15/2024 12:59 PM EST) Anatomical Region Laterality Modality Body, Pelvis, Abdomen Computed T omography us Historical Provider MD NASSAR CT PROCEDURES Final R esult documented in this encounter Visit Diagnoses Not on filedocumented in this encounter Additional Health Concerns Assessment Noted Time PHQ-9 Depression Total Score: 11 024 4:36 PM EDT documented as of this encounter Care Teams Business Strategist Relationship Specialty Start Date End Date Name, MD Dipesh [address] [place] [address] PCP - General Family Medicine 03/04/16 Edel Dupont PharmD [address] [place] [address] Pharmacist Internal Medicine 04/17/25 documented as of this encounter
--- OUTSIDE RECORDS SUMMARY | 2025-04-17 11:54 | XMS_ITS | Encounter Summary ---
Author Organization [employer] Address [address] [place] [address] 7t [place] [address] Care Team Providers Care Medical Intern Name Role Phone Name, Dipesh WEINBERG Primary Care Provider [phone] Edel Dupont PharmD Unavailable [phone] Reason for Visit * Reason Comments Med Refill Encounter Details Date Type Department Care Team ([facility] st Contact Info) Description 05/04/[address] [facility] [address] [place], [place] [phone] Name, MD Dipesh [address] [place] [address] Social History Tobacco Use Types Packs/Day Years [...] Description 05/23/2025 10:30 AM EDT Medication Management [facility] MEDICINE [address] [place] [address] Edel Dupont PharmD [address] [place] [address] documented as of this encounter Visit Diagnoses Not on filedocumented in this encounter Additional Health Concerns Assessment Noted Time PHQ-9 Depression Total Score: 6 07/22/20 23 9:24 AM EDT documented as of this encounter Care Teams Medical Intern Relationship Specialty Start Date End Date Name, MD Dipesh [address] [place] [address] PCP - General Family Medicine 03/04/16 Edel Dupont PharmD [address] [place] [address] Pharmacist Internal Medicine 04/17/25 documented as of this encounter
--- OUTSIDE RECORDS SUMMARY | 2025-04-17 11:54 | XMS_ITS | Encounter Summary ---
Author Organization [employer] Address [address] [place] [address] 7t [place] [address] Care Team Providers Care Customer Data Technician Name Role Phone Name, Dipesh WEINBERG Primary Care Provider [phone] dEel Dupont PharmD Unavailable [phone] Reason for Visit * Reason Onset Date Comments Medication Question 02/02/2024 Encounter Details Date Type Department Care Team (Late st Contact Info) Description 02/02/2024 Telephone [facility] [address] [place] [address] Name, MD Dipesh [address] [place] [address] Medication Question Social History Tobacco Use Types Packs/Day Years [...] Telephone Encounter - Isa Varghese RN - 02/02/2024 4:38 PM EST T/C to pharmacy for below message, pharmacy states medication is early to fill till date 02/19, otherwise pt. Has to pay out of pockets. T/C to pt. For message from pharmacy, pt, was also advised that medication was prescribe to take once daily not twice daily. Pt. States he some time took 3 - 4 capsule daily due to heart burn, pt. Advised to take medication as prescribe only and if having still heart burn or any concerns, advised to come to [facility]. Pt. Verbally agreed and understood. * Telephone Encounter - Daja You - 02/02/2024 10:20 AM EST Tc from tamar shah in regards to omeprazole (PriLOSEC) [address] capsule[address] States pharmacy will not fill script until 02/19. Proj Engineer called pharmacy and confirmed information. Pharmacy states it is because pt picked up a script on 11/27 for a 90 day supply. Tamar states pt is out of medication and has not had medication for two days now. documented in this encounter Plan of Treatment Upcoming Encounters Date Type Department Care Team (Late st Contact Info) Description 05/23/2025 10:30 AM EDT Medication Management [facility] MED[facility] [address] [place] [phone] Edel Dupont PharmD [address] [place] [address] documented as of this encounter Visit Diagnoses Not on filedocumented in this encounter Additional Health Concerns Assessment Noted Time PHQ-9 Depression Total Score: 6 07/22/20 23 9:24 AM EDT documented as of this encounter Care Teams Customer Data Technician Relationship Specialty Start Date End Date Name, MD Dipesh [address] [place] [address] PCP - General Family Medicine 03/04/16 Edel Dupont, Garcia [address] [place] [address] Pharmacist Internal Medicine 04/17/25 documented as of this encounter
--- OUTSIDE RECORDS SUMMARY | 2025-04-17 11:54 | XMS_ITS | Encounter Summary ---
Author Organization [employer] Address [address] [place] [address] 7t [place] [address] Care Team Providers Care Automotive Electrical Fitter Name Role Phone Name, Dipesh WEINBERG Primary Care Provider [phone] Edel Dupont PharmD Unavailable [phone] Reason for Visit * Reason Comments Med Refill Encounter Details Date Type Department Care Team ([facility] st Contact Info) Description 06/20/2024 Refill [facility] [address] [place], [place] [phone] Name, MD Dipesh [address] [place] [address] Social History Tobacco Use Types Packs/Day Years [...] Description 05/23/2025 10:30 AM EDT Medication Management [facility] [address] [place] [address] Edel Dupont PharmD [address] [place] [address] documented as of this encounter Visit Diagnoses Not on filedocumented in this encounter Additional Health Concerns Assessment Noted Time PHQ-9 Depression Total Score: 6 07/22/20 23 9:24 AM EDT documented as of this encounter Care Teams Automotive Electrical Fitter Relationship Specialty Start Date End Date Name, MD Dipesh [address] [place] [address] PCP - General Family Medicine 03/04/16 Edel Dupont PharmD [address] [place] [address] Pharmacist Internal Medicine 04/17/25 documented as of this encounter
[2025-04-17 12:15] LABS: Estimated Average Glucose 223 mg/dL; Hemoglobin A1C 255.3621 umol/L; Hemoglobin A1c % 9.4 % (<6.0); Total Hemoglobin (HGBA1C) 3239.2714 umol/L
[2025-04-17 12:38] LABS: Creatinine Urine 56.21 mg/dL
[2025-04-17 13:40] LABS: Microalbum/Creatinine Ratio Ur 3364.1 ug/mg cr (<30)
== END 2025-04-17 10:39 | disposition home or self-care (01) ==
LOC: HO.HHCL 10:38
PROVIDERS: Visit Provider Internal Medicine Geriatric Medicine
DX: I12.9 Hypertensive chronic kidney disease with stage 1 through stage 4 chronic kidney disease, or unspecified chronic kidney disease (principal); E10.22 Type 1 diabetes mellitus with diabetic chronic kidney disease; N18.2 Chronic kidney disease, stage 2 (mild); R80.9 Proteinuria, unspecified; E10.65 Type 1 diabetes mellitus with hyperglycemia
CPT/HCPCS: 36415; 80048; 80061; 80076; 82043; 82570; 83036

== ENCOUNTER 2025-05-02 14:06 | Outpatient (AMB) | payer MEDICAID, SELFPAY ==
--- OUTSIDE RECORDS SUMMARY | 2025-05-02 14:08 | XMS_ITS | Clinical Summary ---
Author Organization [facility] Facility Address [address] [address] Care Team Providers Care Medical Records Library Professor Name Role Phone Name, Dipesh WEINBERG Primary Care Provider [phone] Allergies No known active allergies Medications D3 [...] studies abnormal 12/06/20222022 Disorder of digestive tract 12/06/202205/30 Enzyme level - finding 12/06/2022 3 Gastroparesis [...] Discontinued , 11/02/2016 [place] Care Teams Medical Records Library Professor Relationship Specialty Start Date End Date Name, MD Dipesh [address] [place] [address] PCP - General 12/09/20
[2025-05-02 14:16] VITALS: BP 134/78; PULSE 83; O2SAT 97; BMI 49.4
--- NOTE | 2025-05-02 14:16 | HO.NEPHOV ---
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 Required: No Accompanied by: Spouse Allergies seafood Allergy (Unknown, Verified 05/02/25 14:18) Swelling Medication List - Last Reconciled 05/02/25 by Hernan Miranda MD blood sugar diagnostic (FreeStyle Lite Strips) As directed checks 4X/day blood-glucose meter (FreeStyle Lite Meter kit) As directed checking 4X/day cholecalciferol (vitamin D3) 50 mcg PO DAILY gabapentin 300 mg PO BEDTIME insulin lispro 1 sliding scale dose subcut TIDWMEAL 30 days MDD 75 units lidocaine 5% 1 patch topical QAM lisinopril 5 mg PO QAM loperamide 2 mg PO TID PRN metoclopramide HCl (Reglan) 10 mg PO Q6H PRN metoprolol tartrate 25 mg PO BID mirtazapine 15 mg (2 x 7.5 mg) PO BEDTIME omeprazole 40 mg PO DAILY ondansetron 8 mg PO Q8H PRN oxcarbazepine 300 mg PO BID pen needle, diabetic (BD Ultra-Fine Short Pen Needle) As directed injects 5 X/day pen needle, diabetic (BD Ultra-Fine Damaris Pen Needle) As directed five times a day prazosin 2 mg PO QPM terbinafine HCl 1% 1 appl topical BID trazodone 100 mg PO DAILY Tresiba FlexTouch U-200 (insulin degludec) 50 units (0.25 mL) subcut DAILY 30 days MDD 50 units NS HPI Comments Details: 34-year-old male presenting with chronic kidney disease and associated hypertension. He has a history of essential hypertension diagnosed approximately two years ago. He is currently on lisinopril 5 mg and metoprolol, experiencing variable blood pressure readings with spikes related to pain or stress. The patient has been managing type 1 diabetes mellitus since childhood, with complications of eye-related surgeries following vision loss. He was previously seen by a insurance sales supervisor but hasn't had recent consultations. An increase in proteinuria has been observed, indicative of worsening renal involvement. He also reports recent weight gain and an intake of a highly salted diet. Relevant comorbidities include sleep apnea, for which he adheres to CPAP therapy, asthma, and gastroparesis. [facility] Medical History Morbid obesity Vitamin D deficiency Tachycardia Vitamin D deficiency HTN (hypertension) Obesity (BMI 30-39.9) Hyperparathyroidism due to vitamin D deficiency Dyslipidemia Diabetic polyneuropathy associated with type 1 diabetes mellitus Diabetic gastroparesis associated with type 1 diabetes mellitus Diabetic nephropathy associated with type 1 diabetes mellitus Diabetes type 1, uncontrolled Gastroparesis H. pylori infection Asthma Gastritis Gastroparalysis Surgical History Hx of eye surgery Hx of appendectomy History of esophagogastroduodenoscopy (EGD) Family History Mother Diabetes HTN (hypertension) Father Diabetes Heart problem Social History Household Members: Family Housing: Apartment Do you presently have visiting nurse or other home services: No Alcohol intake: never Comment: sleeping Second Hand Smoke Exposure: No Substance Use Type: Marijuana service: No Current occupational status: unemployed Review of Systems Const Denies fever(s) and Denies weight loss Card Denies chest pain Resp Denies cough and Denies hemoptysis GI Denies abdominal pain, Denies diarrhea and Denies nausea Musc Denies back pain Neuro Denies focal weakness Physical Exam Vital Signs: Last Vital Signs Pulse 83 05/02/25 14:16 BP 134/78 05/02/25 14:16 Pulse Ox 97 05/02/25 14:16 Oxygen Delivery Method Room Air 05/02/25 14:16 BMI result Body Mass Index 49.4 Results Reviewed Results Reviewed: Urine Alb : Cr 3341 in March 2025 Nephrology Results: Urine Creatinine 56.21 mg/dL 04/17/25 Assessment & Plan Assessment & Plan (1) HTN (hypertension): Code(s): I10 - Essential (primary) hypertension Category: Medical (2) Diabetic nephropathy associated with type 1 diabetes mellitus: Code(s): E10.21 - Type 1 diabetes mellitus with diabetic nephropathy Category: Medical Plan The management plan includes increasing the lisinopril dosage in a stepwise manner. It will be increased initially from 5 mg to 10 mg, with subsequent increases planned to improve kidney outcomes by addressing worsening proteinuria. Metoprolol dosages will remain constant. Goal BP < 130/80 Stay on low salt diet. Increase ohysical activity We will reassess the patient's renal function with follow-up blood and urine tests in two months, referral for his obesity has been arranged. The patient was counseled on improving diabetes control and the importance of consistent CPAP usage for sleep apnea. Maintain A1C < 7% Coordination with other healthcare providers will ensure comprehensive patient care. Orders: Orders Total Protein Urine Random 2 Months E10.21 - Type 1 diabetes mellitus with diabetic nephropathy, I10 - Essential (primary) hypertension Creatinine Urine 2 Months E10.21 - Type 1 diabetes mellitus with diabetic nephropathy, I10 - Essential (primary) hypertension Basic Metabolic Panel 2 Months E10.21 - Type 1 diabetes mellitus with diabetic nephropathy, I10 - Essential (primary) hypertension Referrals Medical Weight Management Referral E66.9 - Obesity, unspecified, G47.30 - Sleep apnea, unspecified, I10 - Essential (primary) hypertension Medications: Changed From lisinopril 10 mg PO QAM To lisinopril 10 mg PO QAM 90 tabs 0RF Patient Instructions: - Increase lisinopril to 10 mg as discussed. - Keep metoprolol dose unchanged. - Follow diet recommendations to reduce sodium intake. - Adhere to CPAP usage for sleep apnea. - Conduct blood and urine tests two days prior to the next appointment. - Follow up with the horticultural services supervisor and attend all scheduled evaluations. - Contact the clinic immediately if there are concerns with medication or worsening symptoms. Coding Level of Care Code New Pt Level 4 (24754) Diagnoses HTN (hypertension) I10 Diabetic nephropathy associated with type 1 diabetes mellitus E10.21
== END 2025-05-02 14:45 | disposition home or self-care (01) ==
LOC: HO.HKAM 14:06
PROVIDERS: PCP Internal Medicine Geriatric Medicine; Referring Provider Internal Medicine Geriatric Medicine; Visit Provider Internal Medicine Hypertension Specialist
DX: I10 Essential (primary) hypertension (principal); E10.21 Type 1 diabetes mellitus with diabetic nephropathy
CPT/HCPCS: 99204

== ENCOUNTER 2025-05-02 14:59 | Outpatient (REF) | payer MEDICAID, SELFPAY ==
[2025-05-02 16:40] LABS: Alanine Aminotransferase 25 U/L (0-40); Albumin Level 3.4 g/dL (3.5-5.0); Alkaline Phosphatase 183 U/L (39-117); Anion Gap 8 (12-20); Aspartate Amino Transferase 27 U/L (5-37); Bilirubin Direct < 0.2 mg/dL (0.0-0.5); Bilirubin Total 0.2 mg/dL (0.0-1.0); Blood Urea Nitrogen 17 mg/dL (9-16); Calcium 8.8 mg/dL (8.4-10.2); Carbon Dioxide 28 mmol/L (22-29); Chloride 105 mmol/L (96-108); Cholesterol 242 mg/dL (<200); Estimated Glomerular Filt Rate > 60; Glucose Random 220 mg/dL (60-115); HDL Cholesterol 38 mg/dL (>40); Potassium 4.4 mmol/L (3.3-5.1); Sodium 137 mmol/L (135-145); Total Protein 6.7 g/dL (6.5-8.0); Triglycerides 404 mg/dL (<150)
[2025-05-02 19:04] LABS: Reflex LDLD? Yes
[2025-05-03 08:43] LABS: LDL Cholesterol Direct 142 mg/dL (<100)
== END 2025-05-02 15:00 | disposition home or self-care (01) ==
LOC: HO.HHCL 14:59
PROVIDERS: Visit Provider Internal Medicine Geriatric Medicine
DX: R80.9 Proteinuria, unspecified (principal); N18.2 Chronic kidney disease, stage 2 (mild); E10.65 Type 1 diabetes mellitus with hyperglycemia; I10 Essential (primary) hypertension; E10.21 Type 1 diabetes mellitus with diabetic nephropathy
CPT/HCPCS: 36415; 80048; 80061; 80076; 83721; 99202

== ENCOUNTER 2025-07-03 13:52 | Outpatient (AMB) | payer MEDICAID, SELFPAY ==
--- NOTE | 2025-07-03 14:02 | A.OFFVIS_ITS ---
Vital Signs 07/03/25 14:03 Height 5 ft 5 in Weight 273 lb 5.971 oz BMI 45.5 BP 142/70 H Blood Pressure Location Lt brachial Position Sitting Pulse 85 Pulse Source Pulse Oximeter Pulse Oximetry (%) 96 Oxygen Delivery Method Room Air Intake Visit Reasons: Obstructive sleep apnea Intake Note: pt is here for follow up of FLOWER and doing well with cpap. Principal Biostatistician Required: No Allergies seafood Allergy (Unknown, Verified 07/03/25 14:17) Swelling Medication List - Last Reconciled 07/03/25 by Alexis Saucedo MD blood sugar diagnostic (FreeStyle Lite Strips) As directed checks 4X/day blood-glucose meter (FreeStyle Lite Meter kit) As directed checking 4X/day cholecalciferol (vitamin D3) 50 mcg PO DAILY gabapentin 300 mg PO BEDTIME insulin lispro 1 sliding scale dose subcut TIDWMEAL 30 days MDD 75 units lidocaine 5% 1 patch topical QAM lisinopril 10 mg PO QAM loperamide 2 mg PO TID PRN metoclopramide HCl (Reglan) 10 mg PO Q6H PRN metoprolol tartrate 25 mg PO BID mirtazapine 15 mg (2 x 7.5 mg) PO BEDTIME omeprazole 40 mg PO DAILY ondansetron 8 mg PO Q8H PRN oxcarbazepine 300 mg PO BID pen needle, diabetic (BD Ultra-Fine Short Pen Needle) As directed injects 5 X/day pen needle, diabetic (BD Ultra-Fine Damaris Pen Needle) As directed five times a day prazosin 2 mg PO QPM terbinafine HCl 1% 1 appl topical BID trazodone 100 mg PO DAILY Tresiba FlexTouch U-200 (insulin degludec) 50 units (0.25 mL) subcut DAILY 30 days MDD 50 units NS Do you need a note to return to daycare/school/sports/work: No HPI HPI Obstructive sleep apnea: Details: Arnold Blair . 34 years old gentleman with morbid obesity and obstructive sleep apnea is here for his routine follow-up. This gentleman has become very very compliant in using the CPAP and he enjoys it. He claims that he sleeps good and does not have any daytime sleepiness or fatigue. However he does not work and stays home mostly he keeps on eating snacks. So finds hard to lose weight. In conversation it appears that he is well aware of this issue and is trying to come bed that. [facility] Medical History Morbid obesity Vitamin D deficiency Tachycardia Vitamin D deficiency HTN (hypertension) Obesity (BMI 30-39.9) Hyperparathyroidism due to vitamin D deficiency Dyslipidemia Diabetic polyneuropathy associated with type 1 diabetes mellitus Diabetic gastroparesis associated with type 1 diabetes mellitus Diabetic nephropathy associated with type 1 diabetes mellitus Diabetes type 1, uncontrolled Gastroparesis H. pylori infection Asthma Gastritis Gastroparalysis Surgical History Hx of eye surgery Hx of appendectomy History of esophagogastroduodenoscopy (EGD) Family History Mother Diabetes HTN (hypertension) Father Diabetes Heart problem Son Asthma Son Asthma Social History Household Members: Family Housing: Apartment Do you presently have visiting nurse or other home services: No Alcohol intake: never Comment: sleeping Patient Tobacco Use Status: Never used Tobacco Second Hand Smoke Exposure: No Substance Use Type: Marijuana service: No Current occupational status: unemployed Review of Systems Const All systems reviewed & are unremarkable except as noted in HPI and below Eyes Reports no additional complaints ENT Reports no additional complaints Card Denies chest pain, Denies irregular heart rhythm and Denies leg edema Resp Reports as per HPI GI Reports bloating, Reports heartburn, Reports nausea and Reports vomiting Reports no additional complaints Musc Reports no additional complaints Skin/Breast Reports system reviewed and no additional complaints, except as documented Neuro Reports seizure-like activity Psych Reports depression Endo Reports other (DIABETES MELLITUS WITH DIABETIC COMPLICATIONS) Rod/Lymph Reports no additional complaints Physical Exam Vital Signs: Last Vital Signs Pulse 85 07/03/25 14:03 BP 142/70 H 07/03/25 14:03 Pulse Ox 96 07/03/25 14:03 Oxygen Delivery Method Room Air 07/03/25 14:03 BMI result Body Mass Index 45.5 HE HAS A ROUND FACE WITH A SHORT NECK, VERY CROWDED OROPHARYNX, MALLAMPATI CLASS 4. Const Orientation/consciousness: patient oriented x3 HEENT Other: OROPHARYNX IS CROWDED, MALLAMPATI CLASS 4 Eyes General: appearance normal, both eyes and all related structures Neck Other: VERY SHORT AND OBESE, NECK SIZE 18 IN Chest Chest palpation & inspection: normal inspection of the chest, normal palpation of entire chest wall and no tenderness Resp Other: BREATH SOUNDS ARE VERY DISTANT ESPECIALLY OVER THE LOWER LOBES, NO WHEEZES RHONCHI OR CREPITATIONS ARE HEARD. Cardio Palpation: PMI not normal (NOT PALPABLE) Rhythm: regular rhythm Heart sounds: no gallops and no murmurs GI Other: ABDOMEN IS OBESE AND PROTUBERANT Palpation (GI): Soft to palpation, nontender and no masses Back/Spine/Pelvis Thoracic/Lumbar Spine: thoracic and lumbar spine normal to inspection and thoraco-lumbar ROM limited Skin General skin exam: no rashes or lesions noted Neuro General: patient oriented x3 Cranial nerves: Yes CN's II-XII intact bilaterally Gait exam (Neuro): Normal gait present Extrem General: Yes normal to inspection and Yes full ROM Psych Appearance: grossly normal and well kempt Results Reviewed Results Reviewed: Compliance report for the last 30 nights is reviewed. He has used 30/30 nights., 100% Average usage per night 9 hours 51 minutes, this includes some sleep during the daytime as well. Bilevel pressure 21/16 cm. There is no air leak. Residual AHI 1.9 Assessment & Plan Assessment & Plan (1) Morbid obesity: Comment: PATIENT MORBIDLY OBESE,, CURRENT BMI 55.5 GRADUALLY HE HAS LOST SOME WEIGHT. Code(s): E66.01 - Morbid (severe) obesity due to excess calories Category: Medical Plan: I TALKED TO HIM ABOUT WEIGHT REDUCTION AND CONTROLLING HIS DIETARY INTAKE. BUT BECAUSE OF HIS GASTRO PARESIS AND OTHER COMPLICATIONS IT MAY BE DIFFICULT FOR HIM TO JOIN ANY WEIGHT MANAGEMENT PROGRAM. (2) Severe sleep apnea: Comment: A CASE OF VERY SEVERE OBSTRUCTIVE AND CENTRAL SLEEP APNEA. RESPONDED TO BILEVEL PRESSURES, OPTIMAL RESULTS OBTAINED WITH PRESSURE OF 21/16 CM. HE IS USING HIS BILEVEL CPAP REGULARLY AND BENEFITING . PRESENTLY HIS COMPLIANCE IS EXCELLENT. Code(s): G47.30 - Sleep apnea, unspecified Category: Medical Plan: COMMENDED HER GOOD COMPLIANCE AND ENCOURAGED TO KEEP ON USING CPAP EVERY NIGHT. HE CAN USE THE BIPAP DURING THE DAYTIME IF HE TAKES ANY NAP IN THE AFTERNOON. (3) Asthma: Comment: He has mild bronchial asthma and uses albuterol HFA 1 or 2 puffs p.r.n., Which may be once or twice a week. He is doing well. Code(s): J45.909 - Unspecified asthma, uncomplicated Category: Medical Plan: ALBUTEROL HFA 2 PUFFS Q 6 HOURS P.R.N. Coding Level of Care Code Est Pt Level 3 (15390) Diagnoses Morbid obesity E66.01 Severe sleep apnea G47.30 Asthma J45.909
[2025-07-03 14:03] VITALS: BP 142/70; PULSE 85; O2SAT 96; BMI 45.5
--- OUTSIDE RECORDS SUMMARY | 2025-07-03 14:33 | XMS_ITS | Clinical Summary ---
Author Organization [facility] Facility Address [address] [address] Care Team Providers Care Assistant Athletic Trainer Name Role Phone Name, Dipesh WEINBERG Primary Care Provider Unavailabl e Allergies No known active allergies Medications D3 Super Strength 50 MCG (1999 UT) capsule Take 1 capsule by mouth 1 [...] 2 Active UltiCare Insulin Syringe 30G X 516 0.5 ML misc USE 4 TIMES A [...] 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 0 06/202306/18/2023 Tachycardia 12/06/2022 06/18/2023 Acute nontraumatic kidney [...] Diabetes: Visual Foot Exam 01/21/2021 Influenza Vaccine (#1) 2025 3, 12/12/2019, 10/19/2017, Additional history exists Hepatitis B Vaccine Completed 08/10/2006, 08/08/2005, 08/13/1997 Pneumococcal Vaccine: 50+ Years Discontinued 6, 11/02/2016 [place] Care Teams Assistant Athletic Trainer Relationship Specialty Start Date End Date Name, MD Dipesh PCP - General 12/09/20
--- OUTSIDE RECORDS SUMMARY | 2025-07-03 14:33 | XMS_ITS | Encounter Summary ---
Author Organization [facility] Address [address] [place] [address] [address] [place] [address] Care Team Providers Care Business Performance Specialist Name Role Phone Name, Dipesh WEINBERG Primary Care Provider PuEdel joe PharmD Unavailable Puheath, Edel PharmD Unavailable Chaim Quintana RN Unavailable [phone] Carley Abdul Unavailable Reason for Visit * Reason Comments Care Coordination C3CM- chart review Encounter Details Date Type Department Care Team (Latest Contact Info) Description 07/02/2025 Patient Outreach [facility] [address] [place], [place] [id number] Name, MD Dipesh [address] [place], [place] [phone] Care Coordination (C3CM- chart review) Social History Tobacco Use Types Packs/Day Years [...] the past 12 months, has t he [employer], gas, oil or water company threatened to [...] AM EDT documented as of this encounter Progress Notes * Chaim Quintana RN - 07/02/2025 8:12 AM EDT YASMIN Quintana RN, performed chart review, in anticipation of initial assessment with patient, aspatient has stratified for C3 Adult Complex Care through the ADT feed. History significant for asthma, cannabis abuse, chronic kidney disease, mood disorder, diabetic gastroparesis, GERD, migraine, pr eproliferative diabetic retinopathy, T1DM, FLOWER, anxiety, tobacco use, diabetic neuropathy, HTN. Specialists include [facility], [facility], [facility] optometry, ophthalmology, [facility] [place] management, [facility] pulmonology, [facility] urology, [facility] cardiovascular. ED visits within the last 12 months include [facility] 11/15/24- 11/20/24. Patient admitted to [facility] on 06/29/25 and discharged on 07/01/25 (dx: diabetic gastroparesis associated w/ T1DM, intractable vomiting). Last appointment in PCP office on 09/20/24. Next appointment scheduled for 09/11/25. documented in this encounter Plan of Treatment Upcoming Encounters Date Type Department Care Team (Late st Contact Info) Description 09/11/2025 4:00 PM EDT Office Visit [facility] [address] [facility] [place] [address] Name, MD Dipesh [address] [facility] [place] [address] documented as of this encounter Visit Diagnoses Not on filedocumented in this encounter Additional Health Concerns Assessment Noted Time PHQ-9 Depression Total Score: 11 024 4:36 PM EDT documented as of this encounter Care Teams Business Performance Specialist Relationship Specialty Start Date End Date Name, MD Dipesh [address] [facility] [place] [address] PCP - General Family Medicine 03/04/16 Edel Dupont, UrbanD [address] [place] [address] Pharmacist Internal Medicine 04/17/25 Edel Dupont, PharmD [address] [place] [address] Pharmacist Internal Medicine 04/17/25 Chaim Quintana, RN [address] [place] [id number] Registered Nurse Family Medicine 07/02/25 Carley Abdul 07/02/25 documented as of this encounter
--- OUTSIDE RECORDS SUMMARY | 2025-07-03 14:34 | XMS_ITS | Patient Health Record ---
Author Organization [facility] Address [address] [place] [address] Care Team Providers Care Curriculum Director Name Role Phone Name Dipesh WEINBERG Primary Care Provider Steve Chan Jr Unavailable [phone] Ector WEINBERG, Lazaro Unavailable Unavailable Reason For Referral No Information Plan Of Treatment No Information Insurance Providers Payer Name Payer Address Payer Phone Subscriber Number Group Number Insured Name Patient Relationship to Insured Coverage Start Date Coverage End Date MEDICAID OF [facility] [address] [place] [phone] [id number] MOUNA LERMA Self - patient is the insured
== END 2025-07-03 14:26 | disposition home or self-care (01) ==
LOC: HO.HPS 13:53
PROVIDERS: PCP Internal Medicine Geriatric Medicine; Visit Provider Internal Medicine
DX: E66.01 Morbid (severe) obesity due to excess calories (principal); G47.30 Sleep apnea, unspecified; J45.909 Unspecified asthma, uncomplicated
CPT/HCPCS: 99213

== ENCOUNTER → 2025-07-03 13:52 | Outpatient (BNVA) | payer MEDICAID, SELFPAY | PROVIDERS: PCP Internal Medicine Geriatric Medicine; Visit Provider Internal Medicine | DX: G47.33 Obstructive sleep apnea (adult) (pediatric) (principal); E66.09 Other obesity due to excess calories; Z99.89 Dependence on other enabling machines and devices | CPT/HCPCS: 99212 ==

== ENCOUNTER 2025-07-04 13:48 | Outpatient (AMB) | payer MEDICAID, SELFPAY ==
[2025-07-04 13:49] VITALS: BP 158/90; PULSE 81; O2SAT 96
--- NOTE | 2025-07-04 13:49 | HO.NEPHOV ---
Vital Signs 07/04/25 13:49 Height 5 ft 5 in BP 158/90 H Blood Pressure Location Lt brachial Position Sitting Pulse 81 Pulse Source Pulse Oximeter Pulse Oximetry (%) 96 Oxygen Delivery Method Room Air Intake Visit Reasons: 2 month follow up/ Conf Latin Teacher Required: No Accompanied by: girlfriend Allergies seafood Allergy (Unknown, Verified 07/04/25 13:51) Swelling PFSH Medical History Morbid obesity Vitamin D deficiency Tachycardia Vitamin D deficiency HTN (hypertension) Obesity (BMI 30-39.9) Hyperparathyroidism due to vitamin D deficiency Dyslipidemia Diabetic polyneuropathy associated with type 1 diabetes mellitus Diabetic gastroparesis associated with type 1 diabetes mellitus Diabetic nephropathy associated with type 1 diabetes mellitus Diabetes type 1, uncontrolled Gastroparesis H. pylori infection Asthma Gastritis Gastroparalysis Surgical History Hx of eye surgery Hx of appendectomy History of esophagogastroduodenoscopy (EGD) Family History Mother Diabetes HTN (hypertension) Father Diabetes Heart problem Son Asthma Son Asthma Social History Household Members: Family Housing: Apartment Do you presently have visiting nurse or other home services: No Alcohol intake: never Comment: sleeping Patient Tobacco Use Status: Never used Tobacco Second Hand Smoke Exposure: No Substance Use Type: Marijuana service: No Current occupational status: unemployed Results Reviewed Nephrology Results: Sodium, (135-145) 137 mmol/L 05/02/25 Potassium, (3.3-5.1) 4.4 mmol/L 05/02/25 Chloride, (96-108) 105 mmol/L 05/02/25 Carbon Dioxide, (22-29) 28 mmol/L 05/02/25 BUN, (9-16) 17 mg/dL H 05/02/25 Creatinine, (0.5-1.4) 1.30 mg/dL 05/02/25 Calcium, (8.4-10.2) 8.8 mg/dL 05/02/25 Urine Creatinine 56.21 mg/dL 04/17/25 Coding
--- NOTE | 2025-07-04 13:49 | HO.NEPHOV ---
Vital Signs 07/04/25 13:49 Height 5 ft 5 in BP 158/90 H Blood Pressure Location Lt brachial Position Sitting Pulse 81 Pulse Source Pulse Oximeter Pulse Oximetry (%) 96 Oxygen Delivery Method Room Air Intake Visit Reasons: 2 month follow up/ Conf Allergies seafood Allergy (Unknown, Verified 07/04/25 13:51) Swelling HPI Comments Details: 34-year-old male presenting with chronic kidney disease and associated hypertension. He has a history of essential hypertension diagnosed approximately two years ago. He is currently on lisinopril 5 mg and metoprolol, experiencing variable blood pressure readings with spikes related to pain or stress. The patient has been managing type 1 diabetes mellitus since childhood, with complications of eye-related surgeries following vision loss. He was previously seen by a jet inspector but hasn't had recent consultations. An increase in proteinuria has been observed, indicative of worsening renal involvement. He also reports recent weight gain and an intake of a highly salted diet. Relevant comorbidities include sleep apnea, for which he adheres to CPAP therapy, asthma, and gastroparesis. 07/04/25 Doing OK Did not take meds today [facility] Medical History Morbid obesity Vitamin D deficiency Tachycardia Vitamin D deficiency HTN (hypertension) Obesity (BMI 30-39.9) Hyperparathyroidism due to vitamin D deficiency Dyslipidemia Diabetic polyneuropathy associated with type 1 diabetes mellitus Diabetic gastroparesis associated with type 1 diabetes mellitus Diabetic nephropathy associated with type 1 diabetes mellitus Diabetes type 1, uncontrolled Gastroparesis H. pylori infection Asthma Gastritis Gastroparalysis Surgical History Hx of eye surgery Hx of appendectomy History of esophagogastroduodenoscopy (EGD) Family History Mother Diabetes HTN (hypertension) Father Diabetes Heart problem Son Asthma Son Asthma Social History Household Members: Family Housing: Apartment Do you presently have visiting nurse or other home services: No Alcohol intake: never Comment: sleeping Patient Tobacco Use Status: Never used Tobacco Second Hand Smoke Exposure: No Substance Use Type: Marijuana service: No Current occupational status: unemployed Physical Exam Vital Signs: Last Vital Signs Pulse 81 07/04/25 13:49 BP 158/90 H 07/04/25 13:49 Pulse Ox 96 07/04/25 13:49 Oxygen Delivery Method Room Air 07/04/25 13:49 Const General: comfortable Nutritional Appearance: well nourished Orientation/consciousness: patient oriented x3 HEENT Head: No normal to inspection Mouth: moist mucous membranes Neck Neck: Yes supple and Yes no JVD Resp Auscultation: clear to auscultation bilaterally, no rales and rub present Cardio Jugular venous distension: no JVD Palpation: no palpable S3 and no palpable S4 Heart sounds: no rubs GI Palpation (GI): Soft to palpation and nontender Percussion: No Fluid wave present General: Yes no CVA tenderness Back/Spine/Pelvis Back: no CVA tenderness Skin General skin exam: no rashes or lesions noted Neuro General: patient oriented x3 Extrem General: Yes no pedal edema and No clubbing Results Reviewed Nephrology Results: Sodium, (135-145) 137 mmol/L 05/02/25 Potassium, (3.3-5.1) 4.4 mmol/L 05/02/25 Chloride, (96-108) 105 mmol/L 05/02/25 Carbon Dioxide, (22-29) 28 mmol/L 05/02/25 BUN, (9-16) 17 mg/dL H 05/02/25 Creatinine, (0.5-1.4) 1.30 mg/dL 05/02/25 Calcium, (8.4-10.2) 8.8 mg/dL 05/02/25 Urine Creatinine 56.21 mg/dL 04/17/25 Assessment & Plan Assessment & Plan (1) HTN (hypertension): Code(s): I10 - Essential (primary) hypertension Category: Medical (2) Diabetic nephropathy associated with type 1 diabetes mellitus: Code(s): E10.21 - Type 1 diabetes mellitus with diabetic nephropathy Category: Medical Plan The management plan includes increasing the lisinopril dosage in a stepwise manner. It will be increased initially from 5 mg to 10 mg, with subsequent increases planned to improve kidney outcomes by addressing worsening proteinuria. Metoprolol dosages will remain constant. Goal BP < 130/80 Stay on low salt diet. Increase physical activity We will reassess the patient's renal function with follow-up blood and urine tests in two months, referral for his obesity has been arranged. The patient was counseled on improving diabetes control and the importance of consistent CPAP usage for sleep apnea. Maintain A1C < 7% Coordination with other healthcare providers will ensure comprehensive patient care. 07/04/25 Bump in creatinine due to hypoperfusion BP sub optimal due to non compliance Suggest Keep Lisinopril Discussed complaince Needs weight loss Low salt diet Increase PO fluids Avoid nephrotoxins including NSAIDS Repeat blood work ordered Dyslipidemia- follow with PCP Orders: Orders Basic Metabolic Panel 3 Months I10 - Essential (primary) hypertension Coding Level of Care Code Est Pt Level 4 (45522) Diagnoses HTN (hypertension) I10 Diabetic nephropathy associated with type 1 diabetes mellitus E10.21
--- OUTSIDE RECORDS SUMMARY | 2025-07-04 14:17 | XMS_ITS | Patient Health Record ---
Author Organization [facility] Address [address] [place] [address] Care Team Providers Care Food Processing Chemist Name Role Phone Name Dipesh WEINBERG Primary Care Provider Steve Chan Jr Unavailable [phone] Ector WEINBERG, Lazaro Unavailable Unavailable Reason For Referral No Information Plan Of Treatment No Information Insurance Providers Payer Name Payer Address Payer Phone Subscriber Number Group Number Insured Name Patient Relationship to Insured Coverage Start Date Coverage End Date MEDICAID OF [facility] [address] [place] [phone] [id number] MOUNA LERMA Self - patient is the insured
--- OUTSIDE RECORDS SUMMARY | 2025-07-04 14:17 | XMS_ITS | Clinical Summary ---
Author Organization [facility] Facility Address [address] [address] Care Team Providers Care Environmental Air Specialist Name Role Phone Name, Dipesh WEINBERG [...] Insurance [place] Care Teams Environmental Air Specialist Relationship Specialty Start Date End Date Name, MD Dipesh PCP - General 12/09/20
--- OUTSIDE RECORDS SUMMARY | 2025-07-04 14:17 | XMS_ITS | Encounter Summary ---
Author Organization [facility] [employer] Address [address] [place] [address] [address] [place] [address] Care Team Providers Care Central Aisle Cashier Name Role Phone Name, Dipesh WEINBERG Primary Care Provider [phone] PuEdel joe PharmD Unavailable Puheath, Edel PharmD Unavailable [phone] Chaim Quintana RN Unavailable [phone] Carley Abdul Unavailable Reason for Visit * Reason Comments Care Coordination C3CM- chart review Encounter Details Date Type Department Care Team (Latest Contact Info) Description 07/02/2025 Patient Outreach [facility] [address] [place], [place] [id number] Name, MD Dipesh [address] [place], [place] [id number] Care Coordination (C3CM- chart review) Social History [...] the past 12 months, has t he [employer], gas, oil or water company threatened to [...] tobacco use, diabetic neuropathy, HTN. Specialists include [facility] neurology, pharmacy [facility], [facility] optometry, ophthalmology, [facility] weight management, [facility] pulmonology, [facility] urology, [facility] cardiovascular. ED visits within the last 12 months include [facility] 11/15/24- 11/20/24. Patient admitted to [facility] on 06/29/25 and discharged on 07/01/25 (dx: diabetic gastroparesis associated w/ T1DM, intractable vomiting). Last appointment in PCP office on 09/20/24. Next appointment scheduled for 09/11/25. documented in this encounter Plan of Treatment Upcoming Encounters Date Type Department Care Team (Late st Contact Info) Description 09/11/2025 4:00 PM EDT Office Visit [facility] [address] [facility] [place] [address] Name, MD Dipesh [address] [facility] [place] [address] documented as of this encounter Visit Diagnoses Not on filedocumented in this encounter Additional Health Concerns Assessment Noted Time PHQ-9 Depression Total Score: 11 024 4:36 PM EDT documented as of this encounter Care Teams Central Aisle Cashier Relationship Specialty Start Date End Date Name, MD Dipesh [address] [facility] [place] [address] PCP - General Family Medicine 03/04/16 Edel Dupont, UrbanD [address] [place] [address] Pharmacist Internal Medicine 04/17/25 Edel Dupont, PharmD [address] [place] [address] Pharmacist Internal Medicine 04/17/25 Chaim Quintana, RN [address] [place] [id number] Registered Nurse Family Medicine 07/02/25 Carley Abdul 07/02/25 documented as of this encounter
== END 2025-07-04 14:08 | disposition home or self-care (01) ==
LOC: HO.HKAM 13:48
PROVIDERS: PCP Internal Medicine Geriatric Medicine; Visit Provider Internal Medicine Hypertension Specialist
DX: I10 Essential (primary) hypertension (principal); E10.21 Type 1 diabetes mellitus with diabetic nephropathy
CPT/HCPCS: 99214

== ENCOUNTER → 2025-07-04 13:48 | Outpatient (BNVA) | payer MEDICAID, SELFPAY | PROVIDERS: PCP Internal Medicine Geriatric Medicine; Visit Provider Internal Medicine Hypertension Specialist | DX: E10.21 Type 1 diabetes mellitus with diabetic nephropathy (principal); E10.65 Type 1 diabetes mellitus with hyperglycemia; E10.43 Type 1 diabetes mellitus with diabetic autonomic (poly)neuropathy; K31.84 Gastroparesis; E10.42 Type 1 diabetes mellitus with diabetic polyneuropathy; I10 Essential (primary) hypertension; R80.9 Proteinuria, unspecified | CPT/HCPCS: 99212 ==

== ENCOUNTER 2025-07-18 08:21 | Outpatient (AMB) | payer MEDICAID, SELFPAY ==
--- OUTSIDE RECORDS SUMMARY | 2025-07-18 08:59 | XMS_ITS | Clinical Summary ---
Author Organization [facility] Facility Address [address] [address] Care Team Providers Care Hogshead Mat Assembler Name Role Phone Name, Dipesh WEINBERG Primary Care Provider [phone] Allergies No known active allergies Medications D3 [...] Discontinued 6, 11/02/2016 Insurance Medicaid [place] Medicaid [place] Care Teams Hogshead Mat Assembler Relationship Specialty Start Date End Date Name, MD Dipesh [address] [place] [address] PCP - General 12/09/20
--- OUTSIDE RECORDS SUMMARY | 2025-07-18 09:00 | XMS_ITS | Patient Health Record ---
Author Organization [facility] Address [address] [place] [address] Care Team Providers Care Learning Facilitator Name Role Phone Name Dipesh WEINBERG Primary Care Provider Steve Chan Jr Unavailable [phone] Ector WEINBERG, Lazaro Unavailable Unavailable Reason For Referral No Information Plan Of Treatment No Information Insurance Providers Payer Name Payer Address Payer Phone Subscriber Number Group Number Insured Name Patient Relationship to Insured Coverage Start Date Coverage End Date MEDICAID OF [facility] [address] [place] [phone] [id number] MOUNA LERMA Self - patient is the insured
--- OUTSIDE RECORDS SUMMARY | 2025-07-18 09:01 | XMS_ITS | Clinical Summary ---
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 11/16/2024 5:37 AM 11/20/2024 7:32 PM This is or geraldo is used when code status has not been discussed with the patient, or code status is otherwise unknown/unconfirmed To update the patient's code status, place a code status order. Do not modify or discontinue any currently active code status orders. Care Teams [facility] Att[facility] Relationship Specialty Start Date End Date Name, MD Dipesh [address] [place] [address] PCP - General Internal Medicine 10/19/17
--- NOTE | 2025-07-18 13:48 | MHC.OFFVISWM ---
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 BMI 46.9 Allergies seafood Allergy (Unknown, Verified 07/18/25 13:48) Swelling Medication List - Last Reconciled 07/18/25 by Carlin Thornotn MD albuterol sulfate 90 mcg/actuation (Ventolin HFA) 2 puffs inhalation Q6H PRN blood sugar diagnostic (FreeStyle Lite Strips) As directed checks 4X/day blood-glucose meter (FreeStyle Lite Meter kit) As directed checking 4X/day cholecalciferol (vitamin D3) 50 mcg PO DAILY diphenhydramine HCl (Benadryl) 25 mg PO BEDTIME PRN gabapentin 300 mg PO BEDTIME insulin lispro 1 sliding scale dose subcut TIDWMEAL 30 days MDD 75 units lidocaine 5% 1 patch topical QAM lisinopril 10 mg PO QAM loperamide 2 mg PO TID PRN metoclopramide HCl (Reglan) 10 mg PO Q6H PRN metoprolol tartrate 25 mg PO BID mirtazapine 15 mg (2 x 7.5 mg) PO BEDTIME omeprazole 40 mg PO DAILY ondansetron 8 mg PO Q8H PRN oxcarbazepine 300 mg PO BID pen needle, diabetic (BD Ultra-Fine Short Pen Needle) As directed injects 5 X/day pen needle, diabetic (BD Ultra-Fine Damaris Pen Needle) As directed five times a day prazosin 2 mg PO QPM terbinafine HCl 1% 1 appl topical BID trazodone 100 mg PO DAILY Tresiba FlexTouch U-200 (insulin degludec) 50 units (0.25 mL) subcut DAILY 30 days MDD 50 units NS HPI HPI 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 Juice: zero sugar, ETOH: none PFSH Medical History (Updated 07/18/25 @ 13:59 by Carlin Thornton MD) Insomnia Anxiety Depression Bipolar 1 disorder GERD (gastroesophageal reflux disease) Morbid obesity Vitamin D deficiency Tachycardia Vitamin D deficiency HTN (hypertension) Obesity (BMI 30-39.9) Hyperparathyroidism due to vitamin D deficiency Dyslipidemia Diabetic polyneuropathy associated with type 1 diabetes mellitus Diabetic gastroparesis associated with type 1 diabetes mellitus Diabetic nephropathy associated with type 1 diabetes mellitus Diabetes type 1, uncontrolled Gastroparesis H. pylori infection Asthma Gastritis Gastroparalysis Surgical History Hx of eye surgery Hx of appendectomy History of esophagogastroduodenoscopy (EGD) Family History Mother Diabetes HTN (hypertension) Father Diabetes Heart problem Son Asthma Son Asthma Social History Household Members: Family Housing: Apartment Do you presently have visiting nurse or other home services: No Alcohol intake: never Comment: sleeping Patient Tobacco Use Status: Never used Tobacco Second Hand Smoke Exposure: No Substance Use Type: Marijuana service: No Current occupational status: unemployed Telehealth Telehealth Telehealth Platform: Telephone Location of provider rendering services: practice address Location of patient: address on file Patient Identification confirmed using: Name, : Yes Telehealth method: voice only Patient verbally consented to treatment: Yes Patient verbally consented to billing insurance company: Yes Patient informed of any privacy concerns related to visit: Yes Minutes spent on Phone/Video with Pt.: 40 Assessment & Plan Assessment & Plan (1) Morbid obesity: Comment: PATIENT MORBIDLY OBESE,, CURRENT BMI 55.5 GRADUALLY HE HAS LOST SOME WEIGHT. Code(s): E66.01 - Morbid (severe) obesity due to excess calories Category: Medical Plan: 1. We discussed in detail the available therapeutic options: 1) our lifestyle intervention program that has an average weight loss of 10% in 3 months.? 2) Weight loss medications. GLP-1 are contraindicated in type I diabetes. 2) We also discussed about the lap sleeve gastrectomy. I emphasized the importance of close follow-up, adherence to instructions and good communication. The surgery does not replace the need to change your lifestlyle which is the cause of the obesity problem. The surgery provides the motivation to try again to change your lifestyle, it reduces the appetite and make the transition to a better lifestyle easier and doubles the amount of weight you would lose compared to doing the lifestyle change without the surgery. You will need to be on a liquid diet with protein shakes for 2 weeks before surgery to maximize weight loss and boost your nutritional status to recover better from surgery and also for the first two weeks after surgery to let the stomach heal before we introduce other foods. After the first 2 weeks we will introduce protein bars and soft foods like scrambled eggs, cottage cheese and yogurt and after the 6th week will introduce meat, fish and cooked vegetables in small amounts. Over time you should be able to eat everything in small amounts. Side effects like nausea, vomiting, heartburn or abdominal pain are not common in the practice unless you are not following in the practice. This operation requires lifetime commitment to following in our practice and communication with me. You will much less weight and experience side effects if you don?t communicate or not following in the practice. Complications are rare and in our practice is about 1/10 of the national average. ?2.? Please buy the body composition scale we discussed and send me weight measurements as soon as possible and then once a week. 3. The best choice would be to purchase a stationary bike at home that can track calories. Let me know if you do so I can give you an exercise plan. Goal is to exercise for 150 minutes per week. 4. Please buy also the premade Premier protein shakes and 16gr Fit Crunch protein bars 5. Let me know when you have all the above and decide if you would like to proceed with the weight loss surgery
[2025-07-18 14:06] VITALS: BMI 46.8
== END 2025-07-18 14:25 | disposition home or self-care (01) ==
LOC: HO.HBS 08:21
PROVIDERS: PCP Internal Medicine Geriatric Medicine; Visit Provider Surgery
DX: E66.01 Morbid (severe) obesity due to excess calories (principal); Z68.42 Body mass index [BMI] 45.0-49.9, adult
CPT/HCPCS: 99203

== ENCOUNTER 2025-07-19 13:28 | Outpatient (AMB) | payer MEDICAID, SELFPAY ==
[2025-07-19 13:32] VITALS: BP 162/70; PULSE 93; BMI 45.8
--- NOTE | 2025-07-19 13:32 | MHC.OFFVIS ---
Vital Signs 07/19/25 13:32 Height 5 ft 5 in Weight 275 lb 2.19 oz BMI 45.8 BP 162/70 H Blood Pressure Location Lt brachial Position Sitting Pulse 93 Pulse Source Pulse Oximeter Intake Visit Reasons: 1 yr follow up School Lunch Monitor: School Lunch Monitor Present Allergies seafood Allergy (Unknown, Verified 07/19/25 13:34) Swelling Medication List - Last Reconciled 07/19/25 by ASHLI Nava albuterol sulfate 90 mcg/actuation (Ventolin HFA) 2 puffs inhalation Q6H PRN blood sugar diagnostic (FreeStyle Lite Strips) As directed checks 4X/day blood-glucose meter (FreeStyle Lite Meter kit) As directed checking 4X/day cholecalciferol (vitamin D3) 50 mcg PO DAILY diphenhydramine HCl (Benadryl) 25 mg PO BEDTIME PRN gabapentin 300 mg PO BEDTIME insulin lispro 1 sliding scale dose subcut TIDWMEAL 30 days MDD 75 units lidocaine 5% 1 patch topical QAM lisinopril 10 mg PO QAM loperamide 2 mg PO TID PRN metoclopramide HCl (Reglan) 10 mg PO Q6H PRN metoprolol tartrate 25 mg PO BID mirtazapine 15 mg (2 x 7.5 mg) PO BEDTIME omeprazole 40 mg PO DAILY ondansetron 8 mg PO Q8H PRN oxcarbazepine 300 mg PO BID pen needle, diabetic (BD Ultra-Fine Short Pen Needle) As directed injects 5 X/day pen needle, diabetic (BD Ultra-Fine Damaris Pen Needle) As directed five times a day prazosin 2 mg PO QPM trazodone 100 mg PO DAILY Tresiba FlexTouch U-200 (insulin degludec) 50 units (0.25 mL) subcut DAILY 30 days MDD 50 units NS HPI HPI 1 yr follow up: Details: Mc is a 34-year-old male with past medical history of hypertension, diabetes, morbid obesity, sinus tachycardia, sleep apnea who presents for follow-up. His last prior visit was 07/20/2024. Today he states that he has had no cardiac issues in the last year. He has had hospital admissions for DKA and gastroparesis. He has not had any issues with heart palpitations or sustained rapid heartbeats. He continues to take his metoprolol as directed. He reports compliance with his CPAP mask. He has shortness of breath with climbing stairs to his 3rd floor apartment. No shortness of breath at rest, PND, orthopnea or edema. No lightheadedness, presyncope, syncope. Taking meds as directed. Home blood pressures have been elevated, frequently with systolic in the 140s. States he is busy throughout the day caring for his 3 children. He is a [id number] dad. Significant other present. [facility] Medical History Insomnia Anxiety Depression Bipolar 1 disorder GERD (gastroesophageal reflux disease) Morbid obesity Vitamin D deficiency Tachycardia Vitamin D deficiency HTN (hypertension) Obesity (BMI 30-39.9) Hyperparathyroidism due to vitamin D deficiency Dyslipidemia Diabetic polyneuropathy associated with type 1 diabetes mellitus Diabetic gastroparesis associated with type 1 diabetes mellitus Diabetic nephropathy associated with type 1 diabetes mellitus Diabetes type 1, uncontrolled Gastroparesis H. pylori infection Asthma Gastritis Gastroparalysis Surgical History Hx of eye surgery Hx of appendectomy History of esophagogastroduodenoscopy (EGD) Family History Mother Diabetes HTN (hypertension) Father Diabetes Heart problem Son Asthma Son Asthma Social History Household Members: Family Housing: Apartment Do you presently have visiting nurse or other home services: No Alcohol intake: never Comment: sleeping Patient Tobacco Use Status: Never used Tobacco Second Hand Smoke Exposure: No Substance Use Type: Marijuana service: No Current occupational status: unemployed Review of Systems Const All systems reviewed & are unremarkable except as noted in HPI and below ENT Denies dizziness Card Denies chest pain, Denies chest pain at rest, Denies chest pain with activity, Denies rapid heart rate, Denies pedal edema, Denies edema, Denies leg edema, Denies lightheadedness, Denies palpitations, Denies dyspnea, Reports dyspnea on exertion and Denies orthopnea Resp Denies cough, Denies dyspnea and Reports dyspnea on exertion GI Denies hematochezia and Denies change in stool character Musc Denies abnormal gait, Denies limited range of motion, Denies muscle cramps, Denies muscle weakness, Denies numbness, Denies radiating pain into limb, Denies stiffness and Denies tingling Neuro Denies abnormal gait, Denies dizziness, Denies numbness and Denies tingling Endo Denies palpitations Physical Exam Vital Signs: Last Vital Signs Pulse 93 07/19/25 13:32 BP 162/70 H 07/19/25 13:32 BMI result Body Mass Index 45.8 Const Other: morbid obesity General: cooperative, healthy appearing, comfortable and no acute distress Orientation/consciousness: patient oriented x3 Neck Neck: Yes normal visual inspection and Yes no JVD Resp Effort & Inspection: normal respiratory effort Auscultation: clear to auscultation bilaterally, no rales, no rhonchi and no wheezes Cardio Rate: regular rate Rhythm: regular rhythm Heart sounds: S1 normal heart sound present, S2 normal heart sound present, no gallops, no murmurs and no rubs Neuro General: patient oriented x3 Extrem General: Yes normal to inspection, No no pedal edema and No calf tenderness Psych Appearance: grossly normal Mental Status: mental status grossly normal Speech and movement: Normal speech and movement present Assessment & Plan Assessment & Plan (1) Tachycardia: Code(s): R00.0 - Tachycardia, unspecified Category: Medical Plan: History of sinus tachycardia, currently controlled with metoprolol tartrate 25 mg b.i.d.. Last Echocardiogram 07/20/2023 showed EF 50-55%, unchanged from prior. Last Holter monitor 03/25/2022 showed sinus rhythm to sinus tach, average heart rate 106, heart rate range 67 to 163, 65% of the time heart rate greater than 100. An stress test done on 04/08/2022 showed decreased exercise capacity with moderate shortness of breath, no ischemia on EKG use and normal myocardial perfusion imaging, EF 69% with stress and 49% at rest. Heart tones regular on exam, rate 92. Continue metoprolol. Reviewed benefits of weight loss, maintain good hydration, CPAP compliance. Cardiology follow-up in 1 year, sooner if needed (2) Obesity (BMI 30-39.9): Code(s): E66.9 - Obesity, unspecified Category: Medical Plan: Benefits increasing physical activity and weight loss reviewed with him. He [place] [facility]. (3) HTN (hypertension): Code(s): I10 - Essential (primary) hypertension Category: Medical Plan: Blood pressure goal less than 130/80. Blood pressure elevated today, initially 162/70. Recheck done by me later in visit 148/84. Labs 05/02/2025 showed potassium 4.4, creatinine 1.3. Will increase lisinopril from 10 mg up to 20 mg daily. He has upcoming PCP visit and blood pressure will be rechecked at that time. BMP check 1-2 weeks. (4) Severe sleep apnea: Comment: A CASE OF VERY SEVERE OBSTRUCTIVE AND CENTRAL SLEEP APNEA. RESPONDED TO BILEVEL PRESSURES, OPTIMAL RESULTS OBTAINED WITH PRESSURE OF 21/16 CM. HE IS USING HIS BILEVEL CPAP REGULARLY AND BENEFITING . PRESENTLY HIS COMPLIANCE IS EXCELLENT. Code(s): G47.30 - Sleep apnea, unspecified Category: Medical Plan: He reports compliance with CPAP. Plan I discussed with the patient the importance of managing hypertension and diabetes mellitus through medication and lifestyle changes. We reviewed the plan to increase lisinopril and continue metoprolol, with follow-up labs to monitor kidney function. I emphasized the benefits of weight loss for improving hypertension and sleep apnea. The patient was advised to follow up with his primary care physician in July for further evaluation. Orders: Orders Basic Metabolic Panel Today I10 - Essential (primary) hypertension Medications: New lisinopril Dose increase 20 mg PO DAILY 30 tabs 5RF 30 days Patient Instructions: - Increase lisinopril to 20 mg as directed. - Continue taking metoprolol 25 mg twice daily. - Schedule blood work in one to two weeks to check kidney function and electrolytes. - Engage in regular physical activity and consider weight management strategies. - Follow up with primary care physician in July. Patient was informed and verbally consented to the use of an ambient scribe for clinic note documentation during this visit. Visit time spent on chart review, interview, assessment, orders, documentation. Coding Level of Care Code Est Pt Level 3 (19931) Complex EM visit Add On G2211 Diagnoses Tachycardia R00.0 Obesity (BMI 30-39.9) E66.9 HTN (hypertension) I10 Severe sleep apnea G47.30 Time Spent (min) 24
--- OUTSIDE RECORDS SUMMARY | 2025-07-19 13:39 | XMS_ITS | Clinical Summary ---
Author Organization [facility] Address [address] [place] [address] Phone Care Team Providers Care Taxation Inspector Name Role Phone Name, Dipesh WEINBERG Primary Care Provider [phone] Medications insulin lispro 100 unit/mL injection Inject [...] assoc iated with type 1 diabetes mellitus ([facility] V24, [facility] V28) 06/29/2025 FLOWER on CPAP 06/29/2025 Pneumonia 11/19/2024 Hypertension 11/19/2024 Type 1 diabetes mellitus wit h gastroparesis ([facility] V24, [facility] V28) 11/16/2024 Resolved Problems Problem Noted Date Diagnosed Date Resolved Date Sepsis ([facility] V24, [facility] V28) 11/17/2024 11/20/2024 Epigastric pain 11/17/2024 11/20/2024 Encounters Date Type Department Care Team Description 06/29/2025 6:16 PM EDT - 07/01/2025 6:20 PM EDT Hospital Encounter [facility] [address] [place] [id number] Laura Yan MD Jones, Christopher, MD Kela, MD Socorro Butler James T, MD Intractable vomiting (Primary Dx); Diabetic gastroparesis ([facility] V24, [facility] V28) Discharge Disposition: Home or Self Care from Last 3 Months Surgical History Surgery Date Site/Laterality Comments APPENDECTOMY EYE SURGERY Left Medical History Medical History Date Comments Asthma Type 1 diabetes mellitus ([facility] V24, [facility] V 28) GERD (gastroesophageal reflux disease) Diabetic gastroparesis ([facility] V24, [facility] V28 ) Hypertension FLOWER on CPAP [...] [facility] [address] [place] [address], * (ABNORMAL) Complete blood count (07/01/2025 6:02 AM EDT) WBC 13.9(H) 4.8 - 10.8 K/mcL LAB HEMETOLOGY METHOD 07/01/2025 7:49 AM [facility] RBC 4.40(L) 4.50 - 5.50 M/mcL LAB HEMETOLOGY METHOD 07/01/2025 7:49 AM [facility] Hemoglobin 12.2(L) 13.5 - 17.5 g/dL LAB HEMETOLOGY METHOD 07/01/2025 7:49 AM [facility] Hematocrit 37.7(L) 42.0 - 54.0 % LAB HEMETOLOGY METHOD 07/01/2025 7:49 AM [facility] MCV 86.3 79.0 - 98.0 FL LAB HEMETOLOGY METHOD 07/01/2025 7:49 AM [facility] MCH 27.9 27.0 - 32.0 pcg LAB HEMETOLOGY METHOD 07/01/2025 7:49 AM [facility] MCHC 32.4 32.0 - 37.0 g/dL LAB HEMETOLOGY METHOD 07/01/2025 7:49 AM [facility] RDW 14.0 11.0 - 15.0 % LAB HEMETOLOGY METHOD 07/01/2025 7:49 AM [facility] Platelets 325 130 - 400 K/mcL LAB HEMETOLOGY METHOD 07/01/2025 7:49 AM EDT [facility] MPV 11.6(H) 7.0 - 11.0 FL LAB HEMETOLOGY METHOD 07/01/2025 7:49 AM EDT [facility] NRBC 0.0 <1.0 % [facility] 07/01/2025 7:49 AM EDT [facility] NRBC Absolute 0.00 <0.10 K/mcL [facility] 07/01/2025 7:49 AM EDT [facility] Blood Venous blood specimen / Unknown Venipuncture / Unknown 07/01/2025 6:02 AM EDT 07/01/2025 6:30 AM EDT Marcell Soto MD LAB BLOOD ORDERABLE S Final Result [facility] [address] [place] [address], [place] [phone] * (ABNORMAL) Basic metabolic panel (07/01/2025 6:02 [...] mmol/L LAB [facility] Anion Gap 6 3 - 11 LAB CHEMISTRY METHOD 07/01/2025 7:46 AM EDT [facility] Glucose 97 70 - 100 mg/dL LAB CHEMISTRY METHOD 07/01/2025 7:46 AM EDT [facility] BUN 15 5 - 25 mg/dL LAB CHEMISTRY METHOD 07/01/2025 7:46 AM [facility] Creatinine 1.38(H) 0.70 - 1.30 mg/dL LAB CHEMISTRY METHOD 07/01/2025 7:46 AM T [facility] eGFR 70 >=60 mL/min/1. 73m2 LAB CHEMISTRY METHOD 07/01/2025 7:46 AM T [facility] Comment:Calculation based on the Chronic Kidney Disease Epidemiology Collaboration (CKD-EPI) equation refit without adjustment for race. BUN/Creatinine Ratio 10.9 LAB CHEMISTRY METHOD 07/01/2025 7:46 AM [facility] Calcium 9.3 8.5 - 10.5 mg/dL LAB CHEMISTRY METHOD 07/01/2025 7:46 AM [facility] Blood Venous blood specimen / Unknown Venipuncture / Unknown 07/01/2025 6:02 AM EDT 07/01/2025 6:30 AM EDT Marcell Soto MD LAB BLOOD ORDERABLE S Final Result [facility] [address] [place] [address], [place] [phone] * (ABNORMAL) Urinalysis with reflex microscopic and culture (06/30/2025 11:16 AM EDT) Specific [place] Urine 1.023 1.003 - 1.030 LAB URINALYSIS - AUTOMATED METHOD 06/30/2025 12:11 PM [facility] pH, Urine 5.5 5.0 - 8.0 pH LAB URINALYSIS - AUTOMATED METHOD 06/30/2025 12:11 PM [facility] Leukocytes, Urine Negative Negative LAB URINALYSIS - AUTOMATED METHOD 06/30/2025 12:11 PM [facility] Nitrite, Urine Negative Negative LAB URINALYSIS - AUTOMATED METHOD 06/30/2025 12:11 PM [facility] Protein, Urine >=1000(A) <=Trace mg/dL LAB URINALYSIS - AUTOMATED METHOD 06/30/2025 12:11 PM [facility] Glucose, Urine 500(A) Negative mg/dL LAB URINALYSIS - AUTOMATED METHOD 06/30/2025 12:11 PM [facility] Ketones, Urine Negative Negative mg/dL LAB URINALYSIS - AUTOMATED METHOD 06/30/2025 12:11 PM [facility] Urobilinogen , Urine 0.2 0.2 - 1.0 mg/dL LAB URINALYSIS - AUTOMATED METHOD 06/30/2025 12:11 PM [facility] Bilirubin, Urine Negative Negative LAB URINALYSIS - AUTOMATED METHOD 06/30/2025 12:11 PM [facility] Blood, Urine Small(A) Negative LAB URINALYSIS - AUTOMATED METHOD 06/30/2025 12:11 PM [facility] RBC, Urine 3.8 0 - 4 /HPF LAB URINALYSIS - AUTOMATED METHOD 06/30/2025 12:11 PM [facility] WBC, Urine 2.5 0 - 4 /HPF LAB URINALYSIS - AUTOMATED METHOD 06/30/2025 12:11 PM [facility] Squamous Epithelial, Urine 26 0 - 60 /LPF LAB URINALYSIS - AUTOMATED METHOD 06/30/2025 12:11 PM [facility] Bacteria, Urine Negative Negative /HPF LAB URINALYSIS - AUTOMATED METHOD 06/30/2025 12:11 PM [facility] Hyaline Casts, Urine 7.2(H) 0 [...] ORDERABLE S Final Result Performing Organization Address City/[facility]/ZIP Co de Phone Number [facility] [address] [place] [address], [place] [phone] * Allen urine culture tube (06/30/2025 11:16 AM EDT) Extra Tube Hold for add-ons. 06/30/2025 1:01 PM EDT [facility] Comment:Auto resulted. Urine Urine specimen obtained by clean catch procedure / Unknown Non-blood Collection / Unknown 06/30/2025 11:16 AM EDT 06/30/2025 11:36 AM EDT us Marcell Soto MD LAB URINE ORDERABLE S Final Result Performing Organization Address City/[facility]/ZIP Co de Phone Number [facility] [address] [place] [address], [place] [phone] * (ABNORMAL) CBC auto differential (06/30/2025 6:18 AM EDT) Only the most recent of2 resultswithin the time period is included. WBC 18.4(H) 4.8 - 10.8 K/[facility] HEMETOLOGY METHOD 06/30/2025 8:27 AM EDT [facility] RBC 4.30(L) 4.50 - 5.50 M/[facility] HEMETOLOGY METHOD 06/30/2025 8:27 AM [facility] Hemoglobin 12.0(L) 13.5 - 17.5 g/dL LAB HEMETOLOGY METHOD 06/30/2025 8:27 AM [facility] Hematocrit 36.1(L) 42.0 - 54.0 % LAB HEMETOLOGY METHOD 06/30/2025 8:27 AM [facility] MCV 84.7 79.0 - 98.0 FL LAB HEMETOLOGY METHOD 06/30/2025 8:27 AM [facility] MCH 28.2 27.0 - 32.0 pcg LAB HEMETOLOGY METHOD 06/30/2025 8:27 AM [facility] MCHC 33.2 32.0 - 37.0 g/dL LAB HEMETOLOGY METHOD 06/30/2025 8:27 AM [facility] RDW 14.1 11.0 - 15.0 % LAB HEMETOLOGY METHOD 06/30/2025 8:27 AM [facility] Platelets 06/30/2025 8:27 AM [facility] Comment:Not measured. Platel ets appear adequate but clumped MPV 12.6(H) 7.0 - 11.0 FL LAB HEMETOLOGY METHOD 06/30/2025 8:27 AM [facility] NRBC 0.0 <1.0 % LAB HEMETOLOGY METHOD 06/30/2025 8:27 AM [facility] NRBC Absolute 0.00 <0.10 K/mcL LAB HEMETOLOGY METHOD 06/30/2025 8:27 AM [facility] Neutrophils Relative 86.9 % LAB HEMETOLOGY METHOD 06/30/2025 8:27 AM [facility] Lymphocytes Relative 7.2 % LAB HEMETOLOGY METHOD 06/30/2025 8:27 AM [facility] Monocytes Relative 4.8 % LAB HEMETOLOGY METHOD 06/30/2025 8:27 AM [facility] Eosinophils Relative 0.2 % LAB HEMETOLOGY METHOD 06/30/2025 8:27 AM [facility] Basophils Relative 0.2 % LAB HEMETOLOGY METHOD 06/30/2025 8:27 AM [facility] Immature Granulocytes Relative 0.7 % LAB HEMETOLOGY METHOD 06/30/2025 8:27 AM [facility] Neutrophils Absolute 15.99(H) 1.50 - 7.00 K/mcL LAB HEMETOLOGY METHOD 06/30/2025 8:27 AM [facility] Lymphocytes Absolute 1.32 1.00 - 5.00 K/mcL LAB HEMETOLOGY METHOD 06/30/2025 8:27 AM [facility] Monocytes Absolute 0.88 0.20 - 1.00 K/mcL LAB HEMETOLOGY METHOD 06/30/2025 8:27 AM [facility] Eosinophils Absolute 0.04 0.00 - 0.50 K/mcL LAB HEMETOLOGY METHOD 06/30/2025 8:27 AM [facility] Basophils Absolute 0.04 0.00 - 0.20 K/mcL LAB HEMETOLOGY METHOD 06/30/2025 8:27 AM [facility] Immature Granulocytes Absolute 0.13(H) 0.00 - 0.03 K/mcL LAB HEMETOLOGY METHOD 06/30/2025 8:27 AM [facility] Blood Venous blood specimen / Unknown Venipuncture / Unknown 06/30/2025 6:18 AM EDT 06/30/2025 6:33 AM EDT Fei Narayanan MD LAB BLOOD ORDERABLES Final Result [facility] [address] [place] [address], [place] [phone] * Magnesium (06/30/2025 6:18 AM EDT) Only [...] BLOOD ORDERABLES Final Result Performing Organization Address [facility] de Phone Number [facility] [address] [place] [address], * CT Abdomen Pelvis w Contrast (06/29/2025 [...] of2 resultswithin the time period is included. [facility] High Sensitivity Troponin I <3 <=79 ng/L [...] t [facility] [address] [place] [address], [place] [phone] * (ABNORMAL) Beta hydroxybutyrate (06/29/2025 7:03 PM EDT) [facility] Beta-Hydroxybu tyrate 4.9(H) 0.2 - 2.8 mg/dL LAB CHEMISTRY METHOD 06/29/2025 7:37 PM EDT [facility] Blood Venous blood specimen / Unknown Venipuncture / Unknown 06/29/2025 7:03 PM EDT 06/29/2025 7:10 PM EDT us Laura Yan MD LAB BLOOD ORDERABLES Final Resul t [facility] [address] [place] [address], [place] [phone] * Lipase (06/29/2025 7:03 PM EDT) [facility] Lipase 15 13 - 75 unit/L LAB CHEMISTRY METHOD 06/29/2025 7:38 PM EDT [facility] Blood Venous blood specimen / Unknown Venipuncture / Unknown 06/29/2025 7:03 PM EDT 06/29/2025 7:10 PM EDT us Laura Yan MD LAB BLOOD ORDERABLES Final Resul t Performing Organization Address City/[facility]/ZIP Co de Phone Number [facility] [address] [place] [address], [place] [phone] * Venous blood gas (06/29/2025 7:03 PM EDT) [facility] pH, Brent 7.39 7.32 - 7.42 pH [...] t [facility] [address] [place] [address], [place] [phone] * (ABNORMAL) Comprehensive metabolic panel (06/29/2025 7:03 PM EDT) Sodium 133 133 - 145 mmol/L LAB CHEMISTRY METHOD 06/29/2025 8:25 PM [facility] Potassium 5.0 3.5 - 5.5 mmol/L LAB CHEMISTRY METHOD 06/29/2025 8:25 PM [facility] Chloride 102 96 - 110 mmol/L LAB CHEMISTRY METHOD 06/29/2025 8:25 PM [facility] CO2 26 21 - 32 mmol/L LAB CHEMISTRY METHOD 06/29/2025 8:25 PM [facility] Anion Gap 5 3 - 11 LAB CHEMISTRY METHOD 06/29/2025 8:25 PM [facility] Glucose 445(HH) 70 - 100 mg/dL LAB CHEMISTRY METHOD 06/29/2025 8:25 PM [facility] BUN 23 5 - 25 mg/dL LAB CHEMISTRY METHOD 06/29/2025 8:25 PM [facility] Creatinine 1.85(H) 0.70 - 1.30 mg/dL LAB CHEMISTRY METHOD 06/29/2025 8:25 PM [facility] eGFR 49(L) >=60 mL/min/1. 73m2 LAB CHEMISTRY METHOD 06/29/2025 8:25 PM [facility] Comment:Calculation based on the Chronic Kidney Disease Epidemiology Collaboration (CKD-EPI) equation refit without adjustment for race. BUN/Creatinine Ratio 12.4 LAB CHEMISTRY METHOD 06/29/2025 8:25 PM [facility] Calcium 9.5 8.5 - 10.5 mg/dL LAB CHEMISTRY METHOD 06/29/2025 8:25 PM [facility] AST (SGOT) 17 10 - [...] t [facility] [address] [place] [address], * ECG 12 lead (06/29/2025 6:31 PM EDT) Ventricular Rate ECG 80 BPM [facility] Atrial Rate 80 BPM GEM[facility] P-R Interval 144 ms GEMUSE QRS Duration 74 ms GEMUSE Q-T Interval 382 ms GEMUSE QTc 440 ms GEMUSE P Wave Evant 48 degrees GEMUSE R Evant 14 degrees GEMUSE T Evant 34 degrees GEMUSE ECG Interpretation Sinus rhythm with Premature supraventricular complexes Otherwise normal ECG When compared with ECG of 19-NOV-2024 02:38, Premature supraventricular complexes are now Present Confirmed by Afsaneh JENOG YUFENG ([id number]) on 06/29/2025 9:06:09 PM [facility] 06/29/2025 6:31 PM EDT 06/29/2025 9:06 PM EDT us Laura Yan MD ECG ORDERABLES Final Result G[facility] from Last 3 Months Insurance MEDICAID [facility] Advance Directives * Full Code - Default [...] currently active code status orders. Care Teams Taxation Inspector Relationship Specialty Start Date End Date Name, MD Dipesh [address] [place] [address] PCP - General Internal Medicine 10/19/17
--- OUTSIDE RECORDS SUMMARY | 2025-07-19 13:39 | XMS_ITS | Clinical Summary ---
Author Organization [employer] Address [address] [place] [address] [address] [place] [address] Care Team Providers Care Children'S Literature Professor Name Role Phone Name, Dipesh WEINBERG Primary Care Provider [phone] Puia, Edel PharmD Unavailable Puia, Edel PharmD Unavailable Allergies Active Allergy Reactions Criticality Noted Date Comments Fish-Derived Products Anaphylaxis High 09/24/2023 Medications albuterol 108 (90 Base) MCG/ACT inhaler inhale 2 puff by inhalation route 4 times every day as needed as needed for cough, wheeze, sob 1 Active atorvastatin (Lipitor) 40 MG tablet TAKE 1 TABLET BY MOUTH EVERY DAY AT BEDTIME 2 Active D3 Super Strength 50 MCG (2000 UT) capsule TAKE 1 CAPSULE BY MOUTH DAILY 2 Active Baqsimi Two Pack 3 MG/DOSE nasal powder PLEASE SEE ATTACHED FOR DETAILED DIRECTIONS 2 Active mirtazapine (Remeron) 7.5 MG tablet TAKE 2 TABLETS BY MOUTH DAILY AT BEDTIME 2 Active prazosin (Minipress) 2 MG capsule TAKE 1 CAPSULE BY MOUTH EVERY DAY IN THE EVENING 2 Active traZODone (Desyrel) 100 MG tablet TAKE 1 TO 2 TABLETS BY MOUTH AT BEDTIME NEEDED 2 Active Blood Pressure Monitoring (Comfort Touch BP Cuff/Large) miscIndications:P rimary hypertension 1 kit 2 times daily. 1 each 3 Active insulin degludec (Tresiba FlexTouch) 200 UNIT/ML injection 50 units once a day 4 Active BD Pen Needle Damaris 2nd Gen 32G X 4 MM miscIndications:T ype 1 diabetes mellitus with hyperglycemia (CMS/HCC) INJECT 1 EACH UNDER THE SKIN IF NEEDED 3 TIMES A DAY USE INSTRUCTED 100 each 3 4 Active metoprolol tartrate (Lopressor) 25 MG tablet Take 1 tablet (25 mg) by mouth 2 times daily. 60 tablet 11 4 025 Active gabapentin (Neurontin) 100 MG capsule Take 3 capsules (300 mg) by mouth at bedtime. 30 capsule 3 4 025 Active Additional Information Patient not taking.Reason: last filled 12/2024 for 10d, Reported on 04/17/2025 insulin lispro (HumaLOG) 100 UNIT/ML injection INJECT 20 UNITS UNDER THE SKIN BEFORE BREAKFAST, BEFORE LUNCH, AND BEFORE EVENING MEAL 5 Active OXcarbazepine (Trileptal) 300 MG tablet [...] A MEAL 90 capsule 1 5 Active metoclopramide (Reglan) 10 MG tabletIndications :Diabetic gastroparesis (CMS/HCC) (CMS/HCC) TAKE 1 TABLET BY MOUTH BEFORE BREAKFAST, BEFORE LUNCH AND BEFORE EVENING MEAL 60 tablet 3 5 Active lisinopril 10 MG tablet Take 10 mg by mouth in the morning. 5 Active Active Problems Patient Care Coordination No te Formatting of this note migh t be different from the original. 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 (CMS /HCC) 12/06/2018 Obstructive sleep apnea syndrome 01/04/2018 Allergic rhinitis 01/04/2018 Anxiety 01/04/2018 Tobacco use 01/04/2018 Cannabis abuse 04/21/2017 Leukocytosis 04/21/2017 Preproliferative diabetic retinopathy 01/29/2014 Mood disorder 12/20/2013 Asthma 07/01/2012 Type 1 diabetes mellitus 06/24/2012 Assessment & Plan (12/15/2022 10:18 AM EST): -Able to schedule same day follow up with [facility], pt to present to appt now Humalog siliding scale: 10 units before breakfast & lunch 20 units before dinner 8 units before snack Correction Dose: 180-220 : 6 units 220-300: 8 units 300-360 units: 10 units -ED precautions reviewed [...] Encounters Date Type Department Care Team Description 07/06/2025 Patient Outreach [facility] [place] [address] Dipesh Koch MD Care Coordination (C3 -[facility] Carley Shoemakerz telephone call outreach) 07/06/2025 Patient Outreach [facility] [place] [address] Dipesh Koch MD Transition Of Care (Tcm) ([facility] unscheduled) 07/02/2025 Patient Outreach [facility] [place] [address] Dipesh Koch MD Transition Of Care (Tcm) (F unscheduled) 07/02/2025 Patient Outreach [facility] [place] [address] Dipesh Koch MD 07/02/2025 Patient Outreach [facility] [place] [address] Dipesh Koch MD Care Coordination ([facility]- chart review) 07/02/2025 Patient Outreach [facility] [place] [address] Dipesh Koch MD 06/29/2025 Telephone [facility] [place] [address] Daniela Garcia MA july06/13/2025 Telephone [facility] [place] [address] Dipesh Koch MD 05/19/2025 Refill [facility] [place] [address] Dipesh Koch MD Diabetic gastroparesis ([facility]) ([facility]) 05/02/2025 Orders Only [facility] [place] [address] Dipesh Koch MD from Last 3 Months Immunizations Immunization Administration [...] is your housing situation today? I have radhalayla kelly 09/13/[address] you [...] 92 10/13/2024 9:52 AM EST Temperature 36.7 C (98.1 F) 10/13/2024 9:52 AM EST Respiratory Rate 18 10/13/2024 9:52 AM EST [...] Description 09/11/2025 4:00 PM EDT Office Visit [facility] [address] [place] [phone] Name, MD Dipesh [address] [place] [address] Health Maintenance Due Date Last Done Comments HIV Screening 1992 Disability Screening 1992 IPV Vaccines (3 of 3 - 4-dose series) 01/31/1998 08/03/1997, 02/20/1994 Alcohol/Substance Use Screening 2004 Family Planning (PISQ) 2007 HPV Vaccines (1 - Male 3-dose series) 2007 Hepatitis C Screening 2010 Pneumococcal Vaccine: Pediatrics (0 to 5 Years) and At-Risk Patients (6 to 49) Years (2 of 2 - PCV) 11/02/2017 11/02/2016 COVID-19 Vaccine ( season) 2024 SDOH Screening 03/10/2025 03/10/2024 Depression Monitoring 03/21/2025 09/20/2024, 024 Eye Exam 05/18/2025 05/18/2024, 04/30, 05/18/2024, Additional history exists Diabetes: Hemoglobin A1C 07/18/2025 025, 08/22/2024, 06/20/2024, Additional history exists Influenza Vaccine (#1) 2025 3, 11/29/2022, 12/12/2019, Additional history exists Diabetes: Foot Exam 09/20/2025 09/20/2024, 09/20/2024, 09/20/2024, Additional history exists Tobacco Screening 01/29/2026 01/29/2025 Lipid Panel 05/02/2026 05/02/2025, 05/02/2025 DTaP/Tdap/Td Vaccines (6 - Td or Tdap) [...] Hepatitis B Vaccines Completed 08/10/2006, 08/08/2005, 08/13/1997 Hepatitis A Vaccines Aged Out No long [...] Procedure Name Priority Date/Time Associated Diagnosis Comments DIRECT LDL Routine 05/02/2025 7:05 PM EDT LIPID PANEL WITH REFLEX TO DIRECT LDL Routine 05/02/2025 3:01 PM EDT BASIC METABOLIC PANEL Routine 05/02/2025 3:01 PM EDT HEPATIC FUNCTION PANEL Routine 05/02/2025 3:01 PM EDT HEMOGLOBIN A1C Routine 04/17/2025 10:40 AM EDT from Last 3 Months or Most Recently Relevant to Health Maintenance Results * (ABNORMAL) Direct LDL (05/02/2025 7:05 PM EDT) LDL Direct 142(H) <100 mg/dL [facility] Comment:Greatly elevated Tri glycerides values (>1200 mg/dL)interfere with the dLDL assay.Desirable range <100 mg/dL for primary prevention;<70 mg/dL for patients with CHD or diabetic patientswith > or = 2 CHD risk factors.THIS TEST WAS PERFORMED AT:[facility] [place] [phone] DURAN MD 05/02/2025 7:05 PM EDT 05/02/2025 7:05 PM EDT us Dipesh Name LAB BLOOD ORDERABLES Final Resul t [facility] [address] [place] [phone] * (ABNORMAL) Lipid Panel with Reflex to Direct LDL (05/02/2025 3:01 PM EDT) Triglycerides 404(H) <150 mg/dL [facility] Comment:Desirable Triglyceri de: less than 150 mg/dLBorderline High Triglyceride 150-199 mg/dLHigh Triglyceride: 200-499 mg/dLVery High Triglyceride: greater than or equal to 5OO mg/dL Cholesterol 242(H) <200 mg/dL [facility] Comment:Desirable Cholestero l: less than 200 mg/dLBorderline High Cholesterol: 200-239 mg/dLHigh Cholesterol: greater than 239 mg/dL LDL Cholesterol Calculated TNP <100 mg/dL [facility] Comment:Unable to calculate the LDL. The formula of FriedwaldSantos, and Richie is only valid if the triglycerides areless than 400 mg/dl. HDL Cholesterol 38(L) >40 mg/dL [facility] Comment:Desirable HDL: great er than 40 mg/dL Note: This HDL assay may give artificially low results in patients with liver disease. 05/02/2025 3:01 PM EDT 05/02/2025 4:05 PM EDT us Dipesh Koch MD LAB BLOOD ORDERABLES Final Resul t Performing Organization Address City/[facility]/ZIP Co de Phone Number [facility] [address] [place] [phone] * (ABNORMAL) Hepatic Function Panel (05/02/2025 3:01 PM EDT) Bilirubin, Total 0.2 0.0 - 1.0 mg/dL [facility] Bilirubin, Direct <0.2 0.0 - 0.5 mg/dL [facility] Aspartate Amino Transferase 27 5 - 37 U/L [facility] Alanine Aminotransferase 25 0 - 40 U/L [facility] Total Protein 6.7 6.5 - 8.0 g/dL [facility] Albumin Level 3.4(L) 3.5 - 5.0 g/dL [facility] Alkaline Phosphatase 183(H) 39 - 117 U/L [facility] 05/02/2025 3:01 PM EDT 05/02/2025 4:05 PM EDT us Dipesh Koch MD LAB BLOOD ORDERABLES Final Resul t Performing Organization Address [facility]/ZIP Co de Phone Number [facility] [address] [place] [phone] * (ABNORMAL) Basic Metabolic Panel (05/02/2025 3:01 PM EDT) Sodium 137 135 - 145 mmol/L [facility] Potassium 4.4 3.3 - 5.1 mmol/L [facility] Chloride 105 96 - 108 mmol/L [facility] Carbon Dioxide 28 22 - 29 mmol/L [facility] Anion Gap 8(L) 12 - 20 [facility] Urea Nitrogen (BUN) 17(H) 9 - 16 mg/dL [facility] Creatinine, Serum 1.30 0.5 - 1.4 mg/dL [facility] Estimated Glomerular Filt Rate >60 [facility] Comment:Chronic Kidney Disea se: Estimated GFR < 60 mL/min/1.36v7Wjyodd Kidney Disease: Estimated GFR < 15 mL/min/1.73m2 Glucose 220(H) 60 - 115 mg/dL [facility] Calcium 8.8 8.4 - 10.2 mg/dL [facility] 05/02/2025 3:01 PM EDT 05/02/2025 4:05 PM EDT us Dipesh Name LAB BLOOD ORDERABLES Final Resul t [facility] [address] [place] [phone] * (ABNORMAL) Hemoglobin A1c (04/17/2025 10:40 AM EDT) Hemoglobin A1c 9.4(H) <6.0 % [facility] Comment:Hemoglobin A1C Refer ence Range Adults: 4.8 - 6.0 % Non diabetic: < 6.0 % Goal: < 7.0 %Additional Action Suggested: > 8.0 %Note: Hemoglobin A1c results are invalid for patients with abnormal amounts of HbF. Blood transfusions may impact the HbA1c concentration in the patient sample. Estimated Average Glucose 223 mg/dL [facility] Comment:eAG = Estimated ave rage glucose which is %A1C expressed asaverage glucose, using the formula of the [id number]-[id number] Glucose study (ADAG), Diabetes Care, Vol.31,#8,Jun. 2007 04/17/2025 10:4 0 AM EDT 04/17/2025 11:25 AM EDT us Dipesh Name LAB BLOOD ORDERABLES Final Resul t [facility] [address] [place] [phone] from Last 3 Months or Most Recently Relevant to Health Maintenance Insurance [email or web address] C3 Care Teams Children'S Literature Professor Relationship Specialty Start Date End Date Name, MD Dipesh [address] [place] [address] PCP - General Family Medicine 03/04/16 Edel Dupont, UrbanD [address] [place], [place] Pharmacist Internal Medicine 04/17/25 Edel Dupont, UrbanD [address] [place] [phone] Pharmacist Internal Medicine 04/17/25
--- OUTSIDE RECORDS SUMMARY | 2025-07-19 13:39 | XMS_ITS | Clinical Summary ---
Author Organization [facility] Address [address] [address] Care Team Providers Care Bread Supervisor Name Role Phone Name, Dipesh WEINBERG Primary Care Provider [phone] Allergies No known active allergies Medications D3 [...] Discontinued 6, 11/02/2016 Insurance Medicaid [place] Medicaid [place] Care Teams Bread Supervisor Relationship Specialty Start Date End Date Name, MD Dipesh [address] [place] [address] PCP - General 12/09/20
--- OUTSIDE RECORDS SUMMARY | 2025-07-19 13:39 | XMS_ITS | Patient Health Record ---
Author Organization [facility] Address [address] [place] [address] Care Team Providers Care Professor Computer Science Name Role Phone Name Dipesh WEINBERG Primary Care Provider Steve Chan Jr Unavailable Ector WEINBERG, Lazaro Unavailable Unavailable Reason For Referral No Information Plan Of Treatment No Information Insurance Providers Payer Name Payer Address Payer Phone Subscriber Number Group Number Insured Name Patient Relationship to Insured Coverage Start Date Coverage End Date [employer] OF [facility] [address] [place] [phone] [id number] MOUNA LERMA Self - patient is the insured
== END 2025-07-19 13:57 | disposition home or self-care (01) ==
LOC: HO.HCS 13:28
PROVIDERS: PCP Internal Medicine Geriatric Medicine; Visit Provider Nurse Practitioner Family
DX: R00.0 Tachycardia, unspecified (principal); E66.9 Obesity, unspecified; I10 Essential (primary) hypertension; G47.30 Sleep apnea, unspecified
CPT/HCPCS: 99213

== ENCOUNTER → 2025-07-19 13:28 | Outpatient (BNVA) | payer MEDICAID, SELFPAY | PROVIDERS: PCP Internal Medicine Geriatric Medicine; Visit Provider Nurse Practitioner Family | DX: I10 Essential (primary) hypertension (principal); R00.0 Tachycardia, unspecified; G47.30 Sleep apnea, unspecified; E66.9 Obesity, unspecified; Z99.89 Dependence on other enabling machines and devices | CPT/HCPCS: 99212 ==

== ENCOUNTER 2025-10-09 12:59 | Outpatient (AMB) | payer MEDICAID, SELFPAY ==
--- NOTE | 2025-10-09 13:02 | A.OFFVIS_ITS ---
Vital Signs 3 10/09/25 13:08 Height 5 ft 5 in Weight 279 lb 15.793 oz BMI 46.6 BP 134/80 Blood Pressure Location Rt brachial Position Sitting Pulse 82 Pulse Source Pulse Oximeter Pulse Oximetry (%) 96 Oxygen Delivery Method Room Air Intake Visit Reasons: Type 1 DM Intake Note: Patient presents today to re-establish treatment for Type 1 Diabetes Mellitus: Last seen on 06/20/2024 by Eileen Mota NP. Last Diabetic eye exam was on: 08/2025, [facility] Last Podiatry exam was on: Patient does not see a Finisher Polisher Most recent HbA1c: 10.0%, 10/09/2025 Random Glucose: 293 mg/dL L Educational Recruiter Required: No Accompanied by: Self / Same As Patient Allergies seafood Allergy (Unknown, Verified 10/09/25 13:10) Swelling Medication List - Last Reconciled 10/09/25 by Cl Moreno MD albuterol sulfate 90 mcg/actuation (Ventolin HFA) 2 puffs inhalation Q6H PRN blood sugar diagnostic (FreeStyle Lite Strips) As directed checks 4X/day blood-glucose meter (FreeStyle Lite Meter kit) As directed checking 4X/day blood-glucose sensor (Dexcom G7 Sensor device) As directed cholecalciferol (vitamin D3) 50 mcg PO DAILY diphenhydramine HCl (Benadryl) 25 mg PO BEDTIME PRN gabapentin 300 mg PO TID insulin degludec (Tresiba FlexTouch U-200 insulin) 44 units subcut DAILY insulin lispro 1 sliding scale dose subcut TIDWMEAL 30 days MDD 75 units lidocaine 5% 1 patch topical QAM lisinopril 20 mg PO DAILY 30 days loperamide 2 mg PO TID PRN metoclopramide HCl (Reglan) 10 mg PO Q6H PRN metoprolol tartrate 25 mg PO BID mirtazapine 15 mg (2 x 7.5 mg) PO BEDTIME omeprazole 40 mg PO DAILY ondansetron 8 mg PO Q8H PRN oxcarbazepine 450 mg PO BID pen needle, diabetic (BD Ultra-Fine Short Pen Needle) As directed injects 5 X/day pen needle, diabetic (BD Ultra-Fine Damaris Pen Needle) As directed five times a day prazosin 2 mg PO QPM trazodone 100 mg PO DAILY HPI Comments Details: Patient is a 32-year-old male with DM type 1 diagnosed at the age of 7 who presents for management of diabetes. Last seen by Eileen Mota NP on 06/20/2024. This is my 1st time seeing this patient. Diagnosed age 7years Current medication: Humolog SS (10 B/L and 20 D) and Tresiba 44 units nightime Previous medication: Ominpod pump. Blood sugar: not checking his BG as he ran out of sensor. No data to review Hypoglycemia: 3x per week, specially when he does not eat as much DKA: 6 months Macrovascular complications: PVD, CVA, ND Microvascular complications: +Retinopathy, Nephropathy, +Neuropathy Diet B: no L: sandwich, sometimes fast food, sometimes rice, beans, chicken D: rice, beans and meats Snack: 2-3x/day. apple, grapes, bananas, sometimes chips Soda: no Weight: has mostly gained weight, but is up and down Exercise: no Eye doctor: last month has had injections for DR in both eyes Podiatry: needs referral Lipids: will order Physical exam General: Obese, NAD. CV: Regular heart rate and rhythm. Peripheral pulses present, no edema. Resp: Lungs clear to auscultation bilaterally Abdomen: Soft, nontender. nondistended. Insulin injection/pump site: no lipodistrophy Extremities/Neuro: No weakness or edema. monofilament exam: preserved bilaterally Diabetic Foot Exam: Ulcers, wounds, calluses, deformities. Labs: No new labs CGM data: No data to review [facility] Medical History Insomnia Anxiety Depression Bipolar 1 disorder GERD (gastroesophageal reflux disease) Morbid obesity Vitamin D deficiency Tachycardia Vitamin D deficiency HTN (hypertension) Obesity (BMI 30-39.9) Hyperparathyroidism due to vitamin D deficiency Dyslipidemia Diabetic polyneuropathy associated with type 1 diabetes mellitus Diabetic gastroparesis associated with type 1 diabetes mellitus Diabetic nephropathy associated with type 1 diabetes mellitus Diabetes type 1, uncontrolled Gastroparesis H. pylori infection Asthma Gastritis Gastroparalysis Surgical History Hx of eye surgery Hx of appendectomy History of esophagogastroduodenoscopy (EGD) Family History Mother Diabetes HTN (hypertension) Father Diabetes Heart problem Son Asthma Son Asthma Social History Household Members: Family Housing: Apartment Do you presently have visiting nurse or other home services: No Alcohol intake: never Comment: sleeping Patient Tobacco Use Status: Never used Tobacco Second Hand Smoke Exposure: No Substance Use Type: Marijuana service: No Current occupational status: unemployed Physical Exam Vital Signs: Last Vital Signs Pulse 82 10/09/25 13:08 BP 134/80 10/09/25 13:08 Pulse Ox 96 10/09/25 13:08 Oxygen Delivery Method Room Air 10/09/25 13:08 BMI result Body Mass Index 46.6 Results AMB Hemoglobin A1c 2 AMB Hemoglobin A1c 10.0 % Last Edit by BERTA Mckeon on 10/09/25 13:2 6 Results Reviewed Results Reviewed: Laboratory Last Values Glucose (Clinic) 293 mg/dL (60-115) H 10/09/25 13:17 Hgb A1c (Clinic) 10.0 % (4.0-6.0) H 10/09/25 13:26 Assessment & Plan Assessment & Plan (1) Diabetes type 1, uncontrolled: Code(s): E10.65 - Type 1 diabetes mellitus with hyperglycemia Category: Medical Plan: T1DM with hyperglycemia likely due to non compliance with medications and dietary recommendations. He is interested on trying insulin pump. Plan Continue Tresiba 44 units daily Use Sliding SS as below Advice to decrease simple carbs intake Encourage to encrease physical activity hypoglycemia management instructions provided Ketone testing instructions discussed Discussed restarting insulin pump therapy, patient agreed to see telehealth nurse educator to start the process Provided refills for all needed meds and provided with a sensor sample (2) Vitamin D deficiency: Code(s): E55.9 - Vitamin D deficiency, unspecified Category: Medical Plan: Taking Vitamin D 1000 IU daily Last vitamin D level 03/2022 6.7 Advised to obtain new levels Plan 70 minutes spent reviewing previous records, labs, imaging, education and documenting in the chart Orders: Orders 2 TSH reflex Free T4 Today E10.65 - Type 1 diabetes mellitus with hyperglycemia Vitamin D 25-OH Total Today E55.9 - Vitamin D deficiency, unspecified AMB Hemoglobin A1c Today E10.65 - Type 1 diabetes mellitus with hyperglycemia Basic Metabolic Panel Today E10.65 - Type 1 diabetes mellitus with hyperglycemia Lipid Panel Today E10.65 - Type 1 diabetes mellitus with hyperglycemia Referrals 2 Diabetes Education Referral E10.65 - Type 1 diabetes mellitus with hyperglycemia Podiatry Referral E10.65 - Type 1 diabetes mellitus with hyperglycemia Medications: New 2 insulin degludec (Tresiba FlexTouch U-200 insulin) 44 units (0.22 mL) subcut DAILY 9 mL 6RF E10.65 - Type 1 diabetes mellitus with hyperglycemia acetone (urine) test (Ketone Care strips) As directed to measure urine ketones PRN 100 ea 3RF lancets (E-Z Ject Lancets) As directed to check BG 3-4 times per day 100 ea 6RF blood-glucose sensor (FreeStyle Saranya 3 Plus Sensor device) As directed to measure BG continuously 2 ea 6RF E10.65 - Type 1 diabetes mellitus with hyperglycemia Refilled 2 insulin lispro 5-25 units tid with meals per written sliding scale 1 sliding scale dose subcut TIDWMEAL 30 mL 1RF 30 days MDD 75 units E10.21 - Type 1 diabetes mellitus with diabetic nephropathy blood-glucose meter (FreeStyle Lite Meter kit) As directed checking 4X/day 1 ea 0RF blood sugar diagnostic (FreeStyle Lite Strips) As directed checks 4X/day 100 ea 5RF Patient Instructions: Continue Tresiba 44 units daily Use Sliding SS as below Coding Level of Care Code Complex EM visit Add On G2211 Diagnoses Diabetes type 1, uncontrolled E10.65 Vitamin D deficiency E55.9
[2025-10-09 13:08] VITALS: BP 134/80; PULSE 82; O2SAT 96; BMI 46.6
[2025-10-09 13:21] LABS: Glucose, Whole Blood 293 mg/dL (60-115)
--- OUTSIDE RECORDS SUMMARY | 2025-10-09 14:43 | XMS_ITS | Encounter Summary ---
Author Organization [employer] Address [address] [place] [address] [address] [place] [address] Care Team Providers Care Employment Services Director Name Role Phone Name, Dipesh WEINBERG Primary Care Provider [phone] Puheath Edel PharmD Unavailable [phone] Puheath, Edel PharmD Unavailable [phone] Cristal Mercer RN Unavailable [phone] Carley Abdul Unavailable Encounter Details Date Type Department Care Team (Late st Contact Info) Description 09/19/2025 Orders Only [facility] [address] [place] [address] Provider, MD Veena Social History Tobacco Use Types Packs/Day Years Used Date Smoking Tobacco: Never Passive Smoke Exposure: Never Smokeless Tobacco: Never Alcohol Use Standard [...] Care Team (Late st Contact Info) Description 10/19/2025 11:00 AM EST Medication Management [facility] [address] [place] [address] Edel Dupont PharmD [address] [place] [address] documented as of this encounter Procedures Procedure Name Priority Date/Time Associated Diagnosis Comments CT ABDOMEN PELVIS W CONTRAST Routine 09/19/2025 3:57 PM EDT documented in this encounter Results * CT Abdomen Pelvis w/ Contrast (09/19/2025 3:57 PM EDT) Anatomical Region Laterality Modality Body, Pelvis, Abdomen Computed T omography us Historical Provider MD NASSAR CT PROCEDURES Final R esult documented in this encounter Visit Diagnoses Not on filedocumented in this encounter Additional Health Concerns Assessment Noted Time PHQ-9 Depression Total Score: 11 024 4:36 PM EDT documented as of this encounter Care Teams Employment Services Director Relationship Specialty Start Date End Date Name, MD Dipesh [address] [place] [address] PCP - General Family Medicine 03/04/16 Edel Dupont PharmD [address] [place] [address] Pharmacist Internal Medicine 04/17/25 Edel Dupont PharmD [address] [place] [address] Pharmacist Internal Medicine 04/17/25 Cristal Mercer, NITISH [address] [place] [address] Registered Nurse Family Medicine 09/20/25 10/04/25 Carley Abdul 09/20/25 10/04/25 documented as of this encounter
--- OUTSIDE RECORDS SUMMARY | 2025-10-09 14:43 | XMS_ITS | Encounter Summary ---
Author Organization [employer] Address [address] [facility] 7t [place] [address] Care Team Providers Care Fire Extinguisher Installer Name Role Phone Name, Dipesh WEINBERG Primary Care Provider [phone] PuEdel joe PharmD Unavailable Puheath Edel PharmD Unavailable Chaim Quintana RN Unavailable [phone] Carley Abdul Unavailable Cristal Mercer RN Unavailable [phone] Carley Abdul Unavailable Encounter Details Date Type Department Care Team (Late st Contact Info) Description 11/16/2024 Orders Only [facility] [address] [place] [address] Provider, MD Veena Social History Tobacco Use [...] Description 10/19/2025 11:00 AM EST Medication Management [facility] [address] [place] [address] Edel Dupont, PharmD [address] [place] [address] documented as of this encounter Procedures Procedure [...] documented as of this encounter Care Teams Fire Extinguisher Installer Relationship Specialty Start Date End Date Name, MD Dipesh 230 [place] [address] PCP - General Family Medicine 03/04/16 Edel Dupont, UrbanD 230 [facility] [place] [address] Pharmacist Internal Medicine 04/17/25 Edel Dupont, UrbanD 230 [facility] [place] [address] Pharmacist Internal Medicine 04/17/25 Chaim Quintana, NITISH [address] [place] [address] Registered Nurse Family Medicine 07/02/25 07/06/25 Carley Abdul 07/02/25 07/06/25 Cristal Mercer, RN 230 [facility] [place] [address] Registered Nurse Family Medicine 09/20/25 10/04/25 Carley Abdul 09/20/25 10/04/25 documented as of this encounter
--- OUTSIDE RECORDS SUMMARY | 2025-10-09 14:43 | XMS_ITS | Encounter Summary ---
Author Organization [employer] Address [address] [place] [address] 7t [place] [address] Care Team Providers Care Pattern Repair Person Name Role Phone Name, Dipesh WEINBERG Primary Care Provider [phone] Puia, Edel PharmD Unavailable [phone] Puia, Edel PharmD Unavailable [phone] Encounter Details Date Type Department Care Team (Late st Contact Info) Description 10/09/2025 Orders Only GENERIC EXTERNAL DATA DEPARTMENT Provider, Generic External Data Social History Tobacco Use Types Packs/Day Years [...] Description 10/19/2025 11:00 AM EST Medication Management [facility] 230 [place] [address] Edel Dupont, PharmD 230 [place] [address] documented as of this encounter Procedures Procedure Name Priority Date/Time Associated Diagnosis Comments GLUCOSE, WHOLE BLOOD Routine 10/09/2025 1:17 PM EST documented in this encounter Results * (ABNORMAL) Glucose, Whole Blood (10/09/2025 1:17 PM EST) Glucose, Whole Blood 293(H) 60 - 115 mg/dL [facility] Comment:METER #: [id number] 0Testing performed in the Endocrinology Department [address] , [address], [facility]. 10/09/2025 1:17 PM EST 10/09/2025 1:20 PM EST us Generic External Data Provider LAB BLOOD ORDERAB LES Final Result [facility] [address] [place] [address] [phone] documented in this encounter Visit Diagnoses Not on filedocumented in this encounter Additional Health Concerns Assessment Noted Time PHQ-9 Depression Total Score: 11 024 4:36 PM EDT documented as of this encounter Care Teams Pattern Repair Person Relationship Specialty Start Date End Date Name, MD Dipesh 230 [place] [address] PCP - General Family Medicine 03/04/16 Edel Dupont PharmD 230 [place] [address] Pharmacist Internal Medicine 04/17/25 Edel Dupont PharmD [address] [place] [address] Pharmacist Internal Medicine 04/17/25 documented as of this encounter
--- OUTSIDE RECORDS SUMMARY | 2025-10-09 14:43 | XMS_ITS | Clinical Summary ---
Author Organization [employer] Address [address] [place] [address] 7t [place] [address] Care Team Providers Care Terrazzo Tile Maker Name Role Phone Name, Dipesh WEINBERG Primary Care Provider [phone] Puia, Edel PharmD Unavailable Puia, Edel PharmD Unavailable Allergies Active Allergy Reactions Criticality Noted Date Comments Fish Protein-Containing Drug Products Anaphylaxis High 09/24/2023 Medications albuterol 108 (90 Base) MCG/ACT inhaler inhale 2 puff by inhalation route 4 times every day as needed as needed for cough, wheeze, sob 12/26/19 21 Active atorvastatin (Lipitor) 40 MG tablet TAKE 1 TABLET BY MOUTH EVERY DAY AT BEDTIME 08/07/20 22 Active D3 Super Strength 50 MCG (2000 UT) capsule TAKE 1 CAPSULE BY MOUTH DAILY 10/07/20 22 Active Baqsimi Two Pack 3 MG/DOSE nasal powder PLEASE SEE ATTACHED FOR DETAILED DIRECTIONS 05/14/20 22 Active prazosin (Minipress) 2 MG capsule TAKE 1 CAPSULE BY MOUTH EVERY DAY IN THE EVENING 11/04/20 22 Active Blood Pressure Monitoring (Comfort Touch BP Cuff/Large) miscIndications: Primary hypertension 1 kit 2 times daily. 1 each 06/22/20 23 Active BD Pen Needle Damaris 2nd Gen 32G X 4 MM miscIndications: Type 1 diabetes mellitus with hyperglycemia (HCC) INJECT 1 EACH UNDER THE SKIN IF NEEDED 3 TIMES A DAY USE INSTRUCTED 100 each 3 07/20/20 24 Active ondansetron (Zofran) 8 MG tablet TAKE 1 TABLET (8 MG) BY MOUTH EVERY 8 HOURS NEEDED FOR NAUSEA AND VOMITING FOR UP TO 7 DAYS 20 tablet 2 02/29/20 25 Active metoclopramide (Reglan) 10 MG tabletIndication s:Diabetic gastroparesis (HCC) TAKE 1 TABLET BY MOUTH BEFORE BREAKFAST, BEFORE LUNCH AND BEFORE EVENING MEAL 60 tablet 3 05/21/20 25 Active lisinopril 10 MG tablet Take 10 mg by mouth in the morning. 05/02/20 25 Active insulin lispro (HumaLOG) 100 UNIT/ML injection INJECT 20 UNITS UNDER THE SKIN BEFORE BREAKFAST, BEFORE LUNCH, AND BEFORE EVENING MEAL 60 mL 11 07/25/20 25 Active OXcarbazepine (Trileptal) 300 MG tablet Take 1 tablet (300 mg) by mouth 2 times daily. 60 tablet 08/24/20 25 Active traZODone (Desyrel) 100 MG tablet Take 1 tablet (100 mg) by mouth if needed at bedtime for sleep. 30 tablet 08/24/20 25 Active omeprazole (PriLOSEC) [address] capsuleIndicatio ns:Gastroesophag eal reflux disease, unspecified whether esophagitis present TAKE 1 CAPSULE BY MOUTH EVERY DAY BEFORE A MEAL 90 capsule 1 09/11/20 25 Active metoprolol tartrate (Lopressor) 25 MG tablet TAKE 1 TABLET BY MOUTH TWICE A DAY 180 tablet 3 09/11/20 25 Active gabapentin (Neurontin) 100 MG capsule TAKE 3 CAPSULES (300 MG) BY MOUTH AT BEDTIME. 30 capsule 3 09/11/20 25 2025 Active mirtazapine (Remeron) 7.5 MG tablet Take 1 tablet (7.5 mg) by mouth 2 times daily. 60 tablet 3 09/11/20 25 2024 Active insulin degludec (Tresiba FlexTouch) 200 UNIT/ML injection 44 units once a day 3 mL 11 09/11/20 25 Active Alcohol Swabs (Alcohol Prep) padsIndications: Type 1 diabetes mellitus with hyperglycemia (HCC) Use 4 times a day as directed 100 each 2 09/11/20 25 Active mirtazapine (Remeron) 7.5 MG tablet TAKE 2 TABLETS BY MOUTH DAILY AT BEDTIME 11/07/20 22 2024 Discontinued(R eorder (will not trigger notification to Pharmacy)) insulin degludec (Tresiba FlexTouch) 200 UNIT/ML injection 50 units once a day 06/20/20 24 2024 Discontinued(R eorder (will not trigger notification to Pharmacy)) metoprolol tartrate (Lopressor) 25 MG tablet Take 1 tablet (25 mg) by mouth 2 times daily. 60 tablet 11 09/20/20 24 2024 Discontinued gabapentin (Neurontin) 100 MG capsule Take 3 capsules (300 mg) by mouth at bedtime. 30 capsule 3 09/20/20 24 2024 Discontinued omeprazole (PriLOSEC) [address] capsuleIndicatio ns:Gastroesophag eal reflux disease, unspecified whether esophagitis present TAKE 1 CAPSULE BY MOUTH EVERY DAY BEFORE A MEAL 90 capsule 1 03/05/20 25 2024 Discontinued Active Problems Patient Care Coordination No te Formatting of this note migh t be different from the original. 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, associated with type 1 diabetes mellitus 05/19/2024 Epiretinal membrane (ERM) of both eyes Posterior synechiae of left eye 05/19/2024 Diabetic neuropathy, type I diabetes mellitus Abnormal celiac antibody panel 12/06/2022 Diabetic gastroparesis 12/06/2022 Migraine 12/06/2022 Acute nontraumatic kidney injury 07/09/2022 Chronic kidney disease 07/09/2022 Gastroesophageal reflux disease 07/09/2022 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 Endo, pt to present to appt now [...] Encounters Date Type Department Care Team Description 10/09/2025 Orders Only GENERIC EXTERNAL DATA DEPARTMENT Provider, Generic External Data 10/04/2025 Patient Outreach [facility] [address] [place] [address] NameDipesh MD Care Coordination ([address] Carley Abdul telephone call outreach) 09/26/2025 Patient Outreach [facility] [address] [place] [address] [phone] Dipesh Koch MD 09/25/2025 Telephone [facility] [address] [place] [address] [phone] Dipesh Koch MD 09/20/2025 Telephone [facility] [address] [place] [address] [phone] Edel Dupont, Garcia 09/20/2025 Patient Outreach [facility] [address] [place] [address] Dipesh Koch MD Care Coordination ([facility] Carley Abdul chart review) 09/20/2025 Patient Outreach [address] [address] Dipesh Koch MD Care Management (C3CM -CHART REVIEW/) 09/20/2025 Patient Outreach [address] [address] Dipesh Koch MD 09/19/2025 Orders Only [facility] [address] [place] [address] ProviderVeena MD 09/11/2025 4:00 PM EDT Office Visit [address] [address] Dipesh Koch MD Type 1 diabetes mellitus with hyperglycemia (HCC) (Primary Dx); Diabetic neuropathy, type I diabetes mellitus (HCC); Diabetic nephropathy associated with type 1 diabetes mellitus (HCC); Morbid obesity (CMS/HCC) (HCC) 09/11/2025 Travel 09/10/2025 Refill [facility] [address] [place] [address] Dipesh Koch MD Gastroesophageal reflux disease, unspecified whether esophagitis present 08/24/[address] [address] Dipesh Koch MD Medication Question; Call Back Request 08/21/[address] [address] Dipesh Koch MD 07/24/2025 Refill [facility] [address] [place] [phone] Dipesh Koch MD from Last 3 Months [...] Passive Smoke Exposure: Never Smokeless Tobacco: Never Tobacco Cessation:Counseling Given: Not Answered Alcohol Use Standard Drinks/Week Comments Never 0 (1 standard drink = 0.6 oz pur e alcohol) Depression Answer Date Recorded Patient Health Questionnaire-9 Score 11 09/20/2024 Patient Health Questionnaire-9 Score 11 09/20/2024 Last PHQ-9: Questionnaire Data Not on file 1 Housing Stability Answer Date Recorded What is your housing situation today? I have radha robin 09/13/[address] you li [...] Sign Reading Time Taken Comments Blood Pressure 136/70 09/11/2025 4:15 PM EDT Pulse 83 09/11/2025 4:15 PM EDT Temperature 36.9 C (98.4 F) 09/11/2025 4:15 PM EDT Respiratory Rate 20 09/11/2025 4:15 PM EDT Oxygen Saturation 95% 09/11/2025 4:15 PM EDT Inhaled Oxygen Concentration - - Weight 128 kg (282 lb 6 oz) 09/11/2025 4:15 PM E DT Height 166.5 cm (5' 5.55 ) 09/11/2025 4:15 PM ED T Body Mass Index 46.2 09/11/2025 4:15 PM EDT Plan of Treatment Upcoming Encounters Date Type Department Care Team (Late st Contact Info) Description 10/19/2025 11:00 AM EST Medication Management [facility] [address] [place] [address] Edel Dupont, PharmD [address] [place] [address] Health Maintenance Due Date Last Done Comments [...] (2 of 2 - PCV) 11/02/2017 11/02/2016 SDOH Screening 03/10/2025 03/10/2024 Depression Monitoring 03/21/2025 09/20/2024, 024 Eye Exam 05/18/2025 05/18/2024, 04/30, 05/18/2024, Additional history exists COVID-19 Vaccine ( season) 2025 Influenza Vaccine (#1) 2025 , 11/29/2022, 12/12/2019, Additional history exists Diabetes: Foot Exam 09/20/2025 09/20/2024, 09/20/2024, 09/20/2024, Additional history exists Diabetes: Hemoglobin A1C 12/12/2025 025, 04/17/2025, 08/22/2024, Additional history exists Lipid Panel 05/02/2026 05/02/2025, 05/02/2025 Tobacco Screening 09/11/2026 09/11/2025 DTaP/Tdap/Td Vaccines (6 - Td or Tdap) [...] WHOLE BLOOD Routine 10/09/2025 1:[address] ABDOMEN PELVIS W CONTRAST Routine 09/19/2025 3:57 PM EDT POCT GLYCATED HEMOGLOBIN, TOTAL Routine 09/11/2025 4:17 PM EDT Type 1 diabetes mellitus with hyperglycemia (HCC) POCT GLUCOSE Routine 09/11/2025 4:17 PM EDT Type 1 diabetes mellitus with hyperglycemia (HCC) LIPID PANEL WITH REFLEX TO DIRECT LDL Routine 05/02/2025 3:01 PM EDT from Last 3 Months or Most Recently Relevant to Health Maintenance Results * (ABNORMAL) Glucose, Whole Blood (10/09/2025 1:17 PM EST) Pathologist [facility] Glucose, Whole Blood 293(H) 60 - 115 mg/dL [facility] Comment:METER #: [id number] 0Testing performed in the Endocrinology Department [address] , [address], [facility]. 10/09/2025 1:17 PM EST 10/09/2025 1:20 PM EST Generic External Data Provider LAB BLOOD ORDERAB LES Final Result [facility] [address] [place] [phone] * CT Abdomen Pelvis w/ Contrast (09/19/2025 3:57 PM EDT) Anatomical Region Laterality Modality Body, Pelvis, Abdomen Computed T omography Historical Provider IMG CT PROCEDURES Final R esult * (ABNORMAL) POCT Hgb A1c (09/11/2025 4:17 PM EDT) Pathologist [facility] Hemoglobin A1C 9.6(A) 4.0 - 5.7 % QC Media Lot # [id number] Lot# Expiration Date , Blood 09/11/2025 4:17 PM EDT us Dipesh Name POINT OF CARE TEST ENTER/EDIT OR DERABLES Final Result * (ABNORMAL) POCT Glucose (09/11/2025 4:17 PM EDT) Pathologist [facility] Glucose Blood, POC 333(A) 60 - 200 mg/dL QC Media Lot # [id number] Lot# Expiration Date , Blood Capillary blood specimen / Unknown 09/11/2025 4:17 PM EDT us Dipesh Koch MD POINT OF CARE TEST ENTER/EDIT OR DERABLES Final Result * (ABNORMAL) Lipid Panel with Reflex to Direct LDL (05/02/2025 3:01 PM EDT) Triglycerides 404(H) <150 mg/dL [facility] Comment:Desirable Triglyceri de: less than 150 mg/dLBorderline High Triglyceride 150-199 mg/dLHigh Triglyceride: 200-499 mg/dLVery High Triglyceride: greater than or equal to 5OO mg/dL Cholesterol 242(H) <200 mg/dL [facility] Comment:Desirable Cholestero l: less than 200 mg/dLBorderline High Cholesterol: 200-239 mg/dLHigh Cholesterol: greater than 239 mg/dL LDL Cholesterol Calculated TNP <100 mg/dL [facility] Comment:Unable to calculate the LDL. The formula of Friedwald,Santos, and Richie is only valid if the triglycerides areless than 400 mg/dl. HDL Cholesterol 38(L) >40 mg/dL [facility] Comment:Desirable HDL: great er than 40 mg/dL Note: This HDL assay may give artificially low results in patients with liver disease. 05/02/2025 3:01 PM EDT 05/02/2025 4:05 PM EDT us Dipesh Koch MD LAB BLOOD ORDERABLES Final Resul t [facility] [address] [place] [address] [phone] from Last 3 Months or Most Recently Relevant to Health Maintenance [facility] Care Teams Terrazzo Tile Maker Relationship Specialty Start Date End Date Name, MD Dipesh [address] [place] [address] PCP - General Family Medicine 03/04/16 Edel Dupont, PharmD [address] [place] [address] Pharmacist Internal Medicine 04/17/25 Edel Dupont PharmD [address] [place] [address] Pharmacist Internal Medicine 04/17/25
--- OUTSIDE RECORDS SUMMARY | 2025-10-09 14:43 | XMS_ITS | Encounter Summary ---
Author Organization [employer] Address [address] [place] [address] 7t [place] [address] Care Team Providers Care Applied Researcher Name Role Phone Name, Dipesh WEINBERG Primary Care Provider [phone] PuEdel joe PharmD Unavailable Puia, Edel PharmD Unavailable Chaim Quintana RN Unavailable [phone] Carley Abdul Unavailable Cristal Mercer RN Unavailable [phone] Carley Abdul Unavailable Reason for Visit * Reason Comments Med Refill Encounter Details Date Type Department Care Team ([facility] st Contact Info) Description 06/20/2024 Refill [facility] [address] [place] [address] Name, MD Dipesh [address] [place], [place] [phone] Social History Tobacco Use Types Packs/Day Years [...] the past 12 months, has t he [employer] gas, oil or water company threatened to [...] Description 10/19/2025 11:00 AM EST Medication Management [facility] [address] [place] [address] Edel Dupont PharmD [address] [place] [address] documented as of this encounter Visit Diagnoses Not on filedocumented in this encounter Additional Health Concerns Assessment Noted Time PHQ-9 Depression Total Score: 6 07/22/20 23 9:24 AM EDT documented as of this encounter Care Teams Applied Researcher Relationship Specialty Start Date End Date Name, MD Dipesh [address] [place] [address] PCP - General Family Medicine 03/04/16 Edel Dupont PharmD [address] [place] [address] Pharmacist Internal Medicine 04/17/25 Edel Dupont PharmD [address] [place] [address] Pharmacist Internal Medicine 04/17/25 Chaim Quintana, RN [address] [place] [address] Registered Nurse Family Medicine 07/02/25 07/06/25 Carley Abdul 07/02/25 07/06/25 Cristal Mercer, NITISH [address] [place] [address] Registered Nurse Family Medicine 09/20/25 10/04/25 Carley Abdul 09/20/25 10/04/25 documented as of this encounter
--- OUTSIDE RECORDS SUMMARY | 2025-10-09 14:43 | XMS_ITS ---
Author Organization [employer] Address [address] [place] [address] 7 [place] [address] Care Team Providers Care Group Dynamics Instructor Name Role Phone Name, Dipesh WEINBERG Primary Care Provider Puia, Edel PharmD Unavailable Puia, Edel PharmD Unavailable [facility] Status:Closed (Closed) Start date:09/20/2025 Enrollment reason:ADT Feed End date:10/04/2025 Close reason:Declined to Participate Overview ED- Pt went to [facility] ED on 09/19/25. Please outreach to patient. Continued Care and Services Coordination
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
--- OUTSIDE RECORDS SUMMARY | 2025-10-09 14:43 | XMS_ITS | Encounter Summary ---
Author Organization [email or web address] Address [address] [place] [address] 7t [place] [address] Care Team Providers Care House Carpenter Name Role Phone Name, Dipesh WEINBERG Primary Care Provider [phone] PuEdel joe PharmD Unavailable Puheath Edel PharmD Unavailable Chaim Quintana RN Unavailable [phone] Carley Abdul Unavailable Cristal Mercer RN Unavailable [phone] Carley Abdul Unavailable Reason for Visit * Reason Onset Date Comments Medication Question 02/02/2024 Encounter Details Date Type Department Care Team (Late st Contact Info) Description 02/02/2024 Telephone [facility] [address] [place] [address] Name, MD Dipesh [address] [place], [place] [phone] Medication Question Social History Tobacco Use Types [...] or any concerns, advised to come to [facility]. Pt. Verbally agreed and understood. * Telephone Encounter - Daja You - 02/02/2024 10:20 AM EST Tc from tamar shah in regards to omeprazole (PriLOSEC) [address] capsule[address] States pharmacy will not fill script until 02/19. Lean Manufacturing Coordinator called pharmacy and confirmed information. Pharmacy states it is because pt picked up a script on 11/27 for a 90 day supply. Tamar states pt is out of medication and has not had medication for two days now. documented in this encounter Plan of Treatment Upcoming Encounters Date Type Department Care Team (Late st Contact Info) Description 10/19/2025 11:00 AM EST Medication Management [facility] [address] [place] [address] Edel Dupont PharmD [address] [place] [address] documented as of this encounter Visit Diagnoses Not on filedocumented in this encounter Additional Health Concerns Assessment Noted Time PHQ-9 Depression Total Score: 6 07/22/20 23 9:24 AM EDT documented as of this encounter Care Teams House Carpenter Relationship Specialty Start Date End Date Name, MD Dipesh [address] [place] [address] PCP - General Family Medicine 03/04/16 Edel Dupont, PharmD [address] [place] [address] Pharmacist Internal Medicine 04/17/25 Edel Dupont, UrbanD [address] [place] [address] Pharmacist Internal Medicine 04/17/25 Chaim Quintana, RN [address] [place] [address] Registered Nurse Family Medicine 07/02/25 07/06/25 Carley Abdul 07/02/25 07/06/25 Cristal Mercer, NITISH [address] [place] [address] Registered Nurse Family Medicine 09/20/25 10/04/25 Carley Abdul 09/20/25 10/04/25 documented as of this encounter
--- OUTSIDE RECORDS SUMMARY | 2025-10-09 14:43 | XMS_ITS | Encounter Summary ---
Author Organization [employer] Address [address] [place] [address] [address] [place] [address] Care Team Providers Care Senior Clinician Name Role Phone Name, Dipesh WEINBERG Primary Care Provider [phone] PuEdel joe PharmD Unavailable Puheath Edel PharmD Unavailable Chaim Quintana RN Unavailable [phone] Carley Abdul Unavailable Cristal Mercer RN Unavailable [phone] Carley Abdul Unavailable Reason for Visit * Reason Comments Med Refill Encounter Details Date Type Department Care Team ([facility] st Contact Info) Description 05/04/2024 Refill [facility] [address] [place], [place] [id number] Name, MD Dipesh [address] [place] [address] Social History Tobacco Use Types Packs/Day Years [...] the past 12 months, has t he [employer] gas, oil or water company threatened to [...] Description 10/19/2025 11:00 AM EST Medication Management [facility] [address] [place] [address] Edel Dupont PharmD [address] [place] [address] documented as of this encounter Visit Diagnoses Not on filedocumented in this encounter Additional Health Concerns Assessment Noted Time PHQ-9 Depression Total Score: 6 07/22/20 23 9:24 AM EDT documented as of this encounter Care Teams Senior Clinician Relationship Specialty Start Date End Date Name, MD Dipesh [address] [place] [address] PCP - General Family Medicine 03/04/16 Edel Dupont PharmD [address] [place] [address] Pharmacist Internal Medicine 04/17/25 Edel Dupont PharmD [address] [place] [address] Pharmacist Internal Medicine 04/17/25 Chaim Quintana, RN [address] [place] [address] Registered Nurse Family Medicine 07/02/25 07/06/25 Carley Abdul 07/02/25 07/06/25 Cristal Mercer RN [address] [place] [address] Registered Nurse Family Medicine 09/20/25 10/04/25 Carley Abdul 09/20/25 10/04/25 documented as of this encounter
--- OUTSIDE RECORDS SUMMARY | 2025-10-09 14:43 | XMS_ITS | Patient Health Record ---
Author Organization [facility] [facility] Address [address] [place] [address] Care Team Providers Care Salvage Inspector [employer] Name Role Phone Name Dipesh WEINBERG Primary Care Provider Steve Chan Jr Unavailable Ector WEINBERG, Lazaro Unavailable Unavailable Reason For Referral No Information Plan Of Treatment No Information Insurance Providers Payer Name Payer Address Payer Phone Subscriber Number Group Number Insured Name Patient Relationship to Insured Coverage Start Date Coverage End Date MEDICAID OF [facility] [address] [place] [id number] [phone] [id number] MOUNA LERMA Self - patient is the insured
--- OUTSIDE RECORDS SUMMARY | 2025-10-09 14:43 | XMS_ITS | Clinical Summary ---
Author Organization [facility] Address [address] [place] [address] Phone Care Team Providers Care Release Of Information Specialist Name Role Phone Name, Dipesh WEINBERG Primary Care Provider [phone] Allergies Active Allergy Reactions Criticality Noted Date Comments Shellfish Containing Products Anaphylaxis High 09/19 Medications insulin lispro 100 unit/mL injection Inject [...] 2 (two) times a day. Active lisinopriL (PRINIVIL,ZESTR IL) 10 mg tablet Take 1 tablet (10 mg total) by mouth 1 (one) time each day. 5 Active mirtazapine (REMERON) 15 mg tablet Take 1 tablet (15 mg total) by mouth daily. Active prazosin (MINIPRESS) 2 mg capsule Take 1 capsule (2 mg total) by mouth at bedtime. Active lidocaine (LIDODERM) 5 % patch Apply 1 patch topically 1 (one) time each day. Active Active Problems Problem Noted Date Diagnosed Date Diabetic gastroparesis assoc iated with type 1 diabetes mellitus ([facility] V24, [facility] V28) 06/29/2025 FLOWER on CPAP 06/29/2025 Pneumonia 11/19/2024 Hypertension 11/19/2024 Type 1 diabetes mellitus wit h gastroparesis ([facility] V24, [facility] V28) 11/16/2024 Resolved Problems Problem Noted Date Diagnosed Date Resolved Date Sepsis ([facility] V24, [facility] V28) 11/17/2024 11/20/2024 Epigastric pain 11/17/2024 11/20/2024 Encounters Date Type Department Care Team Description 09/19/2025 9:08 AM EDT - 09/19/2025 5:30 PM EDT Emergency [facility] Emergency [address] [place] [address] Richard Pelayo MD Mersier, Jasmine, DO Epigastric pain (Primary Dx); Nausea and vomiting, unspecified vomiting type Discharge Disposition: Home or Self Care from Last 3 Months Surgical History Surgery Date Site/Laterality Comments APPENDECTOMY EYE SURGERY Left Medical History Medical History Date Comments Asthma Type 1 diabetes mellitus ([facility] V24, [facility] V 28) GERD (gastroesophageal reflux disease) Diabetic gastroparesis ([facility] V24, [facility] V28 ) Hypertension FLOWER on CPAP Family [...] Safety Answer Date Record ed Physical Abuse Unrecognized value 06/29/2025 Verbal Abuse Unrecognized value 06/29/2025 Sex and Gender Information Value Date Recorded Sex Assigned at Not on file Legal Sex Male 4:35 AM EST Gender Identity Not on file Sexual Orientation Not on file Obstetrics History Last Filed Vital Signs Vital Sign Reading Time Taken Comments Blood Pressure 173/93 09/19/2025 4:19 PM EDT Pulse 79 09/19/2025 4:19 PM EDT Temperature 36.9 C (98.4 F) 09/19/2025 4:19 PM EDT Respiratory Rate 18 09/19/2025 4:19 PM EDT Oxygen Saturation 98% 09/19/2025 4:19 PM EDT Inhaled Oxygen Concentration - - Weight 129 kg (285 lb) 09/19/2025 8:44 AM EDT Height 165.1 cm (5' 5 ) 09/19/2025 8:44 AM EDT Body Mass Index 47.43 09/19/2025 8:44 AM EDT Plan of Treatment Health Maintenance Due [...] of 2 - PCV) 11/02/2017 11/02/2016, 11/02/2016 HPV Vaccines (1 - 3-dose SCDM series) 2019 HIV Screening 11/01/2022 Hepatitis C Screening 11/01/2022 Social Influencers of Health Screening 11/01/2022 Diabetes: Annual Urine Albumin-Creatinine Ratio (uACR) 11/13/2022 Depression Screening 11/29/2024 COVID-19 Vaccine ( season) 2025 Influenza Vaccine (#1) 2025 3, 11/29/2022, 12/12/2019, Additional history exists Diabetes: Blood Sugar Control Test (HGBA1C) 03/12/2026 09/11/2025, 04/17/2025, 08/22/2024 Diabetes: Annual GFR (Glomerular Filtration Rate) 09/19/2026 09/19/2025, 07/01/2025, 06/30/2025, Additional history exists Hypertension/CHF/CAD Annual BMP Blood Test 09/19/2026 09/19/2025, 07/01/2025, 06/30/2025, Additional history exists DTaP,Tdap,and Td Vaccines (6 - Td or Tdap) 07/14/2027 07/14/2017, 07/01/2012, 08/08/2005, Additional history exists Cholesterol Screening (Lipid Panel) 05/02/2030 05/02/2025 RSV Immunization Adult Patients (1 - 1-dose 75+ series) 2067 HIB Vaccines Completed 08/03/1997, 02/20/1994 MMR Vaccines Completed 08/03/1997, 02/20/1994 Meningococcal ACWY Vaccine Aged Out 06/09/2006 N o longer eligible based on patient's age to complete this topic Varicella Vaccines Completed 07/16/2006, 06/09/2006 Hepatitis B Vaccines Completed 08/10/2006, 08/08/2005, 08/13/1997 Meningococcal B Vaccine Aged Out No l onger eligible based on patient's age to complete this topic RSV Immunization Patients Under 20 months Aged Out No longer eligible based on patient's age to complete this topic Procedures Procedure Name Priority Date/Time Associated Diagnosis Comments URINALYSIS WITH REFLEX MICROSCOPIC STAT 09/19/2025 12:50 PM EDT URINALYSIS WITH REFLEX MICROSCOPIC STAT 09/19/2025 12:[address] ABDOMEN PELVIS W CONTRAST STAT 09/19/2025 12:46 PM EDT VENOUS BLOOD GAS CO-OXIMETRY STAT 09/19/2025 11:09 AM EDT MAGNESIUM STAT 09/19/2025 11:03 AM EDT CBC WITH AUTO DIFFERENTIAL STAT 09/19/2025 11:03 AM EDT LIPASE STAT 09/19/2025 11:03 AM EDT COMPREHENSIVE METABOLIC PANEL STAT 09/19/2025 11:03 AM EDT CBC AND DIFFERENTIAL STAT 09/19/2025 11:03 AM EDT from Last 3 Months Results * (ABNORMAL) Urinalysis with reflex microscopic (09/19/2025 12:50 PM EDT) Specific [place] Urine 1.027 1.003 - 1.030 LAB URINALYSIS - AUTOMATED METHOD 09/19/2025 1:37 PM [facility] pH, Urine 6.5 5.0 - 8.0 pH LAB URINALYSIS - AUTOMATED METHOD 09/19/2025 1:37 PM [facility] Leukocytes, Urine Negative Negative LAB URINALYSIS - AUTOMATED METHOD 09/19/2025 1:37 PM [facility] Nitrite, Urine Negative Negative LAB URINALYSIS - AUTOMATED METHOD 09/19/2025 1:37 PM [facility] Protein, Urine 300(A) <=Trace mg/dL LAB URINALYSIS - AUTOMATED METHOD 09/19/2025 1:37 PM [facility] Glucose, Urine >=1000(A) Negative mg/dL LAB URINALYSIS - AUTOMATED METHOD 09/19/2025 1:37 PM [facility] Ketones, Urine Negative Negative mg/dL LAB URINALYSIS - AUTOMATED METHOD 09/19/2025 1:37 PM [facility] Urobilinogen , Urine 0.2 0.2 - 1.0 mg/dL LAB URINALYSIS - AUTOMATED METHOD 09/19/2025 1:37 PM [facility] Bilirubin, Urine Negative Negative LAB URINALYSIS - AUTOMATED METHOD 09/19/2025 1:37 PM [facility] Blood, Urine Trace(A) Negative LAB URINALYSIS - AUTOMATED METHOD 09/19/2025 1:37 PM [facility] RBC, Urine 4.5(H) 0 - 4 /HPF LAB URINALYSIS - AUTOMATED METHOD 09/19/2025 1:37 PM [facility] WBC, Urine 2.4 0 - 4 /HPF LAB URINALYSIS - AUTOMATED METHOD 09/19/2025 1:37 PM EDT [facility] Squamous Epithelial, Urine 9 0 - 60 /LPF LAB URINALYSIS - AUTOMATED METHOD 09/19/2025 1:37 PM EDT [facility] Bacteria, Urine Negative Negative /HPF LAB URINALYSIS - AUTOMATED METHOD 09/19/2025 1:37 PM EDT [facility] Hyaline Casts, Urine 0.0 0 - 3 /LPF LAB URINALYSIS - AUTOMATED METHOD 09/19/2025 1:37 PM EDT [facility] Urine Urine specimen obtained by clean catch procedure / Unknown Non-blood Collection / Unknown 09/19/2025 12:50 PM EDT 09/19/2025 1:23 PM EDT Richard Pelayo MD LAB URINE ORDERABLES Final Result [facility] [address] [place] [address], [place] [phone] * CT Abdomen Pelvis w Contrast (09/19/2025 12:46 PM EDT) Anatomical Region Laterality Modality Body Computed Tomogra phy 09/19/2025 12:4 6 PM EDT Impressions 09/19/2025 12:[address] for acute infectious or inflammatory process. -------- FINAL REPORT -------- Dictated By: Martin Meade Dictated Date: 09/19/2025 12:46 ET Assigned Physician: Martin Meade Reviewed and Electronically Signed By: Martin Meade Signed Date: 09/19/2025 12:49 ET Workstation ID: [id number] Transcribed By: Self Edit Transcribed Date: 09/19/2025 12:46 ET Narrative 09/19/2025 12:49 PM EDT PROCEDURE: CT ABDOMEN/PELVIS WITH CONTRAST INDICATION: epigastric pain TECHNIQUE: CT of the abdomen and pelvis following the intravenous administration of 90cc Isovue 370. Multiplanar reformats. The examination was performed utilizing dose reduction techniques. Total DLP 1416 COMPARISON: No priors available. FINDINGS: LOWER THORAX: Atelectasis at the right lung base. HEPATOBILIARY: No focal liver lesions. No cholelithiasis or biliary duct dilatation. SPLEEN: No focal lesion. PANCREAS: No focal mass or ductal dilatation. ADRENALS: No nodules. KIDNEYS/URETERS: No hydronephrosis, stones, or solid mass. PELVIC ORGANS/BLADDER: Mild bladder distention. PERITONEUM / RETROPERITONEUM: No ascites or free air. No retroperitoneal lymphadenopathy. VESSELS: Scattered atherosclerotic calcifications throughout the aorta and its major branches. No aneurysm. GI TRACT: Mild distal esophageal thickening. No small bowel obstruction there is thickening of the terminal ileum which may be related to underdistention though infectious/inflammatory enteritis is not entirely excluded.. Appendectomy. BONES AND SOFT TISSUES: No acute infectious or inflammatory process. Soft tissues are unremarkable. Procedure Note Martin Meade MD - 09/19/2025 PROCEDURE: CT ABDOMEN/PELVIS WITH CONTRAST INDICATION: epigastric pain TECHNIQUE: CT of the abdomen and pelvis following the intravenousadministration of 90cc Isovue 370. Multiplanar reformats. The examinationwas performed utilizing dose reduction techniques. Total DLP 1416 COMPARISON: No priors available. FINDINGS: LOWER THORAX: Atelectasis at the right lung base. HEPATOBILIARY: No focal liver lesions. No cholelithiasis or biliary ductdilatation. SPLEEN: No focal lesion. PANCREAS: No focal mass or ductal dilatation. ADRENALS: No nodules. KIDNEYS/URETERS: No hydronephrosis, stones, or solid mass. PELVIC ORGANS/BLADDER: Mild bladder distention. PERITONEUM / RETROPERITONEUM: No ascites or free air. No retroperitoneallymphadenopathy. VESSELS: Scattered atherosclerotic calcifications throughout the aorta andits major branches. No aneurysm. GI TRACT: Mild distal esophageal thickening. No small bowel obstructionthere is thickening of the terminal ileum which may be related tounderdistention though infectious/inflammatory enteritis is not entirelyexcluded.. Appendectomy. BONES AND SOFT TISSUES: No acute infectious or inflammatory process. Softtissues are unremarkable. IMPRESSION: Negative CT for acute infectious or inflammatory process. -------- FINAL REPORT -------- Dictated By: Martin Meade Dictated Date: 09/19/2025 12:46 ET Assigned Physician: Martin Meade Reviewed and Electronically Signed By: Martin Meade Signed Date: 09/19/2025 12:49 ET Workstation ID: [id number] Transcribed By: Self Edit Transcribed Date: 09/19/2025 12:46 ET Shila Ernst IMG CT PROCEDURES Final Resul t * (ABNORMAL) Venous blood gas co-oximetry (09/19/2025 11:09 AM EDT) Carboxyhemoglobin 1.9 0.0 - 3.0 % 09/19/2025 11:18 AM EDT [facility] Methemoglobin 0.3 0.2 - 0.5 % 09/19/2025 11:18 AM EDT [facility] Oxyhemoglobin 74.2(H) 40 - 70 % 09/19/2025 11:18 AM EDT [facility] O2 Sat, Brent 75.9 % 09/19/2025 11:18 AM EDT [facility] Total Hemoglobin Venous 12.0 12.0 - 18.0 g/dL 09/19/2025 11:18 AM EDT [facility] Blood Venous blood specimen / Unknown Venipuncture / Unknown 09/19/2025 11:09 AM EDT 09/19/2025 11:14 AM EDT Shila Ernst LAB BLOOD ORDERABLES Final Re sult [facility] [address] [place] [address], * (ABNORMAL) CBC auto differential (09/19/2025 11:03 AM EDT) WBC 7.7 4.8 - 10.8 K/mcL LAB HEMETOLOGY METHOD 09/19/2025 11:24 AM [facility] RBC 4.10(L) 4.50 - 5.50 M/mcL LAB HEMETOLOGY METHOD 09/19/2025 11:24 AM [facility] Hemoglobin 11.8(L) 13.5 - 17.5 g/dL LAB HEMETOLOGY METHOD 09/19/2025 11:24 AM [facility] Hematocrit 34.9(L) 42.0 - 54.0 % LAB HEMETOLOGY METHOD 09/19/2025 11:24 AM [facility] MCV 84.7 79.0 - 98.0 FL LAB HEMETOLOGY METHOD 09/19/2025 11:24 AM [facility] MCH 28.6 27.0 - 32.0 pcg LAB HEMETOLOGY METHOD 09/19/2025 11:24 AM [facility] MCHC 33.8 32.0 - 37.0 g/dL LAB HEMETOLOGY METHOD 09/19/2025 11:24 AM [facility] RDW 13.3 11.0 - 15.0 % LAB HEMETOLOGY METHOD 09/19/2025 11:24 AM [facility] Platelets 241 130 - 400 K/mcL LAB HEMETOLOGY METHOD 09/19/2025 11:24 AM [facility] MPV 11.4(H) 7.0 - 11.0 FL LAB HEMETOLOGY METHOD 09/19/2025 11:24 AM [facility] NRBC 0.0 <1.0 % LAB HEMETOLOGY METHOD 09/19/2025 11:24 AM [facility] NRBC Absolute 0.00 <0.10 K/mcL LAB HEMETOLOGY METHOD 09/19/2025 11:24 AM [facility] Neutrophils Relative 63.8 % LAB HEMETOLOGY METHOD 09/19/2025 11:24 AM [facility] Lymphocytes Relative 20.3 % LAB HEMETOLOGY METHOD 09/19/2025 11:24 AM [facility] Monocytes Relative 11.4 % LAB HEMETOLOGY METHOD 09/19/2025 11:24 AM [facility] Eosinophils Relative 3.0 % LAB HEMETOLOGY METHOD 09/19/2025 11:24 AM [facility] Basophils Relative 0.6 % LAB HEMETOLOGY METHOD 09/19/2025 11:24 AM [facility] Immature Granulocytes Relative 0.9 % LAB HEMETOLOGY METHOD 09/19/2025 11:24 AM [facility] Neutrophils Absolute 4.92 1.50 - 7.00 K/mcL LAB HEMETOLOGY METHOD 09/19/2025 11:24 AM [facility] Lymphocytes Absolute 1.57 1.00 - 5.00 K/mcL LAB HEMETOLOGY METHOD 09/19/2025 11:24 AM [facility] Monocytes Absolute 0.88 0.20 - 1.00 K/mcL LAB HEMETOLOGY METHOD 09/19/2025 11:24 AM [facility] Eosinophils Absolute 0.23 0.00 - 0.50 K/mcL LAB HEMETOLOGY METHOD 09/19/2025 11:24 AM [facility] Basophils Absolute 0.05 0.00 - 0.20 K/mcL LAB HEMETOLOGY METHOD 09/19/2025 11:24 AM [facility] Immature Granulocytes Absolute 0.07(H) 0.00 - 0.03 K/mcL LAB HEMETOLOGY METHOD 09/19/2025 11:24 AM [facility] Blood Venous blood specimen / Unknown Venipuncture / Unknown 09/19/2025 11:03 AM EDT 09/19/2025 11:18 AM EDT Richard Pelayo MD LAB BLOOD ORDERABLES Final Result Performing Organization Address City/[facility]/ZIP Co de Phone Number [facility] [address] [place] [address], [place] [phone] * Magnesium (09/19/2025 11:03 AM EDT) Magnesium 2.1 1.9 - 2.6 mg/dL LAB CHEMISTRY METHOD 09/19/2025 11:49 AM EDT [facility] Blood Venous blood specimen / Unknown Venipuncture / Unknown 09/19/2025 11:03 AM EDT 09/19/2025 11:18 AM EDT Shila Ernst DO LAB BLOOD ORDERABLES Final Re sult Performing Organization Address [facility]/ZIP Co de Phone Number [facility] [address] [place] [address], [place] [phone] * Lipase (09/19/2025 11:03 AM EDT) Lipase 17 13 - 75 unit/L LAB CHEMISTRY METHOD 09/19/2025 12:07 PM EDT [facility] Blood Venous blood specimen / Unknown Venipuncture / Unknown 09/19/2025 11:03 AM EDT 09/19/2025 11:18 AM EDT Richard Pelayo MD LAB BLOOD ORDERABLES Final Result Performing Organization Address [facility]/ZIP Co de Phone Number [facility] [address] [place] [address], [place] [phone] * (ABNORMAL) Comprehensive metabolic panel (09/19/2025 11:03 AM EDT) Sodium 136 133 - 145 mmol/L LAB CHEMISTRY METHOD 09/19/2025 12:08 PM EDT [facility] Potassium 4.1 3.5 - 5.5 mmol/L LAB CHEMISTRY METHOD 09/19/2025 12:08 PM [facility] Chloride 103 96 - 110 mmol/L LAB CHEMISTRY METHOD 09/19/2025 12:08 PM [facility] CO2 28 21 - 32 mmol/L LAB CHEMISTRY METHOD 09/19/2025 12:08 PM [facility] Anion Gap 5 3 - 11 LAB CHEMISTRY METHOD 09/19/2025 12:08 PM [facility] Glucose 304(H) 70 - 100 mg/dL LAB CHEMISTRY METHOD 09/19/2025 12:08 PM [facility] BUN 17 5 - 25 mg/dL LAB CHEMISTRY METHOD 09/19/2025 12:08 PM [facility] Creatinine 1.51(H) 0.70 - 1.30 mg/dL LAB CHEMISTRY METHOD 09/19/2025 12:08 PM [facility] eGFR 62 >=60 mL/min/1. 73m2 LAB CHEMISTRY METHOD 09/19/2025 12:08 PM [facility] Comment:Calculation based on the Chronic Kidney Disease Epidemiology Collaboration (CKD-EPI) equation refit without adjustment for race. BUN/Creatinine Ratio 11.3 LAB CHEMISTRY METHOD 09/19/2025 12:08 PM [facility] Calcium 8.8 8.5 - 10.5 mg/dL LAB CHEMISTRY METHOD 09/19/2025 12:08 PM [facility] AST (SGOT) 17 10 - 42 unit/L LAB CHEMISTRY METHOD 09/19/2025 12:08 PM [facility] ALT (SGPT) 26 10 - 60 unit/L LAB CHEMISTRY METHOD 09/19/2025 12:08 PM [facility] Alkaline Phosphatase 206(H) 42 - 121 unit/L LAB CHEMISTRY METHOD 09/19/2025 12:08 PM [facility] Total Protein 6.3 6.0 - 8.0 g/dL LAB CHEMISTRY METHOD 09/19/2025 12:08 PM EDT [facility] Albumin 2.6(L) 3.2 - 5.0 g/dL LAB CHEMISTRY METHOD 09/19/2025 12:08 PM EDT [facility] Total Bilirubin 0.3 0.0 - 1.4 mg/dL LAB CHEMISTRY METHOD 09/19/2025 12:08 PM EDT [facility] Blood Venous blood specimen / Unknown Venipuncture / Unknown 09/19/2025 11:03 AM EDT 09/19/2025 11:18 AM EDT Richard Pelayo MD LAB BLOOD ORDERABLES Final Result [facility] [address] [place] [address], from Last 3 Months Insurance MEDICAID - [place] Advance Directives * Full Code - Default [...] currently active code status orders. Care Teams Release Of Information Specialist Relationship Specialty Start Date End Date Name, MD Dipesh [address] [place], [place] PCP - General Internal Medicine 10/19/17
--- OUTSIDE RECORDS SUMMARY | 2025-10-09 14:43 | XMS_ITS | Encounter Summary ---
Author Organization [employer] Address [address] [place] [address] [address] [place] [address] Care Team Providers Care Solar Field Installation Crew Member Name Role Phone Name, Dipesh WEINBERG Primary Care Provider Puheath Edel PharmD Unavailable Puia, Edel PharmD Unavailable Cristal Mercer RN Unavailable [phone] Carley Abdul Unavailable Reason for Visit * Reason Comments Care Coordination C3 -[facility] Carley buchanan telephone call outreach Encounter Details Date Type Department Care Team (Latest Contact Info) Description 10/04/2025 Patient Outreach [facility] [address] [place] [address] Name, MD Dipesh [address] [place] [address] Care Coordination (C3 [place]-[facility] Carley Abdul telephone call outreach) Social History Tobacco Use Types Packs/Day Years [...] as of this encounter Progress Notes * Carley Abdul - 10/04/2025 3:03 PM EST CHW Carley Abdul called patient to introduce Adult Complex Care Program. Patient's name, and Address was confirmed. Program information was provided to the patient. Patient declined to participatein program. Provided patient with direct contact information for future reference. documented in this encounter Plan of Treatment Upcoming Encounters Date Type Department Care Team (Late st Contact Info) Description 10/19/2025 11:00 AM EST Medication Management [facility] [address] [place], [place] [phone] Edel Dupont, PharmD [address] [place] [address] documented as of this encounter Visit Diagnoses Not on filedocumented in this encounter Additional Health Concerns Assessment Noted Time PHQ-9 Depression Total Score: 11 024 4:36 PM EDT documented as of this encounter Care Teams Solar [employer] Installation Crew Member Relationship Specialty Start Date End Date Name, MD Dipesh [address] [facility] [address] PCP - General Family Medicine 03/04/16 Edel Dupont, UrbanD [address] [facility] [place] [address] Pharmacist Internal Medicine 04/17/25 Edel Dupont, UrbanD [address] [facility] [place], [place] [id number] Pharmacist Internal Medicine 04/17/25 Cristal Mercer, NITISH [address] [place] [address] Registered Nurse Family Medicine 09/20/25 10/04/25 Carley Abdul 09/20/25 10/04/25 documented as of this encounter
--- OUTSIDE RECORDS SUMMARY | 2025-10-09 14:43 | XMS_ITS ---
Author Organization [employer] Address [address] [place] [address] [address] [place] [address] Care Team Providers Care Rater Associate Name Role Phone Name, Dipesh WEINBERG Primary Care Provider Puia, Edel PharmD Unavailable Puia, Edel PharmD Unavailable [phone] CM Complex Status:Closed (Closed) Start date:09/20/2025 Enrollment reason:ADT Feed End date:10/04/2025 Close reason:Declined to Participate Overview ED- Pt went to [facility] ED on 09/19/25. Continued Care and Services Coordination
== END 2025-10-09 14:03 | disposition home or self-care (01) ==
LOC: HO.ENCR 13:00
PROVIDERS: PCP Internal Medicine Geriatric Medicine; Visit Provider Student in an Organized Health Care Education/Training Program
DX: E10.65 Type 1 diabetes mellitus with hyperglycemia (principal); E55.9 Vitamin D deficiency, unspecified

== ENCOUNTER 2025-10-09 12:59 | Outpatient (REF) | payer MEDICAID, SELFPAY ==
[2025-10-09 16:12] LABS: Anion Gap 14 (12-20); Blood Urea Nitrogen 25 mg/dL (9-16); Calcium 9.0 mg/dL (8.4-10.2); Carbon Dioxide 25 mmol/L (22-29); Chloride 102 mmol/L (96-108); Cholesterol 253 mg/dL (<200); Estimated Glomerular Filt Rate 56; HDL Cholesterol 44 mg/dL (>40); Potassium 4.6 mmol/L (3.3-5.1); Sodium 136 mmol/L (135-145); Triglycerides 353 mg/dL (<150)
[2025-10-09 17:27] LABS: Total Protein Urine Random 347 mg/dL (<12)
== END 2025-10-09 13:00 | disposition home or self-care (01) ==
LOC: HO.LAB 12:59
PROVIDERS: Absent Provider Internal Medicine Hypertension Specialist; PCP Internal Medicine Geriatric Medicine; Visit Provider Student in an Organized Health Care Education/Training Program
DX: I12.9 Hypertensive chronic kidney disease with stage 1 through stage 4 chronic kidney disease, or unspecified chronic kidney disease (principal); E10.22 Type 1 diabetes mellitus with diabetic chronic kidney disease; N18.9 Chronic kidney disease, unspecified; E10.65 Type 1 diabetes mellitus with hyperglycemia; E10.21 Type 1 diabetes mellitus with diabetic nephropathy; E55.9 Vitamin D deficiency, unspecified; Z79.4 Long term (current) use of insulin; Z79.84 Long term (current) use of oral hypoglycemic drugs; Z79.899 Other long term (current) drug therapy
CPT/HCPCS: 36415; 80048; 80061; 82306; 82570; 82947; 83036; 84156; 84443; 99212

== ENCOUNTER 2025-10-09 15:56 | Outpatient (AMB) | payer MEDICAID, SELFPAY ==
[2025-10-09 15:55] VITALS: BP 150/64; PULSE 89; O2SAT 98; BMI 47.3
--- NOTE | 2025-10-09 15:55 | HO.NEPHOV ---
Vital Signs 10/09/25 15:55 10/09/25 16:04 Height 5 ft 5 in Weight 284 lb BMI 47.3 BP 150/64 H 140/70 H Blood Pressure Location Lt brachial Lt brachial Position Sitting Sitting Pulse 89 Pulse Source Pulse Oximeter Pulse Oximetry (%) 98 Oxygen Delivery Method Room Air Intake Visit Reasons: 3mon f/u w/labs [place] Technician Required: No Accompanied by: Spouse Allergies seafood Allergy (Unknown, Verified 10/09/25 15:57) Swelling Medication List - Last Reconciled 10/09/25 by Hernan Miranda MD acetone (urine) test (Ketone Care strips) As directed to measure urine ketones PRN albuterol sulfate 90 mcg/actuation (Ventolin HFA) 2 puffs inhalation Q6H PRN blood sugar diagnostic (FreeStyle Lite Strips) As directed checks 4X/day blood-glucose meter (FreeStyle Lite Meter kit) As directed checking 4X/day blood-glucose sensor (FreeStyle Saranya 3 Plus Sensor device) As directed to measure BG continuously cholecalciferol (vitamin D3) 50 mcg PO DAILY diphenhydramine HCl (Benadryl) 25 mg PO BEDTIME PRN gabapentin 300 mg PO TID insulin degludec (Tresiba FlexTouch U-200 insulin) 44 units (0.22 mL) subcut DAILY insulin lispro 1 sliding scale dose subcut TIDWMEAL 30 days MDD 75 units lancets (E-Z Ject Lancets) As directed to check BG 3-4 times per day lidocaine 5% 1 patch topical QAM lisinopril 20 mg PO DAILY 30 days loperamide 2 mg PO TID PRN metoclopramide HCl (Reglan) 10 mg PO Q6H PRN metoprolol tartrate 25 mg PO BID mirtazapine 15 mg (2 x 7.5 mg) PO BEDTIME omeprazole 40 mg PO DAILY ondansetron 8 mg PO Q8H PRN oxcarbazepine 450 mg PO BID pen needle, diabetic (BD Ultra-Fine Short Pen Needle) As directed injects 5 X/day pen needle, diabetic (BD Ultra-Fine Damaris Pen Needle) As directed five times a day prazosin 2 mg PO QPM trazodone 100 mg PO DAILY HPI Comments Details: 34-year-old male presenting with chronic kidney disease and associated hypertension. He has a history of essential hypertension diagnosed approximately two years ago. He is currently on lisinopril 5 mg and metoprolol, experiencing variable blood pressure readings with spikes related to pain or stress. The patient has been managing type 1 diabetes mellitus since childhood, with complications of eye-related surgeries following vision loss. He was previously seen by a certified low vision therapist but hasn't had recent consultations. An increase in proteinuria has been observed, indicative of worsening renal involvement. He also reports recent weight gain and an intake of a highly salted diet. Relevant comorbidities include sleep apnea, for which he adheres to CPAP therapy, asthma, and gastroparesis. 07/04/25 Doing OK ;Did not take meds today 10/09/25 The patient is a 35-year-old male presenting with hypertension management. His blood pressure was recorded at 140/70 mmHg during the visit, which is an improvement. Apparently turned down by bariatric surgery due to gastroparesis The patient reports hyperglycemia, with blood sugar levels being elevated and variable. He has been advised to monitor his diet, particularly reducing carbohydrate intake and avoiding sugary drinks. COUNT INCLUDES THE [facility] Medical History Insomnia Anxiety Depression Bipolar 1 disorder GERD (gastroesophageal reflux disease) Morbid obesity Vitamin D deficiency Tachycardia Vitamin D deficiency HTN (hypertension) Obesity (BMI 30-39.9) Hyperparathyroidism due to vitamin D deficiency Dyslipidemia Diabetic polyneuropathy associated with type 1 diabetes mellitus Diabetic gastroparesis associated with type 1 diabetes mellitus Diabetic nephropathy associated with type 1 diabetes mellitus Diabetes type 1, uncontrolled Gastroparesis H. pylori infection Asthma Gastritis Gastroparalysis Surgical History Hx of eye surgery Hx of appendectomy History of esophagogastroduodenoscopy (EGD) Family History Mother Diabetes HTN (hypertension) Father Diabetes Heart problem Son Asthma Son Asthma Social History Household Members: Family Housing: Apartment Do you presently have visiting nurse or other home services: No Alcohol intake: never Comment: sleeping Patient Tobacco Use Status: Never used Tobacco Second Hand Smoke Exposure: No Substance Use Type: Marijuana service: No Current occupational status: unemployed Physical Exam Vital Signs: Last Vital Signs Pulse 89 10/09/25 15:55 BP 150/64 H 10/09/25 15:55 Pulse Ox 98 10/09/25 15:55 Oxygen Delivery Method Room Air 10/09/25 15:55 BMI result Body Mass Index 47.3 Const General: comfortable Nutritional Appearance: well nourished Orientation/consciousness: patient oriented x3 HEENT Head: No normal to inspection Mouth: moist mucous membranes Neck Neck: Yes supple and Yes no JVD Resp Auscultation: clear to auscultation bilaterally and no rales Cardio Jugular venous distension: no JVD Palpation: no palpable S3 and no palpable S4 Heart sounds: no rubs GI Palpation (GI): Soft to palpation and nontender Percussion: No Fluid wave present General: Yes no CVA tenderness Back/Spine/Pelvis Back: no CVA tenderness Skin General skin exam: no rashes or lesions noted Neuro General: patient oriented x3 Extrem General: Yes no pedal edema and No clubbing Results AMB Hemoglobin A1c AMB Hemoglobin A1c 10.0 % Last Edit by BERTA Mckeon on 10/09/25 13:26 Results Reviewed Nephrology Results: Sodium, (135-145) 137 mmol/L 05/02/25 Potassium, (3.3-5.1) 4.4 mmol/L 05/02/25 Chloride, (96-108) 105 mmol/L 05/02/25 Carbon Dioxide, (22-29) 28 mmol/L 05/02/25 BUN, (9-16) 17 mg/dL H 05/02/25 Creatinine, (0.5-1.4) 1.30 mg/dL 05/02/25 Calcium, (8.4-10.2) 8.8 mg/dL 05/02/25 Assessment & Plan Assessment & Plan (1) HTN (hypertension): Code(s): I10 - Essential (primary) hypertension Category: Medical (2) Diabetic nephropathy associated with type 1 diabetes mellitus: Code(s): E10.21 - Type 1 diabetes mellitus with diabetic nephropathy Category: Medical Plan HTN BP better controlled Goal BP < 130/80 Stay on low salt diet. Increase physical activity The patient was counseled on improving diabetes control and the importance of consistent CPAP usage for sleep apnea. Maintain A1C < 7% Bump in creatinine due to hypoperfusion Repeat blood work -pending Coding Level of Care Code Est Pt Level 4 (88631) Diagnoses HTN (hypertension) I10 Diabetic nephropathy associated with type 1 diabetes mellitus E10.21
[2025-10-09 16:04] VITALS: BP 140/70
--- OUTSIDE RECORDS SUMMARY | 2025-10-09 17:19 | XMS_ITS | Clinical Summary ---
Author Organization [facility] Facility Address [address] [address] Care Team Providers Care Project Engineering Director Name Role Phone Name, Dipesh WEINBERG Primary Care Provider [phone] Allergies No known active allergies Medications D3 [...] Discontinued 6, 11/02/2016 Insurance Medicaid [place] Medicaid [place] Care Teams Project Engineering Director Relationship Specialty Start Date End Date Name, MD Dipesh [address] [place] [address] PCP - General 12/09/20
== END 2025-10-09 16:07 | disposition home or self-care (01) ==
LOC: HO.HKA 15:56
PROVIDERS: PCP Internal Medicine Geriatric Medicine; Visit Provider Internal Medicine Hypertension Specialist
DX: I10 Essential (primary) hypertension (principal); E10.21 Type 1 diabetes mellitus with diabetic nephropathy
CPT/HCPCS: 99214

== ENCOUNTER 2025-10-16 15:14 | Outpatient (AMB) | payer MEDICAID, SELFPAY ==
--- NOTE | 2025-10-16 15:17 | HO.NEPHOV ---
Vital Signs 10/16/25 15:18 Height 5 ft 5 in BP 142/84 H Blood Pressure Location Lt brachial Position Sitting Pulse 90 Pulse Source Pulse Oximeter Pulse Oximetry (%) 95 Oxygen Delivery Method Room Air Intake Visit Reasons: Lab Results Domestic Cleaner Required: No Accompanied by: Spouse Allergies seafood Allergy (Unknown, Verified 10/16/25 15:19) Swelling Medication List - Last Reconciled 10/16/25 by Hernan Miranda MD acetone (urine) test (Ketone Care strips) As directed to measure urine ketones PRN albuterol sulfate 90 mcg/actuation (Ventolin HFA) 2 puffs inhalation Q6H PRN amlodipine 5 mg PO DAILY blood sugar diagnostic (FreeStyle Lite Strips) As directed checks 4X/day blood-glucose meter (FreeStyle Lite Meter kit) As directed checking 4X/day blood-glucose sensor (FreeStyle Saranya 3 Plus Sensor device) As directed to measure BG continuously diphenhydramine HCl (Benadryl) 25 mg PO BEDTIME PRN gabapentin 300 mg PO TID insulin degludec (Tresiba FlexTouch U-200 insulin) 44 units (0.22 mL) subcut DAILY insulin lispro 1 sliding scale dose subcut TIDWMEAL 30 days MDD 75 units lancets (E-Z Ject Lancets) As directed to check BG 3-4 times per day lidocaine 5% 1 patch topical QAM lisinopril 10 mg PO DAILY 30 days loperamide 2 mg PO TID PRN metoclopramide HCl (Reglan) 10 mg PO Q6H PRN metoprolol tartrate 25 mg PO BID mirtazapine 15 mg (2 x 7.5 mg) PO BEDTIME omeprazole 40 mg PO DAILY ondansetron 8 mg PO Q8H PRN oxcarbazepine 450 mg PO BID pen needle, diabetic (BD Ultra-Fine Short Pen Needle) As directed injects 5 X/day pen needle, diabetic (BD Ultra-Fine Damaris Pen Needle) As directed five times a day prazosin 2 mg PO QPM trazodone 100 mg PO DAILY HPI Comments Details: 34-year-old male presenting with chronic kidney disease and associated hypertension. He has a history of essential hypertension diagnosed approximately two years ago. He is currently on lisinopril 5 mg and metoprolol, experiencing variable blood pressure readings with spikes related to pain or stress. The patient has been managing type 1 diabetes mellitus since childhood, with complications of eye-related surgeries following vision loss. He was previously seen by a beer still runner compounder but hasn't had recent consultations. An increase in proteinuria has been observed, indicative of worsening renal involvement. He also reports recent weight gain and an intake of a highly salted diet. Relevant comorbidities include sleep apnea, for which he adheres to CPAP therapy, asthma, and gastroparesis. 07/04/25 Doing OK ;Did not take meds today 10/09/25 The patient is a 35-year-old male presenting with hypertension management. His blood pressure was recorded at 140/70 mmHg during the visit, which is an improvement. Apparently turned down by bariatric surgery due to gastroparesis The patient reports hyperglycemia, with blood sugar levels being elevated and variable. He has been advised to monitor his diet, particularly reducing carbohydrate intake and avoiding sugary drinks. 10/16/25 The patient is a 35 year old male presenting for follow-up on abnormal blood tests showing a decline in kidney function. Serum creatinine bumped up to 1.46 which is significantly higher than baseline. His kidney function is currently at 56%, which is lower than it was six months ago. The patient has a 28-year history of diabetes, with a recent HbA1c of 10%. He also has a history of high cholesterol, with a past reading of 253, and low vitamin D levels, for which he has been prescribed high-dose vitamin D. The patient reports some lightheadedness but denies seeing blood in his urine or any increase in leg swelling. Medication history includes gabapentin 300 mg, which was started a few months ago, and an increase in his lisinopril dosage to 20 mg from a previous dose of 5 or 10 mg. He denies taking any new medications, including pain relievers. His physical activity is limited to walking within his house. [facility] Medical History Insomnia Anxiety Depression Bipolar 1 disorder GERD (gastroesophageal reflux disease) Morbid obesity Vitamin D deficiency Tachycardia Vitamin D deficiency HTN (hypertension) Obesity (BMI 30-39.9) Hyperparathyroidism due to vitamin D deficiency Dyslipidemia Diabetic polyneuropathy associated with type 1 diabetes mellitus Diabetic gastroparesis associated with type 1 diabetes mellitus Diabetic nephropathy associated with type 1 diabetes mellitus Diabetes type 1, uncontrolled Gastroparesis H. pylori infection Asthma Gastritis Gastroparalysis Surgical History Hx of eye surgery Hx of appendectomy History of esophagogastroduodenoscopy (EGD) Family History Mother Diabetes HTN (hypertension) Father Diabetes Heart problem Son Asthma Son Asthma Social History Household Members: Family Housing: Apartment Do you presently have visiting nurse or other home services: No Alcohol intake: never Comment: sleeping Patient Tobacco Use Status: Never used Tobacco Second Hand Smoke Exposure: No Substance Use Type: Marijuana service: No Current occupational status: unemployed Physical Exam Vital Signs: Last Vital Signs Pulse 90 10/16/25 15:18 BP 142/84 H 10/16/25 15:18 Pulse Ox 95 10/16/25 15:18 Oxygen Delivery Method Room Air 10/16/25 15:18 Const General: comfortable Nutritional Appearance: well nourished Orientation/consciousness: patient oriented x3 HEENT Head: No normal to inspection Mouth: moist mucous membranes Neck Neck: Yes supple and Yes no JVD Resp Auscultation: clear to auscultation bilaterally and no rales Cardio Jugular venous distension: no JVD Palpation: no palpable S3 and no palpable S4 Heart sounds: no rubs GI Palpation (GI): Soft to palpation and nontender Percussion: No Fluid wave present General: Yes no CVA tenderness Back/Spine/Pelvis Back: no CVA tenderness Skin General skin exam: no rashes or lesions noted Neuro General: patient oriented x3 Extrem General: No clubbing and Yes edema (1+) Results Reviewed Nephrology Results: Sodium, (135-145) 136 mmol/L 10/09/25 Potassium, (3.3-5.1) 4.6 mmol/L 10/09/25 Chloride, (96-108) 102 mmol/L 10/09/25 Carbon Dioxide, (22-29) 25 mmol/L 10/09/25 BUN, (9-16) 25 mg/dL H 10/09/25 Creatinine, (0.5-1.4) 1.45 mg/dL H 10/09/25 Calcium, (8.4-10.2) 9.0 mg/dL 10/09/25 Urine Creatinine 56.20 mg/dL 10/09/25 Assessment & Plan Assessment & Plan (1) HTN (hypertension): Code(s): I10 - Essential (primary) hypertension Category: Medical (2) Diabetic nephropathy associated with type 1 diabetes mellitus: Code(s): E10.21 - Type 1 diabetes mellitus with diabetic nephropathy Category: Medical Plan YADIRA superimposed on CKD in a setting of longstanding diabetes mellitus type 1. He has had serological workup in the past which was unremarkable. He has nephrotic range proteinuria most likely due to underlying diabetic nephropathy. The recent bump in creatinine may be due to the use of higher dose of UMESH inhibitor causing hypoperfusion. HTN BP better controlled Goal BP < 130/80 Stay on low salt diet. Increase physical activity Plan Decrease lisinopril from 20 mg down to 10 mg a day. Add amlodipine 5 mg a day. Encouraged him to stand low-sodium diet Watch for leg edema. Recheck renal panel in the next 4 weeks. If renal function does not improve or if there is any worsening of renal function he may need a kidney biopsy to rule out nondiabetic causes. I have answered all his questions. Return to the office in the next 4 weeks. Orders: Orders Basic Metabolic Panel 4 Weeks E10.21 - Type 1 diabetes mellitus with diabetic nephropathy, I10 - Essential (primary) hypertension Medications: New amlodipine 5 mg PO DAILY 30 tabs 2RF Changed From lisinopril Dose increase 20 mg PO DAILY 30 days 30 tabs 5RF To lisinopril Dose increase 10 mg PO DAILY 30 tabs 5RF 30 days Discontinued cholecalciferol (vitamin D3) Discontinued Reason: Patient no longer taking 50 mcg PO DAILY 90 caps 3RF E55.9 - Vitamin D deficiency, unspecified Coding Level of Care Code Est Pt Level 4 (99410) Diagnoses HTN (hypertension) I10 Diabetic nephropathy associated with type 1 diabetes mellitus E10.21
[2025-10-16 15:18] VITALS: BP 142/84; PULSE 90; O2SAT 95
== END 2025-10-16 15:30 | disposition home or self-care (01) ==
LOC: HO.HKA 15:14
PROVIDERS: PCP Internal Medicine Geriatric Medicine; Visit Provider Internal Medicine Hypertension Specialist
DX: I10 Essential (primary) hypertension (principal); E10.21 Type 1 diabetes mellitus with diabetic nephropathy
CPT/HCPCS: 99214

== ENCOUNTER → 2025-10-16 15:14 | Outpatient (BNVA) | payer MEDICAID, SELFPAY | PROVIDERS: PCP Internal Medicine Geriatric Medicine; Visit Provider Internal Medicine Hypertension Specialist | DX: E10.21 Type 1 diabetes mellitus with diabetic nephropathy (principal); I10 Essential (primary) hypertension | CPT/HCPCS: 99212 ==

== ENCOUNTER 2025-11-08 13:48 | Outpatient (REF) | payer MEDICAID, SELFPAY ==
[2025-11-08 16:01] LABS: Anion Gap 11 (12-20); Blood Urea Nitrogen 18 mg/dL (9-16); Calcium 8.6 mg/dL (8.4-10.2); Carbon Dioxide 25 mmol/L (22-29); Chloride 105 mmol/L (96-108); Estimated Glomerular Filt Rate > 60; Potassium 4.3 mmol/L (3.3-5.1); Sodium 137 mmol/L (135-145)
--- OUTSIDE RECORDS SUMMARY | 2025-11-08 21:06 | XMS_ITS | Encounter Summary ---
Author Organization [employer] Address [address] [place] [address] 7[address] [place] [address] Care Team Providers Care Electrical Design Engineer Name Role Phone Name, Dipesh WEINBERG Primary Care Provider PuEdel joe PharmD Unavailable Puheath Edel PharmD Unavailable Chaim Quintana RN Unavailable Carley Abdul Unavailable Cristal Mercer RN Unavailable [phone] Carley Abdul Unavailable Reason for Visit * Reason Onset Date Comments Medication Question 02/02/2024 Encounter Details Date Type Department Care Team (Late st Contact Info) Description 02/02/2024 Telephone [facility] [address] [place] [address] Name, MD Dipesh [address] [place], [place] [phone] Medication Question Social History Tobacco Use Types [...] or any concerns, advised to come to [facility]. Pt. Verbally agreed and understood. * Telephone Encounter - Daja You - 02/02/2024 10:20 AM EST Tc from tamar shah in regards to omeprazole (PriLOSEC) [address] capsule. States pharmacy will not fill script until 02/19. Loading Unit Operator Seating called pharmacy and confirmed information. Pharmacy states it is because pt picked up a script on 11/27 for a 90 day supply. Tamar states pt is out of medication and has not had medication for two days now. documented in this encounter Plan of Treatment Upcoming Encounters Date Type Department Care Team (Late st Contact Info) Description 12/12/2025 10:45 AM EST Office Visit [facility] [address] [place] [address] Adilene Phillips NP [address] [place] [address] 12/18/2025 3:00 PM EST Nutrition [facility] [address] [place] [address] [place] [address] documented as of this encounter Visit Diagnoses Not on filedocumented in this encounter Additional Health Concerns Assessment Noted Time PHQ-9 Depression Total Score: 6 07/22/20 23 9:24 AM EDT documented as of this encounter Care Teams Electrical Design Engineer Relationship Specialty Start Date End Date Name, MD Dipesh [address] [place] [address] PCP - General Family Medicine 03/04/16 Edel Dupont PharmD [address] [place] [address] Pharmacist Internal Medicine 04/17/25 10/30/25 Edel Dupont PharmD [address] [place] [address] Pharmacist Internal Medicine 04/17/25 10/30/25 Chaim Quintana, RN [address] [place] [address] Registered Nurse Family Medicine 07/02/25 07/06/25 Carley Abdul 07/02/25 07/06/25 Cristal Mercer RN [address] [place] [address] Registered Nurse Family Medicine 09/20/25 10/04/25 Carley Abdul 09/20/25 10/04/25 documented as of this encounter
--- OUTSIDE RECORDS SUMMARY | 2025-11-08 21:06 | XMS_ITS | Encounter Summary ---
Author Organization [employer] Address [address] [facility] 7t [place] [address] Care Team Providers Care Technical Staff Engineer Name Role Phone Name, Dipesh WEINBERG Primary Care Provider [phone] Encounter Details Date Type Department Care Team (Late st Contact Info) Description 11/08/2025 Orders Only GENERIC EXTERNAL DATA DEPARTMENT Provider, [...] Description 12/12/2025 10:45 AM EST Office Visit [facility] [address] [place], [place] [phone] Adilene Phillips NP [address] [place], [place] [phone] 12/18/2025 3:00 PM EST Nutrition [facility]NU[facility]ITION [address] [place], [place] [phone] Anastasia Louis [address] [place] [address] documented as of this encounter Procedures Procedure Name Priority Date/Time Associated Diagnosis Comments BASIC METABOLIC PANEL Routine 11/08/2025 1:59 PM EST documented in this encounter Results * (ABNORMAL) Basic Metabolic Panel (11/08/2025 1:59 PM EST) Sodium 137 135 - 145 mmol/L LABS Potassium 4.3 3.3 - 5.1 mmol/L LABS Chloride 105 96 - 108 mmol/L LABS Carbon Dioxide 25 22 - 29 mmol/L LAB[facility] Anion Gap 11(L) 12 - 20 LABS Urea Nitrogen (BUN) 18(H) 9 - 16 mg/dL LABS Creatinine, Serum 1.33 0.5 - 1.4 mg/dL LABS Estimated Glomerular Filt Rate >60 LABS Comment:Chronic Kidney Disea se: Estimated GFR < 60 mL/min/[id number] Kidney Disease: Estimated GFR < 15 mL/min/1.73m2 Glucose 246(H) 60 - 115 mg/dL LABS Calcium 8.6 8.4 - 10.2 mg/dL LABS 11/08/2025 1:59 PM EST 11/08/2025 1:59 PM EST us Generic External Data Provider LAB BLOOD ORDERAB LES Final Result Performing Organization Address City/State/[facility] Co de Phone Number LABS [address] [place] [phone] documented in this encounter Visit Diagnoses Not on filedocumented in this encounter Additional Health Concerns Assessment Noted Time PHQ-9 Depression Total Score: 11 024 4:36 PM EDT documented as of this encounter Care Teams Technical Staff Engineer Relationship Specialty Start Date End Date Name, MD Dipesh [address] [place] [address] PCP - General Family Medicine 03/04/16 documented as of this encounter
--- OUTSIDE RECORDS SUMMARY | 2025-11-08 21:06 | XMS_ITS | Encounter Summary ---
Author Organization [employer] Address [address] [place] [address] [address]t [place] [address] Care Team Providers Care Concrete Pointer Name Role Phone Name, Dipesh WEINBERG Primary Care Provider [phone] Puheath Edel PharmD Unavailable [phone] Puheath, Edel PharmD Unavailable [phone] Cristal Mercer RN Unavailable [phone] Carley Abdul Unavailable Encounter Details Date Type Department Care Team (Late st Contact Info) Description 09/19/2025 Orders Only [facility] [address] [place] [address] Provider, MD Veena Social History Tobacco Use [...] Description 12/12/2025 10:45 AM EST Office Visit [facility] [address] [place] [address] Adilene Phillips NP [address] [place] [address] 12/18/2025 3:00 PM EST Nutrition [facility]NUTRITION [address] [place] [address] Anastasia Louis, OVI [address] [place] [address] documented as of this encounter Procedures Procedure [...] documented as of this encounter Care Teams Concrete Pointer Relationship Specialty Start Date End Date Name, MD Dipesh [address] [place] [address] PCP - General Family Medicine 03/04/16 Edel Dupont PharmD [address] [place] [address] Pharmacist Internal Medicine 04/17/25 10/30/25 Edel Dupont PharmD [address] [place] [address] Pharmacist Internal Medicine 04/17/25 10/30/25 Cristal Mercer RN [address] [place] [address] Registered Nurse Family Medicine 09/20/25 10/04/25 Carley Abdul 09/20/25 10/04/25 documented as of this encounter
--- OUTSIDE RECORDS SUMMARY | 2025-11-08 21:06 | XMS_ITS | Encounter Summary ---
Author Organization [employer] Address [address] [place] [address] 7t [place] [address] Care Team Providers Care Cable Swager Name Role Phone Name, Dipesh WEINBERG Primary Care Provider [phone] PuEdel joe PharmD Unavailable Puia, Edel PharmD Unavailable Chaim Quintana RN Unavailable [phone] Carley Abdul Unavailable Cristal Mercer RN Unavailable [phone] Carley Abdul Unavailable Reason for Visit * Reason Comments Med Refill Encounter Details Date Type Department Care Team ([facility] st Contact Info) Description 06/20/2024 Refill [facility] [address] [place] [address] Name, MD Dipesh [address] [place], [place] [phone] Social History Tobacco Use Types Packs/Day Years [...] the past 12 months, has t he [employer], gas, oil or water [employer] threatened to shut off services in your [...] Description 12/12/2025 10:45 AM EST Office Visit [facility] [address] [place] [address] Adilene Phillips NP [address] [place] [address] 12/18/2025 3:00 PM EST Nutrition [facility] DI[facility]ETES[facility]NUTRITION [address] [place] [address] [place] [address] documented as of this encounter Visit Diagnoses Not on filedocumented in this encounter Additional Health Concerns Assessment Noted Time PHQ-9 Depression Total Score: 6 07/22/20 23 9:24 AM EDT documented as of this encounter Care Teams Cable Swager Relationship Specialty Start Date End Date Name, MD Dipesh [address] [place] [address] PCP - General Family Medicine 03/04/16 Edel Dupont PharmD [address] [facility] [place] [address] Pharmacist Internal Medicine 04/17/25 10/30/25 Edel Dupont, UrbanD [address] [place] [address] Pharmacist Internal Medicine 04/17/25 10/30/25 Chaim Quintana, RN [address] [place] [address] Registered Nurse Family Medicine 07/02/25 07/06/25 Carley Abdul 07/02/25 07/06/25 Cristal Mercer, RN [address] [place] [address] [place] [address] Registered Nurse Family Medicine 09/20/25 10/04/25 Carley Abdul 09/20/25 10/04/25 documented as of this encounter
--- OUTSIDE RECORDS SUMMARY | 2025-11-08 21:06 | XMS_ITS | Encounter Summary ---
Author Organization [employer] Address [address] [place] [address] 7t [place] [address] Care Team Providers Care User Support Analyst Name Role Phone Name, Dipesh WEINBERG Primary Care Provider [phone] Reason for Visit * Reason Comments Med Refill Encounter Details Date Type Department Care Team ([facility] Contact Info) Description 11/08/2025 Refill [facility] MEDICINE [address] [place], [place] [phone] Tamar Israel, ADRIANA [address] [place] [address] Social History Tobacco Use Types Packs/Day Years [...] Description 12/12/2025 10:45 AM EST Office Visit [facility] MEDICINE [address] [place] [address] Adilene Phillips NP [address] [place] [address] 12/18/2025 3:00 PM EST Nutrition [facility] DIABETES/NUTRITION [address] [place] [address] [place] [address] documented as of this encounter Visit Diagnoses Not on filedocumented in this encounter Additional Health Concerns Assessment Noted Time PHQ-9 Depression Total Score: 11 024 4:36 PM EDT documented as of this encounter Care Teams User Support Analyst Relationship Specialty Start Date End Date Name, MD Dipesh [address] [place] [address] PCP - General Family Medicine 03/04/16 documented as of this encounter
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
--- OUTSIDE RECORDS SUMMARY | 2025-11-08 21:06 | XMS_ITS | Encounter Summary ---
Author Organization [employer] Address [address] [place] [address] 7t [place] [address] Care Team Providers Care Medicare Coordinator Name Role Phone Name, Dipesh WEINBERG Primary Care Provider [phone] PuEdel joe PharmD Unavailable Puheath Edel PharmD Unavailable Chaim Quintana RN Unavailable [phone] Carley Abdul Unavailable Cristal Mercer RN Unavailable Carley Abdul Unavailable Reason for Visit * Reason Comments Med Refill Encounter Details Date Type Department Care Team ([facility] st Contact Info) Description 05/04/2024 Refill [facility] MED & PEDS [address] [place], [place] [phone] Name, MD Dipesh [address] [place] [address] Social History Tobacco Use Types Packs/Day Years [...] the past 12 months, has t he [employer], gas, oil or water [employer] threatened to shut off services in your [...] Description 12/12/2025 10:45 AM EST Office Visit [facility] MEDICINE [address] [place] [address] Adilene Phillips NP [address] [place] [address] 12/18/2025 3:00 PM EST Nutrition [facility] DIABETES/NUTRITION [address] [place] [address] [place] [address] documented as of this encounter Visit Diagnoses Not on filedocumented in this encounter Additional Health Concerns Assessment Noted Time PHQ-9 Depression Total Score: 6 07/22/20 23 9:24 AM EDT documented as of this encounter Care Teams Medicare Coordinator Relationship Specialty Start Date End Date Name, MD Dipesh [address] [place] [address] PCP - General Family Medicine 03/04/16 Edel Dupont, PharmD 230 [facility] [place] [address] Pharmacist Internal Medicine 04/17/25 10/30/25 Edel Dupont PharmD 230 [facility] [place] [address] Pharmacist Internal Medicine 04/17/25 10/30/25 Chaim Quintana, RN [address] [place] [address] Registered Nurse Family Medicine 07/02/25 07/06/25 Carley Abdul 07/02/25 07/06/25 Cristal Mercer, RN [address] [place] [address] Registered Nurse Family Medicine 09/20/25 10/04/25 Carley Abdul 09/20/25 10/04/25 documented as of this encounter
--- OUTSIDE RECORDS SUMMARY | 2025-11-08 21:06 | XMS_ITS | Encounter Summary ---
Author Organization [employer] Address [address] [facility] 7t [place] [address] Care Team Providers Care Soccer Player Name Role Phone Name, Dipesh WEINBERG Primary Care Provider [phone] PuEdel joe PharmD Unavailable Puheath Edel PharmD Unavailable Chaim Qunitana RN Unavailable [phone] Carley Abdul Unavailable Cristal Mercer RN Unavailable [phone] Carley Abdul Unavailable Encounter Details Date Type Department Care Team (Late st Contact Info) Description 11/16/2024 Orders Only [facility] [address] [place] [address] Provider, MD Veena Social History Tobacco Use [...] Description 12/12/2025 10:45 AM EST Office Visit [facility] MEDICINE [address] [place] [address] Adilene Phillips NP [address] [place] [address] 12/18/2025 3:[address] [facility] DIABETES/NUTRITION [address] [place] [address] [place] [address] documented as of this encounter Procedures Procedure [...] documented as of this encounter Care Teams Soccer Player Relationship Specialty Start Date End Date Name, MD Dipesh [address] [place] [address] PCP - General Family Medicine 03/04/16 Edel Dupont, PharmD [address] [place] [address] Pharmacist Internal Medicine 04/17/25 10/30/25 Edel Dupotn, PharmD [address] [place] [address] Pharmacist Internal Medicine 04/17/25 10/30/25 Chaim Quintana, NITISH [address] [place] [address] Registered Nurse Family Medicine 07/02/25 07/06/25 Carley Abdul 07/02/25 07/06/25 Cristal Mercer, NITISH [address] [place] [address] Registered Nurse Family Medicine 09/20/25 10/04/25 Carley Abdul 09/20/25 10/04/25 documented as of this encounter
--- OUTSIDE RECORDS SUMMARY | 2025-11-08 21:07 | XMS_ITS | Clinical Summary ---
Author Organization [facility] Address [address] [place] [address] Phone Care Team Providers Care Director Motion Picture Name Role Phone Name, Dipesh WEINBERG Primary Care Provider [phone] Allergies Active Allergy Reactions Criticality Noted Date [...] assoc iated with type 1 diabetes mellitus 06/29/2025 FLOWER on CPAP 06/29/2025 Pneumonia 11/19/2024 Hypertension 11/19/2024 Type 1 diabetes mellitus with gastroparesis 10/29 Resolved Problems Problem Noted Date Diagnosed Date Resolved Date Sepsis 11/17/2024 11/20/2024 Epigastric pain 11/17/2024 11/20/2024 Encounters Date Type Department Care Team Description 09/19/2025 9:08 AM EDT - 09/19/2025 5:30 PM EDT Emergency [facility] Emergency [address] [place] [address] Richard Pelayo MD Mersier, Jasmine, DO Epigastric pain (Primary Dx); Nausea and vomiting, unspecified vomiting type Discharge Disposition: Home or Self Care from Last 3 Months Surgical History Surgery Date Site/Laterality Comments APPENDECTOMY EYE SURGERY Left Medical History Medical History Date Comments Asthma Type 1 diabetes mellitus ([facility] V24, [facility] V 28) GERD (gastroesophageal reflux disease) Diabetic gastroparesis ([facility] V24, [facility] V28 ) Hypertension FLOWER on CPAP Family [...] with reflex microscopic (09/19/2025 12:50 PM EDT) [facility] [place] [facility] Specific [place] Urine 1.027 1.003 - 1.030 LAB URINALYSIS - AUTOMATED METHOD 09/19/2025 1:37 PM [facility] pH, Urine 6.5 5.0 - 8.0 pH LAB URINALYSIS - AUTOMATED METHOD 09/19/2025 1:37 PM [facility] Leukocytes, Urine Negative Negative LAB URINALYSIS - AUTOMATED METHOD 09/19/2025 1:37 PM [facility] Nitrite, Urine Negative Negative LAB URINALYSIS - AUTOMATED METHOD 09/19/2025 1:37 PM [facility] Protein, Urine 300(A) <=Trace mg/dL LAB URINALYSIS - AUTOMATED METHOD 09/19/2025 1:37 PM [facility] Glucose, Urine >=1000(A) Negative mg/dL LAB URINALYSIS - AUTOMATED METHOD 09/19/2025 1:37 PM [facility] Ketones, Urine Negative Negative mg/dL LAB URINALYSIS - AUTOMATED METHOD 09/19/2025 1:37 PM [facility] Urobilinogen , Urine 0.2 0.2 - 1.0 mg/dL LAB URINALYSIS - AUTOMATED METHOD 09/19/2025 1:37 PM [facility] Bilirubin, Urine Negative Negative LAB URINALYSIS - AUTOMATED METHOD 09/19/2025 1:37 PM [facility] Blood, Urine Trace(A) Negative LAB URINALYSIS - AUTOMATED METHOD 09/19/2025 1:37 PM [facility] RBC, Urine 4.5(H) 0 - 4 /HPF LAB URINALYSIS - AUTOMATED METHOD 09/19/2025 1:37 PM [facility] WBC, Urine 2.4 0 - 4 /HPF LAB URINALYSIS - AUTOMATED METHOD 09/19/2025 1:37 PM [facility] Squamous Epithelial, Urine 9 0 - 60 /LPF LAB URINALYSIS - AUTOMATED METHOD 09/19/2025 1:37 PM EDT [facility] Bacteria, Urine Negative Negative /HPF LAB URINALYSIS - AUTOMATED METHOD 09/19/2025 1:37 PM EDT [facility] Hyaline Casts, Urine 0.0 0 - 3 /LPF LAB URINALYSIS - AUTOMATED METHOD 09/19/2025 1:37 PM EDT [facility] Urine Urine specimen obtained by clean catch procedure / Unknown Non-blood Collection / Unknown 09/19/2025 12:50 PM EDT 09/19/2025 1:23 PM EDT us Richard Pelayo MD LAB URINE ORDERABLES Final Result [facility] [address] [place] [address], [place] [phone] * CT Abdomen Pelvis w Contrast (09/19/2025 [...] Signed Date: 09/19/2025 12:49 ET Workstation ID: [id number] Transcribed By: Self Edit Transcribed Date: 09/19/2025 [...] Signed Date: 09/19/2025 12:49 ET Workstation ID: [id number] Transcribed By: Self Edit Transcribed Date: 09/19/2025 12:46 ET us Shila Ernst DO IMG CT PROCEDURES Final Resul t * (ABNORMAL) Venous blood gas co-oximetry (09/19/2025 11:09 AM EDT) Carboxyhemoglobin 1.9 0.0 - 3.0 % 09/19/2025 11:18 AM EDT [facility] Methemoglobin 0.3 0.2 - 0.5 % 09/19/2025 11:18 AM EDT [facility] Oxyhemoglobin 74.2(H) 40 - 70 % 09/19/2025 11:18 AM EDT [facility] O2 Sat, Brent 75.9 % 09/19/2025 11:18 AM EDT [facility] Total Hemoglobin Venous 12.0 12.0 - 18.0 g/dL 09/19/2025 11:18 AM EDT [facility] Blood Venous blood specimen / Unknown Venipuncture / Unknown 09/19/2025 11:09 AM EDT 09/19/2025 11:14 AM EDT us Shila Ernst DO LAB BLOOD ORDERABLES Final Re sult [facility] [address] [place] [address], * (ABNORMAL) CBC auto differential (09/19/2025 11:03 AM EDT) WBC 7.7 4.8 - 10.8 K/[facility] LAB HEMETOLOGY METHOD 09/19/2025 11:24 AM EDT [facility] RBC 4.10(L) 4.50 - 5.50 M/mcL LAB HEMETOLOGY METHOD 09/19/2025 11:24 AM [facility] Hemoglobin 11.8(L) 13.5 - 17.5 g/dL LAB HEMETOLOGY METHOD 09/19/2025 11:24 AM [facility] Hematocrit 34.9(L) 42.0 - 54.0 % LAB HEMETOLOGY METHOD 09/19/2025 11:24 AM [facility] MCV 84.7 79.0 - 98.0 FL LAB HEMETOLOGY METHOD 09/19/2025 11:24 AM [facility] MCH 28.6 27.0 - 32.0 pcg LAB HEMETOLOGY METHOD 09/19/2025 11:24 AM [facility] MCHC 33.8 32.0 - 37.0 g/dL LAB HEMETOLOGY METHOD 09/19/2025 11:24 AM [facility] RDW 13.3 11.0 - 15.0 % LAB HEMETOLOGY METHOD 09/19/2025 11:24 AM [facility] Platelets 241 130 - 400 K/mcL LAB HEMETOLOGY METHOD 09/19/2025 11:24 AM [facility] MPV 11.4(H) 7.0 - 11.0 FL LAB HEMETOLOGY METHOD 09/19/2025 11:24 AM [facility] NRBC 0.0 <1.0 % LAB HEMETOLOGY METHOD 09/19/2025 11:24 AM [facility] NRBC Absolute 0.00 <0.10 K/mcL LAB HEMETOLOGY METHOD 09/19/2025 11:24 AM [facility] Neutrophils Relative 63.8 % LAB HEMETOLOGY METHOD 09/19/2025 11:24 AM [facility] Lymphocytes Relative 20.3 % LAB HEMETOLOGY METHOD 09/19/2025 11:24 AM [facility] Monocytes Relative 11.4 % LAB HEMETOLOGY METHOD 09/19/2025 11:24 AM EDT [facility] Eosinophils Relative 3.0 % LAB HEMETOLOGY METHOD 09/19/2025 11:24 AM EDT [facility] Basophils Relative 0.6 % LAB HEMETOLOGY METHOD 09/19/2025 11:24 AM EDT [facility] Immature Granulocytes Relative 0.9 % LAB HEMETOLOGY METHOD 09/19/2025 11:24 AM EDT [facility] Neutrophils Absolute 4.92 1.50 - 7.00 K/mcL LAB HEMETOLOGY METHOD 09/19/2025 11:24 AM EDT [facility] Lymphocytes Absolute 1.57 1.00 - 5.00 K/mcL LAB HEMETOLOGY METHOD 09/19/2025 11:24 AM EDT [facility] Monocytes Absolute 0.88 0.20 - 1.00 K/mcL LAB HEMETOLOGY METHOD 09/19/2025 11:24 AM EDT [facility] Eosinophils Absolute 0.23 0.00 - 0.50 K/mcL LAB HEMETOLOGY METHOD 09/19/2025 11:24 AM EDT [facility] Basophils Absolute 0.05 0.00 - 0.20 K/mcL LAB HEMETOLOGY METHOD 09/19/2025 11:24 AM EDT [facility] Immature Granulocytes Absolute 0.07(H) 0.00 - 0.03 K/mcL LAB HEMETOLOGY METHOD 09/19/2025 11:24 AM T [facility] Blood Venous blood specimen / Unknown Venipuncture / Unknown 09/19/2025 11:03 AM EDT 09/19/2025 11:18 AM EDT Richard Pelayo MD LAB BLOOD ORDERABLES Final Result [facility] [address] [place] [address], [place] [phone] * Magnesium (09/19/2025 11:03 AM EDT) [facility] [place] [facility] Magnesium 2.1 1.9 - 2.6 mg/dL LAB CHEMISTRY METHOD 09/19/2025 11:49 AM EDT [facility] Blood Venous blood specimen / Unknown Venipuncture / Unknown 09/19/2025 11:03 AM EDT 09/19/2025 11:18 AM EDT Shila Ernst DO LAB BLOOD ORDERABLES Final Re sult [facility] [address] [place] [address], [place] [phone] * Lipase (09/19/2025 11:03 AM EDT) [facility] [place] [facility] Lipase 17 13 - 75 unit/L LAB CHEMISTRY METHOD 09/19/2025 12:07 PM EDT [facility] Blood Venous blood specimen / Unknown Venipuncture / Unknown 09/19/2025 11:03 AM EDT 09/19/2025 11:18 AM EDT Richard Pelayo MD LAB BLOOD ORDERABLES Final Result [facility] [address] [place] [address], [place] [phone] * (ABNORMAL) Comprehensive metabolic panel (09/19/2025 11:03 AM EDT) [facility] [place] [facility] Sodium 136 133 - 145 mmol/L LAB CHEMISTRY METHOD 09/19/2025 12:08 PM EDT [facility] Potassium 4.1 3.5 - 5.5 mmol/L LAB CHEMISTRY METHOD 09/19/2025 12:08 PM EDT [facility] Chloride 103 96 - 110 mmol/L LAB CHEMISTRY METHOD 09/19/2025 12:08 PM [facility] CO2 28 21 - 32 mmol/L LAB CHEMISTRY METHOD 09/19/2025 12:08 PM [facility] Anion Gap 5 3 - 11 LAB CHEMISTRY METHOD 09/19/2025 12:08 PM [facility] Glucose 304(H) 70 - 100 mg/dL LAB CHEMISTRY METHOD 09/19/2025 12:08 PM [facility] BUN 17 5 - 25 mg/dL LAB CHEMISTRY METHOD 09/19/2025 12:08 PM [facility] Creatinine 1.51(H) 0.70 - 1.30 mg/dL LAB CHEMISTRY METHOD 09/19/2025 12:08 PM [facility] eGFR 62 >=60 mL/min/1. 73m2 LAB CHEMISTRY METHOD 09/19/2025 12:08 PM [facility] Comment:Calculation based on the Chronic Kidney Disease Epidemiology Collaboration (CKD-EPI) equation refit without adjustment for race. BUN/Creatinine Ratio 11.3 LAB CHEMISTRY METHOD 09/19/2025 12:08 PM [facility] Calcium 8.8 8.5 - 10.5 mg/dL LAB CHEMISTRY METHOD 09/19/2025 12:08 PM [facility] AST (SGOT) 17 10 - 42 unit/L LAB CHEMISTRY METHOD 09/19/2025 12:08 PM [facility] ALT (SGPT) 26 10 - 60 unit/L LAB CHEMISTRY METHOD 09/19/2025 12:08 PM [facility] Alkaline Phosphatase 206(H) 42 - 121 unit/L LAB CHEMISTRY METHOD 09/19/2025 12:08 PM [facility] Total Protein 6.3 6.0 - 8.0 g/dL LAB CHEMISTRY METHOD 09/19/2025 12:08 PM [facility] Albumin 2.6(L) 3.2 - 5.0 g/dL LAB CHEMISTRY METHOD 09/19/2025 12:08 PM EDT [facility] Total Bilirubin 0.3 0.0 - 1.4 mg/dL LAB CHEMISTRY METHOD 09/19/2025 12:08 PM EDT [facility] Blood Venous blood specimen / Unknown Venipuncture / Unknown 09/19/2025 11:03 AM EDT 09/19/2025 11:18 AM EDT us Richard Pelayo MD LAB BLOOD ORDERABLES Final Result [facility]) [facility] [address] [place] [address], [place] [phone] from Last 3 Months Insurance MEDICAID - [...] currently active code status orders. Care Teams Director Motion Picture Relationship Specialty Start Date End Date Name, MD Dipesh [address] [place], [place] PCP - General Internal Medicine 10/19/17
--- OUTSIDE RECORDS SUMMARY | 2025-11-08 21:07 | XMS_ITS | Patient Health Record ---
Author Organization [facility] Address [address] [place] [address] Care Team Providers Care Tomato Pulper Operator Name Role Phone Name Dipesh WEINBERG Primary Care Provider Steve Chan Jr Unavailable [phone] Ector WEINBERG, Lazaro Unavailable Unavailable Reason For Referral No Information Plan Of Treatment No Information Insurance Providers Payer Name Payer Address Payer Phone Subscriber Number Group Number Insured Name Patient Relationship to Insured Coverage Start Date Coverage End Date MEDICAID OF [facility] [address] [place] [phone] [id number] MOUNA LERMA Self - patient is the insured
--- OUTSIDE RECORDS SUMMARY | 2025-11-08 21:07 | XMS_ITS | Clinical Summary ---
Author Organization [employer] Address [address] [place] [address] 7[address] [place] [address] Care Team Providers Care Card Hand Name Role Phone Name, Dipesh WEINBERG Primary Care Provider [phone] Allergies Active Allergy Reactions Criticality Noted Date [...] 22 Active D3 Super Strength 50 MCG (1999 [...] MEAL 60 mL 11 07/25/20 25 Active omeprazole (PriLOSEC) [address] [...] AT BEDTIME. 30 capsule 3 09/11/20 25 026 Active mirtazapine (Remeron) 7.5 MG tablet Take 1 tablet (7.5 mg) by mouth 2 times daily. 60 tablet 3 09/11/20 25 Active insulin degludec (Tresiba FlexTouch) 200 UNIT/ML injection 44 units once a day 3 mL 11 09/11/20 25 Active Alcohol Swabs (Alcohol Prep) padsIndications: Type 1 diabetes mellitus with hyperglycemia (HCC) Use 4 times a day as directed 100 each 2 09/11/20 25 Active ergocalciferol (Vitamin D2) 1.25 MG (25065 UT) capsuleIndicatio ns:Vitamin D Deficiency Take 1 capsule (1.25 mg) by mouth 1 (one) time per week. 8 capsule 5 1:57 PM EST 10/11/20 25 026 Active OXcarbazepine (Trileptal) 300 MG tablet TAKE 1 TABLET BY MOUTH TWICE A DAY 60 tablet 11/08/20 25 Active traZODone (Desyrel) 100 MG tablet TAKE 1 TABLET (100 MG) BY MOUTH IF NEEDED AT BEDTIME FOR SLEEP. 30 tablet 11/08/20 25 026 Active OXcarbazepine (Trileptal) 300 MG tablet Take 1 tablet (300 mg) by mouth 2 times daily. 60 tablet 08/24/20 25 025 Discontinued traZODone (Desyrel) 100 MG tablet Take 1 tablet (100 mg) by mouth if needed at bedtime for sleep. 30 tablet 08/24/20 025 Discontinued Active Problems Patient Care Coordination No te Formatting of this note migh t be different from the original. C3/CM Katrin Holden RN /[id number] [place] Problem Noted Date Diagnosed Date Vitamin D deficiency 10/11/2025 Morbid obesity (CMS/HCC) 09/11/2025 Primary hypertension 09/20/2024 [...] to schedule same day follow up with [facility], pt to present to appt now [...] Encounters Date Type Department Care Team Description 11/08/2025 Orders Only GENERIC EXTERNAL DATA DEPARTMENT Provider, Generic External Data 11/08/2025 Refill [facility] [address] [place] [address] Tamar Israel, ADRIANA 10/31/2025 Telephone [facility] [address] [place] [phone] Lizzy Dupont, PharmD 10/22/2025 Telephone [facility]IATR[facility] [address] [place] [phone] NameDipesh MD other (Called pt to book with lizzy no answer unable to leave voicemail. Voicemail full ) 10/17/2025 Telephone [facility] [address] [place] [phone] Dipesh Koch MD pre op 10/11/2025 Results Follow-Up [facility] [address] [place] [address] Dipesh Koch MD Glucose, Whole Blood, Vitamin D, 25-Hydroxy, Total, Immunoassay, TSH with Reflex to Free T4, Creatinine, Random Urine 10/09/2025 Orders Only GENERIC EXTERNAL DATA DEPARTMENT Provider, Generic External Data 10/04/2025 Patient Outreach [address] [address] Dipesh Koch MD Care Coordination ([facility] Carley Abdul telephone call outreach) 09/26/2025 Patient Outreach [address] [address] Dipesh Koch MD 09/25/[address] [address] Dipesh Koch MD 09/20/[address] [address] Lizyz Dupont, PharmD 09/20/2025 Patient Outreach [address] [address] Dipesh Koch MD Care Coordination ([facility] Carley Abdul chart review) 09/20/2025 Patient Outreach [address] [address] Dipesh Koch MD Care Management (C3 -CHART REVIEW/) 09/20/2025 Patient Outreach [address] [address] Dipesh Koch MD 09/19/2025 [facility] Health Information Management [address] [place] [address] ProviderVeena MD 09/11/2025 4:00 PM EDT Office Visit [address] [address] Dipesh Koch MD Type 1 diabetes mellitus with hyperglycemia (HCC) (Primary Dx); Diabetic neuropathy, type I diabetes mellitus (HCC); Diabetic nephropathy associated with type 1 diabetes mellitus (HCC); Morbid obesity (CMS/HCC) (HCC) 09/11/2025 Travel 09/10/[address] [address] Dipesh Koch MD Gastroesophageal reflux disease, unspecified whether esophagitis present 08/24/2025 [place] [address] Dipesh Koch MD Medication Question; Call Back Request 08/21/[address] [address] Name, MD Dipesh from Last 3 Months Immunizations Immunization Administration [...] Description 12/12/2025 10:45 AM EST Office Visit [facility] [address] [place] [address] Adilene Phillips NP [address] [place] [address] 12/18/2025 3:00 PM EST Nutrition [facility] DIABETES/NUTRITION [address] [place] [address] [place] [address] Health Maintenance Due Date Last Done Comments [...] 05/18/2024, Additional history exists COVID-19 Vaccine ( - season) 2025 Influenza Vaccine (#1) 2025 , [...] METABOLIC PANEL Routine 11/08/2025 1:59 PM EST TSH W/REFLEX TO FT4 Routine 10/09/2025 2:22 PM EST VITAMIN D,25-OH,TOTAL,IA Routine 10/09/2025 2:22 PM EST CREATININE, RANDOM URINE Routine 10/09/2025 2:13 PM EST GLUCOSE, WHOLE BLOOD Routine 10/09/2025 1:17 PM [...] to Health Maintenance Results * (ABNORMAL) Basic Metabolic Panel (11/08/2025 1:59 PM EST) Sodium 137 135 - 145 mmol/L [facility] Potassium 4.3 3.3 - 5.1 mmol/L [facility] Chloride 105 96 - 108 mmol/L [facility] Carbon Dioxide 25 22 - 29 mmol/L [facility] Anion Gap 11(L) 12 - 20 [facility] Urea Nitrogen (BUN) 18(H) 9 - 16 mg/dL [facility] Creatinine, Serum 1.33 0.5 - 1.4 mg/dL [facility] Estimated Glomerular Filt Rate >60 [facility] Comment:Chronic Kidney Disea se: Estimated GFR < 60 mL/min/[id number] Kidney Disease: Estimated GFR < 15 mL/min/1.73m2 Glucose 246(H) 60 - 115 mg/dL [facility] Calcium 8.6 8.4 - 10.2 mg/dL [facility] 11/08/2025 1:59 PM EST 11/08/2025 1:59 PM EST us Generic External Data Provider LAB BLOOD ORDERAB LES Final Result [facility] [address] [place] [address] [phone] * (ABNORMAL) Vitamin D, 25-Hydroxy, Total, Immunoassay (10/09/2025 2:22 PM EST) Vitamin D 25-OH Total 9.5(L) >30 ng/mL [facility] Comment: Health Based Reference Values*< 20 ng/mL Hjbcbqaic74-11 ng/mL Insufficient> 30 ng/mL Sufficient*Sandip MENDEZ. N Engl J Med. 2007;357:266-280There is no well-established upper level of normal vitamin Dlevels. Some laboratories use 50 ng/mL as an upper limit ofnormal. However, toxicity is patient-dependent and may occurat any level. Careful correlation with the patient'spresentation is necessary and, if there is concern forvitamin D toxicity, treatment should be consideredirrespective of the serum level.Care must be taken in interpreting Vitamin D results fromdifferent laboratories and methodologies. Published datademonstrated that results from patients undergoinghemodialysis may show a negative bias when tested withvarious automated 25-OH vitamin D assays when compared toLC-MS/MS.When testing samples from patients whose predominant form ofVitamin D is Vitamin D2, such as patients receiving VitaminD2 supplementation, results that are subtherapeutic shouldbe confirmed with another method such as LC-MS/MS. 10/09/2025 2:22 PM EST 10/09/2025 2:22 PM EST us Generic External Data Provider LAB BLOOD ORDERAB LES Final Result Performing Organization Address [facility] Co de Phone Number [facility] [address] [place] [phone] * TSH with Reflex to Free T4 (10/09/2025 2:22 PM EST) TSH reflex Free T4 1.19 0.32 - 4.0 uIU/mL [facility] 10/09/2025 2:22 PM EST 10/09/2025 2:22 PM EST us Generic External Data Provider LAB BLOOD ORDERAB LES Final Result Performing Organization Address [facility] de Phone Number [facility] [address] [place] [phone] * (ABNORMAL) Glucose, Whole Blood (10/09/2025 1:17 PM EST) [facility] Glucose, Whole Blood 293(H) 60 - 115 mg/dL [facility] Comment:METER #: [id number] 0Testing performed in the Endocrinology Department [address] , [address], [facility]. 10/09/2025 1:17 PM EST 10/09/2025 1:20 PM EST us Generic External Data Provider LAB BLOOD ORDERAB LES Final Result Performing Organization Address [facility] de Phone Number [facility] [address] [place] [phone] * CT Abdomen Pelvis w/ Contrast (09/19/2025 3:57 PM EDT) Anatomical Region Laterality Modality Body, Pelvis, Abdomen Computed T omography us Historical Provider MD NASSAR CT PROCEDURES Final R esult * (ABNORMAL) POCT Hgb A1c (09/11/2025 4:17 PM EDT) Pathologist [facility] Hemoglobin A1C 9.6(A) 4.0 - 5.7 % QC Media Lot # [id number] Lot# Expiration Date [id number] Blood 09/11/2025 4:17 PM EDT us Dipesh Koch MD POINT OF CARE TEST ENTER/EDIT OR DERABLES Final Result * (ABNORMAL) POCT Glucose (09/11/2025 4:17 PM EDT) Glucose Blood, POC 333(A) 60 - 200 mg/dL QC Media Lot # [id number] Lot# Expiration Date [id number] Blood Capillary blood specimen / Unknown 09/11/2025 4:17 PM EDT us Dipesh Koch MD POINT OF CARE TEST ENTER/EDIT OR DERABLES Final Result * (ABNORMAL) Lipid Panel with Reflex to Direct LDL (05/02/2025 3:01 PM EDT) Triglycerides 404(H) <150 mg/dL [facility] Comment:Desirable Triglyceri de: less than 150 mg/dLBorderline High Triglyceride 150-199 mg/dLHigh Triglyceride: 200-499 mg/dLVery High Triglyceride: greater than or equal to 5OO mg/dL Cholesterol 242(H) <200 mg/dL [facility] Comment:Desirable Cholestero l: less than 200 mg/dLBorderline High Cholesterol: 200-239 mg/dLHigh Cholesterol: greater than 239 mg/dL LDL Cholesterol Calculated TNP <100 mg/dL [facility] Comment:Unable to calculate the LDL. The formula of Friedwald,Santos, and Richie is only valid if the triglycerides areless than 400 mg/dl. HDL Cholesterol 38(L) >40 mg/dL [facility] Comment:Desirable HDL: great er than 40 mg/dL Note: This HDL assay may give artificially low results in patients with liver disease. 05/02/2025 3:01 PM EDT 05/02/2025 4:05 PM EDT us Dipesh Koch MD LAB BLOOD ORDERABLES Final Resul t [facility] [address] [place] [address] [phone] from Last 3 Months or Most Recently Relevant to Health Maintenance Insurance [facility] [employer] [address] [place] [phone] Care Teams Card Hand Relationship Specialty Start Date End Date Name, MD Dipesh [address] [place] [address] PCP - General Family Medicine 03/04/16
== END 2025-11-08 13:49 ==
LOC: HO.LAB 13:48
PROVIDERS: PCP Internal Medicine Geriatric Medicine; Visit Provider Internal Medicine Hypertension Specialist
DX: I10 Essential (primary) hypertension (principal)
CPT/HCPCS: 36415; 80048

== ENCOUNTER 2025-11-13 14:19 | Outpatient (AMB) | payer MEDICAID, SELFPAY ==
[2025-11-13 14:23] VITALS: BP 140/82; PULSE 94; O2SAT 97; BMI 46.9
--- NOTE | 2025-11-13 14:23 | HO.NEPHOV ---
Vital Signs 11/13/25 14:23 11/13/25 14:30 Height 5 ft 5 in Weight 282 lb BMI 46.9 BP 140/82 H 130/70 Blood Pressure Location Lt brachial Lt brachial Position Sitting Sitting Pulse 94 Pulse Source Pulse Oximeter Pulse Oximetry (%) 97 Oxygen Delivery Method Room Air Intake Visit Reasons: 4 wks f/u w/ labs-CONF Insert Molding Operator Required: No Accompanied by: Spouse Allergies seafood Allergy (Unknown, Verified 11/13/25 14:25) Swelling Medication List - Last Reconciled 11/13/25 by Hernan Miranda MD acetone (urine) test (Ketone Care strips) As directed to measure urine ketones PRN albuterol sulfate 90 mcg/actuation (Ventolin HFA) 2 puffs inhalation Q6H PRN amlodipine 5 mg PO DAILY blood sugar diagnostic (FreeStyle Lite Strips) As directed checks 4X/day blood-glucose meter (FreeStyle Lite Meter kit) As directed checking 4X/day blood-glucose sensor (FreeStyle Saranya 3 Plus Sensor device) As directed to measure BG continuously diphenhydramine HCl (Benadryl) 25 mg PO BEDTIME PRN gabapentin 300 mg PO TID insulin degludec (Tresiba FlexTouch U-200 insulin) 44 units (0.22 mL) subcut DAILY insulin lispro 1 sliding scale dose subcut TIDWMEAL 30 days MDD 75 units lancets (E-Z Ject Lancets) As directed to check BG 3-4 times per day lidocaine 5% 1 patch topical QAM lisinopril 10 mg PO DAILY 30 days loperamide 2 mg PO TID PRN metoclopramide HCl (Reglan) 10 mg PO Q6H PRN metoprolol tartrate 25 mg PO BID mirtazapine 15 mg (2 x 7.5 mg) PO BEDTIME omeprazole 40 mg PO DAILY ondansetron 8 mg PO Q8H PRN oxcarbazepine 450 mg PO BID pen needle, diabetic (BD Ultra-Fine Short Pen Needle) As directed injects 5 X/day pen needle, diabetic (BD Ultra-Fine Damaris Pen Needle) As directed five times a day prazosin 2 mg PO QPM trazodone 100 mg PO DAILY HPI Comments Details: History of Present Illness The patient is a 35 year old male presenting for follow-up management of chronic kidney disease and hypertension. His blood pressure was 140/82 mmHg, which is an improvement from previous readings in the 160s. He is currently taking amlodipine and lisinopril, with the lisinopril dose having been lowered to 10 mg. He has a blood pressure machine at home but has difficulty with the cuff being too large. Regarding his kidney function, his creatinine level was 1.3 in April, increased to 1.45, and has now returned to 1.3. The patient reports feeling well with no trouble breathing or cough. He states he is drinking enough fluids but admits to not watching his diet. Results - Labs: - Creatinine: The patient's creatinine level has improved to 1.3, which is back to his baseline from April, after a recent increase to 1.45. [facility] Medical History Insomnia Anxiety Depression Bipolar 1 disorder GERD (gastroesophageal reflux disease) Morbid obesity Vitamin D deficiency Tachycardia Vitamin D deficiency HTN (hypertension) Obesity (BMI 30-39.9) Hyperparathyroidism due to vitamin D deficiency Dyslipidemia Diabetic polyneuropathy associated with type 1 diabetes mellitus Diabetic gastroparesis associated with type 1 diabetes mellitus Diabetic nephropathy associated with type 1 diabetes mellitus Diabetes type 1, uncontrolled Gastroparesis H. pylori infection Asthma Gastritis Gastroparalysis Surgical History Hx of eye surgery Hx of appendectomy History of esophagogastroduodenoscopy (EGD) Family History Mother Diabetes HTN (hypertension) Father Diabetes Heart problem Son Asthma Son Asthma Social History Household Members: Family Housing: Apartment Do you presently have visiting nurse or other home services: No Alcohol intake: never Comment: sleeping Patient Tobacco Use Status: Never used Tobacco Second Hand Smoke Exposure: No Substance Use Type: Marijuana service: No Current occupational status: unemployed Physical Exam Exam Exam: Physical Exam General: Awake. Comfortable. HENT: Neck supple. Mucosa moist. Pulmonary: Breathing is normal. No rales. Cardiology: Heart S1-S2 heard. No gallop. Abdomen: Soft. Non tender. Bowel sounds normal. Neurologic: No involuntary movements. No myoclonus. Extremities: No edema. No rash. Vital Signs: Last Vital Signs Pulse 94 11/13/25 14:23 BP 130/70 11/13/25 14:30 Pulse Ox 97 11/13/25 14:23 Oxygen Delivery Method Room Air 11/13/25 14:23 BMI result Body Mass Index 46.9 Results Reviewed Nephrology Results: Sodium, (135-145) 137 mmol/L 11/08/25 Potassium, (3.3-5.1) 4.3 mmol/L 11/08/25 Chloride, (96-108) 105 mmol/L 11/08/25 Carbon Dioxide, (22-29) 25 mmol/L 11/08/25 BUN, (9-16) 18 mg/dL H 11/08/25 Creatinine, (0.5-1.4) 1.33 mg/dL 11/08/25 Calcium, (8.4-10.2) 8.6 mg/dL 11/08/25 Urine Creatinine 56.20 mg/dL 10/09/25 Assessment & Plan Assessment & Plan (1) HTN (hypertension): Code(s): I10 - Essential (primary) hypertension Category: Medical (2) Diabetic nephropathy associated with type 1 diabetes mellitus: Code(s): E10.21 - Type 1 diabetes mellitus with diabetic nephropathy Category: Medical Plan Plan 1. Hypertension - The patient's blood pressure is 140/82 mmHg, which has improved from previous readings in the 160s. - Continue current medications, including amlodipine and lisinopril 10 mg, with no changes at this time. - If blood pressure requires further control, the plan is to slowly increase the amlodipine dose. - Advised the patient he can place his home blood pressure cuff on his forearm for a more accurate reading. 2. Chronic Kidney Disease - The patient's creatinine has improved back to his baseline of 1.3 after a recent elevation to 1.45. - No changes will be made to the current treatment regimen. - Plan to repeat blood work in three months. - The patient confirms adequate fluid intake. 3. Health Maintenance - The patient was advised to start walking more for exercise. - The patient acknowledged he is not currently following a specific diet. - A follow-up appointment is scheduled for three months. Orders: Orders Basic Metabolic Panel 3 Months I10 - Essential (primary) hypertension Coding Level of Care Code Est Pt Level 4 (75935) Diagnoses HTN (hypertension) I10 Diabetic nephropathy associated with type 1 diabetes mellitus E10.21
[2025-11-13 14:30] VITALS: BP 130/70
--- OUTSIDE RECORDS SUMMARY | 2025-11-13 18:34 | XMS_ITS | Encounter Summary ---
Author Organization [employer] Address [address] [place] [address] [address] [place] [address] Care Team Providers Care Fugitive Investigator Name Role Phone Name, Dipesh WEINBERG Primary Care Provider [phone] Puheath Edel PharmD Unavailable [phone] Puheath, Edel PharmD Unavailable [phone] Cristal Mercer RN Unavailable [phone] Carley Abdul Unavailable Encounter Details Date Type Department Care Team (Late st Contact Info) Description 09/19/2025 Orders Only [facility] Management [address] [place] [address] Provider, MD Veena Social History Tobacco Use [...] Description 12/12/2025 10:45 AM EST Office Visit [facility] [address] [place] [address] Adilene Phillips NP [address] [place] [address] 12/18/2025 3:00 PM EST Nutrition [facility] DIABETES/NUTRITION [address] [place] [address] Anastasia Louis, OVI [address] [place] [address] documented as of this encounter Procedures Procedure [...] documented as of this encounter Care Teams Fugitive Investigator Relationship Specialty Start Date End Date Name, MD Dipesh [address] [place] [address] PCP - General Family Medicine 03/04/16 Edel Dupont PharmD [address] [place] [address] Pharmacist Internal Medicine 04/17/25 10/30/25 Edel Dupont PharmD [address] [place] [address] Pharmacist Internal Medicine 04/17/25 10/30/25 Cristal Mercer RN [address] [place] [address] Registered Nurse Family Medicine 09/20/25 10/04/25 Carley Abdul 09/20/25 10/04/25 documented as of this encounter
--- OUTSIDE RECORDS SUMMARY | 2025-11-13 18:34 | XMS_ITS | Encounter Summary ---
Author Organization [employer] Address [address] [facility] [address]t [place] [address] Care Team Providers Care Carbon Sequestration Plant Manager Name Role Phone Name, Dipesh WEINBERG Primary Care Provider [phone] PuEdel joe PharmD Unavailable Puheath Edel PharmD Unavailable Chaim Quintana RN Unavailable [phone] Carley Abdul Unavailable Cristal Mercer RN Unavailable [phone] Carley Abdul Unavailable Encounter Details Date Type Department Care Team (Late st Contact Info) Description 11/16/2024 Orders Only [facility] Information Management [address] [place] [address] Provider, MD Veena Social History Tobacco Use [...] Description 12/12/2025 10:45 AM EST Office Visit [facility] [address] [place] [address] Adilene Phillips NP [address] [place] [address] 12/18/2025 3:00 PM EST Nutrition [facility] DIABETES/NUTRITION [address] [place] [address] [place] [address] documented as of this encounter Procedures Procedure [...] documented as of this encounter Care Teams Carbon Sequestration Plant Manager Relationship Specialty Start Date End Date Name, MD Dipesh [address] [place] [address] PCP - General Family Medicine 03/04/16 Edel Dupont, PharmD [address] [place] [address] Pharmacist Internal Medicine 04/17/25 10/30/25 Edel Dupont, PharmD [address] [place] [address] Pharmacist Internal Medicine 04/17/25 10/30/25 Chaim Quintana, NITISH [address] [place] [address] Registered Nurse Family Medicine 07/02/25 07/06/25 Carley Abdul 07/02/25 07/06/25 Cristal Mercer, NITISH [address] [place] [address] Registered Nurse Family Medicine 09/20/25 10/04/25 Carley Abdul 09/20/25 10/04/25 documented as of this encounter
--- OUTSIDE RECORDS SUMMARY | 2025-11-13 18:34 | XMS_ITS | Encounter Summary ---
Author Organization [employer] Address [address] [place] [address] [address] [place] [address] Care Team Providers Care Prefabricator Name Role Phone Name, Dipesh WEINBERG Primary Care Provider [phone] PuEdel joe PharmD Unavailable Puia Edel PharmD Unavailable Chaim Quintana RN Unavailable [phone] Carley Abdul Unavailable Cristal Mercer RN Unavailable [phone] Carley Abdul Unavailable Reason for Visit * Reason Onset Date Comments Medication Question 02/02/2024 Encounter Details Date Type Department Care Team (Late st Contact Info) Description 02/02/2024 Telephone [facility] [address] [place] [address] Name, MD Dipesh [address] [place], [place] [phone] Medication Question Social History Tobacco Use Types [...] any concerns, advised to come to [facility]. Pt. Verbally agreed and understood. * Telephone Encounter - Daja You - 02/02/2024 10:20 AM EST Tc from tamar shah in regards to omeprazole (PriLOSEC) [address] capsule. States pharmacy will not fill script until 02/19. Class B Driver called pharmacy and confirmed information. Pharmacy states [...] 12/12/2025 10:45 AM EST Office Visit [facility] [address] [place] [address] Adilene Phillips NP [address] [place] [address] 12/18/2025 3:00 PM EST Nutrition [facility] DIABETES/NUTRITION [address] [place] [address] [place] [address] documented as of this encounter Visit Diagnoses Not on filedocumented in this encounter Additional Health Concerns Assessment Noted Time PHQ-9 Depression Total Score: 6 07/22/20 23 9:24 AM EDT documented as of this encounter Care Teams Prefabricator Relationship Specialty Start Date End Date Name, MD Dipesh [address] [place] [address] PCP - General Family Medicine 03/04/16 Edel Dupont PharmD [address] [place] [address] Pharmacist Internal Medicine 04/17/25 10/30/25 Edel Dupont PharmD [address] [place] [address] Pharmacist Internal Medicine 04/17/25 10/30/25 Chaim Quintana, RN [address] [place] [address] Registered Nurse Family Medicine 07/02/25 07/06/25 Carley Abdul 07/02/25 07/06/25 Cristal Mercer RN [address] [place] [address] Registered Nurse Family Medicine 09/20/25 10/04/25 Carley Abdul 09/20/25 10/04/25 documented as of this encounter
--- OUTSIDE RECORDS SUMMARY | 2025-11-13 18:35 | XMS_ITS | Encounter Summary ---
Author Organization [employer] Address [address] [place] [address] 7t [place] [address] Care Team Providers Care Sports Umpire Name Role Phone Name, Dipesh WEINBERG Primary Care Provider PuEdel joe PharmD Unavailable Puia, Deel PharmD Unavailable Chaim Quintana RN Unavailable [phone] Carley Abdul Unavailable Cristal Mercer RN Unavailable [phone] Carley Abdul Unavailable Reason for Visit * Reason Comments Med Refill Encounter Details Date Type Department Care Team ([facility] st Contact Info) Description 06/20/2024 Refill [facility] [address] [place] [address] Name, MD Dipesh [address] [place], [place] [phone] Social History Tobacco Use Types Packs/Day Years [...] the past 12 months, has t he [employer], gas, oil or water [employer] threatened to shut off services in your [...] Description 12/12/2025 10:45 AM EST Office Visit [facility] [address] [place] [phone] Adilene Phillips NP [address] [place] [address] 12/18/2025 3:00 PM EST Nutrition [facility]NUTRITION [address] [place] [address] [place] [address] documented as of this encounter Visit Diagnoses Not on filedocumented in this encounter Additional Health Concerns Assessment Noted Time PHQ-9 Depression Total Score: 6 07/22/20 23 9:24 AM EDT documented as of this encounter Care Teams Sports Umpire Relationship Specialty Start Date End Date Name, MD Dipesh [address] [place] [address] PCP - General Family Medicine 03/04/16 Edel Dupont PharmD [address] [facility] [place] [address] Pharmacist Internal Medicine 04/17/25 10/30/25 Edel Dupont, UrbanD [address] [place] [address] Pharmacist Internal Medicine 04/17/25 10/30/25 Chaim Quintana, RN [address] [place] [address] Registered Nurse Family Medicine 07/02/25 07/06/25 Carley Abdul 07/02/25 07/06/25 Cristal Mercer, RN [address] [place] [address] [place] [address] Registered Nurse Family Medicine 09/20/25 10/04/25 Carley Abdul 09/20/25 10/04/25 documented as of this encounter
--- OUTSIDE RECORDS SUMMARY | 2025-11-13 18:35 | XMS_ITS | Encounter Summary ---
Author Organization [employer] Address [address] [place] [address] 7t [place] [address] Care Team Providers Care Master Plumber Name Role Phone Name, Dipesh WEINBERG Primary Care Provider [phone] Reason for Visit * Reason Comments Med Refill Encounter Details Date Type Department Care Team ([facility] Contact Info) Description 11/08/2025 Refill [facility] [address] [place], [place] [phone] Tamar Israel, ADRIANA [address] [place] [address] Social History Tobacco Use Types Packs/Day Years [...] Description 12/12/2025 10:45 AM EST Office Visit [facility] [address] [place] [address] Adilene Phillips NP [address] [place] [address] 12/18/2025 3:00 PM EST Nutrition [facility]NUTRITION [address] [place] [address] [place] [address] documented as of this encounter Visit Diagnoses Not on filedocumented in this encounter Additional Health Concerns Assessment Noted Time PHQ-9 Depression Total Score: 11 024 4:36 PM EDT documented as of this encounter Care Teams Master Plumber Relationship Specialty Start Date End Date Name, MD Dipesh [address] [place] [address] PCP - General Family Medicine 03/04/16 documented as of this encounter
--- OUTSIDE RECORDS SUMMARY | 2025-11-13 18:35 | XMS_ITS | Clinical Summary ---
Author Organization [employer] Address [address] [place] [address] 7t [place] [address] Care Team Providers Care City Manager Name Role Phone Name, Dipesh WEIBNERG Primary Care Provider [phone] Allergies Active Allergy Reactions Criticality Noted Date [...] 25 Active ergocalciferol (Vitamin D2) 1.25 MG (06173 UT) capsuleIndicatio ns:Vitamin D Deficiency Take 1 [...] from the original. C3/CM Katrin Holden RN /[id number] Mich You Problem Noted Date Diagnosed Date [...] to schedule same day follow up with [facility], pt to present to appt now [...] DEPARTMENT Provider, Generic External Data 11/08/2025 Refill [facility] [address] [place] [address] Tamar Israel, ADRIANA 10/31/2025 Telephone [facility] [address] [place] [address] Lizzy Dupont, PharmD 10/22/2025 Telephone [facility] [address] [place] [address] NameDipesh MD other (Called pt to book with lizzy no answer unable to leave voicemail. Voicemail full ) 10/17/2025 Telephone [facility] [address] [place] [address] Dipesh Koch MD pre op 10/11/2025 Results Follow-Up [facility] [address] [place] [address] Dipesh Koch MD Glucose, Whole Blood, Vitamin D, 25-Hydroxy, Total, Immunoassay, TSH with Reflex to Free T4, Creatinine, Random Urine 10/09/2025 Orders Only GENERIC EXTERNAL DATA DEPARTMENT Provider, Generic External Data 10/04/2025 Patient Outreach [address] [address] Dipesh Koch MD Care Coordination ([facility] -[facility] Carley Abdul telephone call outreach) 09/26/2025 Patient Outreach [address] [address] Dipesh Koch MD 09/25/[address] [address] Dipesh Koch MD 09/20/[address] [address] Lizzy Dupont, PharmD 09/20/2025 Patient Outreach [address] [address] Diepsh Koch MD Care Coordination ([facility] Carley Abdul chart review) 09/20/2025 Patient Outreach [address] [address] Dipesh Koch MD Care Management (C3 -CHART REVIEW/) 09/20/2025 Patient Outreach [address] [address] Dipesh Koch MD 09/19/2025 [facility] Health Information Management [address] [place] [address] ProviderVeena MD 09/11/2025 4:00 PM EDT Office Visit [address] [address] Dipesh Koch MD Type 1 diabetes mellitus with hyperglycemia (HCC) (Primary Dx); Diabetic neuropathy, type I diabetes mellitus (HCC); Diabetic nephropathy associated with type 1 diabetes mellitus (HCC); Morbid obesity (CMS/HCC) (HCC) 09/11/2025 Travel 09/10/[address] [address] Dipesh Koch MD Gastroesophageal reflux disease, unspecified whether esophagitis present 08/24/2025 [place] [address] Dipesh Koch MD Medication Question; Call Back Request 08/21/[address] [address] Name, MD Dipesh from Last 3 Months [...] Description 12/12/2025 10:45 AM EST Office Visit [facility] [address] [place] [address] Adilene Phillips NP [address] [place] [address] 12/18/2025 3:00 PM EST Nutrition [facility]NUTRITION [address] [place] [address] [place] [address] Health Maintenance Due Date Last Done Comments [...] EST) Sodium 137 135 - 145 mmol/L [facility] Potassium 4.3 3.3 - 5.1 mmol/L [facility] Chloride 105 96 - 108 mmol/L [facility] Carbon Dioxide 25 22 - 29 mmol/L [facility] Anion Gap 11(L) 12 - 20 [facility] Urea Nitrogen (BUN) 18(H) 9 - 16 mg/dL [facility] Creatinine, Serum 1.33 0.5 - 1.4 mg/dL [facility] Estimated Glomerular Filt Rate >60 [facility] Comment:Chronic Kidney Disea se: Estimated GFR < 60 mL/min/[id number] Kidney Disease: Estimated GFR < 15 mL/min/1.73m2 Glucose 246(H) 60 - 115 mg/dL [facility] Calcium 8.6 8.4 - 10.2 mg/dL [facility] 11/08/2025 1:59 PM EST 11/08/2025 1:59 PM EST us Generic External Data Provider LAB BLOOD ORDERAB LES Final Result [facility] [address] [place] [address] [phone] * (ABNORMAL) Vitamin D, 25-Hydroxy, Total, Immunoassay (10/09/2025 2:22 PM EST) Vitamin D 25-OH Total 9.5(L) >30 ng/mL [facility] Comment: Health Based Reference Values*< 20 ng/mL [id number] ng/mL Insufficient> 30 ng/mL Sufficient*Sandip MENDEZ. N [...] ORDERAB LES Final Result Performing Organization Address City/[facility] Co de Phone Number [facility] [address] [place] [phone] * TSH with Reflex to Free T4 (10/09/2025 2:22 PM EST) TSH reflex Free T4 1.19 0.32 - 4.0 uIU/mL [facility] 10/09/2025 2:22 PM EST 10/09/2025 2:22 PM EST us Generic External Data Provider LAB BLOOD ORDERAB LES Final Result Performing Organization Address [facility] de Phone Number [facility] [address] [place] [phone] * (ABNORMAL) Glucose, Whole Blood (10/09/2025 1:17 PM EST) [facility] Glucose, Whole Blood 293(H) 60 - 115 mg/dL [facility] Comment:METER #: [id number] 0Testing performed in the Endocrinology Department [address] , [address], [facility]. 10/09/2025 1:17 PM EST 10/09/2025 1:20 PM EST us Generic External Data Provider LAB BLOOD ORDERAB LES Final Result Performing Organization Address [facility] de Phone Number [facility] [address] [place] [phone] * CT Abdomen Pelvis w/ Contrast (09/19/2025 3:57 PM EDT) Anatomical Region Laterality Modality Body, Pelvis, Abdomen Computed T omography us Historical Provider MD NASSAR CT PROCEDURES Final R esult * (ABNORMAL) POCT Hgb A1c (09/11/2025 4:17 PM EDT) Pathologist [facility] Hemoglobin A1C 9.6(A) 4.0 - 5.7 % QC Media Lot # [id number] Lot# Expiration Date [id number] Blood 09/11/2025 4:17 PM EDT us Dipesh [...] 3:01 PM EDT) Triglycerides 404(H) <150 mg/dL [facility] Comment:Desirable Triglyceri de: less than 150 mg/dLBorderline High Triglyceride 150-199 mg/dLHigh Triglyceride: 200-499 mg/dLVery High Triglyceride: greater than or equal to 5OO mg/dL Cholesterol 242(H) <200 mg/dL [facility] Comment:Desirable Cholestero l: less than 200 mg/dLBorderline High Cholesterol: 200-239 mg/dLHigh Cholesterol: greater than 239 mg/dL LDL Cholesterol Calculated TNP <100 mg/dL [facility] Comment:Unable to calculate the LDL. The formula of Friedwald,Santos, and Richie is only valid if the triglycerides areless than 400 mg/dl. HDL Cholesterol 38(L) >40 mg/dL [facility] Comment:Desirable HDL: great er than 40 mg/dL Note: This HDL assay may give artificially low results in patients with liver disease. 05/02/2025 3:01 PM EDT 05/02/2025 4:05 PM EDT us Dipesh Koch MD LAB BLOOD ORDERABLES Final Resul t [facility] [address] [place] [address] [phone] from Last 3 Months or Most Recently Relevant to Health Maintenance [facility] [address] [place] [phone] Care Teams City Manager Relationship Specialty Start Date End Date Name, MD Dipesh [address] [place] [address] PCP - General Family Medicine 03/04/16
--- OUTSIDE RECORDS SUMMARY | 2025-11-13 18:35 | XMS_ITS | Patient Health Record ---
Author Organization [employer] Address [address] [place] [address] Care Team Providers Care Beer Merchant Name Role Phone Name Dipesh WEINBERG Primary Care Provider Steve Chan Jr Unavailable Ector WEINBERG, Lazaro Unavailable Unavailable Reason For Referral No Information Plan Of Treatment No Information Insurance Providers Payer Name Payer Address Payer Phone Subscriber Number Group Number Insured Name Patient Relationship to Insured Coverage Start Date Coverage End Date MEDICAID OF [facility] [address] [place] [phone] [id number] MOUNA LERMA Self - patient is the insured
--- OUTSIDE RECORDS SUMMARY | 2025-11-13 18:35 | XMS_ITS | Clinical Summary ---
Author Organization [facility] Address [address] [place] [address] Phone Care Team Providers Care Trimmer Loader Name Role Phone Name, Dipesh WEINBERG Primary Care Provider Allergies Active Allergy Reactions Criticality Noted Date [...] EDT - 09/19/2025 5:30 PM EDT Emergency [facility] Emergency [address] [place] [address] Richard Pelayo MD Mersier, Jasmine, DO Epigastric pain (Primary Dx); Nausea and vomiting, unspecified vomiting type Discharge Disposition: Home or Self Care from Last 3 Months Surgical History Surgery Date Site/Laterality Comments APPENDECTOMY EYE SURGERY Left Medical History Medical History Date Comments Asthma Type 1 diabetes mellitus ([facility] V24, [facility] V 28) GERD (gastroesophageal reflux disease) Diabetic gastroparesis ([facility] V24, [facility] V28 ) Hypertension FLOWER on CPAP Family [...] with reflex microscopic (09/19/2025 12:50 PM EDT) [facility] [place] Urine 1.027 1.003 - 1.030 LAB URINALYSIS - AUTOMATED METHOD 09/19/2025 1:[address] [facility] pH, Urine 6.5 5.0 - 8.0 pH LAB URINALYSIS - AUTOMATED METHOD 09/19/2025 1:[address] [facility] Leukocytes, Urine Negative Negative LAB URINALYSIS - AUTOMATED METHOD 09/19/2025 1:[address] [facility] Nitrite, Urine Negative Negative LAB URINALYSIS - AUTOMATED METHOD 09/19/2025 1:[address] [facility] Protein, Urine 300(A) <=Trace mg/dL LAB URINALYSIS - AUTOMATED METHOD 09/19/2025 1:[address] [facility] Glucose, Urine >=1000(A) Negative mg/dL LAB URINALYSIS - AUTOMATED METHOD 09/19/2025 1:[address] [facility] Ketones, Urine Negative Negative mg/dL LAB URINALYSIS - AUTOMATED METHOD 09/19/2025 1:[address] [facility] Urobilinogen , Urine 0.2 0.2 - 1.0 mg/dL LAB URINALYSIS - AUTOMATED METHOD 09/19/2025 1:[address] [facility] Bilirubin, Urine Negative Negative LAB URINALYSIS - AUTOMATED METHOD 09/19/2025 1:[address] [facility] Blood, Urine Trace(A) Negative LAB URINALYSIS - AUTOMATED METHOD 09/19/2025 1:[address] [facility] RBC, Urine 4.5(H) 0 - 4 /HPF LAB URINALYSIS - AUTOMATED METHOD 09/19/2025 1:[address] [facility] WBC, Urine 2.4 0 - 4 /HPF LAB URINALYSIS - AUTOMATED METHOD 09/19/2025 1:[address] [facility] Squamous Epithelial, Urine 9 0 - 60 /LPF LAB URINALYSIS - AUTOMATED METHOD 09/19/2025 1:37 PM EDT [facility] Bacteria, Urine Negative Negative /HPF LAB URINALYSIS - AUTOMATED METHOD 09/19/2025 1:37 PM EDT [facility] Hyaline Casts, Urine 0.0 0 - 3 /LPF LAB URINALYSIS - AUTOMATED METHOD 09/19/2025 1:37 PM EDT [facility] Urine Urine specimen obtained by clean catch procedure / Unknown Non-blood Collection / Unknown 09/19/2025 12:50 PM EDT 09/19/2025 1:23 PM EDT us Richard Pelayo MD LAB URINE ORDERABLES Final Result [facility] [address] [place] [address], [place] [phone] * CT Abdomen Pelvis w Contrast (09/19/2025 12:46 PM EDT) Anatomical Region Laterality Modality Body Computed Tomogra phy 09/19/2025 12:4 6 PM EDT Impressions 09/19/2025 12:[address] for acute infectious or inflammatory process. -------- FINAL REPORT -------- Dictated By: Martin Meade Dictated Date: 09/19/2025 12:46 ET Assigned Physician: Martin Meade Reviewed and Electronically Signed By: Martin eMade Signed Date: 09/19/2025 12:49 ET Workstation ID: [id number] Transcribed By: Self Edit Transcribed Date: 09/19/2025 [...] Signed Date: 09/19/2025 12:49 ET Workstation ID: [id number] Transcribed By: Self Edit Transcribed Date: 09/19/2025 12:46 ET us Shila Ernst DO IMG CT PROCEDURES Final Resul t * (ABNORMAL) Venous blood gas co-oximetry (09/19/2025 11:09 AM EDT) Carboxyhemoglobin 1.9 0.0 - 3.0 % 09/19/2025 11:18 AM EDT [facility] Methemoglobin 0.3 0.2 - 0.5 % 09/19/2025 11:18 AM EDT [facility] Oxyhemoglobin 74.2(H) 40 - 70 % 09/19/2025 11:18 AM EDT [facility] O2 Sat, Brent 75.9 % 09/19/2025 11:18 AM EDT [facility] Total Hemoglobin Venous 12.0 12.0 - 18.0 g/dL 09/19/2025 11:18 AM EDT [facility] Blood Venous blood specimen / Unknown Venipuncture / Unknown 09/19/2025 11:09 AM EDT 09/19/2025 11:14 AM EDT us Shila Ernst DO LAB BLOOD ORDERABLES Final Re sult [facility] [address] [place] [address], * (ABNORMAL) CBC auto differential (09/19/2025 11:03 AM EDT) WBC 7.7 4.8 - 10.8 K/[facility] LAB HEMETOLOGY METHOD 09/19/2025 11:24 AM EDT [facility] RBC 4.10(L) 4.50 - 5.50 M/mcL LAB HEMETOLOGY METHOD 09/19/2025 11:[address] [facility] Hemoglobin 11.8(L) 13.5 - 17.5 g/dL LAB HEMETOLOGY METHOD 09/19/2025 11:[address] [facility] Hematocrit 34.9(L) 42.0 - 54.0 % LAB HEMETOLOGY METHOD 09/19/2025 11:[address] [facility] MCV 84.7 79.0 - 98.0 FL LAB HEMETOLOGY METHOD 09/19/2025 11:[address] [facility] MCH 28.6 27.0 - 32.0 pcg LAB HEMETOLOGY METHOD 09/19/2025 11:[address] [facility] MCHC 33.8 32.0 - 37.0 g/dL LAB HEMETOLOGY METHOD 09/19/2025 11:[address] [facility] RDW 13.3 11.0 - 15.0 % LAB HEMETOLOGY METHOD 09/19/2025 11:[address] [facility] Platelets 241 130 - 400 K/mcL LAB HEMETOLOGY METHOD 09/19/2025 11:[address] [facility] MPV 11.4(H) 7.0 - 11.0 FL LAB HEMETOLOGY METHOD 09/19/2025 11:[address] [facility] NRBC 0.0 <1.0 % LAB HEMETOLOGY METHOD 09/19/2025 11:[address] [facility] NRBC Absolute 0.00 <0.10 K/mcL LAB HEMETOLOGY METHOD 09/19/2025 11:[address] [facility] Neutrophils Relative 63.8 % LAB HEMETOLOGY METHOD 09/19/2025 11:[address] [facility] Lymphocytes Relative 20.3 % LAB HEMETOLOGY METHOD 09/19/2025 11:[address] [facility] Monocytes Relative 11.4 % LAB HEMETOLOGY METHOD 09/19/2025 11:24 AM EDT [facility] Eosinophils Relative 3.0 % LAB HEMETOLOGY METHOD 09/19/2025 11:24 AM EDT [facility] Basophils Relative 0.6 % LAB HEMETOLOGY METHOD 09/19/2025 11:24 AM EDT [facility] Immature Granulocytes Relative 0.9 % LAB HEMETOLOGY METHOD 09/19/2025 11:24 AM EDT [facility] Neutrophils Absolute 4.92 1.50 - 7.00 K/mcL LAB HEMETOLOGY METHOD 09/19/2025 11:24 AM EDT [facility] Lymphocytes Absolute 1.57 1.00 - 5.00 K/mcL LAB HEMETOLOGY METHOD 09/19/2025 11:24 AM EDT [facility] Monocytes Absolute 0.88 0.20 - 1.00 K/mcL LAB HEMETOLOGY METHOD 09/19/2025 11:24 AM EDT [facility] Eosinophils Absolute 0.23 0.00 - 0.50 K/mcL LAB HEMETOLOGY METHOD 09/19/2025 11:24 AM EDT [facility] Basophils Absolute 0.05 0.00 - 0.20 K/mcL LAB HEMETOLOGY METHOD 09/19/2025 11:24 AM EDT [facility] Immature Granulocytes Absolute 0.07(H) 0.00 - 0.03 K/mcL LAB HEMETOLOGY METHOD 09/19/2025 11:24 AM T [facility] Blood Venous blood specimen / Unknown Venipuncture / Unknown 09/19/2025 11:03 AM EDT 09/19/2025 11:18 AM EDT Richard Pelayo MD LAB BLOOD ORDERABLES Final Result [facility] [address] [place] [address], [place] [phone] * Magnesium (09/19/2025 11:03 AM EDT) [facility] Magnesium 2.1 1.9 - 2.6 mg/dL LAB CHEMISTRY METHOD 09/19/2025 11:49 AM EDT [facility] Blood Venous blood specimen / Unknown Venipuncture / Unknown 09/19/2025 11:03 AM EDT 09/19/2025 11:18 AM EDT Shila Ernst DO LAB BLOOD ORDERABLES Final Re sult [facility] [address] [place] [address], [place] [phone] * Lipase (09/19/2025 11:03 AM EDT) [facility] Lipase 17 13 - 75 unit/L LAB CHEMISTRY METHOD 09/19/2025 12:07 PM EDT [facility] Blood Venous blood specimen / Unknown Venipuncture / Unknown 09/19/2025 11:03 AM EDT 09/19/2025 11:18 AM EDT Richard Pelayo MD LAB BLOOD ORDERABLES Final Result [facility] [address] [place] [address], [place] [phone] * (ABNORMAL) Comprehensive metabolic panel (09/19/2025 11:03 AM EDT) [facility] Sodium 136 133 - 145 mmol/L LAB CHEMISTRY METHOD 09/19/2025 12:08 PM EDT [facility] Potassium 4.1 3.5 - 5.5 mmol/L LAB CHEMISTRY METHOD 09/19/2025 12:08 PM EDT [facility] Chloride 103 96 - 110 mmol/L LAB CHEMISTRY METHOD 09/19/2025 12:[address] [facility] CO2 28 21 - 32 mmol/L LAB CHEMISTRY METHOD 09/19/2025 12:[address] [facility] Anion Gap 5 3 - 11 LAB CHEMISTRY METHOD 09/19/2025 12:[address] [facility] Glucose 304(H) 70 - 100 mg/dL LAB CHEMISTRY METHOD 09/19/2025 12:[address] [facility] BUN 17 5 - 25 mg/dL LAB CHEMISTRY METHOD 09/19/2025 12:[address] [facility] Creatinine 1.51(H) 0.70 - 1.30 mg/dL LAB CHEMISTRY METHOD 09/19/2025 12:[address] [facility] eGFR 62 >=60 mL/min/1. 73m2 LAB CHEMISTRY METHOD 09/19/2025 12:[address] [facility] Comment:Calculation based on the Chronic Kidney Disease Epidemiology Collaboration (CKD-EPI) equation refit without adjustment for race. BUN/Creatinine Ratio 11.3 LAB CHEMISTRY METHOD 09/19/2025 12:[address] [facility] Calcium 8.8 8.5 - 10.5 mg/dL LAB CHEMISTRY METHOD 09/19/2025 12:[address] [facility] AST (SGOT) 17 10 - 42 unit/L LAB CHEMISTRY METHOD 09/19/2025 12:[address] [facility] ALT (SGPT) 26 10 - 60 unit/L LAB CHEMISTRY METHOD 09/19/2025 12:[address] [facility] Alkaline Phosphatase 206(H) 42 - 121 unit/L LAB CHEMISTRY METHOD 09/19/2025 12:[address] [facility] Total Protein 6.3 6.0 - 8.0 g/dL LAB CHEMISTRY METHOD 09/19/2025 12:[address] [facility] Albumin 2.6(L) 3.2 - 5.0 g/dL LAB CHEMISTRY METHOD 09/19/2025 12:08 PM EDT [facility] Total Bilirubin 0.3 0.0 - 1.4 mg/dL LAB CHEMISTRY METHOD 09/19/2025 12:08 PM EDT [facility] Blood Venous blood specimen / Unknown Venipuncture / Unknown 09/19/2025 11:03 AM EDT 09/19/2025 11:18 AM EDT us Richard Pelayo MD LAB BLOOD ORDERABLES Final Result [facility] [address] [place] [address], [place] [phone] from Last 3 Months Insurance MEDICAID - [...] currently active code status orders. Care Teams Trimmer Loader Relationship Specialty Start Date End Date Name, MD Dipesh [address] [place], [place] PCP - General Internal Medicine 10/19/17
--- OUTSIDE RECORDS SUMMARY | 2025-11-13 18:35 | XMS_ITS | Encounter Summary ---
Author Organization [employer] Address [address] [place] [address] 7t [place] [address] Care Team Providers Care Contracts Officer Name Role Phone Name, Dipesh WEINBERG Primary Care Provider PuEdel joe PharmD Unavailable Puheath Edel PharmD Unavailable Chaim Quintana RN Unavailable [phone] Carley Abdul Unavailable Cristal Mercer RN Unavailable [phone] Carley Abdul Unavailable Reason for Visit * Reason Comments Med Refill Encounter Details Date Type Department Care Team ([facility] st Contact Info) Description 05/04/2024 Refill [facility] MED & PEDS [address] [place], [place] [phone] Name, MD Dipesh [address] [place] [address] Social History Tobacco Use Types Packs/Day Years [...] the past 12 months, has t he [employer], gas, oil or water [employer] threatened to shut off services in your [...] Description 12/12/2025 10:45 AM EST Office Visit [facility] MEDICINE [address] [place] [address] Adilene Phillips NP 230 [place] [address] 12/18/2025 3:00 PM EST Nutrition [facility] DIABETES/NUTRITION [address] [place] [address] [place] [address] documented as of this encounter Visit Diagnoses Not on filedocumented in this encounter Additional Health Concerns Assessment Noted Time PHQ-9 Depression Total Score: 6 07/22/20 23 9:24 AM EDT documented as of this encounter Care Teams Contracts Officer Relationship Specialty Start Date End Date Name, MD Dipesh [address] [place] [address] PCP - General Family Medicine 03/04/16 Edel Dupont, PharmD 230 [facility] [place] [address] Pharmacist Internal Medicine 04/17/25 10/30/25 Edel Dupont PharmD [address] [facility] [place] [address] Pharmacist Internal Medicine 04/17/25 10/30/25 Chaim Quintana, RN [address] [place] [address] Registered Nurse Family Medicine 07/02/25 07/06/25 Carley Abdul 07/02/25 07/06/25 Cristal Mercer, RN [address] [place] [address] Registered Nurse Family Medicine 09/20/25 10/04/25 Carley Abdul 09/20/25 10/04/25 documented as of this encounter
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
--- OUTSIDE RECORDS SUMMARY | 2025-11-13 18:35 | XMS_ITS | Encounter Summary ---
Author Organization [employer] Address [address] [place] [address] 7t [place] [address] Care Team Providers Care Assurance Senior Name Role Phone Name, Dipesh WEINBERG Primary Care Provider [phone] Encounter Details Date Type Department Care Team [...] Description 12/12/2025 10:45 AM EST Office Visit [facility] MEDICINE [address] [place], [place] [phone] Adilene Phillips NP [address] [place], [place] [phone] 12/18/2025 3:00 PM EST Nutrition [facility] DIABETES/NUTRITION [address] [place], [place] [phone] Anastasia Louis RD [address] [place] [address] documented as of this encounter Procedures Procedure Name Priority Date/Time Associated Diagnosis Comments BASIC METABOLIC PANEL Routine 11/08/2025 1:59 PM EST documented in this encounter Results * (ABNORMAL) Basic Metabolic Panel (11/08/2025 1:59 PM EST) Sodium 137 135 - 145 mmol/L [facility] Potassium 4.3 3.3 - 5.1 mmol/L [facility] Chloride 105 96 - 108 mmol/L [facility] Carbon Dioxide 25 22 - 29 mmol/L [facility] Anion Gap 11(L) 12 - 20 [facility] Urea Nitrogen (BUN) 18(H) 9 - 16 mg/dL [facility] Creatinine, Serum 1.33 0.5 - 1.4 mg/dL [facility] Estimated Glomerular Filt Rate >60 [facility] Comment:Chronic Kidney Disea se: Estimated GFR < 60 mL/min/1.15g6Rrahdh Kidney Disease: Estimated GFR < 15 mL/min/1.73m2 Glucose 246(H) 60 - 115 mg/dL [facility] Calcium 8.6 8.4 - 10.2 mg/dL [facility] 11/08/2025 1:59 PM EST 11/08/2025 1:59 PM EST us Generic External Data Provider LAB BLOOD ORDERAB LES Final Result Performing Organization Address City/State/[facility] Co de Phone Number [facility] [address] [place] [phone] documented in this encounter Visit Diagnoses Not on filedocumented in this encounter Additional Health Concerns Assessment Noted Time PHQ-9 Depression Total Score: 11 024 4:36 PM EDT documented as of this encounter Care Teams Assurance Senior Relationship Specialty Start Date End Date Name, MD Dipesh [address] [place] [address] PCP - General Family Medicine 03/04/16 documented as of this encounter
== END 2025-11-13 14:33 | disposition home or self-care (01) ==
LOC: HO.HKA 14:20
PROVIDERS: PCP Internal Medicine Geriatric Medicine; Visit Provider Internal Medicine Hypertension Specialist
DX: I10 Essential (primary) hypertension (principal); E10.21 Type 1 diabetes mellitus with diabetic nephropathy
CPT/HCPCS: 99214

== ENCOUNTER → 2025-11-13 14:19 | Outpatient (BNVA) | payer MEDICAID, SELFPAY | PROVIDERS: PCP Internal Medicine Geriatric Medicine; Visit Provider Internal Medicine Hypertension Specialist | DX: I12.9 Hypertensive chronic kidney disease with stage 1 through stage 4 chronic kidney disease, or unspecified chronic kidney disease (principal); N18.9 Chronic kidney disease, unspecified; E10.22 Type 1 diabetes mellitus with diabetic chronic kidney disease; Z79.899 Other long term (current) drug therapy; Z79.4 Long term (current) use of insulin | CPT/HCPCS: 99212 ==

== ENCOUNTER 2025-11-14 08:59 | Outpatient (AMB) | payer MEDICAID, SELFPAY ==
[2025-11-14 09:11] VITALS: BMI 46.9
--- NOTE | 2025-11-14 09:11 | MHC.OFFVIS ---
Vital Signs 11/14/25 09:11 Height 5 ft 5 in Weight 282 lb BMI 46.9 Intake Visit Reasons: Type 1 diabetes mellitus with hyperglycemia Intake Note: Mc is a 35 year old male who presents today as a new patient for a diabetic foot exam. Patient reports his glucose is currently at 180 and his last known A1c was 10.0% as of 10/09/25. Patient experiences occasional numbness and tingling without burning in both feet. He denies any previous history of wounds or amputations to his feet. No back pain at this time and he is currently taking gabapentin. Allergies seafood Allergy (Unknown, Verified 11/14/25 09:11) Swelling HPI Comments Details: The patient is a 35 year old male with a past medical history as seen below presenting for a diabetic foot exam. He reports experiencing numbness and tingling, and characterizes it as a 'pins and needles' sensation. He denies any specific injuries. The pins and needles sensation is intermittent, occurring most often in the middle of the night from approximately 1:00 AM to 6:00 AM, during which he bangs his feet on the bed for relief. He also reports that his feet are usually swollen, a condition he first noticed over a year ago. There is no history of blisters to his lower extremities. He has a history of diabetes, for which he takes insulin. His most recent blood glucose reading was 180 mg/dL and reports his A1c is approximately 10. He takes gabapentin, which helps with the pain but does not resolve the numbness and tingling. He typically wears Crocs or sneakers and denies walking barefoot or wearing compression socks. He denies any other pedal concerns. [facility] Medical History (Updated 11/14/25 @ 09:27 by Azul Taylor DPM) Bilateral lower extremity edema Insomnia Anxiety Depression Bipolar 1 disorder GERD (gastroesophageal reflux disease) Morbid obesity Vitamin D deficiency Tachycardia Vitamin D deficiency HTN (hypertension) Obesity (BMI 30-39.9) Hyperparathyroidism due to vitamin D deficiency Dyslipidemia Diabetic polyneuropathy associated with type 1 diabetes mellitus Diabetic gastroparesis associated with type 1 diabetes mellitus Diabetic nephropathy associated with type 1 diabetes mellitus Diabetes type 1, uncontrolled Gastroparesis H. pylori infection Asthma Gastritis Gastroparalysis Surgical History Hx of eye surgery Hx of appendectomy History of esophagogastroduodenoscopy (EGD) Family History Mother Diabetes HTN (hypertension) Father Diabetes Heart problem Son Asthma Son Asthma Social History Household Members: Family Housing: Apartment Do you presently have visiting nurse or other home services: No Alcohol intake: never Comment: sleeping Patient Tobacco Use Status: Never used Tobacco Second Hand Smoke Exposure: No Substance Use Type: Marijuana service: No Current occupational status: unemployed Review of Systems Const Details: - Neurological: Reports intermittent paresthesia in the feet, described as numbness, tingling, and pins and needles, which is worse at night. - Musculoskeletal: Reports intermittent mild pain around the toes with certain movements. - Extremities: Reports swelling. All systems reviewed & are unremarkable except as noted in HPI and below Physical Exam Vital Signs: BMI result Body Mass Index 46.9 Extrem Other: Bilateral lower extremity focused physical exam: Derm: No open lesions abrasions or wounds noted. No ecchymosis, erythema, or discoloration noted. No hyperkeratotic or macerated areas noted. Skin supple and turgor within normal limits. No clinical signs of infection noted. Toenails within normal length. Vascular: DP pulses palpable. PT pulses mildly palpable. Capillary refill time less than 3 seconds. Temperature gradient warm to warm. Pedal hair present. No varicosities noted. Moderate edema noted bilaterally. Neuro: Protective sensation is grossly intact to light touch and slightly diminished to monofilament testing. MSK: Mild pain on palpation to the halluces. Range of motion of the forefoot, hindfoot, and ankles within normal limits. No crepitus or fluctuance noted. No other gross abnormalities noted. Office Procedures Diabetic Foot Exam G9226 - Diabetic Foot Exam Results Reviewed Results Reviewed: Laboratory Tests 10/09/25 11/08/25 13:26 13:59 Random Glucose 246 H Hgb A1c (Clinic) 10.0 H Assessment & Plan Assessment & Plan (1) Bilateral lower extremity edema: Code(s): R60.0 - Localized edema Category: Medical (2) Diabetes type 1, uncontrolled: Code(s): E10.65 - Type 1 diabetes mellitus with hyperglycemia Category: Medical (3) Diabetic nephropathy associated with type 1 diabetes mellitus: Code(s): E10.21 - Type 1 diabetes mellitus with diabetic nephropathy Category: Medical (4) Diabetic polyneuropathy associated with type 1 diabetes mellitus: Code(s): E10.42 - Type 1 diabetes mellitus with diabetic polyneuropathy Category: Medical Plan Patient was informed and verbally consented to the use of an ambient scribe for clinic note documentation during this visit. Educated patient on diabetes and the affects on the lower extremities. I discussed with the patient that his symptoms of numbness, tingling, and nocturnal pain are characteristic of diabetic neuropathy, caused by high blood sugar damaging the nerves. I explained that while the existing nerve damage and associated numbness are often times irreversible, controlling his blood sugar can prevent the condition from progressing further up his limbs. I also explained that the swelling in his legs is due to poor venous return and educated him on the increased risk of non-healing wounds with diabetes. I provided a prescription for compression socks to manage the edema. I emphasized the importance of preventative foot care, including daily self-inspections for wounds, avoiding walking barefoot, and being cautious with nail trimming. We discussed that if symptoms worsen, the next step would be diabetic shoes and inserts for additional protection and cushioning. I recommended he follow up in 6 months for monitoring. - A prescription for compression socks was provided to manage lower extremity edema. - The patient was educated that existing numbness and tingling from neuropathy is irreversible, but progression can be prevented with good blood sugar control. - The patient was counseled on the importance of daily foot checks to monitor for wounds and to seek immediate medical attention if any are found. - Advised the patient to avoid walking barefoot and to be cautious when trimming toenails to prevent injury. - Advised patient to wear supportive shoe gear. - Discussed the potential need for diabetic shoes and inserts if numbness or pain worsens. RTC in 6 months. Medications: New [compression stockings] As directed 1 ea 0RF R60.0 - Localized edema Coding Level of Care Code New Pt Level 4 (47168) Diagnoses Bilateral lower extremity edema R60.0 Diabetes type 1, uncontrolled E10.65 Diabetic nephropathy associated with type 1 diabetes mellitus E10.21 Diabetic polyneuropathy associated with type 1 diabetes mellitus E10.42 CPT Codes Diabetic Foot Exam - CPT: G9226 - Diabetic Foot Exam ([id number]) Time Spent (min) 47
--- OUTSIDE RECORDS SUMMARY | 2025-11-14 09:45 | XMS_ITS | Encounter Summary ---
Author Organization [employer] Address [address] [place] [address] 7t [place] [address] Care Team Providers Care Child Welfare Worker Name Role Phone Name, Dipesh WEINBERG Primary Care Provider [phone] PuEdel joe PharmD Unavailable Puheath Edel PharmD Unavailable Chaim Quintana RN Unavailable Carley Abdul Unavailable Cristal Mercer RN Unavailable [phone] Carley Abdul Unavailable Reason for Visit * Reason Comments Med Refill Encounter Details Date Type Department Care Team ([facility] st Contact Info) Description 05/04/2024 Refill [facility] MED & PEDS [address] [place], [place] [phone] Name, MD Dipesh [address] [place] [address] Social History Tobacco Use Types Packs/Day Years [...] the past 12 months, has t he [employer], gas, oil or water [email or web address] threatened to shut off services in your [...] Description 12/12/2025 10:45 AM EST Office Visit [facility] MEDICINE [address] [place] [address] Adilene Phillips NP [address] [place] [address] 12/18/2025 3:00 PM EST Nutrition [facility] DIABETES/NUTRITION [address] [place] [address] [place] [address] documented as of this encounter Visit Diagnoses Not on filedocumented in this encounter Additional Health Concerns Assessment Noted Time PHQ-9 Depression Total Score: 6 07/22/20 23 9:24 AM EDT documented as of this encounter Care Teams Child Welfare Worker Relationship Specialty Start Date End Date Name, MD Dipesh [address] [place] [address] PCP - General Family Medicine 03/04/16 Edel Dupont, PharmD 230 [facility] [place] [address] Pharmacist Internal Medicine 04/17/25 10/30/25 Edel Dupont PharmD 230 [facility] [place] [address] Pharmacist Internal Medicine 04/17/25 10/30/25 Chaim Quintana, RN [address] [place] [address] Registered Nurse Family Medicine 07/02/25 07/06/25 Carley Abdul 07/02/25 07/06/25 Cristal Mercer, RN [address] [place] [address] Registered Nurse Family Medicine 09/20/25 10/04/25 Carley Abdul 09/20/25 10/04/25 documented as of this encounter
--- OUTSIDE RECORDS SUMMARY | 2025-11-14 09:45 | XMS_ITS | Encounter Summary ---
Author Organization [employer] Address [address] [facility] 7t [place] [address] Care Team Providers Care Construction Ironworker Helper Name Role Phone Name, Dipesh WEINBERG Primary Care Provider [phone] PuEdel joe PharmD Unavailable Puheath Edel PharmD Unavailable Chaim Quintana RN Unavailable [phone] Carley Abdul Unavailable Cristal Mercer RN Unavailable [phone] Carley Abdul Unavailable Encounter Details Date Type Department Care Team (Late st Contact Info) Description 11/16/2024 Orders Only [facility] [address] [place] [address] Provider, MD Veena Social History Tobacco Use [...] Description 12/12/2025 10:45 AM EST Office Visit [facility] MEDICINE [address] [place] [address] Adilene Phillips NP [address] [place] [address] 12/18/2025 3:00 PM EST Nutrition [facility] DIABETES/NUTRITION [address] [place] [address] [place] [address] documented as of this encounter Procedures Procedure [...] documented as of this encounter Care Teams Construction Ironworker Helper Relationship Specialty Start Date End Date Name, MD Dipesh [address] [place] [address] PCP - General Family Medicine 03/04/16 Edel Dupont, PharmD [address] [place] [address] Pharmacist Internal Medicine 04/17/25 10/30/25 Edel Dupont, PharmD [address] [place] [address] Pharmacist Internal Medicine 04/17/25 10/30/25 Chaim Quintana, NITISH [address] [place] [address] Registered Nurse Family Medicine 07/02/25 07/06/25 Carley Abdul 07/02/25 07/06/25 Cristal Mercer, NITISH [address] [place] [address] Registered Nurse Family Medicine 09/20/25 10/04/25 Carley Abdul 09/20/25 10/04/25 documented as of this encounter
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
--- OUTSIDE RECORDS SUMMARY | 2025-11-14 09:45 | XMS_ITS | Encounter Summary ---
Author Organization [employer] Address [address] [place] [address] 7t [place] [address] Care Team Providers Care Agriculture Department Chair Name Role Phone Name, Dipesh WEINBERG Primary Care Provider [phone] PuEdel joe PharmD Unavailable Puheath Edel PharmD Unavailable Chaim Quintana RN Unavailable Carley Abdul Unavailable Cristal Mercer RN Unavailable [phone] Carley Abdul Unavailable Reason for Visit * Reason Onset Date Comments Medication Question 02/02/2024 Encounter Details Date Type Department Care Team (Late st Contact Info) Description 02/02/2024 Telephone [facility] MEDICINE [address] [place] [address] Name, MD Dipesh [address] [place], [place] [phone] Medication Question Social History Tobacco Use Types [...] or any concerns, advised to come to [facility]. Pt. Verbally agreed and understood. * Telephone Encounter - Daja You - 02/02/2024 10:20 AM EST Tc from tamar shah in regards to omeprazole (PriLOSEC) [address] capsule[address] States pharmacy will not fill script until 02/19. Insemination Worker called pharmacy and confirmed information. Pharmacy states it is because pt picked up a script on 11/27 for a 90 day supply. Tamar states pt is out of medication and has not had medication for two days now. documented in this encounter Plan of Treatment Upcoming Encounters Date Type Department Care Team (Late st Contact Info) Description 12/12/2025 10:45 AM EST Office Visit [facility] MEDICINE [address] [place] [address] Adilene Phillips NP [address] [place] [address] 12/18/2025 3:00 PM EST Nutrition [facility] DIABETES/NUTRITION [address] [place] [address] [place] [address] documented as of this encounter Visit Diagnoses Not on filedocumented in this encounter Additional Health Concerns Assessment Noted Time PHQ-9 Depression Total Score: 6 07/22/20 23 9:24 AM EDT documented as of this encounter Care Teams Agriculture Department Chair Relationship Specialty Start Date End Date Name, MD Dipesh [address] [place] [address] PCP - General Family Medicine 03/04/16 Edel Dupont PharmD [address] [place] [address] Pharmacist Internal Medicine 04/17/25 10/30/25 Edel Dupont PharmD [address] [place] [address] Pharmacist Internal Medicine 04/17/25 10/30/25 Cahim Quintana, RN [address] [place] [address] Registered Nurse Family Medicine 07/02/25 07/06/25 Carley Abdul 07/02/25 07/06/25 Cristal Mercer RN [address] [place] [address] Registered Nurse Family Medicine 09/20/25 10/04/25 Carley Abdul 09/20/25 10/04/25 documented as of this encounter
--- OUTSIDE RECORDS SUMMARY | 2025-11-14 09:45 | XMS_ITS | Encounter Summary ---
Author Organization [employer] Address [address] [place] [address] 7t [place] [address] Care Team Providers Care Balancing Machine Operator Name Role Phone Name, Dipesh WEINBERG Primary Care Provider [phone] Puheath Edel PharmD Unavailable [phone] Puheath, Edel PharmD Unavailable [phone] Cristal Mercer RN Unavailable [phone] Carley Abdul Unavailable Encounter Details Date Type Department Care Team (Late st Contact Info) Description 09/19/2025 Orders Only [facility] [address] [place] [address] Provider, MD Veena Social History Tobacco Use [...] Description 12/12/2025 10:45 AM EST Office Visit [facility] [address] [place] [address] Adilene Phillips NP 230 [place] [address] 12/18/2025 3:00 PM EST Nutrition [facility] DIABETES/NUTRITION [address] [place] [address] Anastasia Louis, OVI [address] [place] [address] documented as of this encounter Procedures Procedure [...] documented as of this encounter Care Teams Balancing Machine Operator Relationship Specialty Start Date End Date Name, MD Dipesh [address] [place] [address] PCP - General Family Medicine 03/04/16 Edel Dupont PharmD [address] [place] [address] Pharmacist Internal Medicine 04/17/25 10/30/25 Edel Dupont PharmD [address] [place] [address] Pharmacist Internal Medicine 04/17/25 10/30/25 Cristal Mercer RN 230 [place] [address] Registered Nurse Family Medicine 09/20/25 10/04/25 Carley Abdul 09/20/25 10/04/25 documented as of this encounter
--- OUTSIDE RECORDS SUMMARY | 2025-11-14 09:45 | XMS_ITS | Encounter Summary ---
Author Organization [employer] Address [address] [place] [address] 7t [place] [address] Care Team Providers Care Trimming Operator Name Role Phone Name, Dipesh WEINBERG Primary Care Provider PuEdel joe PharmD Unavailable Puia, Edel PharmD Unavailable Chaim Quintana RN Unavailable [phone] Carley Abdul Unavailable Cristal Mercer RN Unavailable [phone] Carley Abdul Unavailable Reason for Visit * Reason Comments Med Refill Encounter Details Date Type Department Care Team ([facility] st Contact Info) Description 06/20/2024 Refill [facility] [address] [place] [address] Name, MD Dipesh 230 [place], [place] [phone] Social History Tobacco Use Types Packs/Day Years [...] the past 12 months, has t he [employer], gas, oil or water [employer] threatened to shut off services in your [...] Description 12/12/2025 10:45 AM EST Office Visit [facility] [address] [place] [address] Adilene Phillips NP [address] [place] [address] 12/18/2025 3:00 PM EST Nutrition [facility] DIABETES/NUTRITION [address] [place] [address] [place] [address] documented as of this encounter Visit Diagnoses Not on filedocumented in this encounter Additional Health Concerns Assessment Noted Time PHQ-9 Depression Total Score: 6 07/22/20 23 9:24 AM EDT documented as of this encounter Care Teams Trimming Operator Relationship Specialty Start Date End Date Name, MD Dipesh [address] [place] [address] PCP - General Family Medicine 03/04/16 Edel Dupont PharmD 230 [facility] [place] [address] Pharmacist Internal Medicine 04/17/25 10/30/25 Edel Dupont, UrbanD [address] [place] [address] Pharmacist Internal Medicine 04/17/25 10/30/25 Chaim Quintana, RN [address] [place] [address] Registered Nurse Family Medicine 07/02/25 07/06/25 Carley Abdul 07/02/25 07/06/25 Cristal Mercer, RN [address] [place] [address] [place] [address] Registered Nurse Family Medicine 09/20/25 10/04/25 Carley Abdul 09/20/25 10/04/25 documented as of this encounter
--- OUTSIDE RECORDS SUMMARY | 2025-11-14 09:46 | XMS_ITS | Patient Health Record ---
Author Organization [employer] Address [address] [place] [address] Care Team Providers Care Tailing Hand Name Role Phone Name Dipesh WEINBERG Primary Care Provider Steve Chan Jr Unavailable Ector WEINBERG, Lazaro Unavailable Unavailable Reason For Referral No Information Plan Of Treatment No Information Insurance Providers Payer Name Payer Address Payer Phone Subscriber Number Group Number Insured Name Patient Relationship to Insured Coverage Start Date Coverage End Date MEDICAID OF [facility] [address] [place] [id number] MOUNA LERMA Self - patient is the insured
--- OUTSIDE RECORDS SUMMARY | 2025-11-14 09:46 | XMS_ITS | Clinical Summary ---
Author Organization [employer] Address [address] [place] [address] 7t [place] [address] Care Team Providers Care Interactive Media Marketing Strategist Name Role Phone Name, Dipesh WEINBERG Primary Care Provider [phone] Allergies Active Allergy Reactions Criticality Noted Date [...] 25 Active ergocalciferol (Vitamin D2) 1.25 MG (22144 UT) capsuleIndicatio ns:Vitamin D Deficiency Take 1 [...] from the original. C3/CM Katrin Holden RN /[id number] [place] You Problem Noted Date Diagnosed Date [...] to schedule same day follow up with [facility] Endo, pt to present to appt now [...] DEPARTMENT Provider, Generic External Data 11/08/2025 Refill [facility] [address] [place] [address] Tamar Israel, ADRIANA 10/31/2025 Telephone [facility] [address] [place] [address] Lizzy Dupont, PharmD 10/22/2025 Telephone [facility] [address] [place] [address] NameDipesh MD other (Called pt to book with lizzy no answer unable to leave voicemail. Voicemail full ) 10/17/2025 Telephone [facility] [address] [place] [address] Dipesh Koch MD pre op 10/11/2025 Results Follow-Up [facility] [address] [place] [address] Dipesh Koch MD Glucose, Whole Blood, Vitamin D, 25-Hydroxy, Total, Immunoassay, TSH with Reflex to Free T4, Creatinine, Random Urine 10/09/2025 Orders Only GENERIC EXTERNAL DATA DEPARTMENT Provider, Generic External Data 10/04/2025 Patient Outreach [address] [address] Dipesh Koch MD Care Coordination ([facility] -[facility] Carley Abdul telephone call outreach) 09/26/2025 Patient Outreach [address] [address] Dipesh Koch MD 09/25/[address] [address] Dipesh Koch MD 09/20/[address] [address] Lizzy Dupont, PharmD 09/20/2025 Patient Outreach [address] [address] Dipesh Koch MD Care Coordination ([facility]3 -[facility] Carley Abdul chart review) 09/20/2025 Patient Outreach [address] [address] Dipesh Koch MD Care Management (C3 -CHART REVIEW/) 09/20/2025 Patient Outreach [address] [address] Dipesh Koch MD 09/19/2025 [facility] Health Information Management [address] [place] [address] ProviderVeena MD 09/11/2025 4:00 PM EDT Office Visit [address] [address] Dipesh Koch MD Type 1 diabetes mellitus with hyperglycemia (HCC) (Primary Dx); Diabetic neuropathy, type I diabetes mellitus (HCC); Diabetic nephropathy associated with type 1 diabetes mellitus (HCC); Morbid obesity (CMS/HCC) (HCC) 09/11/2025 Travel 09/10/[address] [address] Dipesh Koch MD Gastroesophageal reflux disease, unspecified whether esophagitis present 08/24/2025 [place] [address] Dipesh Koch MD Medication Question; Call Back Request 08/21/[address] [address] Name, MD Dipesh from Last 3 Months [...] Description 12/12/2025 10:45 AM EST Office Visit [facility] 230 [place] [address] Adilene Phillips NP 230 [place] [address] 12/18/2025 3:00 PM EST Nutrition [facility] DIABETES/NUTRITION [address] [place] [address] [place] [address] Health Maintenance Due Date Last Done Comments [...] EST) Sodium 137 135 - 145 mmol/L [facility] Potassium 4.3 3.3 - 5.1 mmol/L [facility] Chloride 105 96 - 108 mmol/L [facility] Carbon Dioxide 25 22 - 29 mmol/L [facility] Anion Gap 11(L) 12 - 20 [facility] Urea Nitrogen (BUN) 18(H) 9 - 16 mg/dL [facility] Creatinine, Serum 1.33 0.5 - 1.4 mg/dL [facility] Estimated Glomerular Filt Rate >60 [facility] Comment:Chronic Kidney Disea se: Estimated GFR < 60 mL/min/[id number] Kidney Disease: Estimated GFR < 15 mL/min/1.73m2 Glucose 246(H) 60 - 115 mg/dL [facility] Calcium 8.6 8.4 - 10.2 mg/dL [facility] 11/08/2025 1:59 PM EST 11/08/2025 1:59 PM EST us Generic External Data Provider LAB BLOOD ORDERAB LES Final Result [facility] [address] [place] [address] [phone] * (ABNORMAL) Vitamin D, 25-Hydroxy, Total, Immunoassay (10/09/2025 2:22 PM EST) Vitamin D 25-OH Total 9.5(L) >30 ng/mL [facility] Comment: Health Based Reference Values*< 20 ng/mL Jwinudokd11-29 ng/mL Insufficient> 30 ng/mL Sufficient*Sandip MENDEZ. N [...] ORDERAB LES Final Result Performing Organization Address City/[facility] Co de Phone Number [facility] [address] [place] [phone] * TSH with Reflex to Free T4 (10/09/2025 2:22 PM EST) TSH reflex Free T4 1.19 0.32 - 4.0 uIU/mL [facility] 10/09/2025 2:22 PM EST 10/09/2025 2:22 PM EST us Generic External Data Provider LAB BLOOD ORDERAB LES Final Result Performing Organization Address [facility] de Phone Number [facility] [address] [place] [phone] * (ABNORMAL) Glucose, Whole Blood (10/09/2025 1:17 PM EST) [facility] Glucose, Whole Blood 293(H) 60 - 115 mg/dL [facility] Comment:METER #: [id number] 0Testing performed in the Endocrinology Department [address] , [address], [facility]. 10/09/2025 1:17 PM EST 10/09/2025 1:20 PM EST us Generic External Data Provider LAB BLOOD ORDERAB LES Final Result Performing Organization Address [facility] de Phone Number [facility] [address] [place] [phone] * CT Abdomen Pelvis w/ Contrast (09/19/2025 3:57 PM EDT) Anatomical Region Laterality Modality Body, Pelvis, Abdomen Computed T omography us Historical Provider MD NASSAR CT PROCEDURES Final R esult * (ABNORMAL) POCT Hgb A1c (09/11/2025 4:17 PM EDT) Pathologist [facility] Hemoglobin A1C 9.6(A) 4.0 - 5.7 % QC Media Lot # [id number] Lot# Expiration Date [id number] Blood 09/11/2025 4:17 PM EDT us Dipesh Koch MD POINT OF CARE TEST ENTER/EDIT OR DERABLES Final Result * (ABNORMAL) POCT Glucose (09/11/2025 4:17 PM EDT) Glucose Blood, POC 333(A) 60 - 200 mg/dL [employer] Lot # [id number] Lot# Expiration Date [id number] Blood Capillary blood specimen / Unknown 09/11/2025 4:17 PM EDT us Dipesh Kcoh MD POINT OF CARE TEST ENTER/EDIT OR DERABLES Final Result * (ABNORMAL) Lipid Panel with Reflex to Direct LDL (05/02/2025 3:01 PM EDT) Triglycerides 404(H) <150 mg/dL [facility] Comment:Desirable Triglyceri de: less than 150 mg/dLBorderline High Triglyceride 150-199 mg/dLHigh Triglyceride: 200-499 mg/dLVery High Triglyceride: greater than or equal to 5OO mg/dL Cholesterol 242(H) <200 mg/dL [facility] Comment:Desirable Cholestero l: less than 200 mg/dLBorderline High Cholesterol: 200-239 mg/dLHigh Cholesterol: greater than 239 mg/dL LDL Cholesterol Calculated TNP <100 mg/dL [facility] Comment:Unable to calculate the LDL. The formula of Friedwald,Santos, and Richie is only valid if the triglycerides areless than 400 mg/dl. HDL Cholesterol 38(L) >40 mg/dL [facility] Comment:Desirable HDL: great er than 40 mg/dL Note: This HDL assay may give artificially low results in patients with liver disease. 05/02/2025 3:01 PM EDT 05/02/2025 4:05 PM EDT us Dipesh Koch MD LAB BLOOD ORDERABLES Final Resul t [facility] [address] [place] [address] [phone] from Last 3 Months or Most Recently Relevant to Health Maintenance [facility] [address] [place] [id number] Care Teams Interactive Media Marketing Strategist Relationship Specialty Start Date End Date Name, MD Dipesh [address] [place] [address] PCP - General Family Medicine 03/04/16
--- OUTSIDE RECORDS SUMMARY | 2025-11-14 09:46 | XMS_ITS | Clinical Summary ---
Author Organization [facility] Address [address] [place] [address] Phone Care Team Providers Care Hardener Helper Name Role Phone Name, Dipesh WEINBERG Primary Care Provider [phone] Allergies Active Allergy Reactions Criticality Noted Date [...] EDT - 09/19/2025 5:30 PM EDT Emergency [facility] Emergency [address] [place] [address] Richard Pelayo MD Mersier, Jasmine, DO Epigastric pain (Primary Dx); Nausea and vomiting, unspecified vomiting type Discharge Disposition: Home or Self Care from Last 3 Months Surgical History Surgery Date Site/Laterality Comments APPENDECTOMY EYE SURGERY Left Medical History Medical History Date Comments Asthma Type 1 diabetes mellitus ([facility] V24, [facility] V 28) GERD (gastroesophageal reflux disease) Diabetic gastroparesis ([facility] V24, [facility] V28 ) Hypertension FLOWER on CPAP Family [...] with reflex microscopic (09/19/2025 12:50 PM EDT) [facility] Specific [place] Urine 1.027 1.003 - 1.030 LAB URINALYSIS - AUTOMATED METHOD 09/19/2025 1:37 PM [facility] pH, Urine 6.5 5.0 - 8.0 pH LAB URINALYSIS - AUTOMATED METHOD 09/19/2025 1:37 PM [facility] Leukocytes, Urine Negative Negative LAB URINALYSIS - AUTOMATED METHOD 09/19/2025 1:37 PM [facility] Nitrite, Urine Negative Negative LAB URINALYSIS - AUTOMATED METHOD 09/19/2025 1:37 PM [facility] Protein, Urine 300(A) <=Trace mg/dL LAB URINALYSIS - AUTOMATED METHOD 09/19/2025 1:37 PM [facility] Glucose, Urine >=1000(A) Negative mg/dL LAB URINALYSIS - AUTOMATED METHOD 09/19/2025 1:37 PM [facility] Ketones, Urine Negative Negative mg/dL LAB URINALYSIS - AUTOMATED METHOD 09/19/2025 1:37 PM [facility] Urobilinogen , Urine 0.2 0.2 - 1.0 mg/dL LAB URINALYSIS - AUTOMATED METHOD 09/19/2025 1:37 PM [facility] Bilirubin, Urine Negative Negative LAB URINALYSIS - AUTOMATED METHOD 09/19/2025 1:37 PM [facility] Blood, Urine Trace(A) Negative LAB URINALYSIS - AUTOMATED METHOD 09/19/2025 1:37 PM [facility] RBC, Urine 4.5(H) 0 - 4 /HPF LAB URINALYSIS - AUTOMATED METHOD 09/19/2025 1:37 PM [facility] WBC, Urine 2.4 0 - 4 /HPF LAB URINALYSIS - AUTOMATED METHOD 09/19/2025 1:37 PM [facility] Squamous Epithelial, Urine 9 0 - 60 /LPF LAB URINALYSIS - AUTOMATED METHOD 09/19/2025 1:37 PM EDT [facility] Bacteria, Urine Negative Negative /HPF LAB URINALYSIS - AUTOMATED METHOD 09/19/2025 1:37 PM EDT [facility] Hyaline Casts, Urine 0.0 0 - 3 /LPF LAB URINALYSIS - AUTOMATED METHOD 09/19/2025 1:37 PM EDT [facility] Urine Urine specimen obtained by clean catch procedure / Unknown Non-blood Collection / Unknown 09/19/2025 12:50 PM EDT 09/19/2025 1:23 PM EDT us Richard Pelayo MD LAB URINE ORDERABLES Final Result [facility] [address] [place] [address], [place] [phone] * CT Abdomen Pelvis w Contrast (09/19/2025 [...] Signed Date: 09/19/2025 12:49 ET Workstation ID: [id number] Transcribed By: Self Edit Transcribed Date: 09/19/2025 [...] Signed Date: 09/19/2025 12:49 ET Workstation ID: [id number] Transcribed By: Self Edit Transcribed Date: 09/19/2025 12:46 ET us Shila Ernst DO IMG CT PROCEDURES Final Resul t * (ABNORMAL) Venous blood gas co-oximetry (09/19/2025 11:09 AM EDT) Carboxyhemoglobin 1.9 0.0 - 3.0 % 09/19/2025 11:18 AM EDT [facility] Methemoglobin 0.3 0.2 - 0.5 % 09/19/2025 11:18 AM EDT [facility] Oxyhemoglobin 74.2(H) 40 - 70 % 09/19/2025 11:18 AM EDT [facility] O2 Sat, Brent 75.9 % 09/19/2025 11:18 AM EDT [facility] Total Hemoglobin Venous 12.0 12.0 - 18.0 g/dL 09/19/2025 11:18 AM EDT [facility] Blood Venous blood specimen / Unknown Venipuncture / Unknown 09/19/2025 11:09 AM EDT 09/19/2025 11:14 AM EDT us Shila Ernst DO LAB BLOOD ORDERABLES Final Re sult [facility] [address] [place] [address], * (ABNORMAL) CBC auto differential (09/19/2025 11:03 AM EDT) WBC 7.7 4.8 - 10.8 K/[facility] LAB HEMETOLOGY METHOD 09/19/2025 11:24 AM EDT [facility] RBC 4.10(L) 4.50 - 5.50 M/mcL LAB HEMETOLOGY METHOD 09/19/2025 11:24 AM [facility] Hemoglobin 11.8(L) 13.5 - 17.5 g/dL LAB HEMETOLOGY METHOD 09/19/2025 11:24 AM [facility] Hematocrit 34.9(L) 42.0 - 54.0 % LAB HEMETOLOGY METHOD 09/19/2025 11:24 AM [facility] MCV 84.7 79.0 - 98.0 FL LAB HEMETOLOGY METHOD 09/19/2025 11:24 AM [facility] MCH 28.6 27.0 - 32.0 pcg LAB HEMETOLOGY METHOD 09/19/2025 11:24 AM [facility] MCHC 33.8 32.0 - 37.0 g/dL LAB HEMETOLOGY METHOD 09/19/2025 11:24 AM [facility] RDW 13.3 11.0 - 15.0 % LAB HEMETOLOGY METHOD 09/19/2025 11:24 AM [facility] Platelets 241 130 - 400 K/mcL LAB HEMETOLOGY METHOD 09/19/2025 11:24 AM [facility] MPV 11.4(H) 7.0 - 11.0 FL LAB HEMETOLOGY METHOD 09/19/2025 11:24 AM [facility] NRBC 0.0 <1.0 % LAB HEMETOLOGY METHOD 09/19/2025 11:24 AM [facility] NRBC Absolute 0.00 <0.10 K/mcL LAB HEMETOLOGY METHOD 09/19/2025 11:24 AM [facility] Neutrophils Relative 63.8 % LAB HEMETOLOGY METHOD 09/19/2025 11:24 AM [facility] Lymphocytes Relative 20.3 % LAB HEMETOLOGY METHOD 09/19/2025 11:24 AM [facility] Monocytes Relative 11.4 % LAB HEMETOLOGY METHOD 09/19/2025 11:24 AM EDT [facility] Eosinophils Relative 3.0 % LAB HEMETOLOGY METHOD 09/19/2025 11:24 AM EDT [facility] Basophils Relative 0.6 % LAB HEMETOLOGY METHOD 09/19/2025 11:24 AM EDT [facility] Immature Granulocytes Relative 0.9 % LAB HEMETOLOGY METHOD 09/19/2025 11:24 AM EDT [facility] Neutrophils Absolute 4.92 1.50 - 7.00 K/mcL LAB HEMETOLOGY METHOD 09/19/2025 11:24 AM EDT [facility] Lymphocytes Absolute 1.57 1.00 - 5.00 K/mcL LAB HEMETOLOGY METHOD 09/19/2025 11:24 AM EDT [facility] Monocytes Absolute 0.88 0.20 - 1.00 K/mcL LAB HEMETOLOGY METHOD 09/19/2025 11:24 AM EDT [facility] Eosinophils Absolute 0.23 0.00 - 0.50 K/mcL LAB HEMETOLOGY METHOD 09/19/2025 11:24 AM EDT [facility] Basophils Absolute 0.05 0.00 - 0.20 K/mcL LAB HEMETOLOGY METHOD 09/19/2025 11:24 AM EDT [facility] Immature Granulocytes Absolute 0.07(H) 0.00 - 0.03 K/mcL LAB HEMETOLOGY METHOD 09/19/2025 11:24 AM T [facility] Blood Venous blood specimen / Unknown Venipuncture / Unknown 09/19/2025 11:03 AM EDT 09/19/2025 11:18 AM EDT Richard Pelayo MD LAB BLOOD ORDERABLES Final Result [facility] [address] [place] [address], [place] [phone] * Magnesium (09/19/2025 11:03 AM EDT) [facility] Magnesium 2.1 1.9 - 2.6 mg/dL LAB CHEMISTRY METHOD 09/19/2025 11:49 AM EDT [facility] Blood Venous blood specimen / Unknown Venipuncture / Unknown 09/19/2025 11:03 AM EDT 09/19/2025 11:18 AM EDT Shila Ernst DO LAB BLOOD ORDERABLES Final Re sult [facility] [address] [place] [address], [place] [phone] * Lipase (09/19/2025 11:03 AM EDT) [facility] Lipase 17 13 - 75 unit/L LAB CHEMISTRY METHOD 09/19/2025 12:07 PM EDT [facility] Blood Venous blood specimen / Unknown Venipuncture / Unknown 09/19/2025 11:03 AM EDT 09/19/2025 11:18 AM EDT Richard Pelayo MD LAB BLOOD ORDERABLES Final Result [facility] [address] [place] [address], [place] [phone] * (ABNORMAL) Comprehensive metabolic panel (09/19/2025 11:03 AM EDT) [facility] Sodium 136 133 - 145 mmol/L LAB CHEMISTRY METHOD 09/19/2025 12:08 PM EDT [facility] Potassium 4.1 3.5 - 5.5 mmol/L LAB CHEMISTRY METHOD 09/19/2025 12:08 PM EDT [facility] Chloride 103 96 - 110 mmol/L LAB CHEMISTRY METHOD 09/19/2025 12:08 PM [facility] CO2 28 21 - 32 mmol/L LAB CHEMISTRY METHOD 09/19/2025 12:08 PM [facility] Anion Gap 5 3 - 11 LAB CHEMISTRY METHOD 09/19/2025 12:08 PM [facility] Glucose 304(H) 70 - 100 mg/dL LAB CHEMISTRY METHOD 09/19/2025 12:08 PM [facility] BUN 17 5 - 25 mg/dL LAB CHEMISTRY METHOD 09/19/2025 12:08 PM [facility] Creatinine 1.51(H) 0.70 - 1.30 mg/dL LAB CHEMISTRY METHOD 09/19/2025 12:08 PM [facility] eGFR 62 >=60 mL/min/1. 73m2 LAB CHEMISTRY METHOD 09/19/2025 12:08 PM [facility] Comment:Calculation based on the Chronic Kidney Disease Epidemiology Collaboration (CKD-EPI) equation refit without adjustment for race. BUN/Creatinine Ratio 11.3 LAB CHEMISTRY METHOD 09/19/2025 12:08 PM [facility] Calcium 8.8 8.5 - 10.5 mg/dL LAB CHEMISTRY METHOD 09/19/2025 12:08 PM [facility] AST (SGOT) 17 10 - 42 unit/L LAB CHEMISTRY METHOD 09/19/2025 12:08 PM [facility] ALT (SGPT) 26 10 - 60 unit/L LAB CHEMISTRY METHOD 09/19/2025 12:08 PM [facility] Alkaline Phosphatase 206(H) 42 - 121 unit/L LAB CHEMISTRY METHOD 09/19/2025 12:08 PM [facility] Total Protein 6.3 6.0 - 8.0 g/dL LAB CHEMISTRY METHOD 09/19/2025 12:08 PM [facility] Albumin 2.6(L) 3.2 - 5.0 g/dL LAB CHEMISTRY METHOD 09/19/2025 12:08 PM EDT [facility] Total Bilirubin 0.3 0.0 - 1.4 mg/dL LAB CHEMISTRY METHOD 09/19/2025 12:08 PM EDT [facility] Blood Venous blood specimen / Unknown Venipuncture / Unknown 09/19/2025 11:03 AM EDT 09/19/2025 11:18 AM EDT us Richard Pelayo MD LAB BLOOD ORDERABLES Final Result [facility] [address] [place] [address], [place] [phone] from Last 3 Months Insurance MEDICAID - [...] currently active code status orders. Care Teams Hardener Helper Relationship Specialty Start Date End Date Name, MD Dipesh [address] [place], [place] PCP - General Internal Medicine 10/19/17
== END 2025-11-14 09:30 | disposition home or self-care (01) ==
LOC: HO.HPODS 09:00
PROVIDERS: PCP Internal Medicine Geriatric Medicine; Visit Provider Student in an Organized Health Care Education/Training Program
DX: R60.0 Localized edema (principal); E10.65 Type 1 diabetes mellitus with hyperglycemia; E10.21 Type 1 diabetes mellitus with diabetic nephropathy; E10.42 Type 1 diabetes mellitus with diabetic polyneuropathy
CPT/HCPCS: 99204; G9226

== ENCOUNTER → 2025-11-14 08:59 | Outpatient (BNVA) | payer MEDICAID, SELFPAY | PROVIDERS: PCP Internal Medicine Geriatric Medicine; Visit Provider Student in an Organized Health Care Education/Training Program | DX: E10.42 Type 1 diabetes mellitus with diabetic polyneuropathy (principal); E10.43 Type 1 diabetes mellitus with diabetic autonomic (poly)neuropathy; E10.21 Type 1 diabetes mellitus with diabetic nephropathy; E10.65 Type 1 diabetes mellitus with hyperglycemia | CPT/HCPCS: 99202 ==